=== PATIENT | male | born 1940 | race Caucasian/White ===

== ENCOUNTER → 2016-07-24 | Outpatient (REF) | payer MEDICARE ==
[2016-07-24 12:54] LABS: ALBUMIN 3.9 GM/DL (3.2-5.2); ALBUMIN/GLOBULIN RATIO 1.26 (1.00-1.93); ALKALINE PHOSPHATASE 45 U/L (45-117); ALT/SGPT 43 U/L (12-78); ANION GAP 12 MEQ/L (8-16); AST/SGOT 38 U/L (15-37); BLOOD UREA NITROGEN 17 MG/DL (7-18); CALCIUM LEVEL 8.5 MG/DL (8.8-10.2); CARBON DIOXIDE LEVEL 28 MEQ/L (21-32); CHLORIDE LEVEL 99 MEQ/L (98-107); CHOLESTEROL LEVEL 151 MG/DL (<200); CREATININE FOR GFR 1.12 MG/DL (0.70-1.30); GLOMERULAR FILTRATION RATE > 60.0 (>42); GLUCOSE, FASTING 266 MG/DL (83-110); POTASSIUM SERUM 3.9 MEQ/L (3.5-5.1); SODIUM LEVEL 139 MEQ/L (136-145); TRIGLYCERIDES LEVEL 580 MG/DL (<150)
== END | disposition home or self-care (01) ==
LOC: M SFHCPLAZ 12:11
PROVIDERS: ATTEND Internal Medicine
DX: I10 Essential (primary) hypertension (principal); E11.9 Type 2 diabetes mellitus without complications; E78.00 Pure hypercholesterolemia, unspecified

== ENCOUNTER → 2016-11-21 | Outpatient (REF) | payer MEDICARE ==
[2016-11-21 12:08] LABS: ALBUMIN 3.9 GM/DL (3.2-5.2); ALBUMIN/GLOBULIN RATIO 1.18 (1.00-1.93); ALKALINE PHOSPHATASE 53 U/L (45-117); ALT/SGPT 41 U/L (12-78); ANION GAP 7 MEQ/L (8-16); AST/SGOT 32 U/L (15-37); BILIRUBIN,TOTAL 0.6 MG/DL (0.2-1.0); BLOOD UREA NITROGEN 13 MG/DL (7-18); CARBON DIOXIDE LEVEL 32 MEQ/L (21-32); CHLORIDE LEVEL 96 MEQ/L (98-107); CHOLESTEROL LEVEL 151 MG/DL (<200); GLOMERULAR FILTRATION RATE > 60.0 (>42); GLUCOSE, FASTING 207 MG/DL (83-110); POTASSIUM SERUM 3.9 MEQ/L (3.5-5.1); SODIUM LEVEL 135 MEQ/L (136-145); TOTAL PROTEIN 7.2 GM/DL (6.4-8.2); TRIGLYCERIDES LEVEL 559 MG/DL (<150)
== END ==
LOC: M SFHCPLAZ 10:19
PROVIDERS: ATTEND Internal Medicine
DX: I10 Essential (primary) hypertension (principal); E11.9 Type 2 diabetes mellitus without complications; E78.00 Pure hypercholesterolemia, unspecified

== ENCOUNTER → 2017-01-14 | Outpatient (CLI) | payer MEDICARE ==
[~2017-01-14] MED LIST: ASPI1TAB PO; CHLO125TA PO; FISH100049 PO; GABA600T PO; LATA5OPD OD; LISI40TAB PO; METF750T PO; NABU500T PO; TIMO5OPG OD; TRAM50TA2 PO
--- NOTE | 2017-01-14 11:37 | REP ---
LUMBAR SPINE, FIVE VIEWS: HISTORY: Spinal stenosis. There is no acute fracture or subluxation. The intervertebral discs are decreased in height consistent with disc degeneration. Osteophytes are present throughout the lumbar spine. There is narrowing of the L3-4 through L5-S1 facet joints with associated sclerosis. IMPRESSION: Degenerative change as described above. Signed by Sterling Tyler MD 01/14/2017 11:46 A
== END ==
LOC: M RAD 10:31
PROVIDERS: ATTEND Nurse Practitioner Family
DX: M48.06 Spinal stenosis, lumbar region (principal)

== ENCOUNTER 2017-01-22 08:41 | Outpatient (CLI) | payer MEDICARE ==
[~2017-01-22] VITALS: Ht 188 cm; Wt 131.5 kg
[2017-01-22] MEDS ORDERED: NS 1,000 ML IV ONE (09:00)
[2017-01-22] MEDS ORDERED: PROPOFOL 200 MG/20 ML VIAL As Ordered ONE (10:30)
[2017-01-22] MEDS ORDERED: LIDOCAINE 2% INJ 100 MG/5 ML SDV (FOR ANES.) As Ordered ONE (10:30)
--- NOTE | 2017-01-22 10:34 | ROOR ---
Patient Name: Ej Sandhu Procedure Date: 01/22/2017 10:12 AM Date of : 1940 Age: 76 Room: [facility] Gender: Male Note Status: Finalized Procedure: Colonoscopy Indications: High risk colon cancer surveillance: Personal history of colonic polyps Providers: Armand Brito Jr, MD Referring MD: Xavier Gonzalez MD Requesting Provider: Medicines: Propofol per Anesthesia Complications: No immediate complications. Procedure: Pre-Anesthesia Assessment: - Prior to the procedure, a History and Physical was performed, and patient medications and allergies were reviewed. The patient is competent. The risks and benefits of the procedure and the sedation options and risks were discussed with the patient. All questions were answered and informed consent was obtained. Patient identification and proposed procedure were verified by the physician and the nurse in the pre-procedure area and in the procedure room. Mental Status Examination: alert and oriented. Airway Examination: normal oropharyngeal airway and neck mobility. Respiratory Examination: clear to auscultation. CV Examination: normal. ASA Grade Assessment: II - A patient with mild systemic disease. After reviewing the risks and benefits, the patient was deemed in satisfactory condition to undergo the procedure. The anesthesia plan was to use moderate sedation / analgesia (conscious sedation). Immediately prior to administration of medications, the patient was re-assessed for adequacy to receive sedatives. The heart rate, respiratory rate, oxygen saturations, blood pressure, adequacy of pulmonary ventilation, and response to care were monitored throughout the procedure. The physical status of the patient was re-assessed after the procedure. The Colonoscope was introduced through the anus and advanced to the cecum, identified by appendiceal orifice and ileocecal valve. The colonoscopy was performed without difficulty. The patient tolerated the procedure well. The quality of the bowel preparation was poor. Findings: The perianal and digital rectal examinations were normal. Pertinent negatives include normal sphincter tone, no palpable rectal lesions and no anal lesion or abnormality was detected. A medium polyp was found in the ascending colon. The polyp was removed with a hot snare. Resection was complete, but the polyp tissue was not retrieved. Multiple small and large-mouthed diverticula were found in the sigmoid colon. The rectum, descending colon and transverse colon appeared normal. Impression: - Preparation of the colon was poor. - One medium polyp in the ascending colon, removed with a hot snare. Complete resection. Polyp tissue not retrieved. - Diverticulosis in the sigmoid colon. - The rectum, descending colon and transverse colon are normal. Recommendation: - Discharge patient to home (ambulatory). - Repeat colonoscopy in 5 years for surveillance. Armand Brito MD Armand Brito Jr, MD 01/22/2017 10:34:30 AM This report has been signed electronically. Number of Addenda: 0 Note Initiated On: 01/22/2017 10:12 AM Estimated Blood Loss: Estimated blood loss: none.
[2017-01-22 10:55] VITALS: BP 121/67
== END 2017-01-22 11:16 | disposition home or self-care (01) ==
LOC: M OPP 08:41
PROVIDERS: ATTEND Surgery
DX: Z12.11 Encounter for screening for malignant neoplasm of colon (principal); D12.2 Benign neoplasm of ascending colon; K57.30 Diverticulosis of large intestine without perforation or abscess without bleeding; Z86.010 Personal history of colon polyps; I10 Essential (primary) hypertension; E11.9 Type 2 diabetes mellitus without complications; Z79.4 Long term (current) use of insulin; F41.9 Anxiety disorder, unspecified; F32.9 Major depressive disorder, single episode, unspecified; M19.90 Unspecified osteoarthritis, unspecified site; M54.9 Dorsalgia, unspecified; G47.30 Sleep apnea, unspecified; M48.00 Spinal stenosis, site unspecified; Z85.46 Personal history of malignant neoplasm of prostate; Z79.82 Long term (current) use of aspirin; Z79.84 Long term (current) use of oral hypoglycemic drugs; Z79.891 Long term (current) use of opiate analgesic; Z79.899 Other long term (current) drug therapy; Z87.891 Personal history of nicotine dependence

== ENCOUNTER → 2017-04-01 | Outpatient (REF) | payer MEDICARE ==
[2017-04-01 12:16] LABS: MEAN CORPUSCULAR HEMOGLOBIN 30.6 pg (27.0-33.0); MEAN CORPUSCULAR HGB CONC 33.4 g/dl (32.0-36.5); MEAN CORPUSCULAR VOLUME 91.5 fl (80.0-96.0); PLATELET COUNT, AUTOMATED 130 10^3/uL (150-450); RED CELL DISTRIBUTION WIDTH 14.2 % (11.5-14.5); WHITE BLOOD COUNT 7.1 10^3/uL (4.0-10.0)
[2017-04-01 12:36] LABS: ALBUMIN 4.2 GM/DL (3.2-5.2); ALBUMIN/GLOBULIN RATIO 1.27 (1.00-1.93); ALKALINE PHOSPHATASE 60 U/L (45-117); ALT/SGPT 30 U/L (12-78); ANION GAP 6 MEQ/L (8-16); AST/SGOT 23 U/L (15-37); BILIRUBIN,TOTAL 0.9 MG/DL (0.2-1.0); BLOOD UREA NITROGEN 24 MG/DL (7-18); CALCIUM LEVEL 9.5 MG/DL (8.8-10.2); CARBON DIOXIDE LEVEL 34 MEQ/L (21-32); CHLORIDE LEVEL 96 MEQ/L (98-107); CHOLESTEROL LEVEL 148 MG/DL (<200); CREATININE FOR GFR 1.16 MG/DL (0.70-1.30); GLOMERULAR FILTRATION RATE > 60.0 (>42); GLUCOSE, FASTING 166 MG/DL (83-110); MAGNESIUM LEVEL 1.6 MG/DL (1.8-2.4); POTASSIUM SERUM 3.5 MEQ/L (3.5-5.1); SODIUM LEVEL 136 MEQ/L (136-145); TOTAL PROTEIN 7.5 GM/DL (6.4-8.2); TRIGLYCERIDES LEVEL 458 MG/DL (<150)
== END ==
LOC: M SFHCPLAZ 08:50
PROVIDERS: ATTEND Internal Medicine
DX: Z00.00 Encounter for general adult medical examination without abnormal findings (principal); Z86.010 Personal history of colon polyps; I10 Essential (primary) hypertension; E11.9 Type 2 diabetes mellitus without complications; E78.2 Mixed hyperlipidemia

== ENCOUNTER → 2017-07-15 | Outpatient (REF) | payer MEDICARE ==
[2017-07-15 12:17] LABS: ESTIMATED AVERAGE GLUCOSE 174 MG/DL (60-110); HEMOGLOBIN A1c 7.7 %
[2017-07-15 12:24] LABS: ALBUMIN 3.9 GM/DL (3.2-5.2); ALBUMIN/GLOBULIN RATIO 1.18 (1.00-1.93); ALKALINE PHOSPHATASE 43 U/L (45-117); ALT/SGPT 36 U/L (12-78); ANION GAP 9 MEQ/L (8-16); AST/SGOT 27 U/L (7-37); BILIRUBIN,TOTAL 0.8 MG/DL (0.2-1.0); BLOOD UREA NITROGEN 12 MG/DL (7-18); CALCIUM LEVEL 8.4 MG/DL (8.8-10.2); CARBON DIOXIDE LEVEL 30 MEQ/L (21-32); CHLORIDE LEVEL 99 MEQ/L (98-107); CHOLESTEROL LEVEL 150 MG/DL (<200); CREATININE FOR GFR 0.86 MG/DL (0.70-1.30); GLOMERULAR FILTRATION RATE > 60.0 (>42); GLUCOSE, FASTING 147 MG/DL (70-100); HDL CHOLESTEROL 25 MG/DL (>40); MAGNESIUM LEVEL 1.4 MG/DL (1.8-2.4); NON-HDL-C 125 MG/DL; POTASSIUM SERUM 3.8 MEQ/L (3.5-5.1); SODIUM LEVEL 138 MEQ/L (136-145); TOTAL PROTEIN 7.2 GM/DL (6.4-8.2); TRIGLYCERIDES LEVEL 786 MG/DL (<150)
[2017-07-15 12:35] LABS: MALB URINE SIEMENS 60.9 MG/L; MAU/CREAT RATIO 21.1 MCG/MG (0.0-30.0)
== END ==
LOC: M SFHCPLAZ 09:39
DX: E78.2 Mixed hyperlipidemia (principal); I10 Essential (primary) hypertension; E11.9 Type 2 diabetes mellitus without complications
CPT/HCPCS: 83735

== ENCOUNTER → 2017-08-14 | Outpatient (REF) | payer MEDICARE ==
[2017-08-14 16:28] LABS: BLOOD UREA NITROGEN 15 MG/DL (7-18)
[2017-08-14 16:28] LABS: CREATININE FOR GFR 0.99 MG/DL (0.70-1.30); GLOMERULAR FILTRATION RATE > 60.0 (>42)
== END ==
LOC: M LABDRAW1 14:57
DX: M47.896 Other spondylosis, lumbar region (principal)
CPT/HCPCS: 82565

== ENCOUNTER → 2017-11-11 | Outpatient (REF) | payer MEDICARE ==
[2017-11-11 12:19] LABS: ESTIMATED AVERAGE GLUCOSE 240 MG/DL (60-110)
[2017-11-11 12:40] LABS: ALBUMIN 3.9 GM/DL (3.2-5.2); ALBUMIN/GLOBULIN RATIO 1.15 (1.00-1.93); ALKALINE PHOSPHATASE 56 U/L (45-117); ALT/SGPT 46 U/L (12-78); ANION GAP 14 MEQ/L (8-16); AST/SGOT 42 U/L (7-37); BILIRUBIN,TOTAL 0.9 MG/DL (0.2-1.0); BLOOD UREA NITROGEN 14 MG/DL (7-18); CARBON DIOXIDE LEVEL 26 MEQ/L (21-32); CHLORIDE LEVEL 97 MEQ/L (98-107); CHOLESTEROL LEVEL 110 MG/DL (<200); CREATININE FOR GFR 1.13 MG/DL (0.70-1.30); GLOMERULAR FILTRATION RATE > 60.0 (>42); GLUCOSE, FASTING 340 MG/DL (70-100); HDL CHOLESTEROL 26 MG/DL (>40); MAGNESIUM LEVEL 1.7 MG/DL (1.8-2.4); NON-HDL-C 84 MG/DL; POTASSIUM SERUM 3.9 MEQ/L (3.5-5.1); SODIUM LEVEL 137 MEQ/L (136-145); TOTAL PROTEIN 7.3 GM/DL (6.4-8.2); TRIGLYCERIDES LEVEL 558 MG/DL (<150)
[2017-11-11 12:48] LABS: HEPATITIS B SURFACE ANTIBODY NEGATIVE (POSITIVE)
[2017-11-11 12:59] LABS: HEPATITIS B SURFACE ANTIGEN NEGATIVE (NEGATIVE)
[2017-11-11 13:28] LABS: HEPATITIS C VIRUS ABY INDEX < 0.0 INDEX (<0.8)
== END ==
LOC: M SFHCPLAZ 10:04
DX: I10 Essential (primary) hypertension (principal); R16.0 Hepatomegaly, not elsewhere classified; E11.9 Type 2 diabetes mellitus without complications; E78.2 Mixed hyperlipidemia
CPT/HCPCS: 83735

== ENCOUNTER → 2018-01-25 | Outpatient (REF) | payer MEDICARE ==
[2018-01-25 13:46] LABS: HEMATOCRIT 39.4 % (42.0-52.0); HEMOGLOBIN 13.3 g/dl (13.5-17.5); MEAN CORPUSCULAR HGB CONC 33.8 g/dl (32.0-36.5); MEAN CORPUSCULAR VOLUME 94.7 fl (80.0-96.0); PLATELET COUNT, AUTOMATED 115 10^3/uL (150-450); RED BLOOD COUNT 4.16 10^6/uL (4.30-6.10); RED CELL DISTRIBUTION WIDTH 14.6 % (11.5-14.5); WHITE BLOOD COUNT 5.9 10^3/uL (4.0-10.0)
[2018-01-25 13:52] LABS: ALBUMIN 3.9 GM/DL (3.2-5.2); ALBUMIN/GLOBULIN RATIO 1.18 (1.00-1.93); ALKALINE PHOSPHATASE 43 U/L (45-117); ALT/SGPT 36 U/L (12-78); ANION GAP 10 MEQ/L (8-16); AST/SGOT 32 U/L (7-37); BILIRUBIN,TOTAL 1.2 MG/DL (0.2-1.0); BLOOD UREA NITROGEN 21 MG/DL (7-18); CALCIUM LEVEL 8.9 MG/DL (8.8-10.2); CARBON DIOXIDE LEVEL 28 MEQ/L (21-32); CHLORIDE LEVEL 100 MEQ/L (98-107); CHOLESTEROL LEVEL 96 MG/DL (<200); CHOLESTEROL RISK RATIO 3.096 (<5); CREATININE FOR GFR 1.23 MG/DL (0.70-1.30); GLOMERULAR FILTRATION RATE > 60.0 (>42); GLUCOSE, FASTING 169 MG/DL (70-100); HDL CHOLESTEROL 31 MG/DL (>40); MAGNESIUM LEVEL 1.6 MG/DL (1.8-2.4); NON-HDL-C 65 MG/DL; POTASSIUM SERUM 4.3 MEQ/L (3.5-5.1); SODIUM LEVEL 138 MEQ/L (136-145); TOTAL PROTEIN 7.2 GM/DL (6.4-8.2); TRIGLYCERIDES LEVEL 406 MG/DL (<150)
[2018-01-25 13:54] LABS: FOLATE > 24.0 NG/ML
[2018-01-25 14:31] LABS: VITAMIN B12 LEVEL 289 PG/ML
[2018-01-25 14:41] LABS: ESTIMATED AVERAGE GLUCOSE 209 MG/DL (60-110); HEMOGLOBIN A1c 8.9 %
[2018-01-28 18:14] LABS: MALB URINE SIEMENS 14.6 MG/L; MAU/CREAT RATIO 5.6 MCG/MG (0.0-30.0)
== END ==
LOC: M SFHCPLAZ 11:00
DX: E78.2 Mixed hyperlipidemia (principal); Z85.46 Personal history of malignant neoplasm of prostate; I10 Essential (primary) hypertension; E11.9 Type 2 diabetes mellitus without complications; R26.89 Other abnormalities of gait and mobility
CPT/HCPCS: 82746

== ENCOUNTER → 2018-02-22 | Outpatient (CLI) | payer MEDICARE ==
[~2018-02-22] MED LIST changes: -ASPI1TAB PO; -CHLO125TA PO; -FISH100049 PO; -GABA600T PO; +ISOVUE-370 76% 100ML VIAL (Q9967) As Ordered; -LATA5OPD OD; -LISI40TAB PO; -METF750T PO; -NABU500T PO; -TIMO5OPG OD; -TRAM50TA2 PO
== END ==
LOC: M RAD 16:47
DX: I70.0 Atherosclerosis of aorta (principal); R09.02 Hypoxemia; E11.9 Type 2 diabetes mellitus without complications
CPT/HCPCS: Q9967

== ENCOUNTER → 2018-02-22 | Outpatient (REF) | payer MEDICARE ==
[2018-02-22 17:11] LABS: HEMATOCRIT 39.8 % (42.0-52.0); HEMOGLOBIN 13.5 g/dl (13.5-17.5); MEAN CORPUSCULAR HEMOGLOBIN 32.5 pg (27.0-33.0); MEAN CORPUSCULAR HGB CONC 33.9 g/dl (32.0-36.5); MEAN CORPUSCULAR VOLUME 95.7 fl (80.0-96.0); PLATELET COUNT, AUTOMATED 122 10^3/uL (150-450); RED BLOOD COUNT 4.16 10^6/uL (4.30-6.10); RED CELL DISTRIBUTION WIDTH 15.4 % (11.5-14.5); WHITE BLOOD COUNT 5.9 10^3/uL (4.0-10.0)
[2018-02-22 17:43] LABS: ALBUMIN 3.7 GM/DL (3.2-5.2); ALBUMIN/GLOBULIN RATIO 1.09 (1.00-1.93); ALKALINE PHOSPHATASE 50 U/L (45-117); ALT/SGPT 110 U/L (12-78); ANION GAP 16 MEQ/L (8-16); AST/SGOT 194 U/L (7-37); BILIRUBIN,TOTAL 1.4 MG/DL (0.2-1.0); BLOOD UREA NITROGEN 27 MG/DL (7-18); CALCIUM LEVEL 9.4 MG/DL (8.8-10.2); CARBON DIOXIDE LEVEL 26 MEQ/L (21-32); CHLORIDE LEVEL 98 MEQ/L (98-107); CREATININE FOR GFR 1.76 MG/DL (0.70-1.30); GLOMERULAR FILTRATION RATE 40.2 (>42); GLUCOSE, FASTING 261 MG/DL (70-100); SODIUM LEVEL 140 MEQ/L (136-145); TOTAL PROTEIN 7.1 GM/DL (6.4-8.2)
[2018-02-23 10:13] LABS: CPK CREATINE PHOSPHOKINASE 3457 U/L (39-308); NT-PRO BNP 45 PG/ML (<450)
== END ==
LOC: M SFHCPLAZ 15:36
DX: E11.9 Type 2 diabetes mellitus without complications (principal); R09.02 Hypoxemia
CPT/HCPCS: 80053

== ENCOUNTER → 2018-02-25 | Outpatient (REF) | payer MEDICARE ==
[2018-02-25 14:07] LABS: ALBUMIN 3.9 GM/DL (3.2-5.2); ALBUMIN/GLOBULIN RATIO 1.11 (1.00-1.93); ALKALINE PHOSPHATASE 54 U/L (45-117); ALT/SGPT 79 U/L (12-78); ANION GAP 10 MEQ/L (8-16); AST/SGOT 93 U/L (7-37); BILIRUBIN,TOTAL 1.1 MG/DL (0.2-1.0); BLOOD UREA NITROGEN 38 MG/DL (7-18); CALCIUM LEVEL 9.1 MG/DL (8.8-10.2); CARBON DIOXIDE LEVEL 30 MEQ/L (21-32); CHLORIDE LEVEL 96 MEQ/L (98-107); CPK CREATINE PHOSPHOKINASE 977 U/L (39-308); GLOMERULAR FILTRATION RATE 52.3 (>42); GLUCOSE, FASTING 264 MG/DL (70-100); SODIUM LEVEL 136 MEQ/L (136-145); TOTAL PROTEIN 7.4 GM/DL (6.4-8.2)
== END ==
LOC: M SFHCPLAZ 12:33
DX: T79.6XXD Traumatic ischemia of muscle, subsequent encounter (principal); R74.8 Abnormal levels of other serum enzymes; W18.30XD Fall on same level, unspecified, subsequent encounter; Y92.009 Unspecified place in unspecified non-institutional (private) residence as the place of occurrence of the external cause
CPT/HCPCS: 82550

== ENCOUNTER → 2018-03-02 | Outpatient (REF) | payer MEDICARE ==
[2018-03-02 20:01] LABS: ALBUMIN 4.1 GM/DL (3.2-5.2); ALBUMIN/GLOBULIN RATIO 1.17 (1.00-1.93); ALKALINE PHOSPHATASE 48 U/L (45-117); ALT/SGPT 55 U/L (12-78); ANION GAP 10 MEQ/L (8-16); AST/SGOT 44 U/L (7-37); BILIRUBIN,TOTAL 1.2 MG/DL (0.2-1.0); BLOOD UREA NITROGEN 28 MG/DL (7-18); CALCIUM LEVEL 9.3 MG/DL (8.8-10.2); CARBON DIOXIDE LEVEL 30 MEQ/L (21-32); CHLORIDE LEVEL 96 MEQ/L (98-107); CPK CREATINE PHOSPHOKINASE 441 U/L (39-308); CREATININE FOR GFR 1.44 MG/DL (0.70-1.30); GLOMERULAR FILTRATION RATE 50.6 (>42); GLUCOSE, FASTING 70 MG/DL (70-100); POTASSIUM SERUM 4.5 MEQ/L (3.5-5.1); SODIUM LEVEL 136 MEQ/L (136-145); TOTAL PROTEIN 7.6 GM/DL (6.4-8.2)
== END ==
LOC: M SFHCPLAZ 15:49
DX: R74.8 Abnormal levels of other serum enzymes (principal); T79.6XXD Traumatic ischemia of muscle, subsequent encounter; R09.02 Hypoxemia; E11.9 Type 2 diabetes mellitus without complications; M48.061 Spinal stenosis, lumbar region without neurogenic claudication; W19.XXXD Unspecified fall, subsequent encounter; I10 Essential (primary) hypertension; R16.0 Hepatomegaly, not elsewhere classified
CPT/HCPCS: 82550

== ENCOUNTER → 2018-03-22 | Outpatient (CLI) | payer MEDICARE | LOC: M CARPUL 10:03 | DX: R09.02 Hypoxemia (principal) | CPT/HCPCS: 93306 ==

== ENCOUNTER → 2018-04-10 | Outpatient (CLI) | payer MEDICARE | LOC: M RAD 12:41 | DX: M51.26 Other intervertebral disc displacement, lumbar region (principal); M48.061 Spinal stenosis, lumbar region without neurogenic claudication | CPT/HCPCS: 72148 ==

== ENCOUNTER 2018-05-09 12:18 | Inpatient (IN) | payer MEDICARE ==
[2018-05-09 13:08] LABS: BASO % 0.2 % (0.0-1.0); EOS % 0.1 % (0.0-3.0); HEMATOCRIT 40.1 % (42.0-52.0); HEMOGLOBIN 13.2 g/dl (13.5-17.5); IMMATURE GRANULOCYTE % 0.7 % (0-3.0); LYMPH # 0.6 10^3/uL (1.5-4.5); LYMPH % 4.7 % (24.0-44.0); MEAN CORPUSCULAR HEMOGLOBIN 30.7 pg (27.0-33.0); MEAN CORPUSCULAR HGB CONC 32.9 g/dl (32.0-36.5); MEAN CORPUSCULAR VOLUME 93.3 fl (80.0-96.0); MONO # 1.1 10^3/uL (0.0-0.8); MONO % 8.7 % (0.0-5.0); NEUTROPHILS # 10.6 10^3/uL (1.8-7.7); NEUTROPHILS % 85.6 % (36.0-66.0); PLATELET COUNT, AUTOMATED 143 10^3/uL (150-450); RED CELL DISTRIBUTION WIDTH 14.1 % (11.5-14.5); WHITE BLOOD COUNT 12.3 10^3/uL (4.0-10.0)
[2018-05-09 13:43] LABS: ANION GAP 8 MEQ/L (8-16); BLOOD UREA NITROGEN 25 MG/DL (7-18); CALCIUM LEVEL 8.9 MG/DL (8.8-10.2); CARBON DIOXIDE LEVEL 30 MEQ/L (21-32); CHLORIDE LEVEL 97 MEQ/L (98-107); CPK CREATINE PHOSPHOKINASE 2713 U/L (39-308); CREATININE FOR GFR 1.13 MG/DL (0.70-1.30); GLOMERULAR FILTRATION RATE > 60.0 (>42); GLUCOSE, FASTING 304 MG/DL (70-100); MB/CK RELATIVE INDEX 0.22 (< OR =4); POTASSIUM SERUM 4.1 MEQ/L (3.5-5.1); SODIUM LEVEL 135 MEQ/L (136-145); TROPONIN I < 0.02 NG/ML (< 0.10)
[2018-05-09 14:06] LABS: AMORPHOUS SEDIMENT RFX SMALL (NEGATIVE); KETONE, URINE AUTO RFX TRACE mg/dL (NEGATIVE); NITRITE, URINE AUTO RFX NEGATIVE (NEGATIVE); RBC, URINE AUTO RFX 3 /HPF (0-3); SPECIFIC GRAVITY UR AUTO RFX 1.022 (1.002-1.035); SQUAM EPITHELIAL CELL UR AURFX 1 /HPF (0-6); WBC, URINE AUTO RFX 2 /HPF (0-3)
[2018-05-09 14:08] LABS: LACTIC ACID SEPSIS PROTOCOL 2.8 MMOL/L (0.4-2.0)
[2018-05-09 14:17] LABS: LEUKOCYTE ESTERASE UR AUTO RFX TRACE (NEGATIVE)
[2018-05-09] MEDS: NS 1,000 ML in APPROPRIATE DILUENT 1 EA IV (14:30)
[2018-05-09] MEDS: HumaLOG INSULIN (NovoLOG) PER UNIT SC (14:30)
[2018-05-09] MEDS: PIPERACILLIN/TAZOBACTAM SOD 3.375 GM in D5W MINI-BAG PLUS 50 ML IV ×2 (14:31→20:00)
[2018-05-09] MEDS: NS 1,000 ML IV (18:51)
[2018-05-09] MEDS: ACETAMINOPHEN TAB 650MG DOSE (2X325MG) PO (20:07)
[2018-05-09] MEDS: LISINOPRIL 40 MG TAB PO (21:14)
[2018-05-09] MEDS: GABAPENTIN 400 MG CAP PO (21:14)
[2018-05-09] MEDS: ATORVASTATIN 20 MG TAB PO (21:14)
[2018-05-09] MEDS: CHLORTHALIDONE 25 MG TAB PO (21:15)
[2018-05-09] MEDS: ASPIRIN 81 MG ENTERIC TAB PO (21:15)
[2018-05-09] MEDS: metFORMIN XR 750 MG TAB PO (21:38)
[2018-05-09] MEDS: OMEGA-3 1000MG CAPSULE PO (21:38)
[2018-05-10 01:53] LABS: LACTIC ACID SEPSIS PROTOCOL 1.5 MMOL/L (0.4-2.0)
[2018-05-10] MEDS: PIPERACILLIN/TAZOBACTAM SOD 3.375 GM in D5W MINI-BAG PLUS 50 ML IV ×3 (02:00→17:56)
[2018-05-10] MEDS: NS 1,000 ML IV ×2 (03:57→14:00)
[2018-05-10] MEDS: ACETAMINOPHEN TAB 650MG DOSE (2X325MG) PO ×2 (06:24→20:47)
[2018-05-10 07:06] LABS: BASO % 0.2 % (0.0-1.0); EOS % 0.1 % (0.0-3.0); HEMATOCRIT 37.2 % (42.0-52.0); IMMATURE GRANULOCYTE % 0.5 % (0-3.0); LYMPH # 0.8 10^3/uL (1.5-4.5); LYMPH % 6.2 % (24.0-44.0); MEAN CORPUSCULAR HEMOGLOBIN 30.8 pg (27.0-33.0); MEAN CORPUSCULAR HGB CONC 32.3 g/dl (32.0-36.5); MEAN CORPUSCULAR VOLUME 95.6 fl (80.0-96.0); MONO # 1.2 10^3/uL (0.0-0.8); NEUTROPHILS # 10.8 10^3/uL (1.8-7.7); PLATELET COUNT, AUTOMATED 136 10^3/uL (150-450); RED BLOOD COUNT 3.89 10^6/uL (4.30-6.10); RED CELL DISTRIBUTION WIDTH 14.3 % (11.5-14.5); WHITE BLOOD COUNT 12.8 10^3/uL (4.0-10.0)
[2018-05-10 07:44] LABS: ANION GAP 9 MEQ/L (8-16); BLOOD UREA NITROGEN 19 MG/DL (7-18); CALCIUM LEVEL 8.5 MG/DL (8.8-10.2); CARBON DIOXIDE LEVEL 28 MEQ/L (21-32); CHLORIDE LEVEL 99 MEQ/L (98-107); CPK CREATINE PHOSPHOKINASE 1320 U/L (39-308); CREATININE FOR GFR 0.98 MG/DL (0.70-1.30); GLOMERULAR FILTRATION RATE > 60.0 (>42); GLUCOSE, FASTING 245 MG/DL (70-100); POTASSIUM SERUM 4.2 MEQ/L (3.5-5.1); SODIUM LEVEL 136 MEQ/L (136-145)
[2018-05-10] MEDS ORDERED: GLUCOSE 4 GM CHEW TABLET PO (08:00)
[2018-05-10] MEDS ORDERED: DEXTROSE 50% 50 ML SYRINGE IV (08:00)
[2018-05-10] MEDS ORDERED: GLUCAGON FOR INJ 1 MG VIAL (J1610) SC (08:00)
[2018-05-10 08:10] LABS: HEMATOCRIT 36.4 % (42.0-52.0); HEMOGLOBIN 11.8 g/dl (13.5-17.5); MEAN CORPUSCULAR HGB CONC 32.4 g/dl (32.0-36.5); MEAN CORPUSCULAR VOLUME 95.5 fl (80.0-96.0); PLATELET COUNT, AUTOMATED 129 10^3/uL (150-450); RED BLOOD COUNT 3.81 10^6/uL (4.30-6.10); RED CELL DISTRIBUTION WIDTH 14.3 % (11.5-14.5); WHITE BLOOD COUNT 13.2 10^3/uL (4.0-10.0)
[2018-05-10 08:39] LABS: ANION GAP 9 MEQ/L (8-16); BLOOD UREA NITROGEN 22 MG/DL (7-18); CALCIUM LEVEL 8.2 MG/DL (8.8-10.2); CARBON DIOXIDE LEVEL 28 MEQ/L (21-32); CHLORIDE LEVEL 100 MEQ/L (98-107); CREATININE FOR GFR 0.86 MG/DL (0.70-1.30); GLOMERULAR FILTRATION RATE > 60.0 (>42); GLUCOSE, FASTING 264 MG/DL (70-100); POTASSIUM SERUM 3.9 MEQ/L (3.5-5.1); SODIUM LEVEL 137 MEQ/L (136-145); TROPONIN I < 0.02 NG/ML (< 0.10)
[2018-05-10] MEDS: HumaLOG INSULIN (NovoLOG) PER UNIT SC ×4 (08:46→20:47)
[2018-05-10] MEDS: GABAPENTIN 400 MG CAP PO ×3 (08:46→20:46)
[2018-05-10] MEDS: VANCOMYCIN HCL 1,000 MG, VIAL MATE ADAPTER 1 EACH in D5W 250 ML IV ×3 (08:47→22:48)
[2018-05-10 12:05] LABS: BEDSIDE GLUCOSE 269 MG/DL (83-110)
[2018-05-10] MEDS ORDERED: PROHANCE 279.3MG/ML 5ML VIAL (A9576) As Ordered (13:44)
[2018-05-10] MEDS ORDERED: PROHANCE 279.3MG/ML 15ML VIAL (A9576) As Ordered (13:45)
[2018-05-10 16:46] LABS: BEDSIDE GLUCOSE 221 MG/DL (83-110)
[2018-05-10] MEDS ORDERED: LIDOCAINE 1% MDV 20ML VIAL As Ordered (17:16)
[2018-05-10] MEDS: LIDOCAINE 1% MDV 20ML VIAL SC (17:54)
[2018-05-10] MEDS: ENOXAPARIN 40 MG/0.4 ML SYRINGE (J1650) SC (17:55)
[2018-05-10 18:13] LABS: CPK CREATINE PHOSPHOKINASE 990 U/L (39-308)
[2018-05-10 18:17] LABS: MUCIN CLOT TEST 4+ (4+)
[2018-05-10 18:24] LABS: APPEARANCE, BODY FLUID CLOTTED (CLEAR); CRYSTALS, BODY FLUID NONE SEEN (NONE SEEN); SOURCE, BODY FLUID RT ANKLE; SOURCE, BODY FLUID CRYSTALS RT ANKLE; SYNOVIAL FLUID COLOR AMBER (YELLOW)
[2018-05-10 18:26] LABS: SOURCE, BODY FLUID GLUCOSE RT ANKLE; SOURCE, BODY FLUID URIC ACID RT ANKLE; URIC ACID, BODY FLUID 2.8 MG/DL (NOT ESTABLISHED)
[2018-05-10] MEDS: LISINOPRIL 40 MG TAB PO (20:46)
[2018-05-10] MEDS: ASPIRIN 81 MG ENTERIC TAB PO (20:46)
[2018-05-10] MEDS: OMEGA-3 1000MG CAPSULE PO (20:46)
[2018-05-10] MEDS: CHLORTHALIDONE 25 MG TAB PO (20:46)
[2018-05-10] MEDS: ATORVASTATIN 20 MG TAB PO (20:46)
[2018-05-10 20:56] LABS: BEDSIDE GLUCOSE 160 MG/DL (83-110)
[2018-05-11] MEDS: PIPERACILLIN/TAZOBACTAM SOD 3.375 GM in D5W MINI-BAG PLUS 50 ML IV ×3 (00:35→12:07)
[2018-05-11 06:52] LABS: BASO % 0.2 % (0.0-1.0); EOS # 0.1 10^3/uL (0.0-0.50); EOS % 0.9 % (0.0-3.0); HEMATOCRIT 37.4 % (42.0-52.0); IMMATURE GRANULOCYTE % 0.7 % (0-3.0); LYMPH % 8.3 % (24.0-44.0); MEAN CORPUSCULAR HEMOGLOBIN 30.8 pg (27.0-33.0); MEAN CORPUSCULAR HGB CONC 32.1 g/dl (32.0-36.5); MEAN CORPUSCULAR VOLUME 95.9 fl (80.0-96.0); MONO # 1.1 10^3/uL (0.0-0.8); MONO % 9.3 % (0.0-5.0); NEUTROPHILS # 9.9 10^3/uL (1.8-7.7); NEUTROPHILS % 80.6 % (36.0-66.0); PLATELET COUNT, AUTOMATED 138 10^3/uL (150-450); RED CELL DISTRIBUTION WIDTH 14.3 % (11.5-14.5); WHITE BLOOD COUNT 12.2 10^3/uL (4.0-10.0)
[2018-05-11 07:27] LABS: ANION GAP 8 MEQ/L (8-16); BLOOD UREA NITROGEN 19 MG/DL (7-18); CALCIUM LEVEL 8.6 MG/DL (8.8-10.2); CARBON DIOXIDE LEVEL 30 MEQ/L (21-32); CHLORIDE LEVEL 98 MEQ/L (98-107); CPK CREATINE PHOSPHOKINASE 542 U/L (39-308); CREATININE FOR GFR 0.88 MG/DL (0.70-1.30); GLOMERULAR FILTRATION RATE > 60.0 (>42); GLUCOSE, FASTING 198 MG/DL (70-100); POTASSIUM SERUM 3.7 MEQ/L (3.5-5.1); SODIUM LEVEL 136 MEQ/L (136-145)
[2018-05-11] MEDS: HumaLOG INSULIN (NovoLOG) PER UNIT SC ×4 (07:30→21:00)
[2018-05-11] MEDS: ENOXAPARIN 40 MG/0.4 ML SYRINGE (J1650) SC (09:00)
[2018-05-11] MEDS: GABAPENTIN 400 MG CAP PO ×3 (09:05→23:23)
[2018-05-11] MEDS: VITAMIN D 1,000 INTERNATIONAL UNITS TABLET PO (09:05)
[2018-05-11] MEDS: VANCOMYCIN HCL 1,000 MG, VIAL MATE ADAPTER 1 EACH in D5W 250 ML IV ×2 (09:05→22:01)
[2018-05-11] MEDS: NS 1,000 ML IV ×3 (09:06→22:00)
[2018-05-11 11:41] LABS: BEDSIDE GLUCOSE 237 MG/DL (83-110)
[2018-05-11] MEDS ORDERED: MIDAZOLAM INJ 2 MG/2 ML VIAL (J2250) As Ordered (13:41)
[2018-05-11] MEDS ORDERED: PROPOFOL 200 MG/20 ML VIAL As Ordered (13:41)
[2018-05-11] MEDS ORDERED: fentaNYL 100 MCG/2 ML INJECTION (J3010) As Ordered (13:41)
[2018-05-11] MEDS ORDERED: LIDOCAINE 2% INJ 100 MG/5 ML SDV (FOR ANES.) As Ordered (13:41)
[2018-05-11 13:42] LABS: BODY FLUID RHEUMATOID SCREEN POSITIVE (NEGATIVE)
[2018-05-11] MEDS: cefTRIAXone SOD 2 GM in D5W MINI-BAG PLUS 50 ML IV (15:50)
[2018-05-11] MEDS ORDERED: ROCURONIUM BROMIDE 50 MG/5 ML VIAL As Ordered (16:49)
[2018-05-11] MEDS ORDERED: ONDANSETRON 4MG/2ML VIAL (J2405) As Ordered (16:50)
[2018-05-11] MEDS ORDERED: dexameTHASONE 4 MG/ML 1ML VIAL (J1100) As Ordered (16:50)
[2018-05-11] MEDS: diphenhydrAMINE 50 MG CAP PO ×2 (17:14→22:01)
[2018-05-11] MEDS: ZOSYN 3.375 GM VIAL (J2543) As Ordered (18:37)
[2018-05-11] MEDS ORDERED: GLYCOPYRROLATE INJ 0.2 MG/ML 2 ML VIAL As Ordered (18:59)
[2018-05-11] MEDS ORDERED: NEOSTIGMINE 10 MG/10 ML VIAL (J2710) As Ordered (18:59)
[2018-05-11] MEDS ORDERED: KETOROLAC 60 MG/2 ML VIAL (J1885) As Ordered (19:02)
[2018-05-11] MEDS ORDERED: PHENYLephrine HCL 500 MCG/5 ML (100MCG/ML) SYRINGE (J2370) As Ordered (19:09)
[2018-05-11] MEDS ORDERED: PROPOFOL 1,000 MG/100 ML VIAL As Ordered (20:05)
[2018-05-11] MEDS: PROPOFOL 1,000 MG in APPROPRIATE DILUENT 1 EA IV ×2 (20:15→22:01)
[2018-05-11 20:19] LABS: ABG BASE EXCESS -6.3 (-2.0-2.0); ABG HCO3 22.1 MEQ/L (22.0-26.0); ABG O2 SATURATION 95.3 % (95.0-99.0); ABG PARTIAL PRESSURE CO2 56.5 mmHg (35.0-45.0); ABG PARTIAL PRESSURE O2 94.7 mmHg (75.0-100.0); ABG STANDARD HCO3 19.3 MEQ/L (22.0-26.0); ABG TOTAL CO2 23.8 MEQ/L (23.0-31.0)
[2018-05-11] MEDS ORDERED: FUROSEMIDE 20 MG/2 ML VIAL (J1940) As Ordered (20:39)
[2018-05-11] MEDS: LISINOPRIL 40 MG TAB PO (21:00)
[2018-05-11] MEDS: OMEGA-3 1000MG CAPSULE PO (21:00)
[2018-05-11] MEDS: CHLORTHALIDONE 25 MG TAB PO (21:00)
[2018-05-11] MEDS: FUROSEMIDE 20 MG/2 ML VIAL (J1940) IV (21:30)
[2018-05-11 21:38] LABS: HEMATOCRIT 38.1 % (42.0-52.0); MEAN CORPUSCULAR HEMOGLOBIN 30.6 pg (27.0-33.0); MEAN CORPUSCULAR HGB CONC 31.5 g/dl (32.0-36.5); MEAN CORPUSCULAR VOLUME 97.2 fl (80.0-96.0); PLATELET COUNT, AUTOMATED 152 10^3/uL (150-450); RED BLOOD COUNT 3.92 10^6/uL (4.30-6.10); RED CELL DISTRIBUTION WIDTH 14.2 % (11.5-14.5); WHITE BLOOD COUNT 12.3 10^3/uL (4.0-10.0)
[2018-05-11 21:42] LABS: ABG BASE EXCESS -0.4 (-2.0-2.0); ABG HCO3 27.5 MEQ/L (22.0-26.0); ABG O2 SATURATION 97.4 % (95.0-99.0); ABG PARTIAL PRESSURE CO2 59.8 mmHg (35.0-45.0); ABG PARTIAL PRESSURE O2 105.2 mmHg (75.0-100.0); ABG STANDARD HCO3 24.2 MEQ/L (22.0-26.0); ABG TOTAL CO2 29.3 MEQ/L (23.0-31.0)
[2018-05-11 21:55] LABS: LACTIC ACID SEPSIS PROTOCOL 1.1 MMOL/L (0.4-2.0)
[2018-05-11] MEDS: ATORVASTATIN 20 MG TAB PO (22:01)
[2018-05-11] MEDS: ASPIRIN 81 MG ENTERIC TAB PO (22:01)
[2018-05-11 22:04] LABS: ALBUMIN 2.3 GM/DL (3.2-5.2); ALBUMIN/GLOBULIN RATIO 0.59 (1.00-1.93); ALKALINE PHOSPHATASE 99 U/L (45-117); ALT/SGPT 87 U/L (12-78); ANION GAP 7 MEQ/L (8-16); AST/SGOT 118 U/L (7-37); BILIRUBIN,TOTAL 1.4 MG/DL (0.2-1.0); BLOOD UREA NITROGEN 21 MG/DL (7-18); CALCIUM LEVEL 8.1 MG/DL (8.8-10.2); CARBON DIOXIDE LEVEL 29 MEQ/L (21-32); CHLORIDE LEVEL 98 MEQ/L (98-107); CPK CREATINE PHOSPHOKINASE 331 U/L (39-308); CREATININE FOR GFR 0.89 MG/DL (0.70-1.30); GLOMERULAR FILTRATION RATE > 60.0 (>42); GLUCOSE, FASTING 214 MG/DL (70-100); MB/CK RELATIVE INDEX 0.91 (< OR =4); POTASSIUM SERUM 4.7 MEQ/L (3.5-5.1); SODIUM LEVEL 134 MEQ/L (136-145); TOTAL PROTEIN 6.2 GM/DL (6.4-8.2); TROPONIN I < 0.02 NG/ML (< 0.10)
[2018-05-11] MEDS ORDERED: ACETAMINOPHEN TAB 650MG DOSE (2X325MG) PO (22:45)
[2018-05-12] MEDS: diphenhydrAMINE 50 MG CAP PO ×2 (00:24→04:11)
[2018-05-12] MEDS: PROPOFOL 1,000 MG in APPROPRIATE DILUENT 1 EA IV ×5 (04:11→23:29)
[2018-05-12 05:06] LABS: BASO % 0.1 % (0.0-1.0); HEMATOCRIT 35.6 % (42.0-52.0); HEMOGLOBIN 11.3 g/dl (13.5-17.5); LYMPH # 0.7 10^3/uL (1.5-4.5); LYMPH % 7.1 % (24.0-44.0); MEAN CORPUSCULAR HEMOGLOBIN 30.7 pg (27.0-33.0); MEAN CORPUSCULAR HGB CONC 31.7 g/dl (32.0-36.5); MEAN CORPUSCULAR VOLUME 96.7 fl (80.0-96.0); MONO # 0.5 10^3/uL (0.0-0.8); MONO % 5.5 % (0.0-5.0); NEUTROPHILS # 8.4 10^3/uL (1.8-7.7); NEUTROPHILS % 85.3 % (36.0-66.0); PLATELET COUNT, AUTOMATED 151 10^3/uL (150-450); RED BLOOD COUNT 3.68 10^6/uL (4.30-6.10); RED CELL DISTRIBUTION WIDTH 14.3 % (11.5-14.5); WHITE BLOOD COUNT 9.9 10^3/uL (4.0-10.0)
[2018-05-12 05:40] LABS: ANION GAP 9 MEQ/L (8-16); BLOOD UREA NITROGEN 26 MG/DL (7-18); CALCIUM LEVEL 8.5 MG/DL (8.8-10.2); CARBON DIOXIDE LEVEL 28 MEQ/L (21-32); CHLORIDE LEVEL 98 MEQ/L (98-107); CPK CREATINE PHOSPHOKINASE 178 U/L (39-308); CREATININE FOR GFR 1.11 MG/DL (0.70-1.30); GLOMERULAR FILTRATION RATE > 60.0 (>42); GLUCOSE, FASTING 257 MG/DL (70-100); MB/CK RELATIVE INDEX 1.18 (< OR =4); POTASSIUM SERUM 4.2 MEQ/L (3.5-5.1); SODIUM LEVEL 135 MEQ/L (136-145); TROPONIN I < 0.02 NG/ML (< 0.10)
[2018-05-12 06:10] LABS: ABG BASE EXCESS -1.3 (-2.0-2.0); ABG HCO3 24.2 MEQ/L (22.0-26.0); ABG O2 SATURATION 99.2 % (95.0-99.0); ABG PARTIAL PRESSURE CO2 43.8 mmHg (35.0-45.0); ABG PARTIAL PRESSURE O2 147.3 mmHg (75.0-100.0); ABG STANDARD HCO3 23.4 MEQ/L (22.0-26.0); ABG TOTAL CO2 25.6 MEQ/L (23.0-31.0); ABG pH (ARTERIAL) 7.361 UNITS (7.350-7.450)
[2018-05-12] MEDS: NS 1,000 ML IV (07:50)
[2018-05-12] MEDS: HumaLOG INSULIN (NovoLOG) PER UNIT SC ×6 (08:28→23:29)
[2018-05-12] MEDS: VANCOMYCIN HCL 1,000 MG, VIAL MATE ADAPTER 1 EACH in D5W 250 ML IV ×2 (08:45→20:07)
[2018-05-12] MEDS: GABAPENTIN 400 MG CAP PO ×3 (08:45→20:08)
[2018-05-12] MEDS: VITAMIN D 1,000 INTERNATIONAL UNITS TABLET PO (08:45)
[2018-05-12] MEDS: ENOXAPARIN 40 MG/0.4 ML SYRINGE (J1650) SC (08:46)
[2018-05-12 09:26] LABS: INR 1.31; PROTHROMBIN TIME 16.5 SECONDS (12.1-14.4)
[2018-05-12 09:27] LABS: PARTIAL THROMBOPLASTIN TIME 30.3 SECONDS (25.4-37.6)
[2018-05-12 12:22] LABS: BEDSIDE GLUCOSE 235 MG/DL (83-110)
[2018-05-12] MEDS: PANTOPRAZOLE 40MG INJ (PROTONIX) (C9113) IV (13:01)
[2018-05-12] MEDS: MORPHINE 4 MG/ML 1ML VIAL/SYRINGE (J2270) IV (13:02)
[2018-05-12 13:51] LABS: CPK CREATINE PHOSPHOKINASE 119 U/L (39-308); MB/CK RELATIVE INDEX 1.43 (< OR =4); TROPONIN I < 0.02 NG/ML (< 0.10)
[2018-05-12] MEDS ORDERED: LIDOCAINE 1% MDV 20ML VIAL As Ordered (14:22)
[2018-05-12 17:09] LABS: BEDSIDE GLUCOSE 195 MG/DL (83-110)
[2018-05-12] MEDS: LISINOPRIL 40 MG TAB PO (20:07)
[2018-05-12] MEDS: OMEGA-3 1000MG CAPSULE PO (20:08)
[2018-05-12] MEDS: ATORVASTATIN 20 MG TAB PO (20:08)
[2018-05-12] MEDS: CHLORTHALIDONE 25 MG TAB PO (20:08)
[2018-05-12] MEDS: ASPIRIN 81 MG ENTERIC TAB PO (20:08)
[2018-05-12 23:26] LABS: BEDSIDE GLUCOSE 204 MG/DL (83-110)
[2018-05-13 04:36] LABS: BASO % 0.3 % (0.0-1.0); EOS # 0.1 10^3/uL (0.0-0.50); EOS % 1.2 % (0.0-3.0); HEMOGLOBIN 10.9 g/dl (13.5-17.5); IMMATURE GRANULOCYTE % 1.9 % (0-3.0); LYMPH # 1.3 10^3/uL (1.5-4.5); LYMPH % 17.1 % (24.0-44.0); MEAN CORPUSCULAR HEMOGLOBIN 30.2 pg (27.0-33.0); MEAN CORPUSCULAR HGB CONC 31.1 g/dl (32.0-36.5); MONO # 0.8 10^3/uL (0.0-0.8); MONO % 10.4 % (0.0-5.0); NEUTROPHILS # 5.2 10^3/uL (1.8-7.7); NEUTROPHILS % 69.1 % (36.0-66.0); PLATELET COUNT, AUTOMATED 161 10^3/uL (150-450); RED BLOOD COUNT 3.61 10^6/uL (4.30-6.10); WHITE BLOOD COUNT 7.5 10^3/uL (4.0-10.0)
[2018-05-13 05:00] LABS: ALBUMIN 2.2 GM/DL (3.2-5.2); ALBUMIN/GLOBULIN RATIO 0.49 (1.00-1.93); ALKALINE PHOSPHATASE 96 U/L (45-117); ALT/SGPT 80 U/L (12-78); ANION GAP 7 MEQ/L (8-16); AST/SGOT 68 U/L (7-37); BILIRUBIN,TOTAL 0.8 MG/DL (0.2-1.0); BLOOD UREA NITROGEN 32 MG/DL (7-18); CALCIUM LEVEL 8.8 MG/DL (8.8-10.2); CARBON DIOXIDE LEVEL 31 MEQ/L (21-32); CHLORIDE LEVEL 100 MEQ/L (98-107); GLOMERULAR FILTRATION RATE > 60.0 (>42); GLUCOSE, FASTING 200 MG/DL (70-100); POTASSIUM SERUM 3.8 MEQ/L (3.5-5.1); SODIUM LEVEL 138 MEQ/L (136-145); TOTAL PROTEIN 6.7 GM/DL (6.4-8.2)
[2018-05-13] MEDS: HumaLOG INSULIN (NovoLOG) PER UNIT SC ×3 (05:30→17:46)
[2018-05-13] MEDS: SODIUM CHLORIDE 0.9% INJ 10 ML SYR IV ×2 (05:31→17:46)
[2018-05-13 06:07] LABS: ABG BASE EXCESS 6.5 (-2.0-2.0); ABG HCO3 31.6 MEQ/L (22.0-26.0); ABG O2 SATURATION 96.7 % (95.0-99.0); ABG PARTIAL PRESSURE CO2 47.8 mmHg (35.0-45.0); ABG PARTIAL PRESSURE O2 86.6 mmHg (75.0-100.0); ABG STANDARD HCO3 30.3 MEQ/L (22.0-26.0); ABG TOTAL CO2 33.1 MEQ/L (23.0-31.0); ABG pH (ARTERIAL) 7.438 UNITS (7.350-7.450)
[2018-05-13] MEDS: PANTOPRAZOLE 40MG INJ (PROTONIX) (C9113) IV (09:02)
[2018-05-13] MEDS: VITAMIN D 1,000 INTERNATIONAL UNITS TABLET PO (09:03)
[2018-05-13] MEDS: ENOXAPARIN 40 MG/0.4 ML SYRINGE (J1650) SC (09:03)
[2018-05-13] MEDS: GABAPENTIN 400 MG CAP PO ×3 (09:03→20:06)
[2018-05-13 09:29] LABS: VANCOMYCIN LEVEL TROUGH 9.3 UG/ML (10.0-20.0)
[2018-05-13] MEDS: VANCOMYCIN HCL 1,000 MG, VIAL MATE ADAPTER 1 EACH in D5W 250 ML IV ×2 (09:57→20:06)
[2018-05-13 10:14] LABS: ABG BASE EXCESS 3.7 (-2.0-2.0); ABG HCO3 28.5 MEQ/L (22.0-26.0); ABG O2 SATURATION 92.2 % (95.0-99.0); ABG PARTIAL PRESSURE CO2 44.3 mmHg (35.0-45.0); ABG PARTIAL PRESSURE O2 63.8 mmHg (75.0-100.0); ABG STANDARD HCO3 27.6 MEQ/L (22.0-26.0); ABG TOTAL CO2 29.9 MEQ/L (23.0-31.0); ABG pH (ARTERIAL) 7.427 UNITS (7.350-7.450)
[2018-05-13] MEDS: VANCOMYCIN HCL 500 MG in D5W MINI-BAG PLUS 100 ML IV ×2 (11:11→22:30)
[2018-05-13] MEDS: PROPOFOL 1,000 MG in APPROPRIATE DILUENT 1 EA IV ×2 (11:11→16:07)
[2018-05-13 12:15] LABS: BEDSIDE GLUCOSE 231 MG/DL (83-110)
[2018-05-13 17:21] LABS: BEDSIDE GLUCOSE 196 MG/DL (83-110)
[2018-05-13] MEDS: LISINOPRIL 40 MG TAB PO (20:06)
[2018-05-13] MEDS: ATORVASTATIN 20 MG TAB PO (20:06)
[2018-05-13] MEDS: CHLORTHALIDONE 25 MG TAB PO (20:06)
[2018-05-13] MEDS: OMEGA-3 1000MG CAPSULE PO (20:23)
[2018-05-13] MEDS: ASPIRIN 81 MG ENTERIC TAB PO (20:23)
[2018-05-14 00:19] LABS: BEDSIDE GLUCOSE 223 MG/DL (83-110)
[2018-05-14] MEDS: HumaLOG INSULIN (NovoLOG) PER UNIT SC ×5 (00:20→21:00)
[2018-05-14] MEDS: PROPOFOL 1,000 MG in APPROPRIATE DILUENT 1 EA IV ×2 (00:21→08:03)
[2018-05-14 05:11] LABS: BEDSIDE GLUCOSE 219 MG/DL (83-110)
[2018-05-14] MEDS: SODIUM CHLORIDE 0.9% INJ 10 ML SYR IV ×2 (05:11→17:18)
[2018-05-14 05:23] LABS: BASO % 0.5 % (0.0-1.0); EOS # 0.1 10^3/uL (0.0-0.50); EOS % 1.2 % (0.0-3.0); HEMATOCRIT 35.4 % (42.0-52.0); HEMOGLOBIN 11.3 g/dl (13.5-17.5); IMMATURE GRANULOCYTE % 3.9 % (0-3.0); LYMPH # 1.3 10^3/uL (1.5-4.5); LYMPH % 15.3 % (24.0-44.0); MEAN CORPUSCULAR HEMOGLOBIN 30.5 pg (27.0-33.0); MEAN CORPUSCULAR HGB CONC 31.9 g/dl (32.0-36.5); MEAN CORPUSCULAR VOLUME 95.7 fl (80.0-96.0); MONO # 0.8 10^3/uL (0.0-0.8); MONO % 9.2 % (0.0-5.0); NEUTROPHILS # 5.8 10^3/uL (1.8-7.7); NEUTROPHILS % 69.9 % (36.0-66.0); PLATELET COUNT, AUTOMATED 167 10^3/uL (150-450); RED CELL DISTRIBUTION WIDTH 13.9 % (11.5-14.5); WHITE BLOOD COUNT 8.2 10^3/uL (4.0-10.0)
[2018-05-14 05:48] LABS: ALBUMIN 2.2 GM/DL (3.2-5.2); ALBUMIN/GLOBULIN RATIO 0.59 (1.00-1.93); ALKALINE PHOSPHATASE 105 U/L (45-117); ALT/SGPT 86 U/L (12-78); ANION GAP 8 MEQ/L (8-16); AST/SGOT 70 U/L (7-37); BILIRUBIN,TOTAL 0.8 MG/DL (0.2-1.0); BLOOD UREA NITROGEN 23 MG/DL (7-18); C REACTIVE PROTEIN QUANTITATIV 7.23 MG/DL (0.00-0.30); CALCIUM LEVEL 8.3 MG/DL (8.8-10.2); CARBON DIOXIDE LEVEL 32 MEQ/L (21-32); CHLORIDE LEVEL 99 MEQ/L (98-107); GLOMERULAR FILTRATION RATE > 60.0 (>42); GLUCOSE, FASTING 210 MG/DL (70-100); POTASSIUM SERUM 3.9 MEQ/L (3.5-5.1); SODIUM LEVEL 139 MEQ/L (136-145); TOTAL PROTEIN 5.9 GM/DL (6.4-8.2)
[2018-05-14 06:05] LABS: ABG BASE EXCESS 7.4 (-2.0-2.0); ABG HCO3 31.9 MEQ/L (22.0-26.0); ABG O2 SATURATION 94.2 % (95.0-99.0); ABG PARTIAL PRESSURE CO2 44.4 mmHg (35.0-45.0); ABG PARTIAL PRESSURE O2 68.7 mmHg (75.0-100.0); ABG STANDARD HCO3 31.2 MEQ/L (22.0-26.0); ABG TOTAL CO2 33.2 MEQ/L (23.0-31.0); ABG pH (ARTERIAL) 7.474 UNITS (7.350-7.450)
[2018-05-14 08:37] LABS: VANCOMYCIN LEVEL TROUGH 11.2 UG/ML (10.0-20.0)
[2018-05-14] MEDS: ENOXAPARIN 40 MG/0.4 ML SYRINGE (J1650) SC (09:15)
[2018-05-14] MEDS: GABAPENTIN 400 MG CAP PO ×3 (09:16→20:21)
[2018-05-14] MEDS: VITAMIN D 1,000 INTERNATIONAL UNITS TABLET PO (09:16)
[2018-05-14] MEDS: PANTOPRAZOLE 40MG INJ (PROTONIX) (C9113) IV (09:16)
[2018-05-14] MEDS: VANCOMYCIN HCL 1,000 MG, VIAL MATE ADAPTER 1 EACH in D5W 250 ML IV ×2 (09:17→16:29)
[2018-05-14 11:49] LABS: BEDSIDE GLUCOSE 218 MG/DL (83-110)
[2018-05-14 17:18] LABS: BEDSIDE GLUCOSE 182 MG/DL (83-110)
[2018-05-14 19:53] LABS: BEDSIDE GLUCOSE 206 MG/DL (83-110)
[2018-05-14] MEDS: LISINOPRIL 40 MG TAB PO (20:20)
[2018-05-14] MEDS: CHLORTHALIDONE 25 MG TAB PO (20:20)
[2018-05-14] MEDS: OMEGA-3 1000MG CAPSULE PO (20:20)
[2018-05-14] MEDS: ASPIRIN 81 MG ENTERIC TAB PO (20:20)
[2018-05-15] MEDS: VANCOMYCIN HCL 1,000 MG, VIAL MATE ADAPTER 1 EACH in D5W 250 ML IV ×4 (01:39→22:15)
[2018-05-15 05:12] LABS: BASO % 0.4 % (0.0-1.0); EOS # 0.1 10^3/uL (0.0-0.50); EOS % 1.1 % (0.0-3.0); HEMATOCRIT 37.1 % (42.0-52.0); HEMOGLOBIN 12.1 g/dl (13.5-17.5); IMMATURE GRANULOCYTE % 3.8 % (0-3.0); LYMPH # 1.1 10^3/uL (1.5-4.5); LYMPH % 10.5 % (24.0-44.0); MEAN CORPUSCULAR HEMOGLOBIN 30.5 pg (27.0-33.0); MEAN CORPUSCULAR HGB CONC 32.6 g/dl (32.0-36.5); MEAN CORPUSCULAR VOLUME 93.5 fl (80.0-96.0); MONO # 0.9 10^3/uL (0.0-0.8); NEUTROPHILS # 8.2 10^3/uL (1.8-7.7); NEUTROPHILS % 76.2 % (36.0-66.0); PLATELET COUNT, AUTOMATED 186 10^3/uL (150-450); RED BLOOD COUNT 3.97 10^6/uL (4.30-6.10); RED CELL DISTRIBUTION WIDTH 13.6 % (11.5-14.5); WHITE BLOOD COUNT 10.8 10^3/uL (4.0-10.0)
[2018-05-15 05:42] LABS: ALBUMIN 2.3 GM/DL (3.2-5.2); ALBUMIN/GLOBULIN RATIO 0.58 (1.00-1.93); ALKALINE PHOSPHATASE 106 U/L (45-117); ALT/SGPT 71 U/L (12-78); ANION GAP 9 MEQ/L (8-16); AST/SGOT 49 U/L (7-37); BILIRUBIN,TOTAL 1.2 MG/DL (0.2-1.0); BLOOD UREA NITROGEN 19 MG/DL (7-18); C REACTIVE PROTEIN QUANTITATIV 6.79 MG/DL (0.00-0.30); CALCIUM LEVEL 8.3 MG/DL (8.8-10.2); CARBON DIOXIDE LEVEL 33 MEQ/L (21-32); CHLORIDE LEVEL 94 MEQ/L (98-107); FERRITIN 195 NG/ML (26-388); GLOMERULAR FILTRATION RATE > 60.0 (>42); GLUCOSE, FASTING 220 MG/DL (70-100); IRON (FE) 53 UG/DL (65-175); PERCENT SATURATION 21.8 % (19.7-50.0); POTASSIUM SERUM 3.9 MEQ/L (3.5-5.1); SODIUM LEVEL 136 MEQ/L (136-145); TOTAL IRON BINDING CAPACITY 243 UG/DL (250-450); TOTAL PROTEIN 6.3 GM/DL (6.4-8.2)
[2018-05-15 05:52] LABS: VITAMIN B12 LEVEL 554 PG/ML (247-911)
[2018-05-15] MEDS: SODIUM CHLORIDE 0.9% INJ 10 ML SYR IV ×2 (06:00→17:10)
[2018-05-15] MEDS: HumaLOG INSULIN (NovoLOG) PER UNIT SC ×4 (08:00→21:00)
[2018-05-15 08:41] LABS: VANCOMYCIN LEVEL TROUGH 11.8 UG/ML (10.0-20.0)
[2018-05-15] MEDS: VITAMIN D 1,000 INTERNATIONAL UNITS TABLET PO (09:04)
[2018-05-15] MEDS: PANTOPRAZOLE 40MG INJ (PROTONIX) (C9113) IV (09:06)
[2018-05-15] MEDS: ENOXAPARIN 40 MG/0.4 ML SYRINGE (J1650) SC (09:06)
[2018-05-15] MEDS: GABAPENTIN 400 MG CAP PO ×3 (09:06→20:55)
[2018-05-15 11:55] LABS: BEDSIDE GLUCOSE 246 MG/DL (83-110)
[2018-05-15 16:47] LABS: BEDSIDE GLUCOSE 239 MG/DL (83-110)
[2018-05-15 20:06] LABS: BEDSIDE GLUCOSE 221 MG/DL (83-110)
[2018-05-15] MEDS: LISINOPRIL 40 MG TAB PO (20:55)
[2018-05-15] MEDS: OMEGA-3 1000MG CAPSULE PO (20:55)
[2018-05-15] MEDS: CHLORTHALIDONE 25 MG TAB PO (20:55)
[2018-05-15] MEDS: ASPIRIN 81 MG ENTERIC TAB PO (20:55)
[2018-05-16] MEDS: VANCOMYCIN HCL 1,000 MG, VIAL MATE ADAPTER 1 EACH in D5W 250 ML IV ×3 (05:13→22:13)
[2018-05-16] MEDS: SODIUM CHLORIDE 0.9% INJ 10 ML SYR IV ×2 (05:13→17:00)
[2018-05-16 05:37] LABS: BASO # 0.1 10^3/uL (0.0-0.2); BASO % 0.4 % (0.0-1.0); EOS # 0.2 10^3/uL (0.0-0.50); EOS % 1.3 % (0.0-3.0); HEMATOCRIT 36.8 % (42.0-52.0); HEMOGLOBIN 12.1 g/dl (13.5-17.5); IMMATURE GRANULOCYTE % 3.6 % (0-3.0); LYMPH # 1.6 10^3/uL (1.5-4.5); LYMPH % 11.9 % (24.0-44.0); MEAN CORPUSCULAR HEMOGLOBIN 30.1 pg (27.0-33.0); MEAN CORPUSCULAR HGB CONC 32.9 g/dl (32.0-36.5); MEAN CORPUSCULAR VOLUME 91.5 fl (80.0-96.0); MONO % 7.7 % (0.0-5.0); NEUTROPHILS % 75.1 % (36.0-66.0); PLATELET COUNT, AUTOMATED 207 10^3/uL (150-450); RED BLOOD COUNT 4.02 10^6/uL (4.30-6.10); RED CELL DISTRIBUTION WIDTH 13.7 % (11.5-14.5); WHITE BLOOD COUNT 13.3 10^3/uL (4.0-10.0)
[2018-05-16 05:54] LABS: ALBUMIN 2.6 GM/DL (3.2-5.2); ALBUMIN/GLOBULIN RATIO 0.67 (1.00-1.93); ALKALINE PHOSPHATASE 106 U/L (45-117); ALT/SGPT 70 U/L (12-78); ANION GAP 7 MEQ/L (8-16); AST/SGOT 52 U/L (7-37); BILIRUBIN,TOTAL 1.4 MG/DL (0.2-1.0); BLOOD UREA NITROGEN 25 MG/DL (7-18); C REACTIVE PROTEIN QUANTITATIV 5.47 MG/DL (0.00-0.30); CALCIUM LEVEL 8.8 MG/DL (8.8-10.2); CARBON DIOXIDE LEVEL 33 MEQ/L (21-32); CHLORIDE LEVEL 92 MEQ/L (98-107); CREATININE FOR GFR 1.09 MG/DL (0.70-1.30); GLOMERULAR FILTRATION RATE > 60.0 (>42); GLUCOSE, FASTING 219 MG/DL (70-100); SODIUM LEVEL 132 MEQ/L (136-145); TOTAL PROTEIN 6.5 GM/DL (6.4-8.2)
[2018-05-16] MEDS: HumaLOG INSULIN (NovoLOG) PER UNIT SC ×4 (08:36→20:26)
[2018-05-16] MEDS: VITAMIN D 1,000 INTERNATIONAL UNITS TABLET PO (08:37)
[2018-05-16] MEDS: PANTOPRAZOLE 40MG TAB (PROTONIX) PO (08:37)
[2018-05-16] MEDS: GABAPENTIN 400 MG CAP PO ×3 (08:37→20:26)
[2018-05-16] MEDS: ENOXAPARIN 40 MG/0.4 ML SYRINGE (J1650) SC (08:37)
[2018-05-16 12:03] LABS: BEDSIDE GLUCOSE 293 MG/DL (83-110)
[2018-05-16 16:52] LABS: BEDSIDE GLUCOSE 218 MG/DL (83-110)
[2018-05-16 20:25] LABS: BEDSIDE GLUCOSE 229 MG/DL (83-110)
[2018-05-16] MEDS: CHLORTHALIDONE 25 MG TAB PO (20:25)
[2018-05-16] MEDS: ASPIRIN 81 MG ENTERIC TAB PO (20:25)
[2018-05-16] MEDS: OMEGA-3 1000MG CAPSULE PO (20:26)
[2018-05-16] MEDS: LISINOPRIL 40 MG TAB PO (20:26)
[2018-05-17 05:08] LABS: BASO % 0.3 % (0.0-1.0); EOS # 0.2 10^3/uL (0.0-0.50); EOS % 1.7 % (0.0-3.0); IMMATURE GRANULOCYTE % 2.3 % (0-3.0); LYMPH # 1.4 10^3/uL (1.5-4.5); LYMPH % 13.1 % (24.0-44.0); MEAN CORPUSCULAR HEMOGLOBIN 30.2 pg (27.0-33.0); MEAN CORPUSCULAR HGB CONC 33.3 g/dl (32.0-36.5); MEAN CORPUSCULAR VOLUME 90.5 fl (80.0-96.0); MONO # 0.9 10^3/uL (0.0-0.8); MONO % 8.3 % (0.0-5.0); NEUTROPHILS # 7.7 10^3/uL (1.8-7.7); NEUTROPHILS % 74.3 % (36.0-66.0); PLATELET COUNT, AUTOMATED 187 10^3/uL (150-450); RED BLOOD COUNT 3.98 10^6/uL (4.30-6.10); RED CELL DISTRIBUTION WIDTH 13.9 % (11.5-14.5); WHITE BLOOD COUNT 10.4 10^3/uL (4.0-10.0)
[2018-05-17 05:40] LABS: ALBUMIN 2.6 GM/DL (3.2-5.2); ALBUMIN/GLOBULIN RATIO 0.63 (1.00-1.93); ALKALINE PHOSPHATASE 98 U/L (45-117); ALT/SGPT 70 U/L (12-78); ANION GAP 6 MEQ/L (8-16); AST/SGOT 45 U/L (7-37); BILIRUBIN,TOTAL 1.2 MG/DL (0.2-1.0); BLOOD UREA NITROGEN 34 MG/DL (7-18); C REACTIVE PROTEIN QUANTITATIV 3.78 MG/DL (0.00-0.30); CALCIUM LEVEL 8.9 MG/DL (8.8-10.2); CARBON DIOXIDE LEVEL 34 MEQ/L (21-32); CHLORIDE LEVEL 92 MEQ/L (98-107); CREATININE FOR GFR 1.12 MG/DL (0.70-1.30); GLOMERULAR FILTRATION RATE > 60.0 (>42); GLUCOSE, FASTING 253 MG/DL (70-100); POTASSIUM SERUM 4.1 MEQ/L (3.5-5.1); SODIUM LEVEL 132 MEQ/L (136-145); TOTAL PROTEIN 6.7 GM/DL (6.4-8.2); VANCOMYCIN LEVEL TROUGH 18.9 UG/ML (10.0-20.0)
[2018-05-17] MEDS: SODIUM CHLORIDE 0.9% INJ 10 ML SYR IV ×4 (06:00→22:53)
[2018-05-17] MEDS: VANCOMYCIN HCL 1,000 MG, VIAL MATE ADAPTER 1 EACH in D5W 250 ML IV ×3 (06:09→21:34)
[2018-05-17] MEDS: GABAPENTIN 400 MG CAP PO ×3 (08:14→20:34)
[2018-05-17] MEDS: HumaLOG INSULIN (NovoLOG) PER UNIT SC ×4 (08:14→20:34)
[2018-05-17] MEDS: VITAMIN D 1,000 INTERNATIONAL UNITS TABLET PO (08:14)
[2018-05-17] MEDS: PANTOPRAZOLE 40MG TAB (PROTONIX) PO (08:14)
[2018-05-17] MEDS: ENOXAPARIN 40 MG/0.4 ML SYRINGE (J1650) SC (08:15)
[2018-05-17 10:46] LABS: FOLATE 22.5 NG/ML (>5.4)
[2018-05-17 11:52] LABS: BEDSIDE GLUCOSE 245 MG/DL (83-110)
[2018-05-17 16:58] LABS: BEDSIDE GLUCOSE 215 MG/DL (83-110)
[2018-05-17] MEDS: ASPIRIN 81 MG ENTERIC TAB PO (20:33)
[2018-05-17 20:34] LABS: BEDSIDE GLUCOSE 196 MG/DL (83-110)
[2018-05-17] MEDS: OMEGA-3 1000MG CAPSULE PO (20:34)
[2018-05-17] MEDS: CHLORTHALIDONE 25 MG TAB PO (20:36)
[2018-05-17] MEDS: LISINOPRIL 40 MG TAB PO (20:36)
[2018-05-18] MEDS: SODIUM CHLORIDE 0.9% INJ 10 ML SYR IV ×4 (05:44→22:38)
[2018-05-18 06:23] LABS: ALBUMIN 2.3 GM/DL (3.2-5.2); ALKALINE PHOSPHATASE 88 U/L (45-117); ALT/SGPT 64 U/L (12-78); ANION GAP 8 MEQ/L (8-16); AST/SGOT 40 U/L (7-37); BLOOD UREA NITROGEN 35 MG/DL (7-18); CALCIUM LEVEL 8.6 MG/DL (8.8-10.2); CARBON DIOXIDE LEVEL 31 MEQ/L (21-32); CHLORIDE LEVEL 93 MEQ/L (98-107); CREATININE FOR GFR 1.15 MG/DL (0.70-1.30); GLOMERULAR FILTRATION RATE > 60.0 (>42); GLUCOSE, FASTING 213 MG/DL (70-100); POTASSIUM SERUM 3.8 MEQ/L (3.5-5.1); SODIUM LEVEL 132 MEQ/L (136-145); TOTAL PROTEIN 6.9 GM/DL (6.4-8.2)
[2018-05-18 07:43] LABS: HEMATOCRIT 36.4 % (42.0-52.0); HEMOGLOBIN 12.1 g/dl (13.5-17.5); MEAN CORPUSCULAR HEMOGLOBIN 30.7 pg (27.0-33.0); MEAN CORPUSCULAR HGB CONC 33.2 g/dl (32.0-36.5); MEAN CORPUSCULAR VOLUME 92.4 fl (80.0-96.0); PLATELET COUNT, AUTOMATED 219 10^3/uL (150-450); RED BLOOD COUNT 3.94 10^6/uL (4.30-6.10); RED CELL DISTRIBUTION WIDTH 13.9 % (11.5-14.5); WHITE BLOOD COUNT 11.7 10^3/uL (4.0-10.0)
[2018-05-18] MEDS: HumaLOG INSULIN (NovoLOG) PER UNIT SC ×4 (07:53→20:06)
[2018-05-18] MEDS: ENOXAPARIN 40 MG/0.4 ML SYRINGE (J1650) SC (09:28)
[2018-05-18] MEDS: VITAMIN D 1,000 INTERNATIONAL UNITS TABLET PO (10:28)
[2018-05-18] MEDS: GABAPENTIN 400 MG CAP PO ×3 (10:28→20:18)
[2018-05-18] MEDS: PANTOPRAZOLE 40MG TAB (PROTONIX) PO (10:28)
[2018-05-18] MEDS: VANCOMYCIN HCL 1,000 MG, VIAL MATE ADAPTER 1 EACH in D5W 250 ML IV ×2 (11:09→21:21)
[2018-05-18 11:43] LABS: BEDSIDE GLUCOSE 252 MG/DL (83-110)
[2018-05-18] MEDS: ACETAMINOPHEN TAB 650MG DOSE (2X325MG) PO (15:04)
[2018-05-18 16:33] LABS: BEDSIDE GLUCOSE 211 MG/DL (83-110)
[2018-05-18] MEDS: METAMUCIL (PSYLLIUM) PACKET PO (17:04)
[2018-05-18 20:09] LABS: BEDSIDE GLUCOSE 246 MG/DL (83-110)
[2018-05-18] MEDS: CHLORTHALIDONE 25 MG TAB PO (20:18)
[2018-05-18] MEDS: ASPIRIN 81 MG ENTERIC TAB PO (20:18)
[2018-05-18] MEDS: OMEGA-3 1000MG CAPSULE PO (20:18)
[2018-05-18] MEDS: LISINOPRIL 40 MG TAB PO (20:22)
[2018-05-19] MEDS: SODIUM CHLORIDE 0.9% INJ 10 ML SYR IV ×2 (05:37→12:04)
[2018-05-19 06:00] LABS: HEMATOCRIT 35.1 % (42.0-52.0); HEMOGLOBIN 11.6 g/dl (13.5-17.5); MEAN CORPUSCULAR HEMOGLOBIN 30.4 pg (27.0-33.0); MEAN CORPUSCULAR VOLUME 91.9 fl (80.0-96.0); PLATELET COUNT, AUTOMATED 215 10^3/uL (150-450); RED BLOOD COUNT 3.82 10^6/uL (4.30-6.10); RED CELL DISTRIBUTION WIDTH 13.8 % (11.5-14.5); WHITE BLOOD COUNT 10.6 10^3/uL (4.0-10.0)
[2018-05-19 06:23] LABS: ANION GAP 5 MEQ/L (8-16); BLOOD UREA NITROGEN 34 MG/DL (7-18); CALCIUM LEVEL 9.1 MG/DL (8.8-10.2); CARBON DIOXIDE LEVEL 33 MEQ/L (21-32); CHLORIDE LEVEL 94 MEQ/L (98-107); CREATININE FOR GFR 1.14 MG/DL (0.70-1.30); GLOMERULAR FILTRATION RATE > 60.0 (>42); GLUCOSE, FASTING 225 MG/DL (70-100); POTASSIUM SERUM 3.9 MEQ/L (3.5-5.1); SODIUM LEVEL 132 MEQ/L (136-145)
[2018-05-19] MEDS: ENOXAPARIN 40 MG/0.4 ML SYRINGE (J1650) SC (07:51)
[2018-05-19] MEDS: HumaLOG INSULIN (NovoLOG) PER UNIT SC ×4 (07:51→21:30)
[2018-05-19] MEDS: GABAPENTIN 400 MG CAP PO ×3 (09:53→21:30)
[2018-05-19] MEDS: METAMUCIL (PSYLLIUM) PACKET PO (09:54)
[2018-05-19] MEDS: VITAMIN D 1,000 INTERNATIONAL UNITS TABLET PO (09:54)
[2018-05-19] MEDS: PANTOPRAZOLE 40MG TAB (PROTONIX) PO (09:54)
[2018-05-19] MEDS: SENOKOT S TAB PO ×2 (09:54→21:30)
[2018-05-19] MEDS: VANCOMYCIN HCL 1,000 MG, VIAL MATE ADAPTER 1 EACH in D5W 250 ML IV ×2 (10:27→21:30)
[2018-05-19 11:27] LABS: BEDSIDE GLUCOSE 342 MG/DL (83-110)
[2018-05-19] MEDS ORDERED: SENOKOT S TAB PO (12:30)
[2018-05-19 14:21] LABS: ANTI-SMOOTH MUSCLE ANTIBODY 16 Units (0-19)
[2018-05-19 14:21] LABS: ALPHA 1 ANTITRYPSIN 231 mg/dL (90-200); ANTI-MITOCHONDRIAL ANTIBODY 5.5 Units (0.0-20.0); ANTINUCLEAR ANTIBODIES DIRECT Negative (Negative); CERULOPLASMIN 38.6 mg/dL (16.0-31.0); ENDOMYSIAL ABY IgA Negative (Negative); HEPATITIS A IgG TOTAL Negative (Negative); TISSUE TRANSGLUTAMINASE IgA <2 U/mL (0-3)
[2018-05-19] MEDS: FUROSEMIDE 40 MG/4 ML VIAL (J1940) IV (15:26)
[2018-05-19 16:47] LABS: BEDSIDE GLUCOSE 212 MG/DL (83-110)
[2018-05-19] MEDS ORDERED: WARFARIN SOD 3 MG TAB PO (17:00)
[2018-05-19] MEDS ORDERED: PILL CRUSHER/CUTTER 1 EACH XX (19:15)
[2018-05-19 20:45] LABS: BEDSIDE GLUCOSE 240 MG/DL (83-110)
[2018-05-19] MEDS: CHLORTHALIDONE 25 MG TAB PO (21:30)
[2018-05-19] MEDS: ASPIRIN 81 MG ENTERIC TAB PO (21:30)
[2018-05-19] MEDS: OMEGA-3 1000MG CAPSULE PO (21:30)
[2018-05-19] MEDS: LISINOPRIL 40 MG TAB PO (21:30)
[2018-05-20] MEDS: SODIUM CHLORIDE 0.9% INJ 10 ML SYR IV ×2 (05:20→16:55)
[2018-05-20 05:38] LABS: HEMATOCRIT 33.8 % (42.0-52.0); HEMOGLOBIN 11.2 g/dl (13.5-17.5); MEAN CORPUSCULAR HEMOGLOBIN 30.7 pg (27.0-33.0); MEAN CORPUSCULAR HGB CONC 33.1 g/dl (32.0-36.5); MEAN CORPUSCULAR VOLUME 92.6 fl (80.0-96.0); PLATELET COUNT, AUTOMATED 219 10^3/uL (150-450); RED BLOOD COUNT 3.65 10^6/uL (4.30-6.10); WHITE BLOOD COUNT 9.3 10^3/uL (4.0-10.0)
[2018-05-20 06:04] LABS: ANION GAP 7 MEQ/L (8-16); BLOOD UREA NITROGEN 31 MG/DL (7-18); CALCIUM LEVEL 8.8 MG/DL (8.8-10.2); CARBON DIOXIDE LEVEL 33 MEQ/L (21-32); CHLORIDE LEVEL 93 MEQ/L (98-107); CREATININE FOR GFR 1.13 MG/DL (0.70-1.30); GLOMERULAR FILTRATION RATE > 60.0 (>42); GLUCOSE, FASTING 221 MG/DL (70-100); SODIUM LEVEL 133 MEQ/L (136-145)
[2018-05-20] MEDS: HumaLOG INSULIN (NovoLOG) PER UNIT SC ×4 (07:30→21:00)
[2018-05-20] MEDS: PANTOPRAZOLE 40MG TAB (PROTONIX) PO (09:04)
[2018-05-20] MEDS: VITAMIN D 1,000 INTERNATIONAL UNITS TABLET PO (09:04)
[2018-05-20] MEDS: SENOKOT S TAB PO ×2 (09:05→22:12)
[2018-05-20] MEDS: GABAPENTIN 400 MG CAP PO ×3 (09:05→22:12)
[2018-05-20] MEDS: VANCOMYCIN HCL 1,000 MG, VIAL MATE ADAPTER 1 EACH in D5W 250 ML IV ×2 (09:45→22:30)
[2018-05-20] MEDS: FUROSEMIDE 40 MG/4 ML VIAL (J1940) IV (09:46)
[2018-05-20] MEDS: ENOXAPARIN 40 MG/0.4 ML SYRINGE (J1650) SC (09:46)
[2018-05-20] MEDS: ACETAMINOPHEN TAB 650MG DOSE (2X325MG) PO ×2 (10:25)
[2018-05-20 11:41] LABS: BEDSIDE GLUCOSE 289 MG/DL (83-110)
[2018-05-20 12:36] LABS: ALBUMIN 2.6 GM/DL (3.2-5.2); ALBUMIN/GLOBULIN RATIO 0.65 (1.00-1.93); ALKALINE PHOSPHATASE 84 U/L (45-117); ALT/SGPT 55 U/L (12-78); AST/SGOT 33 U/L (7-37); BILIRUBIN,DIRECT 0.2 MG/DL (0.0-0.2); BILIRUBIN,TOTAL 0.9 MG/DL (0.2-1.0); TOTAL PROTEIN 6.6 GM/DL (6.4-8.2)
[2018-05-20] MEDS ORDERED: WARFARIN SOD 3 MG TAB PO (17:00)
[2018-05-20] MEDS: CHLORTHALIDONE 25 MG TAB PO (21:00)
[2018-05-20] MEDS: LISINOPRIL 40 MG TAB PO (21:00)
[2018-05-20 21:40] LABS: BEDSIDE GLUCOSE 212 MG/DL (83-110)
[2018-05-20] MEDS: NS 1,000 ML IV (21:58)
[2018-05-20] MEDS: OMEGA-3 1000MG CAPSULE PO (22:12)
[2018-05-20] MEDS: ASPIRIN 81 MG ENTERIC TAB PO (22:13)
[2018-05-21] MEDS: NS 1,000 ML IV (03:11)
[2018-05-21] MEDS: SODIUM CHLORIDE 0.9% INJ 10 ML SYR IV ×3 (05:19→16:46)
[2018-05-21 05:45] LABS: HEMATOCRIT 31.9 % (42.0-52.0); HEMOGLOBIN 10.4 g/dl (13.5-17.5); MEAN CORPUSCULAR HEMOGLOBIN 29.9 pg (27.0-33.0); MEAN CORPUSCULAR HGB CONC 32.6 g/dl (32.0-36.5); MEAN CORPUSCULAR VOLUME 91.7 fl (80.0-96.0); PLATELET COUNT, AUTOMATED 218 10^3/uL (150-450); RED BLOOD COUNT 3.48 10^6/uL (4.30-6.10); WHITE BLOOD COUNT 8.6 10^3/uL (4.0-10.0)
[2018-05-21 06:07] LABS: ERYTHROCYTE SEDIMENTATION RATE 87 mm/hr (0-20)
[2018-05-21 06:08] LABS: ANION GAP 7 MEQ/L (8-16); BLOOD UREA NITROGEN 33 MG/DL (7-18); C REACTIVE PROTEIN QUANTITATIV 1.95 MG/DL (0.00-0.30); CALCIUM LEVEL 8.9 MG/DL (8.8-10.2); CARBON DIOXIDE LEVEL 32 MEQ/L (21-32); CHLORIDE LEVEL 95 MEQ/L (98-107); CREATININE FOR GFR 1.23 MG/DL (0.70-1.30); GLOMERULAR FILTRATION RATE > 60.0 (>42); GLUCOSE, FASTING 197 MG/DL (70-100); SODIUM LEVEL 134 MEQ/L (136-145)
[2018-05-21] MEDS: VANCOMYCIN HCL 1,000 MG, VIAL MATE ADAPTER 1 EACH in D5W 250 ML IV ×2 (09:13→22:44)
[2018-05-21] MEDS: HumaLOG INSULIN (NovoLOG) PER UNIT SC ×4 (09:14→21:32)
[2018-05-21] MEDS: SENOKOT S TAB PO ×2 (09:14→20:36)
[2018-05-21] MEDS: ACETAMINOPHEN TAB 650MG DOSE (2X325MG) PO (09:14)
[2018-05-21] MEDS: GABAPENTIN 400 MG CAP PO ×3 (09:14→20:36)
[2018-05-21] MEDS: VITAMIN D 1,000 INTERNATIONAL UNITS TABLET PO (09:14)
[2018-05-21] MEDS: ENOXAPARIN 40 MG/0.4 ML SYRINGE (J1650) SC (09:15)
[2018-05-21] MEDS: PANTOPRAZOLE 40MG TAB (PROTONIX) PO (09:15)
[2018-05-21 09:26] LABS: LACTIC ACID SEPSIS PROTOCOL 1.9 MMOL/L (0.4-2.0)
[2018-05-21] MEDS: LISINOPRIL 40 MG TAB PO (20:36)
[2018-05-21] MEDS: ASPIRIN 81 MG ENTERIC TAB PO (20:36)
[2018-05-21] MEDS: OMEGA-3 1000MG CAPSULE PO (20:36)
[2018-05-21] MEDS: CHLORTHALIDONE 25 MG TAB PO (20:36)
[2018-05-22] MEDS: SODIUM CHLORIDE 0.9% INJ 10 ML SYR IV ×2 (05:30→16:45)
[2018-05-22 06:48] LABS: HEMATOCRIT 33.7 % (42.0-52.0); HEMOGLOBIN 11.4 g/dl (13.5-17.5); MEAN CORPUSCULAR HEMOGLOBIN 30.6 pg (27.0-33.0); MEAN CORPUSCULAR HGB CONC 33.8 g/dl (32.0-36.5); MEAN CORPUSCULAR VOLUME 90.3 fl (80.0-96.0); PLATELET COUNT, AUTOMATED 230 10^3/uL (150-450); RED BLOOD COUNT 3.73 10^6/uL (4.30-6.10); RED CELL DISTRIBUTION WIDTH 13.8 % (11.5-14.5)
[2018-05-22 07:09] LABS: ANION GAP 7 MEQ/L (8-16); BLOOD UREA NITROGEN 20 MG/DL (7-18); CALCIUM LEVEL 9.4 MG/DL (8.8-10.2); CARBON DIOXIDE LEVEL 32 MEQ/L (21-32); CHLORIDE LEVEL 97 MEQ/L (98-107); CREATININE FOR GFR 0.98 MG/DL (0.70-1.30); GLOMERULAR FILTRATION RATE > 60.0 (>42); GLUCOSE, FASTING 190 MG/DL (70-100); SODIUM LEVEL 136 MEQ/L (136-145)
[2018-05-22] MEDS: ENOXAPARIN 40 MG/0.4 ML SYRINGE (J1650) SC (08:16)
[2018-05-22] MEDS: SENOKOT S TAB PO ×2 (08:16→21:11)
[2018-05-22] MEDS: PANTOPRAZOLE 40MG TAB (PROTONIX) PO (08:17)
[2018-05-22] MEDS: GABAPENTIN 400 MG CAP PO ×3 (08:17→21:11)
[2018-05-22] MEDS: VITAMIN D 1,000 INTERNATIONAL UNITS TABLET PO (08:17)
[2018-05-22] MEDS: HumaLOG INSULIN (NovoLOG) PER UNIT SC ×4 (08:17→21:12)
[2018-05-22] MEDS: VANCOMYCIN HCL 1,000 MG, VIAL MATE ADAPTER 1 EACH in D5W 250 ML IV ×2 (10:54→21:12)
[2018-05-22 11:32] LABS: BEDSIDE GLUCOSE 190 MG/DL (83-110)
[2018-05-22 16:39] LABS: BEDSIDE GLUCOSE 173 MG/DL (83-110)
[2018-05-22] MEDS: CHLORTHALIDONE 25 MG TAB PO (21:11)
[2018-05-22] MEDS: ASPIRIN 81 MG ENTERIC TAB PO (21:11)
[2018-05-22] MEDS: OMEGA-3 1000MG CAPSULE PO (21:11)
[2018-05-22] MEDS: LISINOPRIL 40 MG TAB PO (21:11)
[2018-05-23] MEDS: MIRALAX *UNIT DOSE* 17GM PACKET PO (05:28)
[2018-05-23] MEDS: SODIUM CHLORIDE 0.9% INJ 10 ML SYR IV (05:28)
[2018-05-23 07:17] LABS: HEMATOCRIT 36.4 % (42.0-52.0); HEMOGLOBIN 12.3 g/dl (13.5-17.5); MEAN CORPUSCULAR HEMOGLOBIN 30.7 pg (27.0-33.0); MEAN CORPUSCULAR HGB CONC 33.8 g/dl (32.0-36.5); MEAN CORPUSCULAR VOLUME 90.8 fl (80.0-96.0); PLATELET COUNT, AUTOMATED 251 10^3/uL (150-450); RED BLOOD COUNT 4.01 10^6/uL (4.30-6.10); WHITE BLOOD COUNT 8.1 10^3/uL (4.0-10.0)
[2018-05-23 07:34] LABS: ANION GAP 9 MEQ/L (8-16); BLOOD UREA NITROGEN 19 MG/DL (7-18); CALCIUM LEVEL 9.6 MG/DL (8.8-10.2); CARBON DIOXIDE LEVEL 30 MEQ/L (21-32); CHLORIDE LEVEL 94 MEQ/L (98-107); CREATININE FOR GFR 1.04 MG/DL (0.70-1.30); GLOMERULAR FILTRATION RATE > 60.0 (>42); GLUCOSE, FASTING 197 MG/DL (70-100); POTASSIUM SERUM 3.9 MEQ/L (3.5-5.1); SODIUM LEVEL 133 MEQ/L (136-145)
[2018-05-23] MEDS: HumaLOG INSULIN (NovoLOG) PER UNIT SC ×4 (10:18→21:42)
[2018-05-23] MEDS: GABAPENTIN 400 MG CAP PO ×3 (10:18→20:18)
[2018-05-23] MEDS: VITAMIN D 1,000 INTERNATIONAL UNITS TABLET PO (10:19)
[2018-05-23] MEDS: SENOKOT S TAB PO ×2 (10:19→20:18)
[2018-05-23] MEDS: PANTOPRAZOLE 40MG TAB (PROTONIX) PO (10:19)
[2018-05-23] MEDS: VANCOMYCIN HCL 1,000 MG, VIAL MATE ADAPTER 1 EACH in D5W 250 ML IV (10:20)
[2018-05-23] MEDS: ENOXAPARIN 40 MG/0.4 ML SYRINGE (J1650) SC (10:20)
[2018-05-23 11:38] LABS: BEDSIDE GLUCOSE 241 MG/DL (83-110)
[2018-05-23 20:02] LABS: BEDSIDE GLUCOSE 173 MG/DL (83-110)
[2018-05-23] MEDS: MOM 30ML SUSPENSION UDC PO (20:18)
[2018-05-23] MEDS: OMEGA-3 1000MG CAPSULE PO (20:18)
[2018-05-23] MEDS: AMOXICILLIN 875 MG TAB PO (20:18)
[2018-05-23] MEDS: ASPIRIN 81 MG ENTERIC TAB PO (20:18)
[2018-05-23] MEDS: diphenhydrAMINE 50 MG CAP PO (20:18)
[2018-05-23] MEDS: TAMSULOSIN 0.4 MG CAP PO (20:18)
[2018-05-23] MEDS: LISINOPRIL 40 MG TAB PO (20:19)
[2018-05-23] MEDS: CHLORTHALIDONE 25 MG TAB PO (20:19)
[2018-05-24 05:45] LABS: HEMATOCRIT 35.4 % (42.0-52.0); HEMOGLOBIN 11.6 g/dl (13.5-17.5); MEAN CORPUSCULAR HEMOGLOBIN 30.1 pg (27.0-33.0); MEAN CORPUSCULAR HGB CONC 32.8 g/dl (32.0-36.5); MEAN CORPUSCULAR VOLUME 91.7 fl (80.0-96.0); PLATELET COUNT, AUTOMATED 242 10^3/uL (150-450); RED BLOOD COUNT 3.86 10^6/uL (4.30-6.10); RED CELL DISTRIBUTION WIDTH 14.3 % (11.5-14.5); WHITE BLOOD COUNT 7.1 10^3/uL (4.0-10.0)
[2018-05-24 06:12] LABS: ANION GAP 7 MEQ/L (8-16); BLOOD UREA NITROGEN 29 MG/DL (7-18); CALCIUM LEVEL 9.3 MG/DL (8.8-10.2); CARBON DIOXIDE LEVEL 31 MEQ/L (21-32); CHLORIDE LEVEL 94 MEQ/L (98-107); CREATININE FOR GFR 1.63 MG/DL (0.70-1.30); GLOMERULAR FILTRATION RATE 43.9 (>42); GLUCOSE, FASTING 201 MG/DL (70-100); POTASSIUM SERUM 4.2 MEQ/L (3.5-5.1); SODIUM LEVEL 132 MEQ/L (136-145)
[2018-05-24] MEDS: HumaLOG INSULIN (NovoLOG) PER UNIT SC ×4 (07:30→20:07)
[2018-05-24] MEDS: NS 1,000 ML IV ×2 (08:00→21:06)
[2018-05-24] MEDS: PANTOPRAZOLE 40MG TAB (PROTONIX) PO (08:12)
[2018-05-24] MEDS: GABAPENTIN 400 MG CAP PO ×3 (08:12→20:06)
[2018-05-24] MEDS: SENOKOT S TAB PO ×2 (08:12→20:06)
[2018-05-24] MEDS: VITAMIN D 1,000 INTERNATIONAL UNITS TABLET PO (08:13)
[2018-05-24] MEDS: MOM 30ML SUSPENSION UDC PO (08:13)
[2018-05-24 08:54] LABS: VANCOMYCIN RANDOM 13.1 UG/ML
[2018-05-24] MEDS: VANCOMYCIN HCL 1,000 MG, VIAL MATE ADAPTER 1 EACH in D5W 250 ML IV ×2 (10:32→21:33)
[2018-05-24 14:44] LABS: ANION GAP 9 MEQ/L (8-16); BLOOD UREA NITROGEN 31 MG/DL (7-18); CALCIUM LEVEL 8.7 MG/DL (8.8-10.2); CARBON DIOXIDE LEVEL 30 MEQ/L (21-32); CHLORIDE LEVEL 95 MEQ/L (98-107); CREATININE FOR GFR 1.55 MG/DL (0.70-1.30); GLOMERULAR FILTRATION RATE 46.5 (>42); GLUCOSE, FASTING 235 MG/DL (70-100); POTASSIUM SERUM 4.6 MEQ/L (3.5-5.1); SODIUM LEVEL 134 MEQ/L (136-145)
[2018-05-24 14:48] LABS: KETONE, URINE AUTO RFX NEGATIVE (NEGATIVE); LEUKOCYTE ESTERASE UR AUTO RFX NEGATIVE (NEGATIVE); MUCUS, URINE RFX SMALL (NEGATIVE); NITRITE, URINE AUTO RFX NEGATIVE (NEGATIVE); RBC, URINE AUTO RFX 23 /HPF (0-3); SPECIFIC GRAVITY UR AUTO RFX 1.018 (1.002-1.035); SQUAM EPITHELIAL CELL UR AURFX 0 /HPF (0-6); WBC, URINE AUTO RFX 0 /HPF (0-3)
[2018-05-24 15:00] LABS: SODIUM,RANDOM URINE 21 MEQ/L
[2018-05-24] MEDS: ASPIRIN 81 MG ENTERIC TAB PO (20:06)
[2018-05-24] MEDS: OMEGA-3 1000MG CAPSULE PO (20:06)
[2018-05-24] MEDS ORDERED: HumaLOG INSULIN (NovoLOG) PER UNIT SC (21:00)
[2018-05-24 21:43] LABS: BEDSIDE GLUCOSE 199 MG/DL (83-110)
[2018-05-24 21:43] LABS: BEDSIDE GLUCOSE 153 MG/DL (83-110)
[2018-05-24 21:43] LABS: BEDSIDE GLUCOSE 168 MG/DL (83-110)
[2018-05-24 21:43] LABS: BEDSIDE GLUCOSE 270 MG/DL (83-110)
[2018-05-24 21:44] LABS: BEDSIDE GLUCOSE 216 MG/DL (83-110)
[2018-05-24 21:44] LABS: BEDSIDE GLUCOSE 162 MG/DL (83-110)
[2018-05-24 21:44] LABS: BEDSIDE GLUCOSE 190 MG/DL (83-110)
[2018-05-24 21:44] LABS: BEDSIDE GLUCOSE 186 MG/DL (83-110)
[2018-05-24 21:45] LABS: BEDSIDE GLUCOSE 255 MG/DL (83-110)
[2018-05-24] MEDS ORDERED: DEXTROSE 50% 50 ML SYRINGE IV (22:45)
[2018-05-24] MEDS ORDERED: GLUCAGON FOR INJ 1 MG VIAL (J1610) SC (22:45)
[2018-05-24] MEDS ORDERED: GLUCOSE 4 GM CHEW TABLET PO (22:45)
[2018-05-25 05:56] LABS: HEMATOCRIT 36.5 % (42.0-52.0); HEMOGLOBIN 11.9 g/dl (13.5-17.5); MEAN CORPUSCULAR HEMOGLOBIN 30.3 pg (27.0-33.0); MEAN CORPUSCULAR HGB CONC 32.6 g/dl (32.0-36.5); MEAN CORPUSCULAR VOLUME 92.9 fl (80.0-96.0); PLATELET COUNT, AUTOMATED 219 10^3/uL (150-450); RED BLOOD COUNT 3.93 10^6/uL (4.30-6.10); RED CELL DISTRIBUTION WIDTH 14.4 % (11.5-14.5)
[2018-05-25 06:21] LABS: ERYTHROCYTE SEDIMENTATION RATE 82 mm/hr (0-20)
[2018-05-25 06:22] LABS: ANION GAP 6 MEQ/L (8-16); BLOOD UREA NITROGEN 26 MG/DL (7-18); C REACTIVE PROTEIN QUANTITATIV 2.23 MG/DL (0.00-0.30); CALCIUM LEVEL 8.9 MG/DL (8.8-10.2); CARBON DIOXIDE LEVEL 32 MEQ/L (21-32); CHLORIDE LEVEL 94 MEQ/L (98-107); CREATININE FOR GFR 1.22 MG/DL (0.70-1.30); GLOMERULAR FILTRATION RATE > 60.0 (>42); GLUCOSE, FASTING 185 MG/DL (70-100); POTASSIUM SERUM 4.2 MEQ/L (3.5-5.1); SODIUM LEVEL 132 MEQ/L (136-145)
[2018-05-25] MEDS: MOM 30ML SUSPENSION UDC PO ×2 (06:37→08:53)
[2018-05-25] MEDS ORDERED: HumaLOG INSULIN (NovoLOG) PER UNIT SC (07:30)
[2018-05-25] MEDS: HumaLOG INSULIN (NovoLOG) PER UNIT SC ×4 (08:05→20:49)
[2018-05-25] MEDS: PANTOPRAZOLE 40MG TAB (PROTONIX) PO (08:06)
[2018-05-25] MEDS: GABAPENTIN 400 MG CAP PO ×3 (08:06→20:48)
[2018-05-25] MEDS: SENOKOT S TAB PO ×2 (08:06→20:48)
[2018-05-25] MEDS: VITAMIN D 1,000 INTERNATIONAL UNITS TABLET PO (08:06)
[2018-05-25] MEDS: MOXIFLOXACIN 400 MG TAB PO (08:54)
[2018-05-25] MEDS: ACETAMINOPHEN TAB 650MG DOSE (2X325MG) PO ×2 (08:54→17:54)
[2018-05-25 11:57] LABS: BEDSIDE GLUCOSE 206 MG/DL (83-110)
[2018-05-25 17:00] LABS: BEDSIDE GLUCOSE 167 MG/DL (83-110)
[2018-05-25 20:29] LABS: BEDSIDE GLUCOSE 215 MG/DL (83-110)
[2018-05-25] MEDS: ASPIRIN 81 MG ENTERIC TAB PO (20:48)
[2018-05-25] MEDS: OMEGA-3 1000MG CAPSULE PO (20:49)
[2018-05-26] MEDS: MOXIFLOXACIN 400 MG TAB PO (06:13)
[2018-05-26 06:24] LABS: HEMATOCRIT 35.8 % (42.0-52.0); HEMOGLOBIN 11.6 g/dl (13.5-17.5); MEAN CORPUSCULAR HEMOGLOBIN 29.6 pg (27.0-33.0); MEAN CORPUSCULAR HGB CONC 32.4 g/dl (32.0-36.5); MEAN CORPUSCULAR VOLUME 91.3 fl (80.0-96.0); PLATELET COUNT, AUTOMATED 233 10^3/uL (150-450); RED BLOOD COUNT 3.92 10^6/uL (4.30-6.10); RED CELL DISTRIBUTION WIDTH 14.6 % (11.5-14.5); WHITE BLOOD COUNT 5.9 10^3/uL (4.0-10.0)
[2018-05-26 06:58] LABS: ALBUMIN 2.6 GM/DL (3.2-5.2); ALBUMIN/GLOBULIN RATIO 0.53 (1.00-1.93); ALKALINE PHOSPHATASE 81 U/L (45-117); ALT/SGPT 40 U/L (12-78); ANION GAP 8 MEQ/L (8-16); AST/SGOT 26 U/L (7-37); BILIRUBIN,DIRECT 0.2 MG/DL (0.0-0.2); BILIRUBIN,TOTAL 0.8 MG/DL (0.2-1.0); BLOOD UREA NITROGEN 19 MG/DL (7-18); CALCIUM LEVEL 9.1 MG/DL (8.8-10.2); CARBON DIOXIDE LEVEL 31 MEQ/L (21-32); CHLORIDE LEVEL 95 MEQ/L (98-107); CREATININE FOR GFR 1.13 MG/DL (0.70-1.30); GLOMERULAR FILTRATION RATE > 60.0 (>42); GLUCOSE, FASTING 193 MG/DL (70-100); SODIUM LEVEL 134 MEQ/L (136-145); TOTAL PROTEIN 7.5 GM/DL (6.4-8.2)
[2018-05-26] MEDS: PANTOPRAZOLE 40MG TAB (PROTONIX) PO (07:50)
[2018-05-26] MEDS: HumaLOG INSULIN (NovoLOG) PER UNIT SC ×4 (07:50→22:12)
[2018-05-26] MEDS: VITAMIN D 1,000 INTERNATIONAL UNITS TABLET PO (07:51)
[2018-05-26] MEDS: GABAPENTIN 400 MG CAP PO ×3 (07:51→22:12)
[2018-05-26] MEDS: SENOKOT S TAB PO ×2 (07:51→22:13)
[2018-05-26 12:20] LABS: BEDSIDE GLUCOSE 161 MG/DL (83-110)
[2018-05-26 16:32] LABS: BEDSIDE GLUCOSE 202 MG/DL (83-110)
[2018-05-26] MEDS: OMEGA-3 1000MG CAPSULE PO (22:12)
[2018-05-26] MEDS: ASPIRIN 81 MG ENTERIC TAB PO (22:13)
[2018-05-27 04:31] LABS: BEDSIDE GLUCOSE 263 MG/DL (83-110)
[2018-05-27 06:16] LABS: HEMATOCRIT 36.6 % (42.0-52.0); MEAN CORPUSCULAR HEMOGLOBIN 29.9 pg (27.0-33.0); MEAN CORPUSCULAR HGB CONC 32.8 g/dl (32.0-36.5); MEAN CORPUSCULAR VOLUME 91.3 fl (80.0-96.0); PLATELET COUNT, AUTOMATED 204 10^3/uL (150-450); RED BLOOD COUNT 4.01 10^6/uL (4.30-6.10); RED CELL DISTRIBUTION WIDTH 14.3 % (11.5-14.5); WHITE BLOOD COUNT 6.1 10^3/uL (4.0-10.0)
[2018-05-27] MEDS: MOXIFLOXACIN 400 MG TAB PO (06:24)
[2018-05-27 06:35] LABS: ANION GAP 6 MEQ/L (8-16); BLOOD UREA NITROGEN 16 MG/DL (7-18); CALCIUM LEVEL 8.9 MG/DL (8.8-10.2); CARBON DIOXIDE LEVEL 31 MEQ/L (21-32); CHLORIDE LEVEL 96 MEQ/L (98-107); CREATININE FOR GFR 1.03 MG/DL (0.70-1.30); GLOMERULAR FILTRATION RATE > 60.0 (>42); GLUCOSE, FASTING 187 MG/DL (70-100); SODIUM LEVEL 133 MEQ/L (136-145)
[2018-05-27 07:00] LABS: BEDSIDE GLUCOSE 187 MG/DL (83-110)
[2018-05-27] MEDS: HumaLOG INSULIN (NovoLOG) PER UNIT SC ×4 (08:54→21:00)
[2018-05-27] MEDS: SENOKOT S TAB PO ×2 (08:55→20:42)
[2018-05-27] MEDS: VITAMIN D 1,000 INTERNATIONAL UNITS TABLET PO (08:55)
[2018-05-27] MEDS: GABAPENTIN 400 MG CAP PO ×3 (08:55→20:42)
[2018-05-27] MEDS: PANTOPRAZOLE 40MG TAB (PROTONIX) PO (08:55)
[2018-05-27 11:48] LABS: BEDSIDE GLUCOSE 232 MG/DL (83-110)
[2018-05-27 15:41] LABS: C REACTIVE PROTEIN QUANTITATIV 1.63 MG/DL (0.00-0.30)
[2018-05-27 15:43] LABS: AMMONIA 26 uMOL/L (<32)
[2018-05-27 16:42] LABS: BEDSIDE GLUCOSE 211 MG/DL (83-110)
[2018-05-27] MEDS: ENOXAPARIN 40 MG/0.4 ML SYRINGE (J1650) SC (16:43)
[2018-05-27 17:03] LABS: ABG BASE EXCESS 3.4 (-2.0-2.0); ABG HCO3 27.6 MEQ/L (22.0-26.0); ABG PARTIAL PRESSURE CO2 40.2 mmHg (35.0-45.0); ABG PARTIAL PRESSURE O2 52.2 mmHg (75.0-100.0); ABG STANDARD HCO3 27.3 MEQ/L (22.0-26.0); ABG TOTAL CO2 28.8 MEQ/L (23.0-31.0); ABG pH (ARTERIAL) 7.454 UNITS (7.350-7.450)
[2018-05-27] MEDS: PERCOCET 5MG/325MG TAB PO ×2 (17:58→20:41)
[2018-05-27] MEDS ORDERED: ISOVUE-370 76% 100ML VIAL (Q9967) As Ordered (18:16)
[2018-05-27 20:20] LABS: BEDSIDE GLUCOSE 229 MG/DL (83-110)
[2018-05-27] MEDS ORDERED: PERCOCET 5MG/325MG TAB PO (20:30)
[2018-05-27] MEDS: OMEGA-3 1000MG CAPSULE PO (20:41)
[2018-05-27] MEDS: CHLORTHALIDONE 25 MG TAB PO (20:41)
[2018-05-27] MEDS: ASPIRIN 81 MG ENTERIC TAB PO (20:42)
[2018-05-27 21:05] LABS: KETONE, URINE AUTO RFX NEGATIVE (NEGATIVE); LEUKOCYTE ESTERASE UR AUTO RFX NEGATIVE (NEGATIVE); NITRITE, URINE AUTO RFX NEGATIVE (NEGATIVE); RBC, URINE AUTO RFX 103 /HPF (0-3); SQUAM EPITHELIAL CELL UR AURFX 0 /HPF (0-6); WBC, URINE AUTO RFX 0 /HPF (0-3)
[2018-05-28] MEDS: MOXIFLOXACIN 400 MG TAB PO (05:36)
[2018-05-28 07:58] LABS: BEDSIDE GLUCOSE 193 MG/DL (83-110)
[2018-05-28 07:58] LABS: BASO % 0.5 % (0.0-1.0); EOS # 0.3 10^3/uL (0.0-0.50); EOS % 4.9 % (0.0-3.0); HEMATOCRIT 36.1 % (42.0-52.0); HEMOGLOBIN 12.1 g/dl (13.5-17.5); IMMATURE GRANULOCYTE % 0.5 % (0-3.0); LYMPH # 1.4 10^3/uL (1.5-4.5); LYMPH % 22.1 % (24.0-44.0); MEAN CORPUSCULAR HEMOGLOBIN 30.5 pg (27.0-33.0); MEAN CORPUSCULAR HGB CONC 33.5 g/dl (32.0-36.5); MEAN CORPUSCULAR VOLUME 90.9 fl (80.0-96.0); MONO # 0.6 10^3/uL (0.0-0.8); MONO % 9.4 % (0.0-5.0); NEUTROPHILS % 62.6 % (36.0-66.0); PLATELET COUNT, AUTOMATED 193 10^3/uL (150-450); RED BLOOD COUNT 3.97 10^6/uL (4.30-6.10); RED CELL DISTRIBUTION WIDTH 14.5 % (11.5-14.5); WHITE BLOOD COUNT 6.4 10^3/uL (4.0-10.0)
[2018-05-28] MEDS: HumaLOG INSULIN (NovoLOG) PER UNIT SC (08:13)
[2018-05-28] MEDS: VITAMIN D 1,000 INTERNATIONAL UNITS TABLET PO (08:14)
[2018-05-28] MEDS: SENOKOT S TAB PO (08:14)
[2018-05-28] MEDS: GABAPENTIN 400 MG CAP PO (08:14)
[2018-05-28] MEDS: PANTOPRAZOLE 40MG TAB (PROTONIX) PO (08:14)
[2018-05-28] MEDS: ENOXAPARIN 40 MG/0.4 ML SYRINGE (J1650) SC (08:14)
[2018-05-28 08:28] LABS: ANION GAP 9 MEQ/L (8-16); BLOOD UREA NITROGEN 18 MG/DL (7-18); CALCIUM LEVEL 9.2 MG/DL (8.8-10.2); CARBON DIOXIDE LEVEL 31 MEQ/L (21-32); CHLORIDE LEVEL 94 MEQ/L (98-107); CREATININE FOR GFR 1.12 MG/DL (0.70-1.30); GLOMERULAR FILTRATION RATE > 60.0 (>42); GLUCOSE, FASTING 199 MG/DL (70-100); MAGNESIUM LEVEL 1.7 MG/DL (1.8-2.4); POTASSIUM SERUM 3.9 MEQ/L (3.5-5.1); SODIUM LEVEL 134 MEQ/L (136-145)
== END 2018-05-28 11:38 | DRG 853 ==
LOC: M MS5PR 05-11 09:38 → M MSPAV 05-17 10:41 → M ICU 05-11 21:41 → M ED 12:18 → M ED INP 17:25
PROVIDERS: Internal Medicine
PROC: 0SBF4ZZ Excision of Right Ankle Joint, Percutaneous Endoscopic Approach (ICD-10-PCS; principal; 2018-05-11 16:00)
PROC: 02HV33Z Insertion of Infusion Device into Superior Vena Cava, Percutaneous Approach (ICD-10-PCS; 2018-05-11 18:13)
DX: A41.9 Sepsis, unspecified organism (principal); J96.01 Acute respiratory failure with hypoxia; J96.02 Acute respiratory failure with hypercapnia; L03.115 Cellulitis of right lower limb; M62.82 Rhabdomyolysis; E87.2 Acidosis; J90 Pleural effusion, not elsewhere classified; N17.9 Acute kidney failure, unspecified; M00.871 Arthritis due to other bacteria, right ankle and foot; M86.161 Other acute osteomyelitis, right tibia and fibula; N39.0 Urinary tract infection, site not specified; E11.40 Type 2 diabetes mellitus with diabetic neuropathy, unspecified; E78.5 Hyperlipidemia, unspecified; R33.9 Retention of urine, unspecified; I27.20 Pulmonary hypertension, unspecified; G47.33 Obstructive sleep apnea (adult) (pediatric); I10 Essential (primary) hypertension; B95.5 Unspecified streptococcus as the cause of diseases classified elsewhere; Z91.19 Patient's noncompliance with other medical treatment and regimen; Z79.82 Long term (current) use of aspirin; Z79.899 Other long term (current) drug therapy; R29.6 Repeated falls; Z87.891 Personal history of nicotine dependence; M50.90 Cervical disc disorder, unspecified, unspecified cervical region; K59.00 Constipation, unspecified

== ENCOUNTER 2018-05-29 17:13 | Emergency (ER) | payer MEDICARE ==
[~2018-05-29] VITALS: Ht 182.9 cm; Wt 130.4 kg
[~2018-05-29 17:13] MED LIST changes: +ASPI1TAB PO; +ATOR1TAB21 PO; +AVEL1TAB3 PO; +CHLO125TA PO; +CHLO25TA PO; +DICL75TA PO; +FISH100049 PO; +GABA600T PO; +GABA800T PO; -ISOVUE-370 76% 100ML VIAL (Q9967) As Ordered; +LATA5OPD OD; +LISI40TAB PO; +METF750T PO; +NABU500T PO; +PANT40TA3 PO; +TIMO5OPG OD; +TRAM50TA2 PO
[2018-05-29] MEDS ORDERED: CHLO25TA GT (18:09)
[2018-05-29] MEDS ORDERED: METF750T PO (18:09)
[2018-05-29] MEDS ORDERED: MILK12002 PO (18:09)
[2018-05-29] MEDS ORDERED: DICL75TA PO (18:09)
[2018-05-29] MEDS ORDERED: AVEL1TAB3 PO (18:09)
[2018-05-29] MEDS ORDERED: LISI10TA4 PO (18:09)
[2018-05-29] MEDS ORDERED: APAP325T4 PO (18:09)
[2018-05-29] MEDS ORDERED: NEUR800T PO (18:09)
[2018-05-29] MEDS ORDERED: BISA10SU4 PR (18:09)
[2018-05-29] MEDS ORDERED: PANT40TA3 PO (18:09)
[2018-05-29] MEDS ORDERED: FISH1000 PO (18:09)
[2018-05-29] MEDS ORDERED: ATOR1TAB21 PO (18:09)
[2018-05-29] MEDS ORDERED: ACET650S3 PR (18:09)
[2018-05-29] MEDS ORDERED: ENEM1ENE4 PR (18:09)
[2018-05-29] MEDS ORDERED: ASPI81TA85 PO (18:09)
[2018-05-29 18:50] LABS: BASO % 0.7 % (0.0-1.0); EOS # 0.4 10^3/uL (0.0-0.50); EOS % 6.4 % (0.0-3.0); HEMATOCRIT 32.5 % (42.0-52.0); HEMOGLOBIN 10.7 g/dl (13.5-17.5); LYMPH # 1.3 10^3/uL (1.5-4.5); MEAN CORPUSCULAR HEMOGLOBIN 30.6 pg (27.0-33.0); MEAN CORPUSCULAR HGB CONC 32.9 g/dl (32.0-36.5); MEAN CORPUSCULAR VOLUME 92.9 fl (80.0-96.0); MONO # 0.5 10^3/uL (0.0-0.8); MONO % 8.9 % (0.0-5.0); NEUTROPHILS # 3.8 10^3/uL (1.8-7.7); NEUTROPHILS % 62.5 % (36.0-66.0); PLATELET COUNT, AUTOMATED 160 10^3/uL (150-450); WHITE BLOOD COUNT 6.1 10^3/uL (4.0-10.0)
--- NOTE | 2018-05-29 18:52 | REP ---
Clinical: Acute chest pain. Technique: Two semiupright portable AP views of the chest. Comparison: 05/19/2018. Findings: Mediastinum and cardiac silhouette are stable. Chronic mild mild cardiomegaly again appreciated. Lung thibodeaux demonstrate diffuse chronic interstitial changes. Left lower lobe opacity suggests element of atelectasis and possible small pleural reaction. Left upper lobe spiculated mass identified on recent chest CT is not visualized by x-ray. Impression: Diffuse chronic interstitial changes. Mild left basilar atelectasis. Cannot exclude small left pleural reaction. Electronically Signed by Tucker Granado MD 05/29/2018 06:43 P
[2018-05-29 18:58] LABS: INR 1.01; PROTHROMBIN TIME 13.4 SECONDS (12.1-14.4)
[2018-05-29] MEDS ORDERED: NS 1,000 ML IV SCH (18:59)
[2018-05-29 19:27] LABS: ALBUMIN 2.6 GM/DL (3.2-5.2); ALT/SGPT 35 U/L (12-78); BILIRUBIN,TOTAL 0.7 MG/DL (0.2-1.0); BLOOD UREA NITROGEN 31 MG/DL (7-18); CARBON DIOXIDE LEVEL 29 MEQ/L (21-32); CHLORIDE LEVEL 96 MEQ/L (98-107); CPK CREATINE PHOSPHOKINASE 66 U/L (39-308); CREATININE FOR GFR 1.66 MG/DL (0.70-1.30); GLUCOSE, FASTING 144 MG/DL (70-100); LIPASE 265 U/L (73-393); MB/CK RELATIVE INDEX 3.79 (< OR =4); POTASSIUM SERUM 3.8 MEQ/L (3.5-5.1); SODIUM LEVEL 135 MEQ/L (136-145); TOTAL PROTEIN 6.2 GM/DL (6.4-8.2); TROPONIN I < 0.02 NG/ML (< 0.10)
[2018-05-29 20:13] VITALS: BP 98/54
--- NOTE | 2018-05-29 20:23 | ECGEPIP ---
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
== END 2018-05-29 21:01 | disposition home or self-care (01) ==
LOC: M ED 17:13
DX: I95.9 Hypotension, unspecified (principal); I45.10 Unspecified right bundle-branch block; E11.9 Type 2 diabetes mellitus without complications; I10 Essential (primary) hypertension; M48.00 Spinal stenosis, site unspecified; Z87.891 Personal history of nicotine dependence; Z79.82 Long term (current) use of aspirin; Z79.84 Long term (current) use of oral hypoglycemic drugs; Z79.899 Other long term (current) drug therapy; Z88.1 Allergy status to other antibiotic agents

== ENCOUNTER → 2018-05-29 | Outpatient (REF) | payer MEDICARE ==
[2018-05-29 14:08] LABS: BASO % 0.6 % (0.0-1.0); EOS # 0.3 10^3/uL (0.0-0.50); EOS % 4.9 % (0.0-3.0); HEMATOCRIT 33.9 % (42.0-52.0); IMMATURE GRANULOCYTE % 0.7 % (0-3.0); LYMPH # 1.4 10^3/uL (1.5-4.5); LYMPH % 21.6 % (24.0-44.0); MEAN CORPUSCULAR HEMOGLOBIN 30.2 pg (27.0-33.0); MEAN CORPUSCULAR HGB CONC 32.4 g/dl (32.0-36.5); MEAN CORPUSCULAR VOLUME 93.1 fl (80.0-96.0); MONO # 0.6 10^3/uL (0.0-0.8); MONO % 9.1 % (0.0-5.0); NEUTROPHILS # 4.2 10^3/uL (1.8-7.7); NEUTROPHILS % 63.1 % (36.0-66.0); PLATELET COUNT, AUTOMATED 186 10^3/uL (150-450); RED BLOOD COUNT 3.64 10^6/uL (4.30-6.10); RED CELL DISTRIBUTION WIDTH 14.8 % (11.5-14.5); WHITE BLOOD COUNT 6.7 10^3/uL (4.0-10.0)
[2018-05-29 14:25] LABS: ALBUMIN 2.7 GM/DL (3.2-5.2); ALBUMIN/GLOBULIN RATIO 0.69 (1.00-1.93); ALKALINE PHOSPHATASE 86 U/L (45-117); ALT/SGPT 38 U/L (12-78); ANION GAP 10 MEQ/L (8-16); AST/SGOT 23 U/L (7-37); BILIRUBIN,TOTAL 0.7 MG/DL (0.2-1.0); BLOOD UREA NITROGEN 29 MG/DL (7-18); CALCIUM LEVEL 8.4 MG/DL (8.8-10.2); CARBON DIOXIDE LEVEL 31 MEQ/L (21-32); CHLORIDE LEVEL 93 MEQ/L (98-107); CREATININE FOR GFR 1.78 MG/DL (0.70-1.30); GLOMERULAR FILTRATION RATE 39.7 (>42); GLUCOSE, FASTING 214 MG/DL (70-100); POTASSIUM SERUM 3.6 MEQ/L (3.5-5.1); SODIUM LEVEL 134 MEQ/L (136-145); TOTAL PROTEIN 6.6 GM/DL (6.4-8.2)
== END ==
LOC: SKLAB2 13:02
DX: I95.9 Hypotension, unspecified (principal)

== ENCOUNTER → 2018-05-30 | Outpatient (REF) | payer MEDICARE ==
[~2018-05-30] MED LIST changes: +ACET650S3 PR; +APAP325T4 PO; +ASPI81TA85 PO; +BISA10SU4 PR; +CHLO25TA GT; +ENEM1ENE4 PR; +FISH1000 PO; +LISI10TA4 PO; +MILK12002 PO; +NEUR800T PO
[2018-05-30 11:58] LABS: BLOOD UREA NITROGEN 23 MG/DL (7-18); CALCIUM LEVEL 8.2 MG/DL (8.8-10.2); CARBON DIOXIDE LEVEL 31 MEQ/L (21-32); CHLORIDE LEVEL 97 MEQ/L (98-107); CREATININE FOR GFR 1.19 MG/DL (0.70-1.30); GLOMERULAR FILTRATION RATE > 60.0 (>42); GLUCOSE, FASTING 241 MG/DL (70-100); SODIUM LEVEL 136 MEQ/L (136-145)
== END ==
LOC: SKLAB2 10:23
PROVIDERS: ATTEND Family Medicine
DX: R03.1 Nonspecific low blood-pressure reading (principal)

== ENCOUNTER → 2018-06-02 | Outpatient (REF) ==
[2018-06-02 14:59] LABS: BASO # 0.1 10^3/uL (0.0-0.2); BASO % 0.6 % (0.0-1.0); BLOOD UREA NITROGEN 20 MG/DL (7-18); CALCIUM LEVEL 8.6 MG/DL (8.8-10.2); CARBON DIOXIDE LEVEL 28 MEQ/L (21-32); CHLORIDE LEVEL 96 MEQ/L (98-107); CREATININE FOR GFR 1.22 MG/DL (0.70-1.30); EOS # 0.4 10^3/uL (0.0-0.50); EOS % 4.9 % (0.0-3.0); GLOMERULAR FILTRATION RATE > 60.0 (>42); GLUCOSE, FASTING 204 MG/DL (70-100); HEMATOCRIT 35.6 % (42.0-52.0); HEMOGLOBIN 11.9 g/dl (13.5-17.5); LYMPH # 1.4 10^3/uL (1.5-4.5); LYMPH % 17.7 % (24.0-44.0); MEAN CORPUSCULAR HEMOGLOBIN 30.8 pg (27.0-33.0); MEAN CORPUSCULAR HGB CONC 33.4 g/dl (32.0-36.5); MEAN CORPUSCULAR VOLUME 92.2 fl (80.0-96.0); MONO # 0.8 10^3/uL (0.0-0.8); MONO % 9.3 % (0.0-5.0); NEUTROPHILS # 5.4 10^3/uL (1.8-7.7); NEUTROPHILS % 66.8 % (36.0-66.0); PLATELET COUNT, AUTOMATED 175 10^3/uL (150-450); POTASSIUM SERUM 4.4 MEQ/L (3.5-5.1); RED BLOOD COUNT 3.86 10^6/uL (4.30-6.10); SODIUM LEVEL 135 MEQ/L (136-145); WHITE BLOOD COUNT 8.1 10^3/uL (4.0-10.0)
[2018-06-02 15:03] LABS: CHOLESTEROL LEVEL 130 MG/DL (<200); CHOLESTEROL RISK RATIO 5.416 (<5); HDL CHOLESTEROL 24 MG/DL (>40); NON-HDL-C 106 MG/DL; TRIGLYCERIDES LEVEL 505 MG/DL (<150)
[2018-06-02 15:31] LABS: HEMOGLOBIN A1c 8.2 %
== END ==
LOC: SKLAB2 13:00
PROVIDERS: ATTEND Family Medicine
DX: E11.9 Type 2 diabetes mellitus without complications (principal); I10 Essential (primary) hypertension; E78.5 Hyperlipidemia, unspecified

== ENCOUNTER → 2018-06-10 | Outpatient (REF) ==
[2018-06-10 08:33] LABS: HEMATOCRIT 38.6 % (42.0-52.0); HEMOGLOBIN 12.1 g/dl (13.5-17.5); MEAN CORPUSCULAR HEMOGLOBIN 29.4 pg (27.0-33.0); MEAN CORPUSCULAR HGB CONC 31.3 g/dl (32.0-36.5); MEAN CORPUSCULAR VOLUME 93.9 fl (80.0-96.0); PLATELET COUNT, AUTOMATED 148 10^3/uL (150-450); RED BLOOD COUNT 4.11 10^6/uL (4.30-6.10); WHITE BLOOD COUNT 7.6 10^3/uL (4.0-10.0)
[2018-06-10 08:59] LABS: ERYTHROCYTE SEDIMENTATION RATE 71 mm/hr (0-20)
[2018-06-10 09:04] LABS: BLOOD UREA NITROGEN 12 MG/DL (7-18); CALCIUM LEVEL 8.9 MG/DL (8.8-10.2); CARBON DIOXIDE LEVEL 29 MEQ/L (21-32); CHLORIDE LEVEL 98 MEQ/L (98-107); CREATININE FOR GFR 0.88 MG/DL (0.70-1.30); GLOMERULAR FILTRATION RATE > 60.0 (>42); GLUCOSE, FASTING 143 MG/DL (70-100); POTASSIUM SERUM 4.3 MEQ/L (3.5-5.1); SODIUM LEVEL 138 MEQ/L (136-145)
== END ==
LOC: SKLAB2 07:00
PROVIDERS: ATTEND Family Medicine
DX: I10 Essential (primary) hypertension (principal)

== ENCOUNTER → 2018-06-22 | Outpatient (CLI) | payer OTHER ==
[~2018-06-22] MED LIST changes: -GABA600T PO; +GABA600T4 PO; -GABA800T PO; +GABA800T4 PO; +LISI40TA PO; -LISI40TAB PO; +MILK120011 PO; -MILK12002 PO
--- NOTE | 2018-06-22 14:42 | PFTRPT ---
Height: 73.00 Inches Weight: 281.00 Lbs BSA: 2.49 Diagnosis: R91.1 DATE OF PROCEDURE: 06/22/2018 ORDERED BY: Dr. Kang Spirometry: Pre and post bronchodilator study of excellent technical quality. Forced vital capacity reduced. FEV1 is in proportion. Obstructive index is, therefore, normal. Flow Volume Loop: Expiratory limb of the flow volume loop does suggest some nonspecific flow rate limitation. No significant bronchodilator response is identified. Lung Volumes: Total lung capacity normal. Residual volume does suggest a degree of air trapping. Diffusing Capacity: Diffusing capacity is reduced but is appropriate for alveolar volume. Hemoglobin: Hemoglobin reduced at 11.2. Airway Mechanics: Airway resistance and conductance are normal. IMPRESSION: Underlying air trapping with diffusing capacity impairment likely complicated by underlying anemia. Please correlate clinically. MTDD
== END ==
LOC: M CARPUL 10:54
PROVIDERS: ATTEND Internal Medicine Pulmonary Disease
DX: R91.1 Solitary pulmonary nodule (principal)

== ENCOUNTER → 2018-06-24 | Outpatient (REF) ==
[2018-06-24 08:48] LABS: HEMATOCRIT 35.9 % (42.0-52.0); HEMOGLOBIN 11.2 g/dl (13.5-17.5); MEAN CORPUSCULAR HEMOGLOBIN 29.4 pg (27.0-33.0); MEAN CORPUSCULAR HGB CONC 31.2 g/dl (32.0-36.5); MEAN CORPUSCULAR VOLUME 94.2 fl (80.0-96.0); PLATELET COUNT, AUTOMATED 133 10^3/uL (150-450); RED BLOOD COUNT 3.81 10^6/uL (4.30-6.10); WHITE BLOOD COUNT 5.5 10^3/uL (4.0-10.0)
[2018-06-24 08:57] LABS: BLOOD UREA NITROGEN 13 MG/DL (7-18); C REACTIVE PROTEIN QUANTITATIV 0.34 MG/DL (0.00-0.30); CALCIUM LEVEL 8.7 MG/DL (8.8-10.2); CARBON DIOXIDE LEVEL 29 MEQ/L (21-32); CHLORIDE LEVEL 99 MEQ/L (98-107); CREATININE FOR GFR 0.82 MG/DL (0.70-1.30); GLOMERULAR FILTRATION RATE > 60.0 (>42); GLUCOSE, FASTING 144 MG/DL (70-100); POTASSIUM SERUM 4.1 MEQ/L (3.5-5.1); SODIUM LEVEL 137 MEQ/L (136-145)
[2018-06-24 09:14] LABS: ERYTHROCYTE SEDIMENTATION RATE 37 mm/hr (0-20)
== END ==
LOC: SKLAB2 07:00
PROVIDERS: ATTEND Family Medicine
DX: I10 Essential (primary) hypertension (principal)

== ENCOUNTER → 2018-07-01 | Outpatient (REF) ==
[2018-07-01 08:27] LABS: HEMATOCRIT 36.5 % (42.0-52.0); HEMOGLOBIN 11.5 g/dl (13.5-17.5); MEAN CORPUSCULAR HEMOGLOBIN 29.3 pg (27.0-33.0); MEAN CORPUSCULAR HGB CONC 31.5 g/dl (32.0-36.5); MEAN CORPUSCULAR VOLUME 92.9 fl (80.0-96.0); PLATELET COUNT, AUTOMATED 135 10^3/uL (150-450); RED BLOOD COUNT 3.93 10^6/uL (4.30-6.10); WHITE BLOOD COUNT 6.2 10^3/uL (4.0-10.0)
[2018-07-01 08:41] LABS: BLOOD UREA NITROGEN 11 MG/DL (7-18); C REACTIVE PROTEIN QUANTITATIV 0.34 MG/DL (0.00-0.30); CALCIUM LEVEL 8.8 MG/DL (8.8-10.2); CARBON DIOXIDE LEVEL 31 MEQ/L (21-32); CHLORIDE LEVEL 98 MEQ/L (98-107); GLOMERULAR FILTRATION RATE > 60.0 (>42); GLUCOSE, FASTING 154 MG/DL (70-100); POTASSIUM SERUM 4.2 MEQ/L (3.5-5.1); SODIUM LEVEL 137 MEQ/L (136-145)
[2018-07-01 08:46] LABS: ERYTHROCYTE SEDIMENTATION RATE 29 mm/hr (0-20)
== END ==
LOC: SKLAB2 08:28
PROVIDERS: ATTEND Family Medicine
DX: I10 Essential (primary) hypertension (principal)

== ENCOUNTER → 2018-07-27 | Outpatient (CLI) | payer OTHER ==
--- NOTE | 2018-07-27 21:03 | REP ---
Whole body PET CT scan for evaluation of a left upper lobe spiculated lung nodule: Whole-body scanning is performed from skull base to the upper thighs. Neck and supraclavicular areas: There are no hypermetabolic foci. Chest: The known left upper lobe lung nodule is hypermetabolic with a maximal standard uptake value of 7.4, compatible with neoplasm. There are no other hypermetabolic foci in the chest. Abdomen, pelvis and upper thighs: There are no hypermetabolic foci. Specifically there are no adrenal or hepatic foci. Impression: The known left upper lobe lung nodule demonstrates hypermetabolic uptake. There are no other hypermetabolic foci. The study is performed with 7.58 mCi of F 18 FDG. Electronically Signed by Harsh Johnson MD 07/27/2018 08:54 P
== END ==
LOC: M PLARAD 10:51
PROVIDERS: ATTEND Internal Medicine Pulmonary Disease
DX: R91.1 Solitary pulmonary nodule (principal)
CPT/HCPCS: 78815; A9552

== ENCOUNTER → 2018-08-09 | Outpatient (REF) | payer OTHER ==
[2018-08-09 12:46] LABS: INR 1.03; PROTHROMBIN TIME 13.6 SECONDS (12.1-14.4)
[2018-08-09 12:47] LABS: PARTIAL THROMBOPLASTIN TIME 30.6 SECONDS (25.4-37.6)
== END ==
LOC: M LAB REF 12:03
PROVIDERS: ATTEND Internal Medicine Pulmonary Disease
DX: R91.1 Solitary pulmonary nodule (principal)

== ENCOUNTER 2018-08-25 08:08 | Inpatient (IN) | payer OTHER ==
[~2018-08-25 08:08] MED LIST changes: +MIDAZOLAM INJ 2 MG/2 ML VIAL (J2250) As Ordered ONE; +fentaNYL 100 MCG/2 ML INJECTION (J3010) As Ordered ONE
[2018-08-25] MEDS ORDERED: LIDOCAINE 2% MDV 20 ML VIAL As Ordered ONE (08:09)
[2018-08-25] MEDS ORDERED: FLUMAZENIL 0.5 MG/5 ML VIAL As Ordered ONE (08:09)
[2018-08-25] MEDS ORDERED: LIDOCAINE 1% MDV 20ML VIAL As Ordered ONE ×2 (08:09→12:46)
[2018-08-25] MEDS ORDERED: GABA800T4 PO (09:12)
[2018-08-25] MEDS ORDERED: MAGN250T11 PO (09:12)
[2018-08-25] MEDS ORDERED: LISI10TA4 PO (09:12)
[2018-08-25] MEDS ORDERED: ATOR1TAB21 PO (09:12)
[2018-08-25] MEDS ORDERED: XALA0.007 OU (09:12)
[2018-08-25] MEDS ORDERED: DICL75TA PO (09:12)
[2018-08-25] MEDS ORDERED: CHLO25TA PO (09:12)
[2018-08-25] MEDS ORDERED: ASPI1TAB PO (09:12)
[2018-08-25] MEDS ORDERED: METF750T PO (09:12)
[2018-08-25] MEDS ORDERED: TIMO0.5S42 OU (09:12)
--- NOTE | 2018-08-25 10:37 | REP ---
CHEST X-RAY: PA view. HISTORY: Post biopsy chest x-ray. The patient is status post CT guided needle biopsy of a pulmonary nodule in the left upper lobe. Comparison study May 29, 2018. FINDINGS: There is a small left apical pneumothorax. There is hazy opacity in the area of biopsy target in the left upper lobe region. The right lung is clear. Oxygen delivery tubing is seen. IMPRESSION: Small left apical post biopsy pneumothorax. Follow-up film is suggested. Electronically Signed by Chilo Potter MD 08/25/2018 01:13 P
[2018-08-25] MEDS ORDERED: KCL 20MEQ IN D5/NS 1000ML 1,000 ML IV SCH (13:24)
[2018-08-25] MEDS ORDERED: ONDANSETRON 4MG/2ML VIAL (J2405) IV PRN (13:30)
[2018-08-25] MEDS ORDERED: LEVALBUTEROL 1.25 MG/0.5 ML CONCENTRATE NEB NEB PRN (13:30)
[2018-08-25] MEDS ORDERED: zolPIDEM TARTRATE 5 MG TAB PO PRN (13:30)
[2018-08-25] MEDS ORDERED: BISACODYL 10 MG SUPP PR PRN (13:30)
[2018-08-25] MEDS ORDERED: ACETAMINOPHEN TAB 650MG DOSE (2X325MG) PO PRN (13:30)
[2018-08-25 13:46] VITALS: BP 148/80
[2018-08-25] MEDS: LEVALBUTEROL 1.25 MG/0.5 ML CONCENTRATE NEB NEB SCH ×2 (14:00→20:00)
--- NOTE | 2018-08-25 14:44 | REP ---
PA CHEST X-RAY, 12:08 P.M. FILM: Followup study comparison exam done at 10:00 a.m. on this date. HISTORY: Status post left lung biopsy. FINDINGS: The current chest x-ray shows an interval increase in the small left-sided pneumothorax, approximate 10-15%. There is no evidence of mediastinal shift. Left hemidiaphragm is somewhat elevated as before. Right lung remains clear. IMPRESSION: Interval increase in still small left-sided pneumothorax, 10 - 15%. Electronically Signed by Chilo Potter MD 08/25/2018 05:14 P
[2018-08-25 14:51] LABS: BASO # 0.1 10^3/uL (0.0-0.2); BASO % 0.7 % (0.0-1.0); EOS # 0.3 10^3/uL (0.0-0.50); EOS % 3.7 % (0.0-3.0); HEMATOCRIT 43.2 % (42.0-52.0); HEMOGLOBIN 14.3 g/dl (13.5-17.5); LYMPH # 1.8 10^3/uL (1.5-4.5); LYMPH % 24.4 % (24.0-44.0); MEAN CORPUSCULAR HEMOGLOBIN 30.1 pg (27.0-33.0); MEAN CORPUSCULAR HGB CONC 33.1 g/dl (32.0-36.5); MEAN CORPUSCULAR VOLUME 90.9 fl (80.0-96.0); MONO # 0.6 10^3/uL (0.0-0.8); MONO % 8.2 % (0.0-5.0); NEUTROPHILS # 4.6 10^3/uL (1.8-7.7); NEUTROPHILS % 62.7 % (36.0-66.0); PLATELET COUNT, AUTOMATED 133 10^3/uL (150-450); RED BLOOD COUNT 4.75 10^6/uL (4.30-6.10); WHITE BLOOD COUNT 7.3 10^3/uL (4.0-10.0)
[2018-08-25] MEDS: NORCO, ANEXSIA 5/325MG TABLET (HYDROcodone/ACETAMINOPHEN) PO PRN ×2 (15:04→20:36)
[2018-08-25 15:14] LABS: CALCIUM LEVEL 9.1 MG/DL (8.8-10.2); CREATININE FOR GFR 1.5 MG/DL (0.70-1.30); GLOMERULAR FILTRATION RATE 48.3 (>42); POTASSIUM SERUM 4.2 MEQ/L (3.5-5.1)
--- NOTE | 2018-08-25 15:47 | REP ---
Portable chest x-ray: Single view. History: Chest tube placement. Post biopsy left-sided pneumothorax. Comparison study is from earlier this date. Findings: A left apical chest tube is seen in place. There is no discernible pneumothorax at the left base. There may be a small amount of residual pleural air at the apex. There is discoid atelectasis in the left base. The lungs are exposed at a somewhat lesser level of inspiration. Electronically Signed by Chilo Potter MD 08/25/2018 05:27 P
[2018-08-25] MEDS: GABAPENTIN 400 MG CAP PO SCH ×2 (15:52→20:35)
[2018-08-25] MEDS: PERCOCET 5MG/325MG TAB PO PRN (15:52)
[2018-08-25] MEDS: KETOROLAC 30 MG/ML VIAL (J1885) IV SCH ×2 (15:53→22:05)
[2018-08-25 16:00] VITALS: BP_SYST 158; BP_SYST 188; BP_DIAS 83
--- NOTE | 2018-08-25 16:35 | HPE ---
DATE OF ADMISSION: 08/25/2018 Patient seen at the request of Dr. Potter of the radiology department for a pneumothorax, status post lung biopsy of a left upper lobe lesion. HISTORY OF PRESENT ILLNESS: Patient is a 77-year-old white male who was noted to have a hypermetabolic left upper lobe lesion, probably in the lingular segment. He has a significant smoking history although he quit 10 years ago. After his procedure, a small pneumothorax was noted and 2 hours later a larger pneumothorax was noted with increasing symptomatology of air hunger satiation. He complains of some pain in the left chest. He has a chronic cough which is nonproductive. He wears oxygen at home. His pulmonary function tests (PFTs) done in the late fall showed him to have an FEV1 of 7.47 which is 73% predicted with an FEV1/FVC ratio of 97% and a diffusion capacity of 40% with a RADHA of 10.5. PAST MEDICAL HISTORY: Obstructive sleep apnea, evidently noncompliant with CPAP. Hypertension. Non-insulin dependent diabetes. Hypercholesterolemia. Status post right leg infection which required a number of weeks in the hospital with respiratory failure and sepsis. ALLERGIES: None. PAST SURGICAL HISTORY: Right ankle arthroscopic synovectomy for infected ankle 05/11/2018. Colonoscopy. Transurethral resection of prostate (TURP). Biopsy of the prostate 2007. Polypectomy endoscopically in 2007. Open reduction internal fixation of right ankle fracture in 2006. HABITS: Smoked 2-1/2 packs per day for numerous years, quit 10 years ago. Denies alcohol or illicit drugs. HOME MEDICATIONS: - aspirin 81 mg every day - atorvastatin 20 mg every day - chlorthalidone 2.5 mg every day - diclofenac 75 mg twice a day - gabapentin 800 mg three times a day - Xalatan one drop OU at bedtime - lisinopril 10 mg at bedtime - magnesium oxide 250 mg every day - metformin 1500 mg at bedtime - Timoptic one drop OU twice a day FAMILY HISTORY: Negative for cardiac disease. REVIEW OF SYSTEMS: Constitutional: Without fever, chills, or sweats. Without weight loss. Eyes: Without diplopia, without amaurosis fugax, without prior jaundice. Nose: Without epistaxis. Mouth: Has false teeth. Respiratory: See HPI. Cardiac: See HPI. Without anginal pain or pressure or intermittent claudication. Has noted edema in his right leg since his infectious problem in May. Genitourinary (): Without dysuria, hematuria or prior history of renal stones. Neurologic: Without paresthesias, paralysis or prior seizures. Gastrointestinal (GI): Without nausea, vomiting, diarrhea, constipation, melena or hematochezia or abdominal pain. Psychiatric: Without pathologic anxiety, psychoses or depression. Endocrine: Without thyroid disease. With diabetes. PHYSICAL EXAMINATION: General: Well-developed, well-nourished obese white male. In moderate distress with pain and shortness of breath. Vital signs: Temperature 97.5, blood pressure 170/91, heart rate 83 in a sinus rhythm. Respiratory rate of 20 without the use of accessory muscles. Eyes: Pupils equal, round and reactive to light. Extraocular muscles intact. Sclera anicteric. Nose: Without deformity. Mouth: Shows upper and lower dentures. Mucous membranes are pink and moist. Lips and commissures are without lesions. There is no thrush. Neck is supple. There is no jugular venous distention, no subcutaneous emphysema. Trachea is midline. There is no lymphadenopathy or thyromegaly. Lungs: Show markedly decreased breath sounds on the left side. Percussion note is full to the diaphragm. I hear no wheezes, rhonchi or rales. Abdomen: Soft and nontender. Bowel sounds are positive. There is no hepatomegaly. There is no costovertebral angle (CVA) tenderness. Extremities: Show 1+ pretibial edema on the right, trace on the left. There is no calf tenderness. No differential swelling of the upper extremities. Skin is warm, dry and perfused without cyanosis or mottling including that of the nail beds and the knees. Neuro: Shows II through XII intact. Gross motor and gross sensation intact. Gait is not tested. Psychiatric: Shows him to be awake, alert and oriented times three, with appropriate mood, affect, and conversational. His white count on 07/01/2018 was 6.2 with hemoglobin and hematocrit 11.5 and 36.5 with a platelet count of 135. His chemistries also on 07/01/2018 showed normal electrolytes with BUN and creatinine of 11 and 0.8. Glucose is 154 with a calcium of 8.8. His PT/INR on 08/09/2018 was 13.6 and 1.03 respectively with a PTT of 30.6 seconds. His chest x-ray shows now a 10 to 20% pneumothorax which has gotten worse. There is compression of the left lower lobe with crowding of vessels. There is no subcutaneous emphysema. IMPRESSION: 1. Acute pneumothorax after a lung biopsy. 2. Obstructive sleep apnea. 3. Hypertension. 4. Impaired diffusion capacity. 5. Left upper lobe mass. 6. Non-insulin dependent diabetes. 7. Hypercholesterolemia. 8. Chronic pain syndrome. PLAN AND DISCUSSION: I will immediately place a chest tube. Will admit him and watch for an air leak. If all goes well, he should be discharged within 48 hours. It all depends upon the air leak. It should be noted that his chest CT shows the left upper lobe spiculated mass. He has numerous emphysematous changes throughout both lungs particularly in the upper lobes. His PET scan done on 07/27/2018 shows a left upper lesion to have an SUV of 7.4.
[2018-08-25 17:18] VITALS: BP 180/72
--- NOTE | 2018-08-25 17:20 | REP ---
CT-GUIDED LEFT UPPER LOBE LUNG BIOPSY The procedure was performed under the direct supervision of Dr. Potter. The patient has a history of a 2.2 cm spiculated lesion in the left upper lobe seen on a previous CT scan dated 05/30/2018. This was shown as hypermetabolic on a PET scan performed on 07/27/2018. The risks and benefits of the procedure were explained to the patient and informed consent was obtained. The left upper lobe lung nodule was localized using CT guidance. The skin was prepped and draped in a sterile fashion. 1% lidocaine was used as a local anesthetic. Using CT guidance a 19/20 gauge coaxial needle biopsy system was inserted and advanced into the nodule. Five core biopsy samples were obtained and sent to lab. Chest x-ray performed immediately after the procedure shows a small left apical pneumothorax. Chest x-ray performed 2 hours later shows the pneumothorax had gotten larger. The patient complained of no pain. His vital signs were stable. Dr. Gonzalez was consulted and came to the department to see the patient. Dr. Gonzalez inserted a chest tube in to the patient. The patient was admitted under Dr. Gonzalez's care. Reviewed by LASHAE Lala 08/25/2018 02:12 P Electronically Signed by Chilo Potter MD 08/25/2018 05:11 P
[2018-08-25 20:00] VITALS: BP 156/72
[2018-08-25] MEDS: DOCUSATE SODIUM 100 MG CAP PO SCH ×2 (20:35→20:42)
[2018-08-25] MEDS: LISINOPRIL 10 MG TAB PO SCH (20:35)
[2018-08-25] MEDS: metFORMIN XR 750 MG TAB PO SCH (20:35)
[2018-08-25] MEDS: ASPIRIN 81 MG ENTERIC TAB PO SCH (20:36)
[2018-08-25] MEDS: HEPARIN SOD (PORCINE) 5000 UNITS/ML VIAL SC SCH (20:36)
[2018-08-25] MEDS: TIMOLOL MALEATE 0.5% OPHTH SOLN 5 ML OU SCH (20:37)
[2018-08-25] MEDS: LATANOPROST 0.005% OPHTH SOLN 2.5 ML OU SCH (20:37)
[2018-08-25 23:59] VITALS: BP 116/57
[2018-08-26] VITALS (7 sets, daily range): BP systolic 102–146; BP diastolic 51–71
[2018-08-26] MEDS: LEVALBUTEROL 1.25 MG/0.5 ML CONCENTRATE NEB NEB SCH ×4 (01:46→20:22)
[2018-08-26] MEDS: KETOROLAC 30 MG/ML VIAL (J1885) IV SCH ×4 (05:02→22:05)
[2018-08-26 05:53] LABS: BASO % 0.7 % (0.0-1.0); EOS # 0.3 10^3/uL (0.0-0.50); EOS % 4.7 % (0.0-3.0); HEMATOCRIT 39.8 % (42.0-52.0); HEMOGLOBIN 12.9 g/dl (13.5-17.5); LYMPH # 1.8 10^3/uL (1.5-4.5); LYMPH % 28.8 % (24.0-44.0); MEAN CORPUSCULAR HEMOGLOBIN 29.7 pg (27.0-33.0); MEAN CORPUSCULAR HGB CONC 32.4 g/dl (32.0-36.5); MEAN CORPUSCULAR VOLUME 91.7 fl (80.0-96.0); MONO # 0.6 10^3/uL (0.0-0.8); NEUTROPHILS # 3.5 10^3/uL (1.8-7.7); NEUTROPHILS % 56.5 % (36.0-66.0); PLATELET COUNT, AUTOMATED 114 10^3/uL (150-450); RED BLOOD COUNT 4.34 10^6/uL (4.30-6.10); WHITE BLOOD COUNT 6.1 10^3/uL (4.0-10.0)
[2018-08-26 06:00] LABS: ABG BASE EXCESS 0.6 (-2.0-2.0); ABG HCO3 27.3 MEQ/L (22.0-26.0); ABG O2 SATURATION 95.7 % (95.0-99.0); ABG PARTIAL PRESSURE CO2 52.2 mmHg (35.0-45.0); ABG PARTIAL PRESSURE O2 81.7 mmHg (75.0-100.0); ABG TOTAL CO2 28.9 MEQ/L (23.0-31.0); ABG pH (ARTERIAL) 7.336 UNITS (7.350-7.450)
[2018-08-26 06:17] LABS: BLOOD UREA NITROGEN 21 MG/DL (7-18); CALCIUM LEVEL 8.3 MG/DL (8.8-10.2); CARBON DIOXIDE LEVEL 31 MEQ/L (21-32); CHLORIDE LEVEL 98 MEQ/L (98-107); CREATININE FOR GFR 1.11 MG/DL (0.70-1.30); GLOMERULAR FILTRATION RATE > 60.0 (>42); GLUCOSE, FASTING 137 MG/DL (70-100); POTASSIUM SERUM 4.4 MEQ/L (3.5-5.1); SODIUM LEVEL 136 MEQ/L (136-145)
--- NOTE | 2018-08-26 08:09 | RO ---
DATE OF PROCEDURE: 08/25/2018 PREPROCEDURE DIAGNOSIS: Left pneumothorax. POSTPROCEDURE DIAGNOSIS: Left pneumothorax. PROCEDURE: Insertion of left anterior superior chest tube with moderate sedation. SURGEON: Dr. Judah Gonzalez INDEPENDENT BEAUTY CONSULTANT: ANESTHESIA: DESCRIPTION OF PROCEDURE: Under satisfactory moderate sedation achieved with 4 mg of Versed, the patient was prepped and draped in the usual sterile fashion. Incision was made over the second rib and a tunnel was created into the first intercostal space. A #20 chest tube was then placed without difficulty and secured to the chest wall with a #2 Tevdek suture. It was connected to the pleur-evac. The patient tolerated the procedure well. Chest x-ray is pending.
[2018-08-26] MEDS: CHLORTHALIDONE 12.5MG PER 1/2 TABLET PO SCH (08:31)
[2018-08-26] MEDS: PANTOPRAZOLE 40MG TAB (PROTONIX) PO SCH (08:31)
[2018-08-26] MEDS: ATORVASTATIN 20 MG TAB PO SCH (08:31)
[2018-08-26] MEDS: GABAPENTIN 400 MG CAP PO SCH ×3 (08:31→20:33)
[2018-08-26] MEDS: DOCUSATE SODIUM 100 MG CAP PO SCH ×2 (08:31→20:32)
[2018-08-26] MEDS: MOM 30ML SUSPENSION UDC PO SCH (08:32)
[2018-08-26] MEDS: NORCO, ANEXSIA 5/325MG TABLET (HYDROcodone/ACETAMINOPHEN) PO PRN (08:32)
[2018-08-26] MEDS: HEPARIN SOD (PORCINE) 5000 UNITS/ML VIAL SC SCH ×2 (08:32→20:34)
[2018-08-26] MEDS: TIMOLOL MALEATE 0.5% OPHTH SOLN 5 ML OU SCH ×2 (08:32→20:33)
--- NOTE | 2018-08-26 10:58 | REP ---
CHEST X-RAY: Two views. HISTORY: Pneumothorax. Comparison chest x-ray is from 1:05 p.m. on the previous day. FINDINGS: Left apical chest tube remains in place. There is no discernible pneumothorax. There is hazy opacity at the left base indicating some left pleural effusion. No new infiltrate. Electronically Signed by Chilo Potter MD 08/26/2018 12:52 P
[2018-08-26] MEDS: PERCOCET 5MG/325MG TAB PO PRN (13:51)
--- NOTE | 2018-08-26 14:28 | IPN ---
DATE: 08/26/2018 This is now the first hospital day for Mr. Sandhu status post pneumothorax after a lung biopsy yesterday. He is doing quite well, though he is complaining of pain at the chest tube insertion site. It does come and go. His vital signs show a Maximum temperature (T-max) of 98.3 with a heart rate that ranges between 77 and 85 and in sinus rhythm. Respiratory rate that is constant at 18 without the use of accessory muscles, who is 95-96% saturated on 2 liters nasal cannula and his blood pressures range between 132/68 to 102/51. His intake and output over the past 24 hours is recorded as 1170 in and 7 out. He has put 7 mL out the chest tube and there is no air leak. He has taken in today 600 mL and his has put 356 mL out. On physical examination his lungs show normal vesicular sounds without wheezes, rhonchi or rales. Percussion note is full to the diaphragm. Cardiac exam is without murmurs, clicks, gallops or rubs. I cannot feel his point of maximum impulse (PMI). S1 and S2 are normal. Abdomen is soft and nontender. Bowel sounds are positive. There is no hepatomegaly. No costovertebral angle (CVA) tenderness. Extremities show no pretibial edema with no calf tenderness. No differential swelling of the upper extremities. Skin is warm, dry and perfused without cyanosis or mottling including that of the nail beds and knees. Neck is supple. There is no jugular venous distention. No subcutaneous emphysema. Trachea is midline. Mouth shows his mucous membranes to be pink and moist. Lips and commissures are without lesions. There is no thrush. Eyes show his pupils to be equal and reactive. Extraocular movements intact. Sclerae nonicteric. Neurologic shows II-XII intact along with gross motor and gross sensation intact. Gait is not tested. Psychiatric showed him to be awake, alert and oriented times three with appropriate and affect and conversational. White count today is 6.1 with a hemoglobin and hematocrit of 12.9 and 39.8 and a platelet count 114 and stable. Differential shows 56% neutrophils, 28% lymphocytes, 9% monocytes. There are no immature forms or toxic granulations. His electrolytes are normal with a BUN and creatinine of 21 and 1.11, improved from yesterday afternoon of 22 and 1.50. He is now on Toradol. His chest x-ray shows his lung fully expanded to the chest wall. Costophrenic angles are sharp. IMPRESSION: 1. Pneumothorax status post lung biopsy, left side. 2. Obstructive sleep apnea. 3. Hypertension. 4. Impaired diffusion capacity. 5. Left upper lobe mass, pathology pending. 6. Non-insulin dependent diabetes. 7. Hypercholesteremia. 8. Chronic pain syndrome. PLAN AND DISCUSSION: I will take his chest tube off suction today. We will take a chest x-ray tomorrow morning. If that shows the lungs fully expanded to the chest wall and there is no air leak, I will remove his chest tube and discharge him tomorrow.
[2018-08-26] MEDS ORDERED: LIDOCAINE 1% MDV 20ML VIAL As Ordered ONE (14:45)
[2018-08-26] MEDS: ASPIRIN 81 MG ENTERIC TAB PO SCH (20:33)
[2018-08-26] MEDS: LATANOPROST 0.005% OPHTH SOLN 2.5 ML OU SCH (20:33)
[2018-08-26] MEDS: LISINOPRIL 10 MG TAB PO SCH (20:33)
[2018-08-26] MEDS: metFORMIN XR 750 MG TAB PO SCH (20:33)
[2018-08-27] MEDS: LEVALBUTEROL 1.25 MG/0.5 ML CONCENTRATE NEB NEB SCH ×4 (01:58→20:09)
[2018-08-27 04:00] VITALS: BP 133/63
[2018-08-27] MEDS: KETOROLAC 30 MG/ML VIAL (J1885) IV SCH ×4 (04:47→21:32)
[2018-08-27 05:08] LABS: BASO % 0.4 % (0.0-1.0); EOS # 0.4 10^3/uL (0.0-0.50); EOS % 4.9 % (0.0-3.0); HEMATOCRIT 39.7 % (42.0-52.0); HEMOGLOBIN 12.9 g/dl (13.5-17.5); LYMPH # 1.4 10^3/uL (1.5-4.5); LYMPH % 17.9 % (24.0-44.0); MEAN CORPUSCULAR HEMOGLOBIN 29.5 pg (27.0-33.0); MEAN CORPUSCULAR HGB CONC 32.5 g/dl (32.0-36.5); MEAN CORPUSCULAR VOLUME 90.6 fl (80.0-96.0); MONO # 0.6 10^3/uL (0.0-0.8); NEUTROPHILS # 5.5 10^3/uL (1.8-7.7); NEUTROPHILS % 69.4 % (36.0-66.0); PLATELET COUNT, AUTOMATED 119 10^3/uL (150-450); RED BLOOD COUNT 4.38 10^6/uL (4.30-6.10)
[2018-08-27 05:32] LABS: BLOOD UREA NITROGEN 20 MG/DL (7-18); CALCIUM LEVEL 8.1 MG/DL (8.8-10.2); CARBON DIOXIDE LEVEL 30 MEQ/L (21-32); CHLORIDE LEVEL 98 MEQ/L (98-107); CREATININE FOR GFR 1.03 MG/DL (0.70-1.30); GLOMERULAR FILTRATION RATE > 60.0 (>42); GLUCOSE, FASTING 190 MG/DL (70-100); POTASSIUM SERUM 4.3 MEQ/L (3.5-5.1); SODIUM LEVEL 136 MEQ/L (136-145)
[2018-08-27 07:48] VITALS: BP 162/74
[2018-08-27] MEDS ORDERED: FUROSEMIDE 20 MG/2 ML VIAL (J1940) IV ONE (08:45)
[2018-08-27] MEDS: GABAPENTIN 400 MG CAP PO SCH ×3 (08:46→21:29)
[2018-08-27] MEDS: PANTOPRAZOLE 40MG TAB (PROTONIX) PO SCH (08:46)
[2018-08-27] MEDS: CHLORTHALIDONE 12.5MG PER 1/2 TABLET PO SCH (08:46)
[2018-08-27] MEDS: PERCOCET 5MG/325MG TAB PO PRN ×2 (08:47→13:38)
[2018-08-27] MEDS: ATORVASTATIN 20 MG TAB PO SCH (08:47)
[2018-08-27] MEDS: TIMOLOL MALEATE 0.5% OPHTH SOLN 5 ML OU SCH ×2 (08:47→21:32)
[2018-08-27] MEDS: HEPARIN SOD (PORCINE) 5000 UNITS/ML VIAL SC SCH ×2 (08:47→21:32)
[2018-08-27] MEDS: DOCUSATE SODIUM 100 MG CAP PO SCH ×2 (08:47→21:00)
[2018-08-27] MEDS: MOM 30ML SUSPENSION UDC PO SCH (08:47)
--- NOTE | 2018-08-27 09:02 | REP ---
Chest x-ray: Three views. History: Pneumothorax. Comparison study: August 26, 2018. Findings: A left apical chest tube remains in place. There is no evidence of significant pneumothorax. There is increased density blunting the lateral pleural angle and elevating the apparent hemidiaphragm consistent with left effusion. This is unchanged from yesterday's radiograph. Right lung remains clear. Electronically Signed by Chilo Potter MD 08/27/2018 01:55 P
--- NOTE | 2018-08-27 09:16 | IPN ---
DATE: 08/27/2018 Mr. Sandhu was taken back to x-ray for another attempt at needle biopsy as the first needle biopsy did not show any pathology, but rather lung parenchyma with some scarring. Today, he is doing fairly well, although he is complaining of pain at the chest tube insertion site which is being controlled with both Toradol and narcotic analgesia. He now has an air leak and will keep him on suction. His vital signs show a maximum temperature (T-max) of 98.2 with a heart rate that ranges between 88 and 77 and in a sinus rhythm, a respiratory rate of 18 to 20 without the use of accessory muscles, who is 94% saturated on 2 liters nasal cannula and whose blood pressure is ranging between 144/71 to 121/58. His intake and output over the past 24 hours has been recorded as 2640 in and 1814 out for a positivity of 826 mL. He has put 14 mL out the chest tube and there is an air leak. His weight today is 121.4 kg compared to 122.2 kg yesterday. On physical examination, he has some coarse rhonchi on the left side. Percussion note is full to the diaphragm. Cardiac exam is without murmurs, clicks, gallops or rubs. I cannot feel his point of maximum impulse (PMI). S1 and S2 are normal. Abdomen is soft and nontender. Bowel sounds are positive. There is no hepatomegaly. No costovertebral angle (CVA) tenderness. Extremities show no pretibial edema on the left side, however he has 1+ on the right side where he had his septic joint in late 2018. No calf tenderness. Skin is warm, dry and perfused, without cyanosis or mottling including that of the nail beds and knees. Neck is supple. There is no jugular venous distention. No subcutaneous emphysema. Trachea is midline. Mouth shows his mucous membranes to be pink and moist. Lips and commissures are without lesions. There is no thrush. Eyes show his pupils to be equal and reactive. Extraocular movements intact. Sclerae nonicteric. Neurologic shows II-XII intact along with gross motor and gross sensation intact. Gait is not tested. Psychiatric showed him to be awake, alert and oriented times three with appropriate and affect and conversational. White count today is 8.0 with hemoglobin and hematocrit of 12.9 and 39.7 respectively with a platelet count of 119 and stable. Differential shows 69% neutrophils, 17% lymphocytes, 7% monocytes. There are no immature forms or toxic granulations. His electrolytes are normal with a BUN and creatinine of 20 and 1.03, glucose of 190, and a calcium of 8.1. His chest x-ray today shows the lung fully expanded to the chest wall. The chest tube is in good place. He has a small left sided blunting of the costophrenic angle which is probably more related to intraparenchymal hemorrhage rather than a fluid collection. IMPRESSION: 1. Pneumothorax status post lung biopsy, left side. 2. Obstructive sleep apnea. 3. Hypertension. 4. Impaired diffusion capacity. 5. Left upper lobe mass, pathology pending. 6. Non-insulin dependent diabetes. 7. Hypercholesteremia. 8. Chronic pain syndrome. PLAN AND DISCUSSION: As he now has an air leak, I will continue him on suction. I am treating his pain with both Toradol and narcotic analgesia. He is certainly anxious to go home, but understands that he is stuck until his air leak stops. The overriding consideration is making a diagnosis. Will await pathology later today or by Thursday.
[2018-08-27 11:37] VITALS: BP 128/75
--- NOTE | 2018-08-27 13:50 | REP ---
CT-guided left upper lobe lung biopsy The procedure was performed under the direct supervision of Dr. Potter. The patient has a history of a 2.2 cm spiculated lesion in the left upper lobe seen on a previous CT scan dated 05/30/2018. This was shown as hypermetabolic on a PET scan performed on 07/27/2018. This was biopsied yesterday, however the results were inconclusive and a rebiopsy of the lesion is requested. The risks and benefits of the procedure were explained to the patient and informed consent was obtained. The left upper lobe lung nodule was localized using CT guidance. The skin was prepped and draped in a sterile fashion. 1% lidocaine was used as a local anesthetic. Using CT guidance a 19/20 gauge coaxial needle biopsy system was inserted and advanced into the nodule. Six core biopsy samples were obtained and sent to lab. The patient tolerated the procedure well and there were no immediate complications. After the appropriate amount of monitored convalescence the patient was discharged from the department. Reviewed by LASHAE Lala 08/26/2018 05:05 P Electronically Signed by Chilo Potter MD 08/27/2018 01:41 P
[2018-08-27 16:00] VITALS: BP 142/69
[2018-08-27 20:00] VITALS: BP 155/75
[2018-08-27] MEDS: ASPIRIN 81 MG ENTERIC TAB PO SCH (21:00)
[2018-08-27] MEDS: LISINOPRIL 10 MG TAB PO SCH (21:31)
[2018-08-27] MEDS: metFORMIN XR 750 MG TAB PO SCH (21:32)
[2018-08-27] MEDS: LATANOPROST 0.005% OPHTH SOLN 2.5 ML OU SCH (21:32)
[2018-08-27 23:59] VITALS: BP 116/65
[2018-08-28] MEDS: LEVALBUTEROL 1.25 MG/0.5 ML CONCENTRATE NEB NEB SCH ×4 (00:18→20:25)
[2018-08-28 04:00] VITALS: BP 156/73
[2018-08-28] MEDS: KETOROLAC 30 MG/ML VIAL (J1885) IV SCH ×4 (04:07→21:39)
[2018-08-28 05:46] LABS: BASO % 0.5 % (0.0-1.0); EOS # 0.4 10^3/uL (0.0-0.50); EOS % 6.3 % (0.0-3.0); HEMATOCRIT 37.1 % (42.0-52.0); HEMOGLOBIN 12.3 g/dl (13.5-17.5); LYMPH # 1.2 10^3/uL (1.5-4.5); LYMPH % 18.9 % (24.0-44.0); MEAN CORPUSCULAR HEMOGLOBIN 29.9 pg (27.0-33.0); MEAN CORPUSCULAR HGB CONC 33.2 g/dl (32.0-36.5); MEAN CORPUSCULAR VOLUME 90.3 fl (80.0-96.0); MONO # 0.6 10^3/uL (0.0-0.8); MONO % 8.9 % (0.0-5.0); NEUTROPHILS # 4.2 10^3/uL (1.8-7.7); NEUTROPHILS % 65.1 % (36.0-66.0); PLATELET COUNT, AUTOMATED 103 10^3/uL (150-450); RED BLOOD COUNT 4.11 10^6/uL (4.30-6.10); WHITE BLOOD COUNT 6.5 10^3/uL (4.0-10.0)
[2018-08-28 05:56] LABS: BLOOD UREA NITROGEN 13 MG/DL (7-18); CALCIUM LEVEL 8.6 MG/DL (8.8-10.2); CARBON DIOXIDE LEVEL 29 MEQ/L (21-32); CHLORIDE LEVEL 97 MEQ/L (98-107); CREATININE FOR GFR 0.89 MG/DL (0.70-1.30); GLOMERULAR FILTRATION RATE > 60.0 (>42); GLUCOSE, FASTING 192 MG/DL (70-100); POTASSIUM SERUM 4.2 MEQ/L (3.5-5.1); SODIUM LEVEL 135 MEQ/L (136-145)
[2018-08-28 08:00] VITALS: BP 132/69
[2018-08-28] MEDS: MOM 30ML SUSPENSION UDC PO SCH (09:00)
[2018-08-28] MEDS: CHLORTHALIDONE 12.5MG PER 1/2 TABLET PO SCH (09:03)
[2018-08-28] MEDS: PANTOPRAZOLE 40MG TAB (PROTONIX) PO SCH (09:04)
[2018-08-28] MEDS: PERCOCET 5MG/325MG TAB PO PRN ×2 (09:05→16:22)
[2018-08-28] MEDS: DOCUSATE SODIUM 100 MG CAP PO SCH ×2 (09:06→21:40)
[2018-08-28] MEDS: ATORVASTATIN 20 MG TAB PO SCH (09:06)
[2018-08-28] MEDS: GABAPENTIN 400 MG CAP PO SCH ×3 (09:06→21:41)
[2018-08-28] MEDS: HEPARIN SOD (PORCINE) 5000 UNITS/ML VIAL SC SCH ×2 (09:08→21:40)
[2018-08-28] MEDS: TIMOLOL MALEATE 0.5% OPHTH SOLN 5 ML OU SCH ×2 (09:10→21:41)
--- NOTE | 2018-08-28 10:37 | REP ---
CHEST, TWO VIEWS: Two views of the chest are performed and compared to prior study of 08/27/2018. Left chest tube remains in place. I do not see a pneumothorax. Pleural and parenchymal opacity in the left base is stable. Right lung is clear and unchanged. Cardiomediastinal silhouette is unchanged. IMPRESSION: Stable exam. Electronically Signed by Harsh Gomez MD 08/28/2018 06:52 P
[2018-08-28 12:00] VITALS: BP 145/68
[2018-08-28 20:00] VITALS: BP 154/72
[2018-08-28] MEDS: LATANOPROST 0.005% OPHTH SOLN 2.5 ML OU SCH (21:39)
[2018-08-28 21:40] VITALS: BP 154/72
[2018-08-28] MEDS: metFORMIN XR 750 MG TAB PO SCH (21:40)
[2018-08-28] MEDS: ASPIRIN 81 MG ENTERIC TAB PO SCH (21:40)
[2018-08-28] MEDS: LISINOPRIL 10 MG TAB PO SCH (21:40)
[2018-08-29] VITALS: BP 126/59
[2018-08-29] MEDS: LEVALBUTEROL 1.25 MG/0.5 ML CONCENTRATE NEB NEB SCH ×3 (00:08→13:35)
[2018-08-29 04:00] VITALS: BP 162/75
[2018-08-29] MEDS: KETOROLAC 30 MG/ML VIAL (J1885) IV SCH ×3 (05:27→16:04)
[2018-08-29 05:52] LABS: BASO % 0.6 % (0.0-1.0); EOS # 0.7 10^3/uL (0.0-0.50); EOS % 10.5 % (0.0-3.0); HEMATOCRIT 41.1 % (42.0-52.0); HEMOGLOBIN 13.7 g/dl (13.5-17.5); LYMPH # 1.2 10^3/uL (1.5-4.5); LYMPH % 17.4 % (24.0-44.0); MEAN CORPUSCULAR HEMOGLOBIN 29.6 pg (27.0-33.0); MEAN CORPUSCULAR HGB CONC 33.3 g/dl (32.0-36.5); MEAN CORPUSCULAR VOLUME 88.8 fl (80.0-96.0); MONO # 0.6 10^3/uL (0.0-0.8); MONO % 8.1 % (0.0-5.0); NEUTROPHILS # 4.5 10^3/uL (1.8-7.7); NEUTROPHILS % 63.1 % (36.0-66.0); PLATELET COUNT, AUTOMATED 110 10^3/uL (150-450); RED BLOOD COUNT 4.63 10^6/uL (4.30-6.10); WHITE BLOOD COUNT 7.1 10^3/uL (4.0-10.0)
[2018-08-29 06:18] LABS: BLOOD UREA NITROGEN 15 MG/DL (7-18); CALCIUM LEVEL 9.1 MG/DL (8.8-10.2); CARBON DIOXIDE LEVEL 32 MEQ/L (21-32); CHLORIDE LEVEL 96 MEQ/L (98-107); CREATININE FOR GFR 0.94 MG/DL (0.70-1.30); GLOMERULAR FILTRATION RATE > 60.0 (>42); GLUCOSE, FASTING 214 MG/DL (70-100); POTASSIUM SERUM 4.6 MEQ/L (3.5-5.1); SODIUM LEVEL 134 MEQ/L (136-145)
[2018-08-29 08:00] VITALS: BP 136/67
[2018-08-29] MEDS: MOM 30ML SUSPENSION UDC PO SCH (09:00)
[2018-08-29] MEDS: HEPARIN SOD (PORCINE) 5000 UNITS/ML VIAL SC SCH (09:38)
[2018-08-29] MEDS: CHLORTHALIDONE 12.5MG PER 1/2 TABLET PO SCH (09:39)
[2018-08-29] MEDS: PANTOPRAZOLE 40MG TAB (PROTONIX) PO SCH (09:39)
[2018-08-29] MEDS: GABAPENTIN 400 MG CAP PO SCH ×2 (09:39→16:04)
[2018-08-29] MEDS: DOCUSATE SODIUM 100 MG CAP PO SCH (09:39)
[2018-08-29] MEDS: ATORVASTATIN 20 MG TAB PO SCH (09:39)
[2018-08-29] MEDS: TIMOLOL MALEATE 0.5% OPHTH SOLN 5 ML OU SCH (09:40)
--- NOTE | 2018-08-29 11:15 | REP ---
CHEST, TWO VIEWS: Two views of the chest are performed and compared to a prior study of 08/28/2018. Left chest tube remains in place. I do not see a significant pneumothorax. Left basilar pleural and parenchymal opacities are stable. Right lung appears stable. Cardiomediastinal silhouette is unchanged. IMPRESSION: Stable exam. Electronically Signed by Harsh Gomez MD 08/29/2018 05:44 P
[2018-08-29 12:00] VITALS: BP 113/68
--- NOTE | 2018-08-29 14:06 | IPN ---
DATE OF SERVICE: 08/28/2018 Mr. Sandhu is doing fairly well with his pain being much better controlled. I do not see an air leak today. However, the nursing staff thought they saw an intermittent air leak earlier this morning. I have, therefore, taken him off suction. His vital signs show a maximum temperature (Tmax) of 98.3 with a heart rate that ranges between 84 and 87 in a sinus rhythm, respiratory rate of 18-17 without the use of accessory muscles, who is 93% to 95% saturated on 2 liters nasal cannula. He wears nasal cannula at home. His blood pressure is ranging between 156/73 to 116/65. His intake and output over the past 24 hours has been recorded as 780 in and 2379 out for a negativity of 1600 mL. He was given a dose of Lasix yesterday. The chest tube has put out 4 mL, and there is no air leak. His weight today is 123.1 kg compared to 121.4 kg yesterday. On physical examination, he has equal breath sounds on either side. There is some coarse rhonchi. Percussion note is full to the diaphragm. Cardiac examination is without murmurs, clicks, gallops, or rubs. I cannot feel his point of maximum impulse (PMI). S1 and S2 are normal. Abdomen is soft and nontender. Bowel sounds are positive. There is no hepatomegaly. No costovertebral angle (CVA) tenderness. Extremities show no pretibial edema on the left with 1+ on the right which is chronic. There is no calf tenderness. No differential swelling of the upper extremities. Skin is warm, dry, and perfused, without cyanosis or mottling, including that of the nail beds and the knees. Neck is supple. There is no jugular venous distention. No subcutaneous emphysema. Trachea is midline. Mouth shows his mucous membranes to be pink and moist. Lips and commissures without lesions. There is no thrush. Eyes show his pupils to be equal and reactive. Extraocular motor intact. Sclerae anicteric. Neurologic shows II-XII intact, along with gross motor and gross sensation intact. Gait is not tested. Psychiatric showed him to be awake, alert, and oriented times three with appropriate and affect and conversational. White count today is 6.5 with a hemoglobin and hematocrit of 12.3 and 37.1 unchanged from yesterday with a platelet count of 103. Differential shows 65% neutrophils, 18% lymphocytes, 8% monocytes. There are no immature forms, no toxic granulations. His electrolytes are essentially normal today with a BUN and creatinine of 13 and 0.89 and a glucose of 192 and a calcium of 8.6. His chest x-ray today shows his lung fully expanded to the chest wall. The chest tube is in good place. There is no subcutaneous emphysema. There is some blunting of the left costophrenic angle. IMPRESSION: 1. Pneumothorax, status post lung biopsy, left side. Pathology pending. 2. Obstructive sleep apnea. 3. Hypertension. 4. Impaired diffusion capacity. 5. Left upper lobe mass. Pathology pending. 6. Noninsulin-dependent diabetes. 7. Hypercholesteremia. 8. Chronic pain syndrome. PLAN AND DISCUSSION: I will remove his chest tube from suction today. If his chest x-ray shows his lung fully expanded to the chest wall tomorrow, I will remove his chest tube and take a chest x-ray 6 hours later and plan for discharge later in the afternoon. If that occurs, we will not have the pathology back until Thursday; and, therefore, he will be followed up with Dr. Kang to discuss pathology findings and next steps.
[2018-08-29 16:00] VITALS: BP 172/83
[2018-08-29] MEDS: PERCOCET 5MG/325MG TAB PO PRN (16:04)
[2018-08-29 18:00] VITALS: BP 174/82
--- NOTE | 2018-08-30 07:11 | REP ---
CHEST, TWO VIEWS: Two views of the chest are performed and compared to prior exam earlier today. There has been removal of the left chest tube. Small left basilar pneumothorax is present. There is a small left effusion. There is mild adjacent parenchymal opacity in the left lung base. The remainder of the study is unchanged. Electronically Signed by Harsh Gomez MD 08/30/2018 09:21 A
--- NOTE | 2018-08-30 10:08 | DSES ---
DATE OF ADMISSION: 08/25/2018 DATE OF DISCHARGE: 08/29/2018 DISCHARGE DIAGNOSES: 1. Left upper lobe mass, pathology pending. 2. Pneumothorax status post lung biopsy. 3. Obstructive sleep apnea (BILL). 4. Hypertension. 5. Spinal stenosis with chronic pain syndrome. 6. Cis-gletzwq-iosojrhsk diabetes. 7. Hypercholesterolemia. 8. Impaired diffusing capacity. 9. Chronic obstructive pulmonary disease (COPD). HOSPITAL COURSE: The patient is a 77-year-old white male who is noted to have a metabolic left upper lobe lesion. He has a significant smoking history, but quit 10 years ago. After the lung biopsy, he had a small pneumothorax which was noted 2 hours later to become larger with increasing symptomatology. A chest tube was therefore placed. His PFTs done in late fall showed an FEV1 of 1.47 which was 73% of predicted with a diffusing capacity of 40% with a DLCO of 10.5. His hospitalization course was notable for the lack of pathological findings on the biopsy, and therefore with the chest tube in place he was sent back down for another attempt at biopsying. At the time of discharge, his pathology is not back. It was felt that the needle entered the mass definitively and hopefully we will get definitive results. After the second biopsy, he had an air leak for 24 hours, which then stopped. Chest tube was placed on suction and the lung stayed expanded to the chest wall. He did have some atelectasis in the left lower lobe on chest x-ray. His chest tube was removed and a chest x-ray taken 6 hours later showed the lung to be expanded to the chest wall. The patient is being discharged today on his home medications of: - aspirin 81 mg daily - atorvastatin 20 mg at bedtime - chlorthalidone 12.5 mg daily - diclofenac 75 mg twice a day - gabapentin 800 mg three times a day - Xalatan 0.005% one drop both eyes (OU) at bedtime - lisinopril 10 mg at bedtime - magnesium oxide 250 mg daily - metformin 1500 mg at bedtime - timolol one drop both eyes (OU) twice a day His discharge white count is 7.1 with a hemoglobin and hematocrit of 13.7 and 41.1, respectively. Chemistries show marginally low sodium of 134 with a BUN and creatinine of 15 and 0.94. His chest x-ray shows the lung fully expanded to the chest wall with some atelectasis and blunting of the left costophrenic angle. He will return to see Dr. Kang to discuss his pathology next week. As Dr. Kang is following him, he will not need to come back to see me.
== END 2018-08-29 19:50 | disposition home or self-care (01) | DRG 200 ==
LOC: M RADPRO 08:08 → M PCU 13:46
PROVIDERS: ADMIT Thoracic Surgery (Cardiothoracic Vascular Surgery); ATTEND Thoracic Surgery (Cardiothoracic Vascular Surgery)
PROC: 0W9B00Z Drainage of Left Pleural Cavity with Drainage Device, Open Approach (ICD-10-PCS; principal; 2018-08-25)
PROC: 0B9G3ZX Drainage of Left Upper Lung Lobe, Percutaneous Approach, Diagnostic (ICD-10-PCS; 2018-08-25)
PROC: 0B9G3ZX Drainage of Left Upper Lung Lobe, Percutaneous Approach, Diagnostic (ICD-10-PCS; 2018-08-26)
DX: J95.811 Postprocedural pneumothorax (principal); C34.12 Malignant neoplasm of upper lobe, left bronchus or lung; G47.33 Obstructive sleep apnea (adult) (pediatric); I10 Essential (primary) hypertension; E11.9 Type 2 diabetes mellitus without complications; J95.812 Postprocedural air leak; E78.00 Pure hypercholesterolemia, unspecified; G89.4 Chronic pain syndrome; J43.9 Emphysema, unspecified; Z87.891 Personal history of nicotine dependence; Z79.82 Long term (current) use of aspirin; Z79.84 Long term (current) use of oral hypoglycemic drugs; Z79.899 Other long term (current) drug therapy

== ENCOUNTER 2018-09-14 04:03 | Inpatient (IN) | payer OTHER ==
[~2018-09-14] VITALS: Ht 188 cm; Wt 119.5 kg
[~2018-09-14 04:03] MED LIST changes: -ASPI1TAB PO; +ASPI81TA26 PO; +LATA0.0013 OD; -LATA5OPD OD; +MAGN250T11 PO; -MIDAZOLAM INJ 2 MG/2 ML VIAL (J2250) As Ordered ONE; +TIMO0.5S42 OU; +TIMO0.5S7 OD; -TIMO5OPG OD; +XALA0.007 OU; -fentaNYL 100 MCG/2 ML INJECTION (J3010) As Ordered ONE
[2018-09-14] MEDS ORDERED: NITROGLYCERIN 0.4 MG SUBL TABLET SL PRN (04:15)
[2018-09-14] MEDS ORDERED: ASPIRIN 81 MG CHEW TABLET PO ONE (04:15)
[2018-09-14] MEDS ORDERED: ONDANSETRON 4MG/2ML VIAL (J2405) IV ONE (04:45)
[2018-09-14 04:51] LABS: BASO % 0.3 % (0.0-1.0); EOS # 0.3 10^3/uL (0.0-0.50); EOS % 2.3 % (0.0-3.0); HEMATOCRIT 48.5 % (42.0-52.0); HEMOGLOBIN 16.3 g/dl (13.5-17.5); LYMPH # 1.4 10^3/uL (1.5-4.5); LYMPH % 9.3 % (24.0-44.0); MEAN CORPUSCULAR HEMOGLOBIN 29.9 pg (27.0-33.0); MEAN CORPUSCULAR HGB CONC 33.6 g/dl (32.0-36.5); MONO # 1.1 10^3/uL (0.0-0.8); MONO % 7.7 % (0.0-5.0); NEUTROPHILS # 11.8 10^3/uL (1.8-7.7); NEUTROPHILS % 79.9 % (36.0-66.0); PLATELET COUNT, AUTOMATED 217 10^3/uL (150-450); RED BLOOD COUNT 5.45 10^6/uL (4.30-6.10); WHITE BLOOD COUNT 14.8 10^3/uL (4.0-10.0)
[2018-09-14 05:00] LABS: INR 1.08; PROTHROMBIN TIME 14.1 SECONDS (12.1-14.4)
[2018-09-14 05:01] LABS: PARTIAL THROMBOPLASTIN TIME 28.4 SECONDS (25.4-37.6)
[2018-09-14 05:28] LABS: ALBUMIN 3.7 GM/DL (3.2-5.2); ALT/SGPT 26 U/L (12-78); BILIRUBIN,DIRECT 0.3 MG/DL (0.0-0.2); BILIRUBIN,TOTAL 1.4 MG/DL (0.2-1.0); BLOOD UREA NITROGEN 15 MG/DL (7-18); CARBON DIOXIDE LEVEL 26 MEQ/L (21-32); CHLORIDE LEVEL 96 MEQ/L (98-107); CPK CREATINE PHOSPHOKINASE 146 U/L (39-308); CREATININE FOR GFR 1.08 MG/DL (0.70-1.30); FREE T4 1.03 NG/DL (0.76-1.46); GLOMERULAR FILTRATION RATE > 60.0 (>42); GLUCOSE, FASTING 367 MG/DL (70-100); LIPASE 139 U/L (73-393); MB/CK RELATIVE INDEX 4.79 (< OR =4); SODIUM LEVEL 133 MEQ/L (136-145); TOTAL PROTEIN 7.4 GM/DL (6.4-8.2); TROPONIN I < 0.02 NG/ML (< 0.10)
--- NOTE | 2018-09-14 05:50 | ECGEPIP ---
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
[2018-09-14] MEDS ORDERED: ISOVUE-370 76% 100ML VIAL (Q9967) As Ordered ONE ×2 (07:41→16:13)
[2018-09-14] MEDS ORDERED: NS 500 ML IV ONE (08:15)
--- NOTE | 2018-09-14 08:19 | REP ---
CT of the chest with IV contrast, pulmonary artery CT angiography protocol: Comparison is 05/27/2018. There are no emboli in the pulmonary trunk or central pulmonary arteries. There are no emboli in the pulmonary lobe or segment branches. There are no infiltrates. There are no pleural effusions. There is a spiculated left upper lobe mass today measures 2.2 by 0.0 cm. Previously this mass measured 2.2 x 1.5 cm. There is no mediastinal or hilar lymph node enlargement. There is no axillary lymph node enlargement. There are numerous bulla throughout the lung thibodeaux bilaterally, predominately in the upper lobes. This is unchanged. The visualized upper abdominal contents are unremarkable. There is no adrenal mass. Impression: No pulmonary emboli. No acute infiltrates or pleural effusions. Bullous emphysema as described. Spiculated left upper lobe nodule, slightly increased in size. Electronically Signed by Harsh Johnson MD 09/14/2018 08:10 A
[2018-09-14] MEDS ORDERED: CHLORTHALIDONE 12.5MG PER 1/2 TABLET PO SCH (09:00)
--- NOTE | 2018-09-14 10:53 | REP ---
Clinical: Chest pain. Technique: PA and lateral. Comparison: 08/29/2018. Findings: Mediastinum and cardiac silhouette are within normal limits and stable. Previously identified left-sided pneumothorax has resolved. There is a subtle area of opacity in the left mid/upper lung zone along midclavicular line. No further consolidation, obvious effusion, or pneumothorax. Skeletal structures stable. Impression: Subtle area of opacity in the left upper lung zone corresponding to the known left upper lobe mass. Electronically Signed by Tucker Granado MD 09/14/2018 10:44 A
[2018-09-14 10:56] LABS: CPK CREATINE PHOSPHOKINASE 108 U/L (39-308); TROPONIN I < 0.02 NG/ML (< 0.10)
[2018-09-14] MEDS ORDERED: LOPERAMIDE 2 MG CAP PO ONE (11:00)
[2018-09-14] MEDS ORDERED: NS 1,000 ML IV ONE (11:45)
[2018-09-14] MEDS ORDERED: LOPERAMIDE 2 MG CAP PO PRN (15:30)
[2018-09-14] MEDS ORDERED: GLUCAGON FOR INJ 1 MG VIAL (J1610) SC PRN (16:00)
[2018-09-14] MEDS ORDERED: GLUCOSE 4 GM CHEW TABLET PO PRN (16:00)
[2018-09-14] MEDS ORDERED: DEXTROSE 50% 50 ML SYRINGE IV PRN (16:00)
[2018-09-14 16:17] LABS: MAGNESIUM LEVEL 1.2 MG/DL (1.8-2.4)
--- NOTE | 2018-09-14 17:18 | HPEPDOC ---
General Date of Admission Sep 14, 2018 at 15:25 Chief Complaint The patient is a 77-year-old male admitted with a reason for visit of Dehydratio n,Diarrhea. History of Present Illness Mr. Sandhu is a 77 yo male with a pertinent PMH of HTN, DM, and newly diagnosed adenocarcinoma of the lung who presents with chest pain and ~2 week of diarrhea. He currently has no chest pain, but overnight he had an uncomfortable feeling in his left lower chest that prompted him to present to the ER. The chest discomfort was not painful, non pleuritic, and symptoms resolved without intervention. He also reports that he has had 5-7 bowel movements a day for approximately the last 2 weeks and often soils clothing because he does not have enough time to make it to a bathroom. He describes his bowel movements as watery with no blood, color change, or foul smell. He reports no recent antibiotics or changes in medications and no recent changes in his diet although it is poor. He does report some nausea and 1 episode of vomiting in the same time frame. He denies fevers, chills, weakness, SOB, and light headedness. He has had a 10-lb weight loss in the past 3-4 months, but reports no weight loss since onset of diarrhea. Home Medications Scheduled Aspirin (Aspirin EC) 81 Mg Tab, 81 MG PO QHS, (Reported) Atorvastatin Calcium (Atorvastatin Calcium) 20 Mg Tab, 20 MG PO DAILY, (Reported) Chlorthalidone (Chlorthalidone) 25 Mg Tab, 12.5 MG PO DAILY, (Reported) Diclofenac Sodium (Diclofenac Sodium) 75 Mg Tab, 75 MG PO BID, (Reported) Gabapentin (Gabapentin) 800 Mg Tab, 800 MG PO TID, (Reported) Latanoprost (Xalatan) 0.005 % Natalia, 1 DROP OU QHS, (Reported) Lisinopril (Lisinopril) 10 Mg Tab, 10 MG PO QHS, (Reported) Magnesium Oxide (Magnesium Oxide) 250 Mg Tab, 250 MG PO DAILY, (Reported) Metformin HCl (Metformin HCl ER) 750 Mg Tab, 1,500 MG PO QHS, (Reported) Timolol Maleate (Timoptic) 0.5 % Natalia, 1 DROP OU BID, (Reported) Allergies Coded Allergies: ceftriaxone (Verified Allergy, Unknown, 09/14/18) Past Medical History Medical History 1. Adenocarcinoma of Lung Cancer 2. Depression 3. Hypertriglyceridemia 4. Obstructive sleep apnea noncompliant with CPAP 5. 2 L nasal cannula oxygen at baseline 6. Type 2 diabetes mellitus without complications 7. Glaucoma 8. Personal history of malignant adenocarcinoma of the prostate 9. Sensory peripheral neuropathy 10. Hypertension 11. Chronic pain syndrome + lumbar stenosis follows Dr. Rocha 12. Vascular dementia Surgical History 1. cataract removal-OS 08/15/2001 2. ankle surgery-right ankle fracture 08/15/2006 3. Prostatectomy-robotic 05/10/2008 4. Colonoscopy. Had an adenomatous polyp 01/19/2008 5. cataract removal-OD 02/20/2010 6. Colonoscopy with polypectomy--polyp not retrieved January 2017 7. Left lung biopsy 08/25/2018 Family History Significant Family History: Heart disease Social History * Smoker: former Smoker (quit 10 years ago had smoked for 40 years) Alcohol: Denies Drugs: denies Recent Travel/Sick Contacts: Denies: Recent travel Pets in the home: Cat(s) (2 . A full) Psychosocial History: Depression Review of Systems Constitutional: Reports: Weight Loss (10 lbs in last 3-4 months, no changes in past weeks); Denies: Chills, Fever, Night Sweats, Weakness Skin: Denies: Rash Pulmonary: Denies: Dyspnea (at baseline since his lung biopsy. Uses 2 L at home), Pleuritic Chest Pain Cardiovascular: Reports: Chest Pain (left-sided uncomfortable resolved with no medical interventions. One-time episode); Denies: Lt Headedness Gastrointestinal: Reports: Nausea, Vomiting, Diarrhea; Denies: Abdominal Pain, Constipation, Melena, Hematochezia Musculoskeletal: Reports: Back Pain (chronic back pain secondary to lumbar stenosis), Joint Pain Neurological: Denies: Weakness Psych: Reports: Mood Normal Physical Examination General Exam: Positive: Alert, Mild Distress (actively having watery bowel movements sitting on the commode Doring exam) Eye Exam: Positive: PERRLA, Conjunctiva & lids normal, EOMI; Negative: Sclera icteric ENT Exam: Positive: Atraumatic, Pharynx Normal; Negative: Mucous membr. moist/pink (slightly dry mucous membranes poor dentition) Neck Exam: Positive: Supple; Negative: JVD, thyromegaly Chest Exam: Positive: Clear to auscultation (but lungs sound can be appreciated in the left upper lung field posteriorly), Normal air movement; Negative: Rales, Rhonchi, Wheezing Heart Exam: Positive: Tachycardic, Regular Rhythm, Normal S1, Normal S2, Murmurs (2/6 systolic murmur on the right second intercostal space nonradiating); Negative: Rubs Telemetry: Positive: Tachycardia Abdomen Exam: Positive: Normal bowel sounds, Soft, Other (morbidly obese abdomen, negative her rectal exam normal rectal tone, negative stool occult.); Negative: Tenderness, Hepatospenomegaly Extremity Exam: Positive: Normal pulses, Swelling (1+ pitting edema bilaterally lower extremities up to mid calves); Negative: Clubbing, Cyanosis, Edema Skin Exam: Positive: Nl turgor and temperature, Breakdown (pilonidal sinus tract: erythematous no discharge slightly irritated, sharp tenderness on palpation, suppurative hidradenitis lesion surrounding it. ); Negative: Lesion Neuro Exam: Positive: Normal Speech Psych Exam: Positive: Oriented x 3 Vital Signs Vital Signs Date Time Temp Pulse Resp B/P (MAP) Pulse Ox O2 Delivery O2 Flow Rate FiO2 09/14/18 13:35 93 18 128/72 (90) 93 Nasal Cannula 4.0 09/14/18 06:39 98.9 Laboratory Data Labs 24H Laboratory Tests 2 09/14/18 04:38: Immature Granulocyte % (Auto) 0.5, White Blood Count 14.8H, Red Blood Count 5.45, Hemoglobin 16.3, Hematocrit 48.5, Mean Corpuscular Volume 89.0, Mean Corpuscular Hemoglobin 29.9, Mean Corpuscular Hemoglobin Concent 33.6, Red Cell Distribution Width 15.0H, Platelet Count 217, Neutrophils (%) (Auto) 79.9H, Lymphocytes (%) (Auto) 9.3L, Monocytes (%) (Auto) 7.7H, Eosinophils (%) (Auto) 2.3, Basophils (%) (Auto) 0.3, Neutrophils # (Auto) 11.8H, Lymphocytes # (Auto) 1.4L, Monocytes # (Auto) 1.1H, Eosinophils # (Auto) 0.3, Basophils # (Auto) 0.0, Nucleated Red Blood Cells % (auto) 0.0, Prothrombin Time 14.1, Prothromb Time International Ratio 1.08, Activated Partial Thromboplast Time 28.4, Anion Gap 11, Glomerular Filtration Rate > 60.0, Calcium Level 9.0, Aspartate Amino Transf (AST/SGOT) 24, Alanine Aminotransferase (ALT/SGPT) 26, Alkaline Phosphatase 62, Total Bilirubin 1.4H, Direct Bilirubin 0.3H, Total Creatine Kinase 146, Creatine Kinase MB 7.0H, Creatine Kinase MB Relative Index 4.79H, Troponin I < 0.02, Total Protein 7.4, Albumin 3.7, Albumin/Globulin Ratio 1.00, Lipase 139, Thyroid Stimulating Hormone (TSH) 3.050, Free Thyroxine 1.03 09/14/18 09:52: Total Creatine Kinase 108, Creatine Kinase MB 7.0H, Creatine Kinase MB Relative Index 6.30H, Troponin I < 0.02 CBC/BMP Laboratory Tests 09/14/18 04:38 Red Blood Count 5.45, Mean Corpuscular Volume 89.0, Mean Corpuscular Hemoglobin 29.9, Mean Corpuscular Hemoglobin Concent 33.6, Red Cell Distribution Width 15.0 H, Neutrophils (%) (Auto) 79.9 H, Lymphocytes (%) (Auto) 9.3 L, Monocytes (%) (Auto) 7.7 H, Eosinophils (%) (Auto) 2.3, Basophils (%) (Auto) 0.3, Neutrophils # (Auto) 11.8 H, Lymphocytes # (Auto) 1.4 L, Monocytes # (Auto) 1.1 H, Eosinophils # (Auto) 0.3, Basophils # (Auto) 0.0 Microbiology Microbiology 09/14/18 Gastrointestinal Tract Panel (PCR) - Final, Complete Assessment/Plan 77-year-old male with a pertinent past medical history of recent diagnosis of adenocarcinoma in the last week, diabetes and hypertension who presented to the ED for chest discomfort started the night prior and acute watery diarrhea for the last few weeks. Will be managed with the following problem: Chest discomfort - likely 2/2 GI etiology, less likely 2/2 cardiac etiology -Troponin negative 2, EKG: Negative for acute VA similar to his EKG in May 2018 -CTA negative for PE -s/p Nitro and ASA 325mg in ER -Last echocardiogram May 2018 -Symptoms resolved. -We will monitor with telemetry for 48 hours Acute watery diarrhea - etiology unclear -Still acutely having watery diarrhea last 14 days -Unknown cause: -No recent antibiotics, or new medication -GI panel in ER negative for infectious causes -Start loperamide 2 mg PRN after each loose stool for max daily dose of 16mg -NPO diet continue IV hydration of 75 mL per hour for 24 hours and reevaluate -check mag We'll continue with supportive care Possible Pilonidal sinus Tract -Has a significant amount of diarrhea possibly have poor hygiene -Sharp Tenderness on palpation with increased erythema with no discharge -CT abdomen with contrast pending Leukocytosis and tachycardia -Unlikely that this is sepsis -Blood culture x1 currently pending procalcitonin pending -Leukocytosis is possibly reactive tachycardia possibly secondary to dehydration due to watery diarrhea -Will monitor for clinical improvement -monitor his tachycardia with telemetry -No antibiotics indicated at this time Hyponatremia hypochloremia -Likely secondary to her diarrhea We'll continue with IV fluids normal saline Recent diagnosis of adenocarcinoma of the lungs -Currently not on chemotherapy -Will need to follow up outpatient for further management -Oxygen therapy orders are placed uses 2 L of oxygen at home -Maintains I2ulgsv that 80-92% Chronic back pain - 2/2 lumbar stenosis and left hip pain -Continue home gabapentin 800 mg 3 times a day -Follows Dr. Rocha outpatient for left hip injections will need upon discharge Hypertension -Will continue with his lisinopril and chlorthalidone -Will start them the next day for his acutely having watery diarrhea and we replenishing him with IV fluids Lipidemia -Continue with home atorvastatin 20 mg by mouth daily Yni-hlqjvtb-dgdrvenxt diabetes Diet:NPO -Held home metformin -Start ISS History of glaucoma -Continue with home eyedrops Morbidly obese -Complicates care PT /OT -consult DVT prophylaxis -Lovenox 40 mg subcutaneous Plan / VTE VTE Prophylaxis Ordered?: Yes (Lovenox) GME ATTESTATION GME ATTESTATION My faculty preceptor for this patient encounter was physically present during the encounter and was fully available. All aspects of the patient interview, examination, medical decision making process, and medical care plan development were reviewed and approved by the faculty preceptor. The faculty preceptor is aware and concurs with the plan as stated in the body of this note and will attest to such by his/her cosignature. ATTENDING NOTE I, Suzan Cronin, have both independently examined this patient as well as reviewed the documentation. I have discussed in detail with the resident the findings and plan of treatment as documented in the residents documentation. I will continue to follow the patient and offer further guidance to the patients care as necessary during this hospital stay. MEGAN KING DO Sep 14, 2018 16:23 SUZAN CRONIN MD Sep 14, 2018 18:44
[2018-09-14 17:25] VITALS: BP 145/76
[2018-09-14] MEDS: ATORVASTATIN 20 MG TAB PO SCH (17:55)
[2018-09-14] MEDS: ENOXAPARIN 40 MG/0.4 ML SYRINGE (J1650) SC SCH (17:55)
[2018-09-14] MEDS: GABAPENTIN 400 MG CAP PO SCH ×2 (17:55→21:16)
--- NOTE | 2018-09-14 17:55 | REP ---
CT ABDOMEN AND PELVIS WITH IV CONTRAST: TECHNIQUE: Axial contrast enhanced images from the lung bases to the pubic symphysis using 100 mL Isovue 370 intravenous contrast material with multiplanar reformations. Visualized lung bases demonstrate mild fibrotic change. Liver, gallbladder, spleen, adrenals, and pancreas are unremarkable in appearance. There is mild cortical atrophy of the kidneys. There are probably a few tiny cysts in the left kidney. There is no hydronephrosis bilaterally. There is mild atherosclerotic calcification of the abdominal aorta without aneurysm. There is no adenopathy. There is no free air or free fluid. No bowel wall thickening is seen. There are a few scattered mildly dilated small bowel loops. This may represent a mild ileus. There is no pelvic mass. The urinary bladder is not well distended and not optimally evaluated. No abscess is seen particularly in the region of the sacrum and coccyx. There are degenerative changes of the spine. IMPRESSION: No acute abnormalities. No free air or free fluid. No abscess is seen. A few mildly dilated small bowel loops may represent a mild ileus. Electronically Signed by Harsh Gomez MD 09/15/2018 03:19 P
[2018-09-14] MEDS: MAG SULF 1GM/100ML (MAG RUN) 1 GM in APPROPRIATE DILUENT 1 EA IV SCH ×2 (17:56→19:24)
[2018-09-14] MEDS: NS 1,000 ML IV SCH (17:56)
[2018-09-14] MEDS: HumaLOG INSULIN (NovoLOG) PER UNIT SC SCH (18:33)
[2018-09-14] MEDS: LATANOPROST 0.005% OPHTH SOLN 2.5 ML OU SCH (21:16)
[2018-09-14] MEDS: TIMOLOL MALEATE 0.5% OPHTH SOLN 5 ML OU SCH (21:16)
[2018-09-14] MEDS: ASPIRIN 81 MG ENTERIC TAB PO SCH (21:16)
[2018-09-14] MEDS: NYSTATIN 100,000 UNITS/GM TOPICAL PWD 15 GM TOP SCH (21:16)
[2018-09-14 22:00] VITALS: BP 133/60
[2018-09-15] MEDS: HumaLOG INSULIN (NovoLOG) PER UNIT SC SCH ×4 (00:20→17:33)
[2018-09-15 06:00] VITALS: BP 140/62
[2018-09-15 06:25] LABS: HEMATOCRIT 44.3 % (42.0-52.0); HEMOGLOBIN 14.6 g/dl (13.5-17.5); MEAN CORPUSCULAR VOLUME 91.2 fl (80.0-96.0); PLATELET COUNT, AUTOMATED 192 10^3/uL (150-450); RED BLOOD COUNT 4.86 10^6/uL (4.30-6.10); WHITE BLOOD COUNT 10.9 10^3/uL (4.0-10.0)
[2018-09-15 06:37] LABS: BLOOD UREA NITROGEN 19 MG/DL (7-18); CARBON DIOXIDE LEVEL 27 MEQ/L (21-32); CHLORIDE LEVEL 99 MEQ/L (98-107); CREATININE FOR GFR 1.09 MG/DL (0.70-1.30); GLOMERULAR FILTRATION RATE > 60.0 (>42); GLUCOSE, FASTING 262 MG/DL (70-100); POTASSIUM SERUM 3.7 MEQ/L (3.5-5.1); SODIUM LEVEL 134 MEQ/L (136-145)
--- NOTE | 2018-09-15 08:14 | ECGEPIP ---
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
[2018-09-15] MEDS: ENOXAPARIN 40 MG/0.4 ML SYRINGE (J1650) SC SCH (10:02)
[2018-09-15] MEDS: ATORVASTATIN 20 MG TAB PO SCH (10:02)
[2018-09-15] MEDS: GABAPENTIN 400 MG CAP PO SCH ×3 (10:02→21:23)
[2018-09-15] MEDS: NYSTATIN 100,000 UNITS/GM TOPICAL PWD 15 GM TOP SCH ×2 (10:02→21:25)
[2018-09-15] MEDS: TIMOLOL MALEATE 0.5% OPHTH SOLN 5 ML OU SCH ×2 (10:03→21:25)
[2018-09-15] MEDS: NS 1,000 ML IV SCH (10:03)
[2018-09-15 12:50] LABS: MAGNESIUM LEVEL 1.5 MG/DL (1.8-2.4)
[2018-09-15 14:00] VITALS: BP 134/64
[2018-09-15] MEDS: CHLORTHALIDONE 12.5MG PER 1/2 TABLET PO SCH (14:10)
--- NOTE | 2018-09-15 17:23 | IPNPDOC ---
Date Seen The patient was seen on 09/15/18. Progress Note SUBJECTIVE: Mr. Sandhu is a 77 yo male with a pertinent PMH of HTN, DM, and newly diagnosed adenocarcinoma of the lung who presents with chest pain and ~2 week of diarrhea. He was seen this morning sitting up on the side of his bed. He is pleasant and conversational with no complaints. He reports that he has not had any episodes of diarrhea since he was in the ER. Nursing reported no new overnight concerns. OBJECTIVE PHYSICAL EXAMINATION: VITAL SIGNS: Please see below. GENERAL: alert, cooperative, A&OX3 HEENT: PERRLA, EOMI, moist mucous membranes CARDIOVASCULAR: regular rate, normal S1 and S2. 2/6 systolic murmurs best heard in right 2nd intercostal space, nonradiating. No rubs or gallops. RESPIRATORY: Decreased breath sounds in the L upper lung field. Good air movement. No wheezes, rhonchi, or rhales ABDOMINAL: obese, non tender to palpation, + breath sounds LABORATORY DATA, IMAGING STUDIES, MICROBIOLOGY: Please see below. DVT prophylaxis ordered?: Lovenox ASSESSMENT: 77-year-old male with a pertinent past medical history of recent diagnosis of adenocarcinoma in the last week, diabetes and hypertension who presented to the ED for chest discomfort started the night prior and acute watery diarrhea for the last few weeks. Will be managed with the following problem: Acute watery diarrhea - etiology unclear -No episodes of diarrhea since admission to floor. -Unknown cause: No recent antibiotics, or new medication. negative GI panel -c/w loperamide 2 mg PRN after each loose stool for max daily dose of 16mg -Progress to Brat diet and monitor for response -Will check mag and supplement as needed d/c fluids s/p Chest discomfort: likely 2/2 GI etiology, less likely 2/2 cardiac etiology -Symptoms resolved. -Troponin negative 2, EKG: Negative for acute NV similar to his EKG in May 2018, CTA negative for PE -s/p Nitro and ASA 325mg in ER -Continue to monitor with telemetry for 48 hours Skin finding - Less likely 2/2 Pilonidal sinus Tract -Has a significant amount of diarrhea possibly have poor hygiene. Hygiene counseling. -Sharp Tenderness on palpation with increased erythema with no discharge Leukocytosis and tachycardia (resolving) -Unlikely that this is sepsis. Blood culture x1 currently pending, procalcitonin pending -White count is down trending. Leukocytosis is possibly reactive tachycardia possibly secondary to dehydration due to watery diarrhea -Tachycardia has resolved. Will monitor with telemetry Hyponatremia hypochloremia (resolving) -Likely secondary to diarrhea Recent diagnosis of adenocarcinoma of the lungs -Currently not on chemotherapy -Will need to follow up outpatient for further management -Oxygen therapy orders are placed uses 2 L of oxygen at home -Maintains O2 sats 80-92% Chronic back pain - 2/2 lumbar stenosis and left hip pain -C/w home gabapentin 800 mg 3 times a day -Follows Dr. Rocha outpatient for left hip injections will need upon discharge Hypertension -c/w home lisinopril 10 mg and chlorthalidone 12.5 Lipidemia -Continue with home atorvastatin 20 mg by mouth daily [id number] diabetes -Held home metformin -c/w ISS History of glaucoma -Continue with home eyedrops Morbidly obese -Complicates care PT /OT -consult DVT prophylaxis -Lovenox 40 mg subcutaneous DISPOSITION: - Pending response to diet progression. VS, I&O, 24H, Fishbone Vital Signs/I&O Vital Signs Date Time Temp Pulse Resp B/P (MAP) Pulse Ox O2 Delivery O2 Flow Rate FiO2 09/15/18 06:00 98.0 94 20 140/62 (88) 96 09/14/18 22:00 2.0 09/14/18 13:35 Nasal Cannula I&O- Last 24 Hours up to 6 AM 09/15/18 06:00 Intake Total 87464 ml Output Total 750 ml Balance 97050 ml Laboratory Data 24H LABS Laboratory Tests 2 09/14/18 17:25: Bedside Glucose (Misc Panel) 318H 09/15/18 00:15: Bedside Glucose (Misc Panel) 253H 09/15/18 05:15: Bedside Glucose (Misc Panel) 268H 09/15/18 05:28: Nucleated Red Blood Cells % (auto) 0.0, Anion Gap 8, Glomerular Filtration Rate > 60.0, Blood Urea Nitrogen 19H, Creatinine 1.09, Sodium Level 134L, Potassium Level 3.7, Chloride Level 99, Carbon Dioxide Level 27, Calcium Level 8.0L CBC/BMP Laboratory Tests 09/15/18 05:28 Red Blood Count 4.86, Mean Corpuscular Volume 91.2, Mean Corpuscular Hemoglobin 30.0, Mean Corpuscular Hemoglobin Concent 33.0, Red Cell Distribution Width 15.7 H, Calcium Level 8.0 L Microbiology Microbiology 09/14/18 Blood Culture, Received Pending 09/14/18 Gastrointestinal Tract Panel (PCR) - Final, Complete GME ATTESTATION GME ATTESTATION My faculty preceptor for this patient encounter was physically present during the encounter and was fully available. All aspects of the patient interview, examination, medical decision making process, and medical care plan development were reviewed and approved by the faculty preceptor. The faculty preceptor is aware and concurs with the plan as stated in the body of this note and will attest to such by his/her cosignature. ATTENDING NOTE I, Suzan Cronin, have both independently examined this patient as well as reviewed the documentation. I have discussed in detail with the resident the findings and plan of treatment as documented in the residents documentation. I will continue to follow the patient and offer further guidance to the patients care as necessary during this hospital stay. MARLYN MANNING S-III Sep 15, 2018 12:28 SUZAN CRONIN MD Sep 15, 2018 17:23
[2018-09-15] MEDS ORDERED: LISINOPRIL 10 MG TAB PO SCH (21:00)
[2018-09-15] MEDS ORDERED: HumaLOG INSULIN (NovoLOG) PER UNIT SC SCH (21:00)
[2018-09-15 21:24] VITALS: BP 108/59
[2018-09-15] MEDS: ASPIRIN 81 MG ENTERIC TAB PO SCH (21:25)
[2018-09-15] MEDS: LATANOPROST 0.005% OPHTH SOLN 2.5 ML OU SCH (21:25)
[2018-09-15 22:00] VITALS: BP 108/59
[2018-09-15] MEDS ORDERED: CALCIUM CARBONATE 500 MG CHEW U/D PO PRN (22:00)
[2018-09-16 06:00] VITALS: BP 90/53
[2018-09-16 06:12] LABS: HEMATOCRIT 38.3 % (42.0-52.0); MEAN CORPUSCULAR HEMOGLOBIN 29.7 pg (27.0-33.0); MEAN CORPUSCULAR HGB CONC 32.4 g/dl (32.0-36.5); MEAN CORPUSCULAR VOLUME 91.6 fl (80.0-96.0); PLATELET COUNT, AUTOMATED 140 10^3/uL (150-450); RED BLOOD COUNT 4.18 10^6/uL (4.30-6.10); WHITE BLOOD COUNT 7.6 10^3/uL (4.0-10.0)
[2018-09-16 06:28] LABS: HEMOGLOBIN 12.4 g/dl (13.5-17.5)
[2018-09-16 06:35] LABS: BLOOD UREA NITROGEN 9 MG/DL (7-18); CARBON DIOXIDE LEVEL 32 MEQ/L (21-32); CHLORIDE LEVEL 99 MEQ/L (98-107); CREATININE FOR GFR 0.85 MG/DL (0.70-1.30); GLOMERULAR FILTRATION RATE > 60.0 (>42); GLUCOSE, FASTING 204 MG/DL (70-100); MAGNESIUM LEVEL 1.5 MG/DL (1.8-2.4); POTASSIUM SERUM 3.5 MEQ/L (3.5-5.1); SODIUM LEVEL 136 MEQ/L (136-145)
[2018-09-16 07:04] VITALS: BP 102/58
[2018-09-16] MEDS: CHLORTHALIDONE 12.5MG PER 1/2 TABLET PO SCH (08:15)
[2018-09-16] MEDS: ATORVASTATIN 20 MG TAB PO SCH (08:15)
[2018-09-16] MEDS: ENOXAPARIN 40 MG/0.4 ML SYRINGE (J1650) SC SCH (08:16)
[2018-09-16] MEDS: NYSTATIN 100,000 UNITS/GM TOPICAL PWD 15 GM TOP SCH (08:16)
[2018-09-16] MEDS: GABAPENTIN 400 MG CAP PO SCH (08:16)
[2018-09-16] MEDS: MAG SULF 1GM/100ML (MAG RUN) 1 GM in APPROPRIATE DILUENT 1 EA IV SCH ×2 (08:17→09:29)
[2018-09-16] MEDS: HumaLOG INSULIN (NovoLOG) PER UNIT SC SCH ×2 (08:18→12:13)
[2018-09-16] MEDS: TIMOLOL MALEATE 0.5% OPHTH SOLN 5 ML OU SCH (09:29)
--- NOTE | 2018-09-16 11:50 | DS.PDOC ---
Discharge Summary General Date of Admission Sep 14, 2018 at 15:25 Date of Discharge 09/16/18 Primary Care Physician: Xavier Gonzalez Discharge Summary PROCEDURES PERFORMED DURING STAY: None ADMITTING DIAGNOSES: 1. Chest discomfort 2. acute diarrhea 3. possible pilonidal sinus tract 4. leukocytosis 5. tachycardia 6. hyponatremia hypochloremia 7. recent diagnosis of adenocarcinoma of the lung 8. chronic back pain 9. hypertension 10. hyperlipidemia 11. non insulin dependent diabetes 12. history of glaucoma 13. morbidly obese DISCHARGE DIAGNOSES: 1. chest discomfort 2. acute diarrhea 3. leukocytosis 4. tachycardia 5. hyponatremia hypochloremia 6. recent diagnosis of adenocarcinoma of the lung 7. chronic back pain 8. hypertension 9. hyperlipidemia 10. non insulin dependent diabetes 11. history of glaucoma 12. morbidly obese 13. electrolyte abnormalities secondary to diarrhea COMPLICATIONS/CHIEF COMPLAINT: Dehydration,Diarrhea. HISTORY OF PRESENT ILLNESS: Mr. Sandhu is a 77 yo male with a pertinent PMH of HTN, DM, and newly diagnosed adenocarcinoma of the lung who presents with chest pain and ~2 week of diarrhea. He currently has no chest pain, but overnight he had an uncomfortable feeling in his left lower chest that prompted him to present to the ER. The chest discomf ort was not painful, non pleuritic, and symptoms resolved without intervention. He also reports that he has had 5-7 bowel movements a day for approximately the last 2 weeks and often soils clothing because he does not have enough time to make it to a bathroom. He describes his bowel movements as watery with no blood, color change, or foul smell. He reports no recent antibiotics or changes in medications and no recent changes in his diet although it is poor. He does report some nausea and 1 episode of vomiting in the same time frame. He denies fevers, chills, weakness, SOB, and light headedness. He has had a 10-lb weight loss in the past 3-4 months, but reports no weight loss since onset of diarrhea. HOSPITAL COURSE: Mr. Sandhu was admitted to the hospital for management of diarrhea and dehydration. During admission his dehydration was corrected with IV fluids and any electrolyte abnormalities secondary to diarrhea were replaced. He was started on loperamide 2 mg PRN and after each loose stool for a max daily dose of 16 mg. He was placed on a BRAT soft diet that was progressed. During admission he did not have any diet. DISCHARGE MEDICATIONS: Please see below. ALLERGIES: Please see below. PHYSICAL EXAMINATION ON DISCHARGE: VITAL SIGNS: Please see below. GENERAL: Alert, A&OX3 HEENT: EOMI, PERRLA, moist mucous membranes NECK: supple, atraumatic CARDIOVASCULAR EXAMINATION: Regular rate, normal S1 and S2. 2/6 systolic murmurs on the right second intercostal space nonradiating. No rubs or gallops. RESPIRATORY EXAMINATION: Decreased breath sounds in the L upper lung field. Good air movement. No wheezes, rhonchi, or rhales ABDOMINAL EXAMINATION: obese, non tender to palpation, + bowel sounds SKIN: Normal turgor and temperature. Pilonidal sinus tract: erythematous no d ischarge slightly irritated, sharp tenderness on palpation LABORATORY DATA: Please see below. LABORATORY DATA: Please see below. IMAGING: CXR 09/14/18: -subtle area of opacity in the left upper lung zone corresponding to the known upper left lobe mass CT Angiography Chest 09/14/18: -no pulmonary emboli -No acute infiltrates or pleural effusions -Bullous emphysema throughout the ling thibodeaux bilaterally, predominately in the upper lobes -spiculated left upper lobe nodules, slightly increased in size CT Abdomen/Pelvis 09/14/18: -no acute abnormalities. No free air or free fluids. No abscess is seen. A few mildly dilated small bowel loops may represent a mild ileus PROGNOSIS: Fair ACTIVITY: As tolerated DIET: High fiber DISPOSITION: Home DISCHARGE INSTRUCTIONS: 1. Follow up with PCP within 7 days 2. If symptoms return please call PCP or return to ED 3. Continue Imodium as prescribed. Rx sent to pharmacy DISCHARGE CONDITION: Stable TIME SPENT ON DISCHARGE: Greater than 35 minutes. Vital Signs/I&Os Vital Signs Date Time Temp Pulse Resp B/P (MAP) Pulse Ox O2 Delivery O2 Flow Rate FiO2 09/16/18 10:50 2.0 09/16/18 07:04 76 102/58 (73) 09/16/18 06:00 97.1 18 96 09/14/18 13:35 Nasal Cannula I&O- Last 24 Hours up to 6 AM 09/16/18 06:00 Intake Total 1588 ml Output Total 200 ml Balance 1388 ml Laboratory Data Labs 24H Laboratory Tests 2 09/15/18 11:53: Bedside Glucose (Misc Panel) 308H 09/15/18 16:28: Bedside Glucose (Misc Panel) 260H 09/15/18 20:06: Bedside Glucose (Misc Panel) 279H 09/16/18 05:45: Nucleated Red Blood Cells % (auto) 0.0, Anion Gap 5L, Glomerular Filtration Rate > 60.0, Blood Urea Nitrogen 9#, Creatinine 0.85, Sodium Level 136, Potassium Level 3.5, Chloride Level 99, Carbon Dioxide Level 32, Calcium Level 8.0L, Magnesium Level 1.5L 09/16/18 11:40: Bedside Glucose (Misc Panel) 249H CBC/BMP Laboratory Tests 09/16/18 05:45 Red Blood Count 4.18 L, Mean Corpuscular Volume 91.6, Mean Corpuscular Hemoglobin 29.7, Mean Corpuscular Hemoglobin Concent 32.4, Red Cell Distribution Width 15.2 H, Calcium Level 8.0 L FSBS Laboratory Tests Test 09/15/18 11:53 09/15/18 16:28 09/15/18 20:06 09/16/18 11:40 Range/Units Bedside Glucose (Misc Panel) 308 260 279 249 83-110 MG/DL Microbiology Microbiology 09/14/18 Blood Culture - Preliminary, Resulted No growth after 24 hours . All specim... 09/15/18 Stool Occult Blood (RAAD) - Final, Complete 09/14/18 Gastrointestinal Tract Panel (PCR) - Final, Complete Discharge Medications Scheduled Aspirin (Aspirin EC) 81 Mg Tab, 81 MG PO QHS, (Reported) Atorvastatin Calcium (Atorvastatin Calcium) 20 Mg Tab, 20 MG PO DAILY, (Reported) Diclofenac Sodium (Diclofenac Sodium) 75 Mg Tab, 75 MG PO BID, (Reported) Gabapentin (Gabapentin) 800 Mg Tab, 800 MG PO TID, (Reported) Latanoprost (Xalatan) 0.005 % Natalia, 1 DROP OU QHS, (Reported) Lisinopril (Lisinopril) 10 Mg Tab, 10 MG PO QHS, (Reported) Magnesium Oxide (Magnesium Oxide) 250 Mg Tab, 250 MG PO DAILY, (Reported) Metformin HCl (Metformin HCl ER) 750 Mg Tab, 1,500 MG PO QHS, (Reported) Timolol Maleate (Timoptic) 0.5 % Natalia, 1 DROP OU BID, (Reported) Allergies Coded Allergies: ceftriaxone (Verified Allergy, Unknown, 09/14/18) GME ATTESTATION GME ATTESTATION My faculty preceptor for this patient encounter was physically present during the encounter and was fully available. All aspects of the patient interview, examination, medical decision making process, and medical care plan development were reviewed and approved by the faculty preceptor. The faculty preceptor is aware and concurs with the plan as stated in the body of this note and will attest to such by his/her cosignature. ATTENDING NOTE I, Suzan Cronin, have both independently examined this patient as well as reviewed the documentation. I have discussed in detail with the resident the findings and plan of treatment as documented in the residents documentation. I will continue to follow the patient and offer further guidance to the patients care as necessary during this hospital stay. MEGAN KING DO Sep 16, 2018 11:50 SUZAN CRONIN MD Sep 16, 2018 18:25
== END 2018-09-16 13:57 | disposition home or self-care (01) | DRG 392 ==
LOC: M ED 04:03 → M ED INP 15:25 → M MSPAV 17:09
PROVIDERS: ADMIT Internal Medicine; ATTEND Internal Medicine
DX: R19.7 Diarrhea, unspecified (principal); E87.1 Hypo-osmolality and hyponatremia; C34.12 Malignant neoplasm of upper lobe, left bronchus or lung; I10 Essential (primary) hypertension; E11.42 Type 2 diabetes mellitus with diabetic polyneuropathy; F32.9 Major depressive disorder, single episode, unspecified; G47.33 Obstructive sleep apnea (adult) (pediatric); H40.9 Unspecified glaucoma; M48.061 Spinal stenosis, lumbar region without neurogenic claudication; R07.89 Other chest pain; G89.29 Other chronic pain; D72.829 Elevated white blood cell count, unspecified; R00.0 Tachycardia, unspecified; E66.01 Morbid (severe) obesity due to excess calories; Z87.891 Personal history of nicotine dependence; Z85.46 Personal history of malignant neoplasm of prostate; Z98.41 Cataract extraction status, right eye; Z98.42 Cataract extraction status, left eye; Z87.81 Personal history of (healed) traumatic fracture; Z79.82 Long term (current) use of aspirin; Z79.84 Long term (current) use of oral hypoglycemic drugs; Z79.899 Other long term (current) drug therapy; Z68.33 Body mass index [BMI] 33.0-33.9, adult

== ENCOUNTER → 2018-09-27 | Outpatient (REF) | payer OTHER ==
[2018-09-27 16:22] LABS: ALBUMIN 3.5 GM/DL (3.2-5.2); ALT/SGPT 33 U/L (12-78); BILIRUBIN,TOTAL 0.8 MG/DL (0.2-1.0); BLOOD UREA NITROGEN 17 MG/DL (7-18); CALCIUM LEVEL 8.6 MG/DL (8.8-10.2); CARBON DIOXIDE LEVEL 32 MEQ/L (21-32); CHLORIDE LEVEL 98 MEQ/L (98-107); CHOLESTEROL LEVEL 135 MG/DL (<200); CREATININE FOR GFR 1.29 MG/DL (0.70-1.30); GLOMERULAR FILTRATION RATE 57.5 (>42); GLUCOSE, FASTING 324 MG/DL (70-100); HDL CHOLESTEROL 27 MG/DL (>40); MAGNESIUM LEVEL 1.7 MG/DL (1.8-2.4); NON-HDL-C 108 MG/DL; SODIUM LEVEL 137 MEQ/L (136-145); TOTAL PROTEIN 6.5 GM/DL (6.4-8.2); TRIGLYCERIDES LEVEL 656 MG/DL (<150)
[2018-09-27 16:44] LABS: HEMOGLOBIN A1c 8.7 %
[2018-09-27 16:49] LABS: MALB URINE SIEMENS 24.2 MG/L; MAU/CREAT RATIO 8.8 MCG/MG (0.0-30.0)
== END ==
LOC: M SFHCPLAZ 13:49
PROVIDERS: ATTEND Internal Medicine
DX: I10 Essential (primary) hypertension (principal); E11.9 Type 2 diabetes mellitus without complications; E78.2 Mixed hyperlipidemia
CPT/HCPCS: 36415; 80053; 80061; 82043; 83036; 83735; G0463

== ENCOUNTER → 2018-09-30 | Outpatient (CLI) | payer OTHER ==
--- NOTE | 2018-10-05 13:38 | RADONC ---
RADIATION ONCOLOGY CONSULTATION NOTE DATE: 09/30/2018 CHART NUMBER: [id number] DIAGNOSIS: Right upper lobe lung cancer. STAGE: IA3, [id number]. ECOG PERFORMANCE STATUS: 0 CONSULTATION NOTE: Mr. Avalos is a very pleasant 77-year-old white male with the diagnosis of what appears to be a stage IA3, [id number] solitary right upper lobe well-differentiated adenocarcinoma, who is presenting to us today for discussion of possible SBRT radiation therapy and referral to [facility] for their expert opinion. HISTORY OF PRESENT ILLNESS: The patient was in his usual state of health until he apparently underwent a fall and cellulitis in May of last year. On 05/27/[address] was undertaken of the chest which revealed a 2.2 cm spiculated lesion in the left upper lobe suspicious for a primary lung malignancy. The patient was seen by Dr. Edinson Kang and a PET CT was ordered on 07/27/2018 which showed hypermetabolic uptake in his known left upper lobe lesion with an SUV value was 7.4. There was no other evidence of hypermetabolic uptake. On 08/26/2018, the patient underwent a biopsy of his left lung lesion and pathology confirmed a well-differentiated adenocarcinoma. A subsequent angio CT done on 09/14/2018 confirmed the malignancy and no other evidence of disease. He has been referred to me in order to evaluate him for appropriateness of SBRT and then forward him on to [facility] in [place] where they do this procedure. We are not yet set up to undertake that therapy here in the center. PAST MEDICAL HISTORY: The patient's past medical history is positive for arthritis, emphysema, cataracts, hypertension, diabetes and asthma. ALLERGIES: The patient has no known drug allergies. SOCIAL HISTORY: The patient has smoked two packs of cigarettes per day for many years. He drinks alcohol socially. FAMILY HISTORY: The patient's family history is negative for lung cancer or other malignancies. REVIEW OF SYSTEMS: The patient's review of systems and is positive for some shortness of breath and for chronic low back pain, but is otherwise noncontributory. He denies nausea, vomiting, fevers, chills, night sweats, diplopia, headaches, anxiety or depression, anorexia, weight loss, visual disturbances, chest pain, urinary or bowel difficulties, bone pain or neurological problems. PHYSICAL EXAMINATION: The patient is a well-developed, well-nourished male in no acute distress. HEENT exam is normocephalic, atraumatic. Extraocular movements are intact. There is no palpable cervical, supraclavicular, infraclavicular, axillary, or inguinal lymphadenopathy present. Lungs are clear to auscultation and percussion. Heart has a regular rate and rhythm. Abdomen is benign with no hepatosplenomegaly, masses, or tenderness. Skeletal examination reveals no tenderness to pressure or percussion of the bony skeleton. Extremities reveal no clubbing, cyanosis, or edema. Neurologic exam is grossly intact as is the remainder of the physical examination. ASSESSMENT: I believe this patient would be a candidate for SBRT and I have so informed him. I have discussed with the patient in detail the potential benefits as well as possible acute and chronic sequelae of external beam radiation therapy. We have discussed the logistics of treatment planning, simulation and subsequent fractionated daily radiation treatments. I did ask whether or not he discussed this surgery with his thoracic surgeon and they have both decided that he would not be a good candidate for surgical excision, therefore sending him to me to forward him to [facility]. In summary, I am referring him into the radiation oncology department at [facility]. I look forward to their expert opinion and I have great confidence in them. I have also set him up with our nurse navigator to arrange for transportation. cc: MD Judah Hu MD Lawrence Kramer, MD Frank Rhode, MD
== END ==
LOC: M ONCR 08:33
PROVIDERS: ATTEND Radiology Radiation Oncology
DX: C34.11 Malignant neoplasm of upper lobe, right bronchus or lung (principal); I10 Essential (primary) hypertension; E11.9 Type 2 diabetes mellitus without complications; J45.909 Unspecified asthma, uncomplicated; M19.90 Unspecified osteoarthritis, unspecified site; F17.210 Nicotine dependence, cigarettes, uncomplicated

== ENCOUNTER → 2018-12-27 | Outpatient (REF) | payer OTHER ==
[2018-12-27 17:14] LABS: BASO # 0.1 10^3/uL (0.0-0.2); BASO % 0.8 % (0.0-1.0); EOS # 0.3 10^3/uL (0.0-0.50); EOS % 4.1 % (0.0-3.0); HEMATOCRIT 45.8 % (42.0-52.0); HEMOGLOBIN 15.6 g/dl (13.5-17.5); LYMPH # 1.7 10^3/uL (1.5-4.5); LYMPH % 21.6 % (24.0-44.0); MEAN CORPUSCULAR HEMOGLOBIN 32.4 pg (27.0-33.0); MEAN CORPUSCULAR HGB CONC 34.1 g/dl (32.0-36.5); MONO # 0.6 10^3/uL (0.0-0.8); MONO % 7.6 % (0.0-5.0); PLATELET COUNT, AUTOMATED 143 10^3/uL (150-450); RED BLOOD COUNT 4.82 10^6/uL (4.30-6.10); WHITE BLOOD COUNT 7.7 10^3/uL (4.0-10.0)
[2018-12-27 17:27] LABS: HEMOGLOBIN A1c 8.8 %
[2018-12-27 17:38] LABS: ALT/SGPT 34 U/L (12-78); BLOOD UREA NITROGEN 12 MG/DL (7-18); CALCIUM LEVEL 9.5 MG/DL (8.8-10.2); CARBON DIOXIDE LEVEL 29 MEQ/L (21-32); CHLORIDE LEVEL 97 MEQ/L (98-107); CHOLESTEROL LEVEL 140 MG/DL (<200); CHOLESTEROL RISK RATIO 4.242 (<5); CREATININE FOR GFR 1.12 MG/DL (0.70-1.30); GLOMERULAR FILTRATION RATE > 60.0 (>42); GLUCOSE, FASTING 173 MG/DL (70-100); HDL CHOLESTEROL 33 MG/DL (>40); NON-HDL-C 107 MG/DL; POTASSIUM SERUM 3.8 MEQ/L (3.5-5.1); SODIUM LEVEL 136 MEQ/L (136-145); TOTAL PROTEIN 7.7 GM/DL (6.4-8.2); TRIGLYCERIDES LEVEL 430 MG/DL (<150)
== END ==
LOC: M SFHCPLAZ 16:03
PROVIDERS: ATTEND Internal Medicine
DX: C34.12 Malignant neoplasm of upper lobe, left bronchus or lung (principal); R74.8 Abnormal levels of other serum enzymes; E11.9 Type 2 diabetes mellitus without complications; E78.2 Mixed hyperlipidemia; I10 Essential (primary) hypertension
CPT/HCPCS: 36415; 80053; 80061; 83036; 83735; 85025; G0463

== ENCOUNTER → 2019-03-11 | Outpatient (CLI) | payer OTHER ==
[~2019-03-11] MED LIST changes: +ISOVUE-370 76% 100ML VIAL (Q9967) As Ordered ONE; -METF750T PO; +METF750T36 PO
--- NOTE | 2019-03-11 16:20 | REP ---
CT of the chest with IV contrast: Comparison is 09/14/2018 in this patient with known non-small cell carcinoma of the lung. Comparisons are the chest CT dated 09/14/2018 and the PET scan dated 07/27/2018. There is now a large ground-glass density posterolaterally in the left upper lobe in the approximate location of the previous left lung mass. This ground-glass density today measures 7.7 cm AP by 2.9 cm transversely by 2.9 cm craniocaudad. There is linear stranding extending from this ground-glass density toward the left hilus. This ground-glass density is nonspecific and could represent tumor enlargement, interstitial tumor spread, hematoma, infiltrate, atelectasis, or combination . There is a new nodule in the superior segment of the left lower lobe just opposite the major fissure from the ground-glass density measuring 8 mm. There are numerous bulla replacing the lung parenchyma, predominately in the upper lobes. There are no infiltrates or pleural effusions. There is no mediastinal, hilar or axillary lymphadenopathy. The thoracic aorta is unremarkable. Cardiac size is normal. There is calcified atheroma in the coronary arteries. There is no pericardial effusion. The visualized upper abdominal contents are unremarkable. There is no adrenal mass. Impression: There is now a large ground-glass density in the left upper lobe in the approximate location of the known left upper lobe neoplasm as discussed in detail above. There is a new 8 mm nodule in the superior segment of the left lower lobe on the opposite side of the major fissure from the upper lobe ground-glass density. There is no adenopathy, infiltrate or pleural effusion. There is bullous emphysema, predominately in the upper lobes. Electronically Signed by Harsh Johnson MD 03/11/2019 04:11 P
== END ==
LOC: M RAD 13:32
PROVIDERS: ATTEND Internal Medicine Medical Oncology
DX: C34.90 Malignant neoplasm of unspecified part of unspecified bronchus or lung (principal)
CPT/HCPCS: 71260; Q9967

== ENCOUNTER → 2019-03-30 | Outpatient (REF) | payer OTHER ==
[~2019-03-30] MED LIST changes: +ATOR40TA75 PO; +FARX1TAB3 PO; +FISH10002 PO; +GLIM4TAB3 PO; -ISOVUE-370 76% 100ML VIAL (Q9967) As Ordered ONE; +TAMS1CAP17 PO; +VASC1CAP2 PO
[2019-03-30 17:42] LABS: ALBUMIN 3.4 GM/DL (3.2-5.2); ALT/SGPT 22 U/L (12-78); BILIRUBIN,TOTAL 1.1 MG/DL (0.2-1.0); BLOOD UREA NITROGEN 20 MG/DL (7-18); CALCIUM LEVEL 8.6 MG/DL (8.8-10.2); CARBON DIOXIDE LEVEL 27 MEQ/L (21-32); CHLORIDE LEVEL 105 MEQ/L (98-107); CHOLESTEROL LEVEL 87 MG/DL (<200); CREATININE FOR GFR 0.84 MG/DL (0.70-1.30); GLOMERULAR FILTRATION RATE > 60.0 (>42); GLUCOSE, FASTING 179 MG/DL (70-100); HDL CHOLESTEROL 25 MG/DL (>40); LDL CHOLESTEROL 24 MG/DL (<100); NON-HDL-C 62 MG/DL; POTASSIUM SERUM 3.7 MEQ/L (3.5-5.1); SODIUM LEVEL 140 MEQ/L (136-145); TOTAL PROTEIN 6.7 GM/DL (6.4-8.2); TRIGLYCERIDES LEVEL 192 MG/DL (<150)
[2019-03-30 17:54] LABS: HEMOGLOBIN A1c 6.8 %
== END ==
LOC: M SFHCPLAZ 14:49
PROVIDERS: ATTEND Internal Medicine
DX: E11.9 Type 2 diabetes mellitus without complications (principal); E78.2 Mixed hyperlipidemia; I10 Essential (primary) hypertension; Z23 Encounter for immunization
CPT/HCPCS: 36415; 80053; 80061; 83036; 90682; G0008

== ENCOUNTER → 2019-06-27 | Outpatient (CLI) | payer OTHER ==
[~2019-06-27] MED LIST changes: -GLIM4TAB3 PO; +GLIM4TAB5 PO
--- NOTE | 2019-06-28 03:25 | REP ---
Clinical: History of lung cancer. Technique: Axial noncontrast images from the thoracic inlet to the upper abdomen with coronal and sagittal re-formations. Comparison: 03/11/2019. Findings: Area of consolidation/mass involving the left upper lobe approaching the apex appears moderately more dense and mildly increased in size when compared to prior examination small left hilar and mediastinal lymph nodes measuring up to 11 mm are again noted. Remainder of lung thibodeaux demonstrate chronic emphysematous changes and minimal scattered scarring. Atherosclerotic changes to the thoracic aorta and coronary arteries noted without aortic aneurysm or cardiomegaly. No pericardial effusion. Musculoskeletal structures are intact and without focal abnormality. Bilateral adrenal glands are normal. Impression: Area of consolidation/mass involving the left upper lobe appears moderately more dense and mildly increased in size. Electronically Signed by Tucker Granado MD 06/28/2019 03:17 A
== END ==
LOC: M RAD 17:51
PROVIDERS: ATTEND Internal Medicine Medical Oncology
DX: C34.90 Malignant neoplasm of unspecified part of unspecified bronchus or lung (principal)

== ENCOUNTER → 2019-07-12 | Outpatient (CLI) | payer OTHER ==
--- NOTE | 2019-07-13 11:04 | REP ---
PET/CT: History: Restaging lung cancer. Adenocarcinoma left upper lobe. Status post SBRT November 19, 2018. Remote prior history of prostate carcinoma. Comparisons: Comparison PET/CT July 27, 2018. Comparison CT study of the chest June 27, 2019. TECHNIQUE: 54 minutes following the intravenous injection of a 7.34 mCi dose of F-18 FDG, three-dimensional PET scintigraphy is acquired from the skull base to the proximal thighs. Triplanar noncontrast CT scanning is acquired through the same anatomic range for attenuation correction, and image registration with scan parameters optimized to minimize radiation exposure to the patient. PET scintigraphy and CT datasets were fused and displayed on a workstation with multiplanar and projection display capability. PET/CT Findings: Head and neck soft tissues are unremarkable. There is a peripheral wedge-shaped infiltrate in the left upper lobe at the site of the previously treated malignancy. This shows hypermetabolic uptake. Maximum standard uptake value is 5.17. However, its infiltrate like morphology suggests postradiation change. There is a hypermetabolic focus in the left hilus which is a new finding. No definite adenopathy is seen on the accompanying noncontrast CT study. The area in question is small however it is quite hypermetabolic. Maximum standard uptake value is 13.25. This suggests a dev metastasis. No other abnormal hypermetabolic uptake is seen in the chest. No abnormal adrenal uptake is observed. Distribution of radiotracer in the abdomen and pelvis is normal. The urinary bladder is dilated. No abnormal abdominal or pelvic hypermetabolic uptake is seen. Impression: There is mildly hypermetabolic uptake in the infiltrate like opacity in the left upper lobe at the site of previous radiation treatment. 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 However, there is a new focus of left hilar uptake suggesting a dev recurrence. This is quite hypermetabolic, 13.25. Electronically Signed by Chilo Potter MD 07/13/2019 02:36 P
== END ==
LOC: M PLARAD 15:15
PROVIDERS: ATTEND Internal Medicine Medical Oncology
DX: C34.12 Malignant neoplasm of upper lobe, left bronchus or lung (principal); Z85.46 Personal history of malignant neoplasm of prostate
CPT/HCPCS: 78815; A9552

== ENCOUNTER → 2019-08-02 | Outpatient (REF) | payer OTHER ==
[~2019-08-02] MED LIST changes: +LEVA750T7 PO; +NICO14PA TD; +SENN1TAB96 PO; +VENL75CA47 PO
[2019-08-02 13:56] LABS: HEMOGLOBIN A1c 6.9 %
== END ==
LOC: M SFHCPLAZ 11:23
PROVIDERS: ATTEND Internal Medicine
DX: E11.9 Type 2 diabetes mellitus without complications (principal)
CPT/HCPCS: 36415; 83036; G0463

== ENCOUNTER 2019-08-08 15:39 | Inpatient (IN) | payer OTHER ==
[~2019-08-08] VITALS: Ht 188 cm; Wt 115.5 kg
[~2019-08-08 15:39] MED LIST changes: -LEVA750T7 PO; -NICO14PA TD; -SENN1TAB96 PO; -VENL75CA47 PO
[2019-08-08 16:24] LABS: BASO % 0.3 % (0.0-1.0); EOS # 0.2 10^3/uL (0.0-0.5); EOS % 1.6 % (0.0-3.0); HEMATOCRIT 47.6 % (42.0-52.0); HEMOGLOBIN 15.8 g/dl (13.5-17.5); LYMPH # 1.3 10^3/uL (1.5-5.0); LYMPH % 12.4 % (24.0-44.0); MEAN CORPUSCULAR HEMOGLOBIN 31.1 pg (27.0-33.0); MEAN CORPUSCULAR HGB CONC 33.2 g/dl (32.0-36.5); MEAN CORPUSCULAR VOLUME 93.7 fl (80.0-96.0); MONO % 10.1 % (0.0-5.0); NEUTROPHILS # 7.8 10^3/uL (1.5-8.5); NEUTROPHILS % 75.2 % (36.0-66.0); PLATELET COUNT, AUTOMATED 141 10^3/uL (150-450); RED BLOOD COUNT 5.08 10^6/uL (4.30-6.10); WHITE BLOOD COUNT 10.3 10^3/uL (4.0-10.0)
[2019-08-08 16:29] LABS: ABG BASE EXCESS -3.6 (-2.0-2.0); ABG O2 SATURATION 93.2 % (95.0-99.0); ABG STANDARD HCO3 21.4 MEQ/L (22.0-26.0); ABG TOTAL CO2 23.3 MEQ/L (23.0-31.0); ABG pH (ARTERIAL) 7.338 UNITS (7.350-7.450)
--- NOTE | 2019-08-08 16:53 | REP ---
Portable chest x-ray: Single view. History: Chest pain. Comparison chest x-ray: September 14, 2018. Comparison PET-CT study July 12, 2019. Findings: Monitoring electrodes are seen. There is a parenchymal opacity in the left upper lung zone unchanged from comparison PET-CT study. No other definite infiltrate. Pleural angles are sharp. Heart size is normal. Impression: Infiltrate versus nodular opacity left apex unchanged. No other new infiltrate. Electronically Signed by Chilo Potter MD 08/08/2019 04:45 P
[2019-08-08 16:56] LABS: INR 1.1; PROTHROMBIN TIME 13.9 SECONDS (11.8-14.0)
[2019-08-08 16:57] LABS: PARTIAL THROMBOPLASTIN TIME 28.1 SECONDS (25.0-38.4)
[2019-08-08 17:01] LABS: ALBUMIN 3.9 GM/DL (3.2-5.2); ALT/SGPT 26 U/L (12-78); BILIRUBIN,DIRECT 0.4 MG/DL (0.0-0.2); BILIRUBIN,TOTAL 1.6 MG/DL (0.2-1.0); BLOOD UREA NITROGEN 32 MG/DL (7-18); CARBON DIOXIDE LEVEL 26 MEQ/L (21-32); CHLORIDE LEVEL 101 MEQ/L (98-107); CK-MB VALUE MASS 17.2 NG/ML (<3.6); CPK CREATINE PHOSPHOKINASE 747 U/L (39-308); CREATININE FOR GFR 2.71 MG/DL (0.70-1.30); FREE T4 1.17 NG/DL (0.76-1.46); GLOMERULAR FILTRATION RATE 24.3 (>42); GLUCOSE, FASTING 74 MG/DL (70-100); LIPASE 105 U/L (73-393); POTASSIUM SERUM 3.7 MEQ/L (3.5-5.1); SODIUM LEVEL 137 MEQ/L (136-145); TOTAL PROTEIN 7.2 GM/DL (6.4-8.2); TROPONIN I < 0.02 NG/ML (< 0.10)
[2019-08-08] MEDS ORDERED: NS 1,000 ML IV ONE (17:30)
[2019-08-08 18:05] LABS: ETHYL ALCOHOL (ETHANOL) < 0.003 % (0.000-0.010)
[2019-08-08] MEDS ORDERED: VENL75CA47 PO (18:10)
[2019-08-08] MEDS ORDERED: SENN1TAB96 PO (18:10)
[2019-08-08] MEDS ORDERED: TRAM50TA2 PO (18:10)
--- NOTE | 2019-08-08 18:10 | REPVR ---
PROCEDURE INFORMATION: Exam: CT Head Without Contrast Exam date and time: 08/08/2019 5:30 PM Age: 78 years old Clinical indication: Injury or trauma; Fall; Initial encounter; Blunt trauma (contusions or hematomas) TECHNIQUE: Imaging protocol: Computed tomography of the head without contrast. Radiation optimization: All CT scans at this facility use at least one of these dose optimization techniques: automated exposure control; mA and/or kV adjustment per patient size (includes targeted exams where dose is matched to clinical indication); or iterative reconstruction. COMPARISON: CT Head without contrast 05/09/2018 12:54 PM FINDINGS: Brain: No intracranial mass, focal mass effect or midline shift. No acute intracranial hemorrhage. Moderate decreased attenuation in periventricular/centrum semiovale white matter. No focal effacement of cortical sulci to indicate acute cortical infarct. Ventricles: Prominent ventricles and CSF spaces suggest parenchymal volume loss. Bones/joints: No calvarial fracture or destructive process. Sinuses: Visualized paranasal sinuses are unremarkable. Mastoid air cells: Mastoid air cells are normally aerated. Orbits: Visualized globes and orbits are unremarkable. Soft tissues: No focal extracranial soft tissue swelling. IMPRESSION: 1. No acute intracranial abnormality. 2. Atrophy and chronic microangiopathic change in supratentorial white matter. Electronically signed by: Graeme Oro On 08/08/2019 18:10:41 PM
--- NOTE | 2019-08-08 18:13 | REPVR ---
PROCEDURE INFORMATION: Exam: CT Cervical Spine Without Contrast Exam date and time: 08/08/2019 5:30 PM Age: 78 years old Clinical indication: Injury or trauma; Fall; Initial encounter; Blunt trauma TECHNIQUE: Imaging protocol: Computed tomography images of the cervical spine without contrast. Radiation optimization: All CT scans at this facility use at least one of these dose optimization techniques: automated exposure control; mA and/or kV adjustment per patient size (includes targeted exams where dose is matched to clinical indication); or iterative reconstruction. COMPARISON: CT Spine,cervical w/o contrast 05/09/2018 12:54 PM FINDINGS: Vertebrae: No traumatic segmental malalignment of cervical spine or craniocervical junction. Vertebral body height is maintained at all levels. No acute fracture. No destructive or blastic cervical spine osseous lesion. Discs/Spinal canal/Neural foramina: Intervertebral disc height is decreased at multiple levels, with typical degenerative pattern and associated endplate, articular pillar and uncovertebral spurs. Prevertebral Space: Prevertebral soft tissues demonstrate no asymmetry. Lungs: No concerning abnormality of the imaged lung apices. IMPRESSION: 1. No acute fracture or traumatic subluxation of the cervical spine. 2. Multilevel degenerative disc and articular pillar arthropathy. Electronically signed by: Graeme Oro On 08/08/2019 18:12:59 PM
[2019-08-08] MEDS ORDERED: ERTAPENEM SODIUM 1 GM in NS MINI-BAG PLUS 50 ML IV ONE (18:45)
[2019-08-08] MEDS ORDERED: NS IV ONE (18:45)
--- NOTE | 2019-08-08 19:25 | HPEPDOC ---
[facility] Medical History & Physical Date of Admission Aug 08, 2019 Date of Service: Aug 08, 2019 Primary Care Physician: Xavier Gonzalez Attending Physician: SCHUYLER WEINSTEIN MD History and Physical TIME OF SERVICE: 8:15 PM CHIEF COMPLAINT: Fall HISTORY OF PRESENT ILLNESS: This is a 78-year-old male who presents to the hospital for evaluation after having a fall while moving furniture. Per EMS his life alert bracelet went on, they found him lying on the floor confused. Per Dr. Obregon the patient was alert and oriented 3 when he arrived in the ER, but his systolic blood pressure was in the 90s. Currently the patient is able to recall the events that occurred prior to the arrival in the ER. He admits to not eating all day and feeling dizzy and having problems with his balance. He denies having shortness of breath or chest pain. At his baseline he has unsteady gait, uses a walker and has had several falls in the past. His last fall was about 1 week ago; he didn't come to the hospital for evaluation. He has participated in physical therapy in the past to improve his lower extremity strength, but reports that after 6 weeks he didn't improve very much, therefore, the sessions were discontinued REVIEW OF SYSTEMS: 12 point review of systems negative except as listed in HPI PAST MEDICAL/ SURGICAL HISTORY: Chronic Hypertension NIDDM A1c 6.9 in July 2019 Prostate cancer, status post resection Lung cancer is currently receiving treatment ( he can't recall if it chemoth erapy or radiation) in [place]. Unsteady gait, uses a wheelchair and/or walker. Status post ankle surgery. History of iron deficiency anemia. Hx of basal ganglia and lacunar infarcts Severe Dyslipidemia ? SOCIAL HISTORY: He lives alone with 2 cats. 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 HOME MEDICATIONS: Please see below. PHYSICAL EXAMINATION: Vital Signs Date Time Temp Pulse Resp B/P (MAP) Pulse Ox O2 Delivery O2 Flow Rate FiO2 08/08/19 15:56 18 95/50 88 Nasal Cannula 2.0 08/08/19 16:09 89 08/08/19 16:17 98.1 GEN: well-nourished / well developed/ NAD INTEGUMENT: not flushed/ not jaundice / no rashes / spider angiomata on the nares HEENT: NCAT / lips acyanotic /mucus membranes dry CVS: RRR/NMRG/ / radial pulses intact /+1 lower extremity edema LUNGS: able to speak full sentences without stopping to take a breath/ lungs are clear to auscultation bilaterally on room air ABDOMEN: Contour (obese) / abdomen is tympanic on percussion, soft & not tender with palpation MSK/EXTREMITIES: range of motion intact in all 4 extremities NEURO: CN 2-12 are grossly intact / speech is not dysarthric PSYCH: alert and oriented to person place and time/ able to understand and follow all commands LABORATORY DATA: IMAGING: Chest x-ray " Impression: Infiltrate versus nodular opacity left apex unchanged. No other new infiltrate." Head CT " IMPRESSION: 1. No acute intracranial abnormality. 2. Atrophy and chronic microangiopathic change in supratentorial white matter. " CT cervical spine " IMPRESSION: 1. No acute fracture or traumatic subluxation of the cervical spine. 2. Multilevel degenerative disc and articular pillar arthropathy. " MRI brain " IMPRESSION: No acute intracranial abnormality. Atrophy, punctate rem ote basal ganglia lacunar infarcts, and moderate symmetric chronic microangiopathic supratentorial white matter changes" MRA brain " IMPRESSION: Unremarkable MR angiogram of the [place] and intracranial vertebrobasilar system. " Carotid ultrasound " IMPRESSION: Moderate bilateral common and proximal ICA mixed plaque maintenance of normal waveforms and diastolic flow. The measured velocities suggest mild flow limitation relative to the visible appearance of the plaque. Measurements are given above" Renal ultrasound " IMPRESSION: No evidence of obstructive uropathy or medical renal disease. 15 mm right renal midpole corticomedullary cystic lesion, likely a parapelvic cyst. This does contain internal echoes. consider cross-sectional imaging to exclude a solid component" MICROBIOLOGY: Please see below. ASSESSMENT: Mr. Sandhu is a 78-year-old with a history of chronic hypertension, NIDDM, prostate cancer, lung cancer, unsteady gait, and basal ganglia infarcts who is was admitted for evaluation of falls and management of PAULIE. PLAN: 1. Fall Likely due to combination of lower extremity weakness and dehydration as the patient admits to not eating much during the day, has dry mucous membranes and had low blood pressure. The CT, MRI, MRA, and carotid ultrasound reports have been reviewed and are unremarkable except for old basal ganglion lacunar infarcts. His UA is dirty but he did not endorse abdominal pain. Plan: Admit to PCU/ frequent neuro checks/fall precautions/orthostats/IV fluids physical therapy consult to determine if he needs inpatient rehabilitation wendi louis placement in an assisted living facility 2. Elevated lactic acid, likely due to dehydration. He doesn't meet SIRS criteria Plan: IV fluids trend lactic acid 3. PAULIE Likely due to dehydration because denies 0.4% and possibly rhabdomyolysis because his CPK is elevated. Report from the renal ultrasound was reviewed. There is no evidence of medical renal disease Plan: Is/Os / IVF / trend CPK / hold metformin, lisinopril, and diclofenac 4. Rhabdomyolysis Likely due to fall. Plan: IV fluids trend CPK 5. Asymptomatic UTI. He received ertapenem in the ER Plan: Will not continue antibiotics 6. Renal Cystic Lesion - Plan: the day time team may consider additional imaging in the morning 7. Thrombocytopenia - Plan: f/u CBC and monitor for bleeding 8. NIDDM (A1C 6.9%) - Plan: diabetic diet / f/u accuchecks / hypoglycemia protocol / sliding scale insulin / hold oral anti-glycemics / gabapentin 9. Chronic Hypertension - Plan: Hold lisinopril because of PAULIE 10. Hx of CVAs/ Dyslipidemia - Plan: Aspirin, atorvastatin and icosapent ethyl 11. Lung cancer - Plan: obtain records from [place]. 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 DVT PROPHYLAXIS: heparin DISPOSITION: home vs placement after more than 2 midnight's stay PFS consult has been placed Home Medications Scheduled Aspirin (Aspirin EC) 81 Mg Tab, 81 MG PO DAILY Atorvastatin Calcium (Atorvastatin Calcium) 40 Mg Tablet, 40 MG PO DAILY Dapagliflozin Propanediol (Farxiga) 10 Mg Tablet, 10 MG PO DAILY Diclofenac Sodium (Diclofenac Sodium) 75 Mg Tab, 75 MG PO BID Gabapentin (Gabapentin) 800 Mg Tab, 800 MG PO TID Glimepiride (Glimepiride) 4 Mg Tablet, 4 MG PO BID 0900 & 1800 Icosapent Ethyl (Vascepa) 1 Gm Capsule, 2 GM PO BID 0900 & 1800 Latanoprost (Xalatan) 0.005 % Natalia, 1 DROP OU QHS Lisinopril (Lisinopril) 10 Mg Tab, 10 MG PO DAILY Metformin HCl (Metformin HCl ER) 750 Mg Tab, 750 MG PO DAILY 1300 [place]-3/Dha/Epa/Fish Oil (Fish Oil 1,000 mg Softgel) 1 Each Capsule, 1,000 MG PO BID Sennosides/Docusate Sodium (Senexon-S 50-8.6 mg Tablet) 1 Each Tablet, 1 TAB PO BID Tamsulosin Hcl (Tamsulosin HCl) 0.4 Mg Capsule, 0.4 MG PO DAILY 1300 Timolol Maleate (Timoptic) 0.5 % Natalia, 1 DROP OU BID Venlafaxine HCl (Venlafaxine HCl ER) 75 Mg Cap.er.24h, 75 MG PO DAILY Scheduled PRN Tramadol HCl (Tramadol HCl) 50 Mg Tablet, 50 MG PO QID PRN for PAIN Allergies Coded Allergies: ceftriaxone (Verified Allergy, Unknown, 09/14/18) A-FIB/CHADSVASC A-FIB History Current/History of A-Fib/PAF?: No Current PO Anticoag Therapy: No SCHUYLER WEINSTEIN MD Aug 08, 2019 19:25
[2019-08-08] MEDS ORDERED: MAALOX 30 ML SUSP *UDC PO PRN (19:30)
--- NOTE | 2019-08-08 20:04 | REPVR ---
PROCEDURE INFORMATION: Exam: MR Head Without Contrast Exam date and time: 08/08/2019 7:56 PM Age: 78 years old Clinical indication: Altered mental status/memory loss and walking, difficulty; Additional info: CVA TECHNIQUE: Imaging protocol: MR of the head without contrast. COMPARISON: CT Head without contrast 08/08/2019 5:41 PM FINDINGS: No abnormal restriction of diffusion to indicate acute CVA. Remote punctate lacunar infarcts in the basal ganglia Midline structures and cerebellar tonsillar position appear normal. Ventricles, cisterns and sulci are symmetrically prominent. No intracranial mass, midline shift or abnormal extra-axial fluid. No acute intracranial hemorrhage. Moderate pattern of increased T2 and flair signal in supratentorial white matter. Optic chiasm and pituitary infundibulum appear normal. Normal vascular flow voids in major intracranial arteries and dural venous sinuses. Paranasal sinuses are clear. Mastoid air cells are normally aerated. Optic globes and orbits are unremarkable. IMPRESSION: No acute intracranial abnormality. Atrophy, punctate remote basal ganglia lacunar infarcts, and moderate symmetric chronic microangiopathic supratentorial white matter changes Electronically signed by: Graeme Oro On 08/08/2019 20:04:11 PM
--- NOTE | 2019-08-08 20:06 | REPVR ---
PROCEDURE INFORMATION: Exam: MR Angiogram Head Without Contrast, Arteries Exam date and time: 08/08/2019 7:56 PM Age: 78 years old Clinical indication: Memory loss and weakness; Type not specified; Additional info: CVA TECHNIQUE: Imaging protocol: MR angiogram head without contrast. Exam focused on the arteries. COMPARISON: CT Head without contrast 08/08/2019 5:41 PM FINDINGS: Anterior circulation: Normal flow signal and luminal caliber in the petrous, cavernous and supraclinoid internal carotid arteries. Normal appearance of the anterior cerebral artery branches and middle cerebral artery branches through the MCA trifurcations. No occlusion, high-grade focal stenosis or dissection. No aneurysm. Posterior circulation: Dominant right vertebral artery. Diminutive left vertebral artery. Normal caliber basilar artery, and normal superior cerebellar and posterior cerebral arteries. No occlusion, high-grade stenosis or aneurysm. IMPRESSION: Unremarkable MR angiogram of the [place] and intracranial vertebrobasilar system. Electronically signed by: Graeme Oro On 08/08/2019 20:06:14 PM
[2019-08-08] MEDS ORDERED: DEXTROSE 50% 50 ML SYRINGE IV PRN (20:45)
[2019-08-08] MEDS ORDERED: GLUCOSE 4 GM CHEW TABLET PO PRN (20:45)
[2019-08-08] MEDS ORDERED: GLUCAGON FOR INJ 1 MG VIAL (J1610) SC PRN (20:45)
[2019-08-08] MEDS: HumaLOG INSULIN (NovoLOG) PER UNIT SC SCH (21:00)
--- NOTE | 2019-08-08 21:11 | ECGEPIP ---
[facility] - ED Test Date: 2019-08-08 Pat Name: MELODIE CHAVEZ Department: Room: - Gender: Male Brass Buffer: : 1940 Requested By: TINO Blas Order Number: [id number] Reading MD: Tino Lizarraga Measurements Intervals [place] Rate: 87 P: 68 WY: 191 QRS: 90 QRSD: 148 T: -8 QT: 406 QTc: 490 Interpretive Statements SINUS RHYTHM Prolonged QTc interval RIGHT BUNDLE BRANCH BLOCK Rate decreased from tracing done 09-14-18 Electronically Signed on 08-08-2019 21:10:59 EST by Tino Lizarraga
--- NOTE | 2019-08-08 21:25 | REPVR ---
PROCEDURE INFORMATION: Exam: US Retroperitoneal Limited, Kidneys Exam date and time: 08/08/2019 9:02 PM Age: 78 years old Clinical indication: Abnormal findings; Abnormal lab test; Abnormal kidney function lab tests; Additional info: Alexis TECHNIQUE: Imaging protocol: Real-time ultrasound of the retroperitoneum with image documentation. Examination was focused on the kidneys. COMPARISON: LIVER US 04/13/2017 9:11 AM FINDINGS: Right kidney measures 13.6 cm in length. Left kidney measures 14.1 cm in length. Renal parenchymal echotexture and cortical thickness are normal. Right renal midpole cystic corticomedullary lesion measuring 13 x 15 x 10 mm No hydronephrosis. No shadowing, echogenic foci suggestive of stones. Bladder is decompressed and not well evaluated. IMPRESSION: No evidence of obstructive uropathy or medical renal disease 15 mm right renal midpole corticomedullary cystic lesion, likely a parapelvic cyst. This does contain internal echoes. Consider cross-sectional imaging to exclude a solid component Electronically signed by: Graeme Oro On 08/08/2019 21:24:45 PM
[2019-08-08 21:31] VITALS: BP 162/64
--- NOTE | 2019-08-08 21:36 | REPVR ---
PROCEDURE INFORMATION: Exam: US Duplex Bilateral Extracranial Arteries Exam date and time: 08/08/2019 9:02 PM Age: 78 years old Clinical indication: Syncope and collapse; Additional info: Fall R/O CVA TECHNIQUE: Imaging protocol: Real-time Duplex ultrasound scan of the bilateral carotid and vertebral arteries combining su scale, color Doppler and spectral waveform analysis. Bilateral exam. COMPARISON: CT Head without contrast 08/08/2019 5:41 PM FINDINGS: Visualized portions of the bilateral common carotid, internal carotid, and external carotid arteries reveals no occlusion or dissection flap. Bilateral moderately severe mixed distal common carotid, carotid bulb and proximal ICA plaque. Doppler evaluation shows normal flow directionality. Peak systolic velocities (in cm/sec) are as follows: Right CCA: 99 Right ICA: 163 Right ECA: 172 Right I/C ratio: 1.64 Right Vertebral: 50 Left CCA: 134 Left ICA: 179 Left ECA: 144 Left I/C ratio: 1.33 Left Vertebral: Not well visualized IMPRESSION: Moderate bilateral common and proximal ICA mixed plaque maintenance of normal waveforms and diastolic flow. The measured velocities suggest mild flow limitation relative to the visible appearance of the plaque. Measurements are given above Electronically signed by: Graeme Oro On 08/08/2019 21:36:31 PM
[2019-08-08] MEDS: LevoFLOXacin 750 MG TABLET PO SCH (22:13)
[2019-08-08] MEDS: NS 1,000 ML IV SCH (22:13)
[2019-08-09] VITALS: BP 120/60
[2019-08-09] MEDS: TIMOLOL MALEATE 0.5% OPHTH SOLN 5 ML OU SCH ×3 (00:14→20:52)
[2019-08-09] MEDS: GABAPENTIN 400 MG CAP PO SCH ×4 (00:14→20:52)
[2019-08-09] MEDS: LATANOPROST 0.005% OPHTH SOLN 2.5 ML OU SCH ×2 (00:14→20:52)
[2019-08-09 04:00] VITALS: BP 123/58
[2019-08-09] MEDS: HEPARIN SOD (PORCINE) 5000 UNITS/ML VIAL (J1644 PER 1000UNITS) SC SCH ×3 (05:44→20:53)
[2019-08-09 06:01] LABS: HEMATOCRIT 45.4 % (42.0-52.0); MEAN CORPUSCULAR HEMOGLOBIN 31.4 pg (27.0-33.0); PLATELET COUNT, AUTOMATED 126 10^3/uL (150-450); RED BLOOD COUNT 4.78 10^6/uL (4.30-6.10); WHITE BLOOD COUNT 7.4 10^3/uL (4.0-10.0)
[2019-08-09 06:29] LABS: ALBUMIN 3.1 GM/DL (3.2-5.2); BILIRUBIN,TOTAL 1.3 MG/DL (0.2-1.0); CALCIUM LEVEL 8.2 MG/DL (8.8-10.2); CREATININE FOR GFR 1.66 MG/DL (0.70-1.30); GLOMERULAR FILTRATION RATE 42.9 (>42); MAGNESIUM LEVEL 2.1 MG/DL (1.8-2.4); POTASSIUM SERUM 4.1 MEQ/L (3.5-5.1); TOTAL PROTEIN 6.2 GM/DL (6.4-8.2)
[2019-08-09] MEDS: HumaLOG INSULIN (NovoLOG) PER UNIT SC SCH ×3 (07:47→20:53)
[2019-08-09 08:00] VITALS: BP 120/58
[2019-08-09] MEDS ORDERED: FLUBLOK(EGG FREE)(QUAD)INFLUENZA VACC 0.5ML SYRINGE (90682)18YRS&OLDER IM ONE (09:00)
[2019-08-09] MEDS: NICOTINE 14 MG/24 HR TRANSDERMAL TD SCH (09:00)
[2019-08-09] MEDS ORDERED: ENTER DRUG NAME HERE (PATIENT'S OWN MED) PO SCH (09:00)
[2019-08-09] MEDS: SENOKOT S TAB PO SCH ×2 (09:03→20:53)
[2019-08-09] MEDS: ATORVASTATIN 20 MG TAB PO SCH (09:03)
[2019-08-09] MEDS: VENLAFAXINE **XR** 75MG CAPSULE PO SCH (09:03)
[2019-08-09] MEDS: ASPIRIN 81 MG ENTERIC TAB PO SCH (09:03)
[2019-08-09 12:00] VITALS: BP 110/58
[2019-08-09 16:00] VITALS: BP 138/76
[2019-08-09] MEDS: NS 1,000 ML IV SCH (16:39)
[2019-08-09] MEDS: TAMSULOSIN 0.4 MG CAP PO SCH (16:40)
[2019-08-09 20:10] VITALS: BP 120/57
--- NOTE | 2019-08-09 22:01 | IPN ---
DATE: 08/09/2019 Patient denies any shortness of breath, chest pain, pressure, or tightness, palpitations, lightheadedness, or dizziness. Creatinine is improved on intravenous (IV) fluids. Lost IV access this morning. Not sure if he wants to have a peripherally inserted central catheter (PICC) line placed for IV fluid hydration. No hematuria, dysuria, urgency, fever, chills, or flank pain. OBJECTIVE: PHYSICAL EXAMINATION: VITAL SIGNS: Temperature 97.3, pulse 81, respiratory rate 14, blood pressure 120/58, 96% on 2 liters of oxygen, 96% on room air. GENERAL: Awake, alert, oriented to person, place, and time, answering questions appropriately. Face is symmetric. Tongue is midline. Mucous membranes. LUNGS: Diminished but clear to auscultation. No wheezes, rales, or rhonchi. HEART: S1, S2, sinus rhythm. ABDOMEN: Obese, soft, nontender, nondistended. EXTREMITIES: No cyanosis or clubbing. Positive 1+ pitting edema, bilateral lower extremities. Chronic venous stasis changes. LABORATORY DATA: White count 7.4, hemoglobin 15, hematocrit 45, platelet count 126. Admission platelet count of 141. Sodium 140, potassium 4, chloride 104, bicarbonate 31, BUN 29, creatinine 1.66, admission creatinine 2.71, glucose 159, lactic acid 1.6, calcium 8.2. Total bilirubin of 1.3. Total CK 511. TSH 3.010. Respiratory panel negative. Urine culture and blood culture, two sets, pending. Urinalysis: Cloudy urine, 2+ protein, 3+ glucose. Negative ketones, blood, nitrite bilirubin, 3+ leukocyte esterase, 85 WBC, 3+ bacteria. IMAGING STUDY: Renal ultrasound 08/08/2019: No evidence of obstructive uropathy or medical renal disease. One 5 mm right renal mid pole cortical medullary cystic lesion, likely a peripelvic cyst. This does contain internal echoes. Cross-sectional Imaging to exclude a solid component. Vascular ultrasound of the carotid duplex. Moderate bilateral common and proximal mixed of normal waveforms. MRA of the brain unremarkable. MRA angiogram of the [place]. MRI of the brain: No acute intracranial pathology, atrophy. Punctate remote basal ganglia lacunar infarcts and moderate symmetric chronic microangiopathic supratentorial white matter changes. ASSESSMENT AND PLAN: This is a 78-year-old male who lives alone with a Life Alert bracelet. Son lives out of the state. Found lying on the floor confused. Brought into the emergency room and was found to have acute rhabdomyolysis with acute kidney injury. Has prior history of prostate cancer, status post resection, lung cancer, receiving treatment in [place]. Chronic unsteady gait. Uses a wheelchair and a walker. History of basal ganglia lacunar infarcts in the past, dyslipidemia, hypertension. A1c of 6.9 with [id number] diabetes. ACTIVE ISSUES: 1. Recurrent falls. MRI/MRA have been reviewed. Patient has chronic plaques in the carotid. Will need outpatient followup and referral to vascular surgery. 2. Acute rhabdomyolysis secondary to fall. Inability to get up. Patient is requesting to go home with services. He is worried about his two kitten at home and would prefer to go home; however, he recognizes that he is becoming more debilitated and is open to assisted living. The son would like him to be placed in a residential. Patient and family services (PFS) has been consulted. Acute rehabilitation unit (ARU), physical therapy (PT)/occupational therapy (OT) have also been consulted. Currently on IV fluids but lost IV access. Patient has been encouraged to increase oral intake. Will check serial metabolic panel to check for resolution of the kidney injury. PICC line has been ordered. Blood cultures are still pending. 3. Lactis acidosis, resolved. 4. Thrombocytopenia. No acute indication for platelet transfusion. No signs of any acute bleeding. 5. Lung cancer, underling treatment. Outpatient followup with his medical oncologist. 6. History of prostate cancer, status post resection. Outpatient followup with his urologist. 7. Type 2 diabetes, on consistent-carbohydrate diet, insulin sliding scale. 8. Abnormal urinalysis with recurrent falls. Probably urinary tract infection (UTI), currently on renally dosed Levaquin. 9. Chronic neuropathy, on Neurontin. 10. Deep vein thrombosis (DVT) prophylaxis with compression stockings.
[2019-08-10] MEDS: HEPARIN SOD (PORCINE) 5000 UNITS/ML VIAL (J1644 PER 1000UNITS) SC SCH ×3 (05:30→20:48)
[2019-08-10 06:00] VITALS: BP 125/58
[2019-08-10 06:12] LABS: CPK CREATINE PHOSPHOKINASE 292 U/L (39-308)
[2019-08-10] MEDS ORDERED: LEVA750T7 PO (07:40)
[2019-08-10] MEDS ORDERED: NICO14PA TD (07:40)
[2019-08-10] MEDS: VENLAFAXINE **XR** 75MG CAPSULE PO SCH (08:10)
[2019-08-10] MEDS: GABAPENTIN 400 MG CAP PO SCH ×3 (08:10→20:46)
[2019-08-10] MEDS: ATORVASTATIN 20 MG TAB PO SCH (08:10)
[2019-08-10] MEDS: ASPIRIN 81 MG ENTERIC TAB PO SCH (08:10)
[2019-08-10] MEDS: HumaLOG INSULIN (NovoLOG) PER UNIT SC SCH ×4 (08:11→20:48)
[2019-08-10] MEDS: SENOKOT S TAB PO SCH ×2 (08:11→20:45)
[2019-08-10] MEDS: traMADol 50 MG TAB PO PRN ×2 (08:12→20:47)
[2019-08-10] MEDS: NICOTINE 14 MG/24 HR TRANSDERMAL TD SCH (08:13)
[2019-08-10] MEDS: TIMOLOL MALEATE 0.5% OPHTH SOLN 5 ML OU SCH ×2 (08:13→20:48)
[2019-08-10 08:53] LABS: HEMATOCRIT 46.5 % (42.0-52.0); HEMOGLOBIN 15.1 g/dl (13.5-17.5); MEAN CORPUSCULAR HEMOGLOBIN 30.6 pg (27.0-33.0); MEAN CORPUSCULAR HGB CONC 32.5 g/dl (32.0-36.5); MEAN CORPUSCULAR VOLUME 94.3 fl (80.0-96.0); PLATELET COUNT, AUTOMATED 122 10^3/uL (150-450); RED BLOOD COUNT 4.93 10^6/uL (4.30-6.10); WHITE BLOOD COUNT 6.7 10^3/uL (4.0-10.0)
[2019-08-10 08:54] LABS: BLOOD UREA NITROGEN 16 MG/DL (7-18); CALCIUM LEVEL 8.8 MG/DL (8.8-10.2); CARBON DIOXIDE LEVEL 30 MEQ/L (21-32); CHLORIDE LEVEL 102 MEQ/L (98-107); CREATININE FOR GFR 0.94 MG/DL (0.70-1.30); GLOMERULAR FILTRATION RATE > 60.0 (>42); GLUCOSE, FASTING 150 MG/DL (70-100); POTASSIUM SERUM 3.6 MEQ/L (3.5-5.1); SODIUM LEVEL 138 MEQ/L (136-145)
[2019-08-10] MEDS ORDERED: OMEGA-3 1000MG CAPSULE PO SCH (09:00)
--- NOTE | 2019-08-10 12:42 | IPNPDOC ---
Date Seen The patient was seen on 08/10/19. Progress Note Multi-infarct Dementia with abnormal MRI Brain: -requires placement -lives alone and unable to care for self due to decreased ADLs and recurrent falls. VS, I&O, 24H, Fishbone Vital Signs/I&O Vital Signs Date Time Temp Pulse Resp B/P (MAP) Pulse Ox O2 Delivery O2 Flow Rate FiO2 08/10/19 10:44 2.0 08/10/19 08:50 18 08/10/19 06:00 98.1 70 125/58 (80) 96 08/09/19 16:00 Room Air I&O- Last 24 Hours up to 6 AM 08/10/19 06:00 Intake Total 4075 ml Output Total 675 ml Balance 3400 ml Laboratory Data 24H LABS Laboratory Tests 2 08/09/19 16:45: Bedside Glucose (Misc Panel) 97 08/09/19 20:33: Bedside Glucose (Misc Panel) 142H 08/10/19 05:32: Nucleated Red Blood Cells % (auto) 0.0, Anion Gap 6L, Glomerular Filtration Rate > 60.0, Calcium Level 8.8, Total Creatine Kinase 292 08/10/19 07:42: Bedside Glucose (Misc Panel) 147H 08/10/19 11:32: Bedside Glucose (Misc Panel) 116H CBC/BMP Laboratory Tests 08/10/19 05:32 Microbiology Microbiology 08/08/19 Respiratory Virus Panel (PCR) (RAAD) - Final, Complete 08/08/19 Urine Culture - Final, Complete 08/08/19 Blood Culture - Preliminary, Resulted No growth after 24 hours . All specim... 08/08/19 Blood Culture - Preliminary, Resulted No growth after 24 hours . All specim... KRISTEL ANDERSON MD Aug 10, 2019 12:42
[2019-08-10] MEDS: TAMSULOSIN 0.4 MG CAP PO SCH (13:06)
[2019-08-10 14:00] VITALS: BP 150/68
--- NOTE | 2019-08-10 19:39 | IPN ---
DATE: 08/10/2019 The patient lost IV access yesterday but replaced in mid afternoon. Intravenous fluids were given. Creatinine today is normal. He complains of persistent debility and has not passed a home safety evaluation and is open to placement. The patient denies any chest pain, pressure, tightness, shortness of breath. No other issues per nursing overnight. PHYSICAL EXAMINATION: VITAL SIGNS: Temperature 98.1, pulse 70, respiratory rate 18, blood pressure 125/58, 96% on 2 liters nasal cannula. GENERAL: Awake, alert, oriented to person, place and time. No conversational dyspnea. No jugular venous distention (JVD) or thyromegaly. LUNGS: Diminished but clear to auscultation. No wheezing or rales. HEART: S1, S2. Sinus rhythm. ABDOMEN: Obese, soft, nontender, nondistended. EXTREMITIES: No cyanosis or clubbing. LABORATORY DATA: White count 6.7, hemoglobin 15, hematocrit 46, platelet count 122. Sodium 138, potassium 3.6, chloride 102, bicarbonate 30, BUN 16, creatinine 0.94, glucose 150. ASSESSMENT AND PLAN: This is a 78-year-old male who lives alone with Stephenie gamboa, son lives out of state. He was found confused on the floor in acute rhabdomyolysis, admitted for acute kidney injury. ACTIVE ISSUES: 1. Acute rhabdomyolysis secondary to fall. The patient lives alone and will need placement. Creatinine is back to baseline. He is status post IV fluids and increase oral fluid intake. 2. Recurrent falls with chronic carotid plaques with outpatient referral to vascular surgery. 3. Chronic thrombocytopenia. Monitoring with daily complete blood count (CBC). No indication for platelet transfusion. 4. Lactic acidosis, resolved. 5. Lung cancer. Outpatient followup with his medical oncologist. 6. Prostate cancer, status post resection. 7. Abnormal urinalysis with negative urine culture. Levaquin has been discontinued. 8. Chronic neuropathy. On Neurontin. 9. Obesity. Body Mass Index (BMI) of 33.7, complicating his care. 10. Type 2 diabetes. A1/c is 6.9. On consistent carbohydrate diet. 11. History of basal ganglia lacunar infarcts with no acute abnormalities on MRI of the brain. No acute CVA. DISPOSITION: Awaiting placement. Patient and family services (PFS) consulted.
[2019-08-10] MEDS: LevoFLOXacin 750 MG TABLET PO SCH (20:46)
[2019-08-10] MEDS: LATANOPROST 0.005% OPHTH SOLN 2.5 ML OU SCH (20:48)
[2019-08-10] MEDS ORDERED: ENTER DRUG NAME HERE (PATIENT'S OWN MED) PO SCH (21:00)
[2019-08-10 22:00] VITALS: BP 136/70
[2019-08-11] MEDS: HEPARIN SOD (PORCINE) 5000 UNITS/ML VIAL (J1644 PER 1000UNITS) SC SCH ×3 (05:59→21:47)
[2019-08-11 06:00] VITALS: BP 137/63
[2019-08-11] MEDS: SENOKOT S TAB PO SCH ×2 (07:59→21:47)
[2019-08-11] MEDS: VENLAFAXINE **XR** 75MG CAPSULE PO SCH (07:59)
[2019-08-11] MEDS: ATORVASTATIN 20 MG TAB PO SCH (07:59)
[2019-08-11] MEDS: HumaLOG INSULIN (NovoLOG) PER UNIT SC SCH ×4 (08:00→21:00)
[2019-08-11] MEDS: GABAPENTIN 400 MG CAP PO SCH ×3 (08:00→21:47)
[2019-08-11] MEDS: ASPIRIN 81 MG ENTERIC TAB PO SCH (08:00)
[2019-08-11] MEDS: TIMOLOL MALEATE 0.5% OPHTH SOLN 5 ML OU SCH ×3 (08:02→21:47)
[2019-08-11] MEDS: NICOTINE 14 MG/24 HR TRANSDERMAL TD SCH (08:02)
[2019-08-11] MEDS ORDERED: ENTER DRUG NAME HERE (PATIENT'S OWN MED) PO SCH (09:00)
[2019-08-11] MEDS: TAMSULOSIN 0.4 MG CAP PO SCH (12:10)
[2019-08-11 14:00] VITALS: BP 130/68
[2019-08-11] MEDS: LATANOPROST 0.005% OPHTH SOLN 2.5 ML OU SCH (21:47)
[2019-08-11 22:00] VITALS: BP 136/65
[2019-08-12] MEDS: HEPARIN SOD (PORCINE) 5000 UNITS/ML VIAL (J1644 PER 1000UNITS) SC SCH ×3 (05:54→21:50)
[2019-08-12 06:00] VITALS: BP 138/67
[2019-08-12] MEDS: ATORVASTATIN 20 MG TAB PO SCH (08:25)
[2019-08-12] MEDS: HumaLOG INSULIN (NovoLOG) PER UNIT SC SCH ×4 (08:25→21:00)
[2019-08-12] MEDS: ASPIRIN 81 MG ENTERIC TAB PO SCH (08:25)
[2019-08-12] MEDS: GABAPENTIN 400 MG CAP PO SCH ×3 (08:25→21:50)
[2019-08-12] MEDS: SENOKOT S TAB PO SCH ×2 (08:26→21:50)
[2019-08-12] MEDS: NICOTINE 14 MG/24 HR TRANSDERMAL TD SCH (08:27)
[2019-08-12] MEDS: TIMOLOL MALEATE 0.5% OPHTH SOLN 5 ML OU SCH ×2 (08:27→21:51)
[2019-08-12] MEDS: VENLAFAXINE **XR** 75MG CAPSULE PO SCH (08:33)
[2019-08-12] MEDS: ACETAMINOPHEN TAB 650MG DOSE (2X325MG) PO PRN ×2 (08:38→23:34)
--- NOTE | 2019-08-12 10:37 | IPN ---
DATE: 08/11/2019 The patient wants to be released from the hospital, awaiting physical therapy (PT), cognitive evaluation. The patient lives alone and son had wanted placement. 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 Patient and family services (PFS) has been consulted to help in discharge planning. He otherwise denies any chest pain, pressure or tightness, shortness of breath despite IV fluids given for acute kidney injury from rhabdomyolysis. He has chronic oxygen at home and says that he has a concentrator and portability. He feels confident that he will manage well despite recent history of recurrent falls at home. He is still not safe for hospital discharge at this time due to debility, unable to perform activities of daily living (ADLs) adequately. VITAL SIGNS: Temperature 98.6, pulse 70, respiratory rate 17, blood pressure 137/63, 95% on two liters nasal cannula. GENERAL: The patient is awake, alert, and oriented to himself only. He is disoriented to time and place, unable to state the date, name of the hospital, city and state. The patient currently has no respiratory distress. No use of respiratory accessory muscles. No jugular venous distention (JVD) or thyromegaly. LUNGS: Clear to auscultation. No wheezing or rales. HEART: S1, S2, sinus rhythm. ABDOMEN: Obese, soft, nontender, nondistended. EXTREMITIES: Chronic edema. LABORATORY DATA: White count 6.7, hemoglobin 15, hematocrit 46, platelet count 122, previous platelet count is 126, on admission platelet count of 141. Sodium 138, potassium 3.6, chloride 102, bicarbonate 30, BUN 16, creatinine 0.94, glucose of 150. ASSESSMENT AND PLAN: This is a 78-year-old male who lives alone, has had recurrent falls with history of basal ganglia lacunar infarcts without acute cerebrovascular accident (CVA), brought in due to rhabdomyolysis and acute renal failure secondary to rhabdomyolysis. ACTIVE ISSUES: 1. Acute rhabdomyolysis secondary to fall at home, resolved. The patient's creatinine is back to normal status post IV fluid hydration and oral intake. 2. Recurrent falls with multi-infarct dementia and abnormal MRI. The patient requires placement as he lives alone. He is adamant, however, of returning back home and promises that he will hire people to help him as well as allow home care to come and help him at home. The patient's son is advocating placement at this time. He will be kept in the hospital until physical therapy has done a full cognitive evaluation. Not safe currently and his issues with his activities of daily living (ADLs). The patient will be changed to alternative level of care (ALC) status in the morning if he continues to fail home safety evaluation and placement for the future. 3. Thrombocytopenia, currently with no acute bleeding, currently on subcutaneous heparin. We will discontinue and check heparin-induced thrombocytopenia panel if decreases to less than 50% of initial platelet value, for now compression stockings. 4. Obesity, body mass index (BMI) of 33, complicating his care. 5. Active smoking, on nicotine patch. DISPOSITION: The patient is medically stable for hospital discharge. However, he has cognitive impairment, unable to care for himself at home, and at risk of recurrent falls and rhabdomyolysis with renal failure. Change to alternative level of care (ALC) status in the morning if he continues to be debilitated and not safe for hospital discharge.
[2019-08-12] MEDS: TAMSULOSIN 0.4 MG CAP PO SCH (12:29)
[2019-08-12] MEDS: OMEGA-3 1000MG CAPSULE PO SCH (17:34)
[2019-08-12] MEDS: LevoFLOXacin 750 MG TABLET PO SCH (21:50)
[2019-08-12] MEDS: LATANOPROST 0.005% OPHTH SOLN 2.5 ML OU SCH (21:51)
[2019-08-13] MEDS: HEPARIN SOD (PORCINE) 5000 UNITS/ML VIAL (J1644 PER 1000UNITS) SC SCH ×3 (05:18→21:55)
[2019-08-13 06:00] VITALS: BP 158/77
--- NOTE | 2019-08-13 07:34 | IPN ---
DATE: 08/12/2019 The patient has been changed for alternate level of care (ALC) status due to very poor condition, unable to care for himself at home, awaiting placement, changed to ALC status.
[2019-08-13] MEDS: NICOTINE 14 MG/24 HR TRANSDERMAL TD SCH (09:00)
[2019-08-13] MEDS: ASPIRIN 81 MG ENTERIC TAB PO SCH (09:52)
[2019-08-13] MEDS: VENLAFAXINE **XR** 75MG CAPSULE PO SCH (09:52)
[2019-08-13] MEDS: GABAPENTIN 400 MG CAP PO SCH ×3 (09:52→21:56)
[2019-08-13] MEDS: ATORVASTATIN 20 MG TAB PO SCH (09:52)
[2019-08-13] MEDS: SENOKOT S TAB PO SCH ×2 (09:53→21:56)
[2019-08-13] MEDS: TIMOLOL MALEATE 0.5% OPHTH SOLN 5 ML OU SCH ×2 (09:53→21:55)
[2019-08-13] MEDS: OMEGA-3 1000MG CAPSULE PO SCH ×2 (09:53→16:59)
[2019-08-13] MEDS: HumaLOG INSULIN (NovoLOG) PER UNIT SC SCH ×4 (09:54→21:00)
[2019-08-13] MEDS: TAMSULOSIN 0.4 MG CAP PO SCH (12:26)
[2019-08-13] MEDS: LATANOPROST 0.005% OPHTH SOLN 2.5 ML OU SCH (21:55)
[2019-08-14] MEDS: HEPARIN SOD (PORCINE) 5000 UNITS/ML VIAL (J1644 PER 1000UNITS) SC SCH ×3 (05:28→21:14)
[2019-08-14 06:00] VITALS: BP 155/79
[2019-08-14] MEDS: ASPIRIN 81 MG ENTERIC TAB PO SCH (07:58)
[2019-08-14] MEDS: VENLAFAXINE **XR** 75MG CAPSULE PO SCH (07:58)
[2019-08-14] MEDS: ATORVASTATIN 20 MG TAB PO SCH (07:58)
[2019-08-14] MEDS: OMEGA-3 1000MG CAPSULE PO SCH ×2 (07:58→16:57)
[2019-08-14] MEDS: SENOKOT S TAB PO SCH ×2 (07:58→21:15)
[2019-08-14] MEDS: GABAPENTIN 400 MG CAP PO SCH ×3 (07:58→21:15)
[2019-08-14] MEDS: HumaLOG INSULIN (NovoLOG) PER UNIT SC SCH ×4 (07:59→21:00)
[2019-08-14] MEDS: NICOTINE 14 MG/24 HR TRANSDERMAL TD SCH (07:59)
[2019-08-14] MEDS: TIMOLOL MALEATE 0.5% OPHTH SOLN 5 ML OU SCH ×2 (07:59→21:16)
[2019-08-14] MEDS: TAMSULOSIN 0.4 MG CAP PO SCH (12:10)
[2019-08-14] MEDS: LevoFLOXacin 750 MG TABLET PO SCH (21:15)
[2019-08-14] MEDS: LATANOPROST 0.005% OPHTH SOLN 2.5 ML OU SCH (21:16)
[2019-08-14 22:00] VITALS: BP 151/79
[2019-08-15] MEDS: traMADol 50 MG TAB PO PRN (04:05)
[2019-08-15 06:00] VITALS: BP 131/77
[2019-08-15] MEDS: HEPARIN SOD (PORCINE) 5000 UNITS/ML VIAL (J1644 PER 1000UNITS) SC SCH ×3 (06:38→21:11)
[2019-08-15] MEDS: OMEGA-3 1000MG CAPSULE PO SCH ×2 (08:01→17:45)
[2019-08-15] MEDS: SENOKOT S TAB PO SCH ×2 (08:01→21:11)
[2019-08-15] MEDS: ACETAMINOPHEN TAB 650MG DOSE (2X325MG) PO PRN (08:01)
[2019-08-15] MEDS: ATORVASTATIN 20 MG TAB PO SCH (08:01)
[2019-08-15] MEDS: ASPIRIN 81 MG ENTERIC TAB PO SCH (08:01)
[2019-08-15] MEDS: VENLAFAXINE **XR** 75MG CAPSULE PO SCH (08:01)
[2019-08-15] MEDS: GABAPENTIN 400 MG CAP PO SCH ×3 (08:01→21:11)
[2019-08-15] MEDS: NICOTINE 14 MG/24 HR TRANSDERMAL TD SCH (08:02)
[2019-08-15] MEDS: TIMOLOL MALEATE 0.5% OPHTH SOLN 5 ML OU SCH ×2 (08:02→21:04)
[2019-08-15] MEDS: HumaLOG INSULIN (NovoLOG) PER UNIT SC SCH ×4 (08:03→21:00)
[2019-08-15] MEDS: TAMSULOSIN 0.4 MG CAP PO SCH (12:48)
[2019-08-15] MEDS: LATANOPROST 0.005% OPHTH SOLN 2.5 ML OU SCH (21:04)
[2019-08-15 22:00] VITALS: BP 138/67
[2019-08-16] MEDS: traMADol 50 MG TAB PO PRN ×2 (05:50→20:52)
[2019-08-16] MEDS: HEPARIN SOD (PORCINE) 5000 UNITS/ML VIAL (J1644 PER 1000UNITS) SC SCH ×3 (05:50→20:51)
[2019-08-16 06:00] VITALS: BP 130/71
[2019-08-16] MEDS: SENOKOT S TAB PO SCH ×2 (08:25→20:51)
[2019-08-16] MEDS: ASPIRIN 81 MG ENTERIC TAB PO SCH (08:25)
[2019-08-16] MEDS: OMEGA-3 1000MG CAPSULE PO SCH ×2 (08:25→17:13)
[2019-08-16] MEDS: ATORVASTATIN 20 MG TAB PO SCH (08:25)
[2019-08-16] MEDS: VENLAFAXINE **XR** 75MG CAPSULE PO SCH (08:25)
[2019-08-16] MEDS: GABAPENTIN 400 MG CAP PO SCH ×3 (08:25→20:51)
[2019-08-16] MEDS: TIMOLOL MALEATE 0.5% OPHTH SOLN 5 ML OU SCH ×2 (08:26→20:41)
[2019-08-16] MEDS: HumaLOG INSULIN (NovoLOG) PER UNIT SC SCH ×4 (08:26→20:40)
[2019-08-16] MEDS: NICOTINE 14 MG/24 HR TRANSDERMAL TD SCH (08:26)
[2019-08-16] MEDS: TAMSULOSIN 0.4 MG CAP PO SCH (12:36)
[2019-08-16] MEDS: LATANOPROST 0.005% OPHTH SOLN 2.5 ML OU SCH (20:41)
[2019-08-17 06:00] VITALS: BP 124/51
[2019-08-17] MEDS: traMADol 50 MG TAB PO PRN (06:59)
[2019-08-17] MEDS: HEPARIN SOD (PORCINE) 5000 UNITS/ML VIAL (J1644 PER 1000UNITS) SC SCH (07:00)
[2019-08-17] MEDS: ASPIRIN 81 MG ENTERIC TAB PO SCH (08:10)
[2019-08-17] MEDS: HumaLOG INSULIN (NovoLOG) PER UNIT SC SCH ×2 (08:10→11:49)
[2019-08-17] MEDS: SENOKOT S TAB PO SCH (08:10)
[2019-08-17] MEDS: GABAPENTIN 400 MG CAP PO SCH (08:10)
[2019-08-17] MEDS: ATORVASTATIN 20 MG TAB PO SCH (08:10)
[2019-08-17] MEDS: VENLAFAXINE **XR** 75MG CAPSULE PO SCH (08:10)
[2019-08-17] MEDS: OMEGA-3 1000MG CAPSULE PO SCH (08:10)
[2019-08-17] MEDS: TIMOLOL MALEATE 0.5% OPHTH SOLN 5 ML OU SCH (08:11)
[2019-08-17] MEDS: NICOTINE 14 MG/24 HR TRANSDERMAL TD SCH (08:11)
--- NOTE | 2019-08-17 11:06 | IPNPDOC ---
Subjective Date Seen The patient was seen on 08/17/19. Subjective Chief Complaint/HPI Sitting in chair, wearing nc oxygen. No respiratory distress, advocating to go home. Objective Physical Examination General Exam: Positive: Alert, Cooperative Eye Exam: Negative: Sclera icteric ENT Exam: Positive: Atraumatic Neck Exam: Positive: Supple Chest Exam: Positive: Clear to auscultation Abdomen Exam: Positive: Normal bowel sounds Extremity Exam: Negative: Clubbing, Cyanosis, Edema Neuro Exam: Positive: Normal Speech Psych Exam: Positive: Mood NL Assessment /Plan Assessment # Acute rhabdomyolysis secondary to ground-level fall - resolved # Recurrent falls with multi-infarct dementia and abnormal MRI # Thrombocytopenia - stable, did not receive heparin/lovenox this admission # Tobacco use disorder Plan: - stable for transfer to SNF for subacute rehab - discharge today Plan/VTE VTE Prophylaxis Ordered?: Yes VTE Exclusion Mechanical Proph: N/A:VTE Prophy Ordered VTE Exclusion Pharmacological: Thrombocytopenia VS, I&O, 24H, Fishbone Vital Signs/I&O Vital Signs Date Time Temp Pulse Resp B/P (MAP) Pulse Ox O2 Delivery O2 Flow Rate FiO2 08/17/19 08:00 2.0 08/17/19 07:29 18 Nasal Cannula 08/17/19 06:00 97.0 71 124/51 (75) 93 I&O- Last 24 Hours up to 6 AM 08/17/19 05:59 Intake Total 2690 ml Output Total 0 ml Balance 2690 ml Laboratory Data 24H LABS Laboratory Tests 2 08/16/19 11:15: Bedside Glucose (Misc Panel) 184H 08/16/19 16:13: Bedside Glucose (Misc Panel) 168H 08/16/19 20:31: Bedside Glucose (Misc Panel) 180H 08/17/19 05:58: Bedside Glucose (Misc Panel) 202H Microbiology Microbiology 08/08/19 Respiratory Virus Panel (PCR) (RAAD) - Final, Complete 08/08/19 Urine Culture - Final, Complete 08/08/19 Blood Culture - Final, Complete NO GROWTH AFTER 5 DAYS 08/08/19 Blood Culture - Final, Complete NO GROWTH AFTER 5 DAYS RACHELLE NOBLE MD Aug 17, 2019 11:06
[2019-08-17] MEDS: TAMSULOSIN 0.4 MG CAP PO SCH (11:48)
--- NOTE | 2019-08-20 20:26 | DSES ---
DATE OF ADMISSION: 08/08/2019 DATE OF DISCHARGE: 08/17/2019 DISCHARGE DIAGNOSES: 1. Acute rhabdomyolysis secondary to ground level fall which has resolved. 2. Recurrent falls of multi-infarct dementia. 3. Thrombocytopenia, unspecified. 4. Tobacco abuse disorder. PROCEDURES PERFORMED DURING THIS HOSPITALIZATION: None. CONSULTATIONS ON THE CASE: None. DISPOSITION: The patient is discharged to [facility]. LABORATORY DATA: Pending at the time of discharge are none. DISCHARGE RECOMMENDATION: Followup with penitentiary physician or his primary care physician (PCP) within one week. CONDITION ON DISCHARGE: Stable. RELEVANT LABS OBTAINED DURING THIS PATIENT'S HOSPITAL STAY ARE THE FOLLOWING: Blood cultures times two grew no organisms. Urine cultures grew no organism. Respiratory viral panel negative. White blood cell count 6.7, hemoglobin 15, hematocrit 46, platelet counts 122,000. PT 13.9, INR 1.1. Sodium 138, potassium 3.6, chloride 102, bicarbonate 30, BUN 16, creatinine 0.94, glucose 150, calcium 8.8, CPK 292. Ethyl alcohol less than 0.03, urinalysis grossly abnormal however the urine cultures did not grow any organisms. IMAGING STUDIES: Chest x-ray showed an infiltrate versus nodular opacity in the left apex which is unchanged when comparison x-ray from September 14, 2018. No other new infiltrates. CT of the head without contrast showed no acute intracranial abnormality. CT of the cervical spine showed no acute cervical fracture. The patient was found to have multilevel degenerative disk and articular pillar arthropathy. MRI of the brain showed no acute abnormality. MRA of the brain showed no significant cerebrovascular disease. Carotid Dopplers showed no occlusion or dissection flaps. Renal ultrasound showed no evidence of obstructive uropathy or medical renal disease. DISCHARGE MEDICATIONS: - Nicotine patch 14 mg daily - baby aspirin daily - atorvastatin 40 mg daily - Farxiga 10 mg daily - gabapentin 800 mg three times a day - glimepiride 4 mg twice a day - Vascepa 2 grams by mouth twice a day - Xalatan 0.005% one drop in both eyes at bedtime - Fish Oil 1000 mg twice a day - Colace - Senna S one tablet twice a day - Flomax 0.4 mg daily - Timolol one drop both eyes twice a day - venlafaxine 75 mg by mouth daily HOSPITAL COURSE: Mr. Sandhu is a 78-year-old gentleman who has a history of vascular dementia. He lives alone but he has caretakers that come in through the day; however the majority of the time he is by himself. The patient had suffered a fall which had triggered his home call system. He was found on the floor confused and was brought to the emergency room (ER) department where he was noted to he hypotensive and also to have mild rhabdomyolysis with acute kidney injury. He was admitted to the hospitalist service and given IV fluids. A full workup was performed to indicate if he had any fractures or any stroke; none was found. Renal ultrasound showed normal appearing kidneys. His kidney function improved with IV hydration. His rhabdomyolysis resolved. He was seen by physical therapy and occupational therapy (PT/OT) and after discussion with his son who is his power of trademark attorney it was decided that the patient would be transitioned to a penitentiary at discharge. On the day of discharge the patient is afebrile, his vital signs are appropriate. He has been seen by me this morning and is adequate for discharge to subacute rehab today. A total of 30 minutes was spent to complete all discharge paper work.
== END 2019-08-17 12:58 | DRG 57 ==
LOC: M ED 15:39 → EDBD 15:39 → M ED INP 19:17 → ENRESERV 20:35 → M PCU 21:34 → M MSPAV 08-09 20:10
PROVIDERS: ADMIT Internal Medicine; ATTEND Internal Medicine
DX: I69.398 Other sequelae of cerebral infarction (principal); E87.2 Acidosis; C34.90 Malignant neoplasm of unspecified part of unspecified bronchus or lung; N17.9 Acute kidney failure, unspecified; M62.82 Rhabdomyolysis; I10 Essential (primary) hypertension; R26.81 Unsteadiness on feet; R29.6 Repeated falls; D50.9 Iron deficiency anemia, unspecified; N28.89 Other specified disorders of kidney and ureter; E11.40 Type 2 diabetes mellitus with diabetic neuropathy, unspecified; F01.50 Vascular dementia, unspecified severity, without behavioral disturbance, psychotic disturbance, mood disturbance, and anxiety; F17.200 Nicotine dependence, unspecified, uncomplicated; D69.6 Thrombocytopenia, unspecified; E78.5 Hyperlipidemia, unspecified; E86.0 Dehydration; E66.9 Obesity, unspecified; Z68.34 Body mass index [BMI] 34.0-34.9, adult; Z79.82 Long term (current) use of aspirin; Z85.46 Personal history of malignant neoplasm of prostate; Z79.84 Long term (current) use of oral hypoglycemic drugs; Z79.899 Other long term (current) drug therapy; Z88.1 Allergy status to other antibiotic agents; Z99.81 Dependence on supplemental oxygen

== ENCOUNTER → 2019-11-17 | Outpatient (REF) | payer OTHER, MEDICAID, MEDICARE ==
[~2019-11-17] MED LIST changes: +LEVA750T7 PO; +NICO14PA TD; +SENN1TAB96 PO; +VENL75CA47 PO
[2019-11-17 08:07] LABS: BASO % 0.3 % (0.0-1.0); EOS # 0.3 10^3/uL (0.0-0.5); EOS % 3.7 % (0.0-3.0); HEMATOCRIT 47.9 % (42.0-52.0); HEMOGLOBIN 15.7 g/dl (13.5-17.5); LYMPH # 1.2 10^3/uL (1.5-5.0); LYMPH % 13.5 % (24.0-44.0); MEAN CORPUSCULAR HEMOGLOBIN 30.2 pg (27.0-33.0); MEAN CORPUSCULAR HGB CONC 32.8 g/dl (32.0-36.5); MEAN CORPUSCULAR VOLUME 92.1 fl (80.0-96.0); MONO # 0.7 10^3/uL (0.0-0.8); MONO % 7.8 % (0.0-5.0); NEUTROPHILS # 6.8 10^3/uL (1.5-8.5); NEUTROPHILS % 74.3 % (36.0-66.0); PLATELET COUNT, AUTOMATED 128 10^3/uL (150-450); WHITE BLOOD COUNT 9.1 10^3/uL (4.0-10.0)
[2019-11-17 08:25] LABS: BLOOD UREA NITROGEN 11 MG/DL (7-18); CALCIUM LEVEL 8.7 MG/DL (8.8-10.2); CARBON DIOXIDE LEVEL 32 MEQ/L (21-32); CHLORIDE LEVEL 99 MEQ/L (98-107); CREATININE FOR GFR 0.77 MG/DL (0.70-1.30); GLOMERULAR FILTRATION RATE > 60.0 (>42); GLUCOSE, FASTING 169 MG/DL (70-100); POTASSIUM SERUM 3.8 MEQ/L (3.5-5.1); SODIUM LEVEL 137 MEQ/L (136-145)
== END ==
LOC: SKLAB5 07:46
PROVIDERS: ATTEND Family Medicine
DX: D64.9 Anemia, unspecified (principal)

== ENCOUNTER → 2019-11-24 | Outpatient (REF) | payer OTHER, MEDICAID, MEDICARE ==
[2019-11-24 09:45] LABS: BASO % 0.4 % (0.0-1.0); EOS # 0.3 10^3/uL (0.0-0.5); EOS % 3.9 % (0.0-3.0); HEMATOCRIT 48.1 % (42.0-52.0); HEMOGLOBIN 15.7 g/dl (13.5-17.5); LYMPH # 1.5 10^3/uL (1.5-5.0); LYMPH % 20.4 % (24.0-44.0); MEAN CORPUSCULAR HEMOGLOBIN 30.8 pg (27.0-33.0); MEAN CORPUSCULAR HGB CONC 32.6 g/dl (32.0-36.5); MEAN CORPUSCULAR VOLUME 94.3 fl (80.0-96.0); MONO # 0.5 10^3/uL (0.0-0.8); MONO % 7.3 % (0.0-5.0); NEUTROPHILS # 4.9 10^3/uL (1.5-8.5); NEUTROPHILS % 67.6 % (36.0-66.0); PLATELET COUNT, AUTOMATED 128 10^3/uL (150-450); WHITE BLOOD COUNT 7.3 10^3/uL (4.0-10.0)
[2019-11-24 10:24] LABS: BLOOD UREA NITROGEN 16 MG/DL (7-18); CALCIUM LEVEL 8.9 MG/DL (8.8-10.2); CARBON DIOXIDE LEVEL 32 MEQ/L (21-32); CHLORIDE LEVEL 99 MEQ/L (98-107); CREATININE FOR GFR 0.88 MG/DL (0.70-1.30); GLOMERULAR FILTRATION RATE > 60.0 (>42); GLUCOSE, FASTING 198 MG/DL (70-100); POTASSIUM SERUM 3.3 MEQ/L (3.5-5.1); SODIUM LEVEL 138 MEQ/L (136-145)
== END ==
LOC: SKLAB6 07:50
PROVIDERS: ATTEND Family Medicine
DX: D64.9 Anemia, unspecified (principal)

== ENCOUNTER → 2019-12-01 | Outpatient (REF) | payer OTHER, MEDICAID, MEDICARE ==
[2019-12-01 09:13] LABS: BASO % 0.4 % (0.0-1.0); EOS # 0.3 10^3/uL (0.0-0.5); EOS % 3.8 % (0.0-3.0); HEMATOCRIT 47.7 % (42.0-52.0); HEMOGLOBIN 15.4 g/dl (13.5-17.5); LYMPH # 1.3 10^3/uL (1.5-5.0); LYMPH % 18.6 % (24.0-44.0); MEAN CORPUSCULAR HEMOGLOBIN 30.1 pg (27.0-33.0); MEAN CORPUSCULAR HGB CONC 32.3 g/dl (32.0-36.5); MEAN CORPUSCULAR VOLUME 93.2 fl (80.0-96.0); MONO # 0.5 10^3/uL (0.0-0.8); NEUTROPHILS % 69.8 % (36.0-66.0); PLATELET COUNT, AUTOMATED 129 10^3/uL (150-450); RED BLOOD COUNT 5.12 10^6/uL (4.30-6.10); WHITE BLOOD COUNT 7.1 10^3/uL (4.0-10.0)
[2019-12-01 09:33] LABS: BLOOD UREA NITROGEN 15 MG/DL (7-18); CALCIUM LEVEL 9.2 MG/DL (8.8-10.2); CARBON DIOXIDE LEVEL 32 MEQ/L (21-32); CHLORIDE LEVEL 98 MEQ/L (98-107); CREATININE FOR GFR 0.84 MG/DL (0.70-1.30); GLOMERULAR FILTRATION RATE > 60.0 (>42); GLUCOSE, FASTING 170 MG/DL (70-100); POTASSIUM SERUM 3.4 MEQ/L (3.5-5.1); SODIUM LEVEL 137 MEQ/L (136-145)
== END ==
LOC: SKLAB6 07:00
PROVIDERS: ATTEND Family Medicine
DX: I10 Essential (primary) hypertension (principal); E11.9 Type 2 diabetes mellitus without complications; E78.5 Hyperlipidemia, unspecified

== ENCOUNTER → 2019-12-08 | Outpatient (REF) | payer OTHER, MEDICAID, MEDICARE ==
[2019-12-08 08:52] LABS: BLOOD UREA NITROGEN 12 MG/DL (7-18); CALCIUM LEVEL 9.4 MG/DL (8.8-10.2); CARBON DIOXIDE LEVEL 32 MEQ/L (21-32); CHLORIDE LEVEL 99 MEQ/L (98-107); CREATININE FOR GFR 0.81 MG/DL (0.70-1.30); GLOMERULAR FILTRATION RATE > 60.0 (>42); GLUCOSE, FASTING 165 MG/DL (70-100); SODIUM LEVEL 138 MEQ/L (136-145)
[2019-12-08 09:20] LABS: BASO % 0.4 % (0.0-1.0); EOS % 2.7 % (0.0-3.0); HEMATOCRIT 51.1 % (42.0-52.0); HEMOGLOBIN 16.3 g/dl (13.5-17.5); LYMPH # 1.5 10^3/uL (1.5-5.0); LYMPH % 19.6 % (24.0-44.0); MEAN CORPUSCULAR HEMOGLOBIN 29.6 pg (27.0-33.0); MEAN CORPUSCULAR HGB CONC 31.9 g/dl (32.0-36.5); MEAN CORPUSCULAR VOLUME 92.7 fl (80.0-96.0); MONO % 7.8 % (0.0-5.0); NEUTROPHILS # 5.3 10^3/uL (1.5-8.5); NEUTROPHILS % 69.1 % (36.0-66.0); PLATELET COUNT, AUTOMATED 122 10^3/uL (150-450); RED BLOOD COUNT 5.51 10^6/uL (4.30-6.10); WHITE BLOOD COUNT 7.7 10^3/uL (4.0-10.0)
[2019-12-08 09:21] LABS: EOS # 0.2 10^3/uL (0.0-0.5); MONO # 0.6 10^3/uL (0.0-0.8)
== END ==
LOC: SKLAB6 07:00
PROVIDERS: ATTEND Family Medicine
DX: D50.9 Iron deficiency anemia, unspecified (principal); N17.9 Acute kidney failure, unspecified

== ENCOUNTER → 2019-12-28 | Outpatient (CLI) | payer MEDICARE, MEDICAID ==
[~2019-12-28] MED LIST changes: -ASPI81TA85 PO; +ASPI81TA86 PO; +PANT40TA29 PO; -PANT40TA3 PO
--- NOTE | 2019-12-28 16:52 | REP ---
Examination Requested: Cookie Swallow Reason For Exam: Feeling of food getting stuck The procedure was performed by LASHAE Muller, under the direct supervision of Dr. Potter. The procedure was performed with Concepcion Banerjee from speech pathology present. 5 ml aliquots of thin, pudding, mixed fruit, soft food, hard food and pill consistency barium was administered. No aspiration or penetration was visualized during the exam. The detailed report of this examination will be provided by speech pathology. 1.6 minutes of fluoroscopy time was utilized for this procedure. Reviewed by LASHAE Spears 12/28/2019 03:57 P Electronically Signed by Chilo Potter MD 12/28/2019 04:42 P
== END ==
LOC: M ST 13:55
PROVIDERS: ATTEND Nurse Practitioner Family
DX: R13.10 Dysphagia, unspecified (principal)

== ENCOUNTER → 2020-01-19 | Outpatient (REF) | payer MEDICARE, MEDICAID ==
[2020-03-31 12:07] LABS: BASO % 0.3 % (0.0-1.0); EOS # 0.3 10^3/uL (0.0-0.5); EOS % 3.3 % (0.0-3.0); HEMOGLOBIN 14.7 g/dl (13.5-17.5); LYMPH # 1.2 10^3/uL (1.5-5.0); LYMPH % 16.3 % (24.0-44.0); MEAN CORPUSCULAR HEMOGLOBIN 29.8 pg (27.0-33.0); MEAN CORPUSCULAR HGB CONC 32.7 g/dl (32.0-36.5); MEAN CORPUSCULAR VOLUME 91.1 fl (80.0-96.0); MONO # 0.6 10^3/uL (0.0-0.8); MONO % 8.5 % (0.0-5.0); NEUTROPHILS # 5.3 10^3/uL (1.5-8.5); NEUTROPHILS % 71.1 % (36.0-66.0); PLATELET COUNT, AUTOMATED 117 10^3/uL (150-450); RED BLOOD COUNT 4.94 10^6/uL (4.30-6.10); WHITE BLOOD COUNT 7.5 10^3/uL (4.0-10.0)
[2020-04-14 12:09] LABS: BLOOD UREA NITROGEN 18 MG/DL (7-18); CALCIUM LEVEL 8.8 MG/DL (8.8-10.2); CARBON DIOXIDE LEVEL 32 MEQ/L (21-32); CHLORIDE LEVEL 102 MEQ/L (98-107); CREATININE FOR GFR 0.82 MG/DL (0.70-1.30); GLOMERULAR FILTRATION RATE > 60.0 (>42); GLUCOSE, FASTING 169 MG/DL (70-100); POTASSIUM SERUM 3.5 MEQ/L (3.5-5.1); SODIUM LEVEL 140 MEQ/L (136-145)
== END ==
LOC: SKLAB6 09:05
DX: Z79.899 Other long term (current) drug therapy (principal)

== ENCOUNTER → 2020-01-19 | Outpatient (REF) | payer MEDICARE, MEDICAID | LOC: CANPREREF → SKLAB6 08:55 | DX: R91.8 Other nonspecific abnormal finding of lung field (principal); Z79.899 Other long term (current) drug therapy ==

== ENCOUNTER → 2020-02-14 | Outpatient (CLI) | payer MEDICARE, MEDICAID ==
--- NOTE | 2020-03-06 12:49 | REP ---
NONCONTRAST CHEST CT: CLINICAL: Follow up abnormal lung findings. TECHNIQUE: Axial noncontrast images from the thoracic inlet to the upper abdomen with coronal and sagittal reformations. COMPARISON: 06/27/19 FINDINGS: Area of consolidation with air bronchograms along the subpleural lateral left upper lobe is unchanged compared to prior examination and likely represents post radiation type changes. The lung thibodeaux demonstrate moderate emphysematous disease. No acute consolidation, new nodule or mass lesion is appreciated. No effusion. No pneumothorax. The tracheobronchial tree is patent. Mediastinum demonstrates stable nonspecific lymph nodes measuring up to approximately 10 mm short axis diameter in the precarinal space. Atherosclerotic changes to the thoracic aorta and coronary arteries is again noted without aortic aneurysm or cardiomegaly. No pericardial effusion. Surrounding musculoskeletal structures demonstrate age related changes without acute osseous abnormality. IMPRESSION: 1. Subpleural consolidation with air bronchograms, unchanged compared to prior examination and likely representing post radiation type changes. 2. No new acute consolidation, nodule or mass lesion. No evidence for adenopathy. MTDD
== END ==
LOC: M RAD 10:21
PROVIDERS: ATTEND Internal Medicine Pulmonary Disease
DX: R91.8 Other nonspecific abnormal finding of lung field (principal)

== ENCOUNTER → 2020-02-27 | Outpatient (REF) | payer MEDICARE, MEDICAID ==
--- NOTE | 2020-03-07 13:35 | SLEEPHOME ---
DATE: 02/27/2020 ORDERED BY: Dr. Delong Diagnostic home sleep testing was performed due to concern for the obstructive sleep apnea syndrome. For testing, a nocturnal T3 respiratory monitoring device was used. Continuous record was made of pulse, oxygen saturation, air flow, chest and abdominal pain strain, and body position. There was 9 hours and 59 minutes of data reviewed. There was 6 hours and 52 minutes marked as time in bed. During the interval marked time in bed, there were 247 respiratory events identified of 10 seconds in duration or greater for a respiratory event index of 36. The events were primarily obstructive; however, 160 of the 247 events were mixed or central in character. The patient's baseline pulse rate was 78 beats per minute. Pulse rate ranged 39-110. Baseline saturation 94%. Saturations fell to 79%. Testing was performed in both the supine and nonsupine positions. IMPRESSION: Abnormal home sleep testing with repetitive respiratory events and oxygen desaturations to 79% with a respiratory event index of 36 is consistent with the obstructive sleep apnea syndrome (G47.33). RECOMMENDATION: Given the frequency of central events, referral for formal sleep evaluation and consideration of in-laboratory pressure titration should be considered. MTDD
== END ==
LOC: M SLEEP HO 10:00
DX: G47.33 Obstructive sleep apnea (adult) (pediatric) (principal)

== ENCOUNTER → 2020-03-08 | Outpatient (REF) | payer MEDICARE, MEDICAID ==
[2020-03-08 08:27] LABS: HEMATOCRIT 49.8 % (42.0-52.0); HEMOGLOBIN 16.1 g/dl (13.5-17.5); MEAN CORPUSCULAR HEMOGLOBIN 28.4 pg (27.0-33.0); MEAN CORPUSCULAR HGB CONC 32.3 g/dl (32.0-36.5); MEAN CORPUSCULAR VOLUME 87.8 fl (80.0-96.0); PLATELET COUNT, AUTOMATED 117 10^3/uL (150-450); RED BLOOD COUNT 5.67 10^6/uL (4.30-6.10); WHITE BLOOD COUNT 6.8 10^3/uL (4.0-10.0)
== END ==
LOC: SKLAB6 11:14
DX: E11.9 Type 2 diabetes mellitus without complications (principal)

== ENCOUNTER → 2020-03-22 | Outpatient (REF) | payer MEDICARE, MEDICAID ==
[2020-03-22 10:33] LABS: HEMATOCRIT 48.2 % (42.0-52.0); HEMOGLOBIN 15.5 g/dl (13.5-17.5); MEAN CORPUSCULAR HEMOGLOBIN 29.1 pg (27.0-33.0); MEAN CORPUSCULAR HGB CONC 32.2 g/dl (32.0-36.5); MEAN CORPUSCULAR VOLUME 90.4 fl (80.0-96.0); PLATELET COUNT, AUTOMATED 113 10^3/uL (150-450); RED BLOOD COUNT 5.33 10^6/uL (4.30-6.10); WHITE BLOOD COUNT 7.3 10^3/uL (4.0-10.0)
[2020-03-22 11:17] LABS: HEMOGLOBIN A1c 8.1 %
[2020-03-22 13:59] LABS: CREATININE, URINE 49.4 MG/DL; MALB URINE SIEMENS < 5.0 MG/L; MAU/CREAT RATIO 10.1 MCG/MG (0.0-30.0)
== END ==
LOC: SKLAB4 10:59
DX: E11.9 Type 2 diabetes mellitus without complications (principal)

== ENCOUNTER → 2020-04-19 | Outpatient (REF) | payer MEDICAID, MEDICARE | LOC: SKLAB4 12:13 | DX: Z20.828 Contact with and (suspected) exposure to other viral communicable diseases (principal) ==

== ENCOUNTER → 2020-04-25 | Outpatient (REF) | payer MEDICARE, MEDICAID ==
[~2020-04-25] MED LIST changes: +CIME800T4 PO; +FLUO20CA22 PO; +JUVEPOW4 PO; +LISI10TA22 PO; -LISI10TA4 PO; -LISI40TA PO; +LISI40TA4 PO; +SERO1TAB3 PO; +VITMTA PO
== END ==
LOC: SKLAB4 04-24 11:37 → EDSTATUS 05-21 13:42
PROVIDERS: ATTEND Internal Medicine
DX: Z20.828 Contact with and (suspected) exposure to other viral communicable diseases (principal)

== ENCOUNTER → 2020-05-02 | Outpatient (REF) | payer MEDICARE, MEDICAID | LOC: SKLAB4 08:00 | PROVIDERS: ATTEND Internal Medicine | DX: Z20.828 Contact with and (suspected) exposure to other viral communicable diseases (principal) ==

== ENCOUNTER → 2020-05-09 | Outpatient (REF) | payer MEDICARE, MEDICAID ==
[~2020-05-09] MED LIST changes: -LISI10TA22 PO; +LISI10TA4 PO; +LISI40TA PO; -LISI40TA4 PO
== END ==
LOC: SKLAB4 10:25
DX: Z53.9 Procedure and treatment not carried out, unspecified reason (principal)

== ENCOUNTER → 2020-05-09 | Outpatient (REF) | payer MEDICARE, MEDICAID ==
[~2020-05-09] MED LIST changes: +LISI10TA22 PO; -LISI10TA4 PO; -LISI40TA PO; +LISI40TA4 PO
[2020-05-09 18:46] LABS: INFLUENZA A AMPLIFICATION NEGATIVE (NEGATIVE); INFLUENZA B AMPLIFICATION NEGATIVE (NEGATIVE)
== END ==
LOC: SKLAB4 08:00
PROVIDERS: ATTEND Internal Medicine
DX: Z20.828 Contact with and (suspected) exposure to other viral communicable diseases (principal)
CPT/HCPCS: 87502; U0003

== ENCOUNTER → 2020-05-12 | Outpatient (REF) | payer MEDICARE, OTHER ==
[~2020-05-12] MED LIST changes: -LISI10TA22 PO; +LISI10TA4 PO; +LISI40TA PO; -LISI40TA4 PO
[2020-05-12 15:57] LABS: HEMATOCRIT 46.9 % (42.0-52.0); HEMOGLOBIN 15.1 g/dl (13.5-17.5); MEAN CORPUSCULAR HEMOGLOBIN 30.3 pg (27.0-33.0); MEAN CORPUSCULAR HGB CONC 32.2 g/dl (32.0-36.5); PLATELET COUNT, AUTOMATED 109 10^3/uL (150-450); RED BLOOD COUNT 4.99 10^6/uL (4.30-6.10); WHITE BLOOD COUNT 6.4 10^3/uL (4.0-10.0)
[2020-05-12 16:21] LABS: BLOOD UREA NITROGEN 12 MG/DL (7-18); CALCIUM LEVEL 8.5 MG/DL (8.8-10.2); CARBON DIOXIDE LEVEL 28 MEQ/L (21-32); CHLORIDE LEVEL 103 MEQ/L (98-107); GLOMERULAR FILTRATION RATE > 60.0 (>42); GLUCOSE, FASTING 238 MG/DL (70-100); POTASSIUM SERUM 3.6 MEQ/L (3.5-5.1); SODIUM LEVEL 139 MEQ/L (136-145)
== END ==
LOC: SKLAB4 11:36
PROVIDERS: ATTEND Physician Assistant
DX: R91.8 Other nonspecific abnormal finding of lung field (principal); R05 Cough

== ENCOUNTER → 2020-05-12 | Outpatient (REF) | payer OTHER ==
--- NOTE | 2020-05-12 14:27 | REP ---
INDICATION: INCREASED COUGHING/RESP PANEL. COMPARISON: Comparison chest x-ray August 08, 2019.. TECHNIQUE: Sitting AP portable radiograph. FINDINGS: There is mild elevation of the left hemidiaphragm unchanged. Heart size is unchanged, borderline. The thoracic aorta is calcific. There is a nodular density in the left lung apex unchanged from the comparison study of August 08, 2019. No new infiltrate is seen. IMPRESSION: There is a soft tissue nodular density in the left lung apex with some spiculation. This is unchanged from August 08, 2019. Somewhat elevated left hemidiaphragm also unchanged. No acute changes seen radiographically. <Electronically signed by Rubio Potter > 05/12/20 [id number]
== END ==
LOC: SKLAB4 02:45
DX: R91.8 Other nonspecific abnormal finding of lung field (principal); R05 Cough

== ENCOUNTER → 2020-05-16 | Outpatient (REF) | payer MEDICARE | LOC: SKLAB4 07:31 | DX: Z20.828 Contact with and (suspected) exposure to other viral communicable diseases (principal) ==

== ENCOUNTER → 2020-05-23 | Outpatient (REF) | payer MEDICARE, MEDICAID | LOC: SKLAB4 08:42 | DX: Z20.828 Contact with and (suspected) exposure to other viral communicable diseases (principal) ==

== ENCOUNTER → 2020-05-30 | Outpatient (REF) | payer MEDICARE, MEDICAID | LOC: SKLAB4 06:36 | DX: Z20.828 Contact with and (suspected) exposure to other viral communicable diseases (principal) ==

== ENCOUNTER → 2020-06-06 | Outpatient (REF) | payer MEDICARE, MEDICAID | LOC: SKLAB4 06:17 | DX: Z20.828 Contact with and (suspected) exposure to other viral communicable diseases (principal) ==

== ENCOUNTER → 2020-06-13 | Outpatient (REF) | payer MEDICARE, MEDICAID | LOC: SKLAB4 06:28 | DX: Z11.52 Encounter for screening for COVID-19 (principal) ==

== ENCOUNTER → 2020-06-20 | Outpatient (REF) | payer MEDICARE, MEDICAID | LOC: SKLAB4 06:26 | PROVIDERS: ATTEND Internal Medicine | DX: Z20.822 Contact with and (suspected) exposure to COVID-19 (principal) ==

== ENCOUNTER → 2020-06-27 | Outpatient (REF) | payer MEDICARE, MEDICAID ==
[~2020-06-27] MED LIST changes: +LISI10TA22 PO; -LISI10TA4 PO; -LISI40TA PO; +LISI40TA4 PO
== END ==
LOC: SKLAB4 07:00
PROVIDERS: ATTEND Internal Medicine
DX: Z20.822 Contact with and (suspected) exposure to COVID-19 (principal)

== ENCOUNTER → 2020-07-04 | Outpatient (REF) | payer MEDICARE, MEDICAID | LOC: SKLAB4 06:31 | PROVIDERS: ATTEND Internal Medicine | DX: Z20.822 Contact with and (suspected) exposure to COVID-19 (principal) ==

== ENCOUNTER → 2020-07-11 | Outpatient (REF) | payer MEDICARE, MEDICAID ==
[~2020-07-11] MED LIST changes: -LISI10TA22 PO; +LISI10TA4 PO; +LISI40TA PO; -LISI40TA4 PO
== END ==
LOC: SKLAB4 07:06
PROVIDERS: ATTEND Internal Medicine
DX: Z20.822 Contact with and (suspected) exposure to COVID-19 (principal)

== ENCOUNTER → 2020-07-18 | Outpatient (REF) | payer MEDICARE, MEDICAID ==
[~2020-07-18] MED LIST changes: +LISI10TA22 PO; -LISI10TA4 PO; -LISI40TA PO; +LISI40TA4 PO
== END ==
LOC: SKLAB4 06:52
PROVIDERS: ATTEND Internal Medicine
DX: Z20.822 Contact with and (suspected) exposure to COVID-19 (principal)

== ENCOUNTER → 2020-07-19 | Outpatient (REF) | payer MEDICARE, MEDICAID ==
[2020-07-19 10:06] LABS: HEMOGLOBIN A1c 7.3 %
== END ==
LOC: SKLAB4 11:59
DX: E11.9 Type 2 diabetes mellitus without complications (principal)

== ENCOUNTER → 2020-07-25 | Outpatient (REF) | payer MEDICARE, MEDICAID | LOC: SKLAB4 06:19 | PROVIDERS: ATTEND Internal Medicine | DX: Z11.52 Encounter for screening for COVID-19 (principal) ==

== ENCOUNTER → 2020-07-30 | Outpatient (REF) | payer MEDICARE, MEDICAID | LOC: SKLAB4 07:57 | DX: Z53.9 Procedure and treatment not carried out, unspecified reason (principal) ==

== ENCOUNTER → 2020-08-01 | Outpatient (REF) | payer MEDICARE, MEDICAID | LOC: SKLAB4 07:02 | PROVIDERS: ATTEND Internal Medicine | DX: Z20.822 Contact with and (suspected) exposure to COVID-19 (principal) ==

== ENCOUNTER → 2020-08-02 | Outpatient (REF) | payer MEDICARE, MEDICAID ==
[2020-08-02 08:20] LABS: BASO % 0.6 % (0.0-1.0); EOS # 0.5 10^3/uL (0.0-0.5); EOS % 7.7 % (0.0-3.0); HEMOGLOBIN 17.4 g/dl (13.5-17.5); LYMPH # 1.6 10^3/uL (1.5-5.0); LYMPH % 22.4 % (24.0-44.0); MEAN CORPUSCULAR HEMOGLOBIN 29.1 pg (27.0-33.0); MEAN CORPUSCULAR HGB CONC 31.6 g/dl (32.0-36.5); MEAN CORPUSCULAR VOLUME 92.1 fl (80.0-96.0); MONO # 0.5 10^3/uL (0.0-0.8); MONO % 7.7 % (2.0-8.0); NEUTROPHILS # 4.3 10^3/uL (1.5-8.5); NEUTROPHILS % 61.3 % (36.0-66.0); PLATELET COUNT, AUTOMATED 113 10^3/uL (150-450); RED BLOOD COUNT 5.97 10^6/uL (4.30-6.10)
[2020-08-02 08:52] LABS: INR 1.08; PARTIAL THROMBOPLASTIN TIME 30.9 SECONDS (24.2-38.5); PROTHROMBIN TIME 14.2 SECONDS (12.5-14.3)
[2020-08-02 08:58] LABS: ALBUMIN 3.9 GM/DL (3.2-5.2); ALT/SGPT 29 U/L (12-78); BILIRUBIN,TOTAL 1.3 MG/DL (0.2-1.0); BLOOD UREA NITROGEN 12 MG/DL (7-18); CALCIUM LEVEL 8.7 MG/DL (8.8-10.2); CARBON DIOXIDE LEVEL 31 MEQ/L (21-32); CHLORIDE LEVEL 100 MEQ/L (98-107); CREATININE FOR GFR 0.93 MG/DL (0.70-1.30); FERRITIN 54 NG/ML (26-388); GLOMERULAR FILTRATION RATE > 60.0 (>42); GLUCOSE, FASTING 162 MG/DL (70-100); IRON (FE) 69 UG/DL (65-175); POTASSIUM SERUM 3.6 MEQ/L (3.5-5.1); SODIUM LEVEL 138 MEQ/L (136-145); TOTAL IRON BINDING CAPACITY 329 UG/DL (250-450); TOTAL PROTEIN 7.1 GM/DL (6.4-8.2)
== END ==
LOC: SKLAB4 11:33
DX: C34.90 Malignant neoplasm of unspecified part of unspecified bronchus or lung (principal); Z79.899 Other long term (current) drug therapy

== ENCOUNTER → 2020-08-15 | Outpatient (REF) | payer MEDICARE, MEDICAID | LOC: SKLAB4 07:02 | PROVIDERS: ATTEND Internal Medicine | DX: Z20.822 Contact with and (suspected) exposure to COVID-19 (principal) ==

== ENCOUNTER → 2020-08-21 | Outpatient (REF) | payer MEDICARE, MEDICAID | LOC: SKLAB4 10:11 | DX: D64.9 Anemia, unspecified (principal) ==

== ENCOUNTER → 2020-08-22 | Outpatient (REF) | payer MEDICARE, MEDICAID | LOC: SKLAB4 07:02 | PROVIDERS: ATTEND Internal Medicine | DX: Z20.822 Contact with and (suspected) exposure to COVID-19 (principal) ==

== ENCOUNTER → 2020-09-07 | Outpatient (REF) | payer MEDICARE, MEDICAID | LOC: SKLAB4 06:20 | PROVIDERS: ATTEND Internal Medicine | DX: Z20.822 Contact with and (suspected) exposure to COVID-19 (principal) ==

== ENCOUNTER → 2020-09-25 | Outpatient (REF) | payer MEDICARE, MEDICAID, OTHER ==
[2020-09-25 09:36] LABS: HEMATOCRIT 54.2 % (42.0-52.0); HEMOGLOBIN 17.2 g/dl (13.5-17.5); MEAN CORPUSCULAR HEMOGLOBIN 29.3 pg (27.0-33.0); MEAN CORPUSCULAR HGB CONC 31.7 g/dl (32.0-36.5); MEAN CORPUSCULAR VOLUME 92.2 fl (80.0-96.0); PLATELET COUNT, AUTOMATED 120 10^3/uL (150-450); RED BLOOD COUNT 5.88 10^6/uL (4.30-6.10); WHITE BLOOD COUNT 6.4 10^3/uL (4.0-10.0)
== END ==
LOC: SKLAB4 12:45
DX: D64.9 Anemia, unspecified (principal)

== ENCOUNTER → 2020-11-01 | Outpatient (REF) | payer MEDICARE, MEDICAID, OTHER ==
[2020-11-01 12:14] LABS: HEMATOCRIT 53.4 % (42.0-52.0); HEMOGLOBIN 17.4 g/dl (13.5-17.5); MEAN CORPUSCULAR HEMOGLOBIN 30.2 pg (27.0-33.0); MEAN CORPUSCULAR HGB CONC 32.6 g/dl (32.0-36.5); MEAN CORPUSCULAR VOLUME 92.5 fl (80.0-96.0); PLATELET COUNT, AUTOMATED 129 10^3/uL (150-450); RED BLOOD COUNT 5.77 10^6/uL (4.30-6.10); WHITE BLOOD COUNT 9.9 10^3/uL (4.0-10.0)
[2020-11-01 12:34] LABS: BLOOD UREA NITROGEN 12 MG/DL (7-18); CALCIUM LEVEL 9.5 MG/DL (8.8-10.2); CARBON DIOXIDE LEVEL 28 MEQ/L (21-32); CHLORIDE LEVEL 104 MEQ/L (98-107); CREATININE FOR GFR 0.97 MG/DL (0.70-1.30); GLOMERULAR FILTRATION RATE > 60.0 (>35); GLUCOSE, FASTING 181 MG/DL (70-100); SODIUM LEVEL 138 MEQ/L (136-145)
== END ==
LOC: SKLAB4 11:15
DX: R05 Cough (principal); R09.81 Nasal congestion

== ENCOUNTER → 2020-11-27 | Outpatient (REF) | payer MEDICARE, MEDICAID, OTHER ==
[2020-11-27 11:44] LABS: CHOLESTEROL RISK RATIO 3.096 (<5); THYROID STIMULATING HORMONE 1.99 uIU/ML (0.358-3.740)
== END ==
LOC: SKLAB2 13:50
DX: E03.9 Hypothyroidism, unspecified (principal); D64.9 Anemia, unspecified; E78.5 Hyperlipidemia, unspecified

== ENCOUNTER → 2021-01-01 | Outpatient (REF) | payer MEDICARE, MEDICAID, OTHER ==
--- NOTE | 2021-01-01 12:39 | REP ---
INDICATION: PAIN/FALL. COMPARISON: 01/14/2017 TECHNIQUE: Five views FINDINGS: Once again, there is heavy marginal osteophyte formation seen bilaterally at multiple levels with complete osteophytic formation seen bilaterally involving all imaged lower thoracic levels and T12-L1. This is all stable. There is no evidence of an acute fracture or subluxation. Once again, there is disc degeneration seen at all levels status quo. L3-4 through L5-S1 bilateral hypertrophic degenerative facet joint changes again seen bilaterally. This is stable. Since the last examination a grade 1 L3 upon L4 spondylolisthesis has developed. There is anterior lipping at every level. IMPRESSION: 1. Advanced chronic changes as described above. 2. Grade 1 L3 upon L4 spondylolisthesis secondary to hypertrophic degenerative facet joint changes. 3. Other findings as described above. If a fracture is of clinical concern since the patient has been involved in trauma then a CT examination is recommended. <Electronically signed by Austin Singh > 01/01/21 [id number]
== END ==
LOC: SKLAB2 09:15
DX: M25.78 Osteophyte, vertebrae (principal); M43.16 Spondylolisthesis, lumbar region; Z91.81 History of falling

== ENCOUNTER → 2021-03-08 | Outpatient (REF) | payer MEDICARE, MEDICAID ==
[~2021-03-08] MED LIST changes: +ACET325T43 PO; +GLIM2TAB4 PO; +PROZ20CA11 PO; +QUET1TAB17 PO; +SORB70SO36 PO; +TRUL0.5I SC
--- NOTE | 2021-03-08 13:29 | REP ---
INDICATION: FALL. COMPARISON: None. TECHNIQUE: AP and frog-lateral views excluding the hip and the knee FINDINGS: Limited exam shows no acute fracture or destructive osseous lesion IMPRESSION: Negative limited exam <Electronically signed by Austin Singh > 03/08/21 [id number]
--- NOTE | 2021-03-08 13:31 | REP ---
INDICATION: FALL. COMPARISON: None. TECHNIQUE: Four views of the left knee. Is sunrise view not included. FINDINGS: Four views of the left knee demonstrate extensive vascular calcification. There is medial and patellofemoral compartment spurring. There there are 2 rounded os ossific densities at the posterior aspect of the joint. One of these is felt to be a normal fabella. The other is of uncertain significance. I cannot exclude a posterior joint mouse. This measures 13 mm in greatest diameter. No fracture or subluxation is seen. No opaque foreign body noted. IMPRESSION: No fracture seen. Medial and patellar femoral osteoarthritis. Possible posterior joint mouse. Extensive vascular calcification. <Electronically signed by Rubio Potter > 03/08/21 [id number]
--- NOTE | 2021-03-08 13:32 | REP ---
INDICATION: FALL. COMPARISON: None TECHNIQUE: AP pelvis two views left hip AP pelvis: FINDINGS: There is bilateral asymmetric hip joint space narrowing with buttressing. There is no acute fracture, dislocation, or subluxation. Two views left hip there are degenerative changes. There is no acute fracture, dislocation, or subluxation. IMPRESSION: No evidence of an acute osseous abnormality. Chronic changes as described above. Should be stated that there is limited evaluation of the sacrum. Sacral fracture cannot be ruled out. There is some increased bony density in the left sacral ala. Consider CT if clinically relevant. <Electronically signed by Austin Singh > 03/08/21 [id number]
--- NOTE | 2021-03-08 13:32 | REP ---
INDICATION: FALL. COMPARISON: None. TECHNIQUE: Four views of the left calf. FINDINGS: Four views of the left tib fib demonstrate extensive vascular calcification. There is medial compartment spurring at the knee with medial compartment chondro calcinosis. No tibial or fibular fracture is seen. Achilles calcaneal spurring is noted. No opaque foreign body noted. IMPRESSION: Osteoarthritis at the knee and Achilles calcaneal spurring. Vascular calcification. No tibial or fibular fracture. <Electronically signed by Rubio Potter > 03/08/21 [id number]
== END ==
LOC: SKLAB8 12:45
PROVIDERS: ATTEND Neuromusculoskeletal Medicine & OMM
DX: R52 Pain, unspecified (principal); W19.XXXA Unspecified fall, initial encounter; M17.12 Unilateral primary osteoarthritis, left knee; M77.32 Calcaneal spur, left foot; M85.88 Other specified disorders of bone density and structure, other site

== ENCOUNTER → 2021-03-08 | Outpatient (CLI) | payer MEDICARE, MEDICAID ==
--- NOTE | 2021-03-08 15:35 | REP ---
INDICATION: S/P FALL W/ PAIN PELVIS / LUMBAR / SACRAL ? FX. Patient gives a history of prostate carcinoma. COMPARISON: Comparison CT images July 12, 2019. TECHNIQUE: Helical scanning is acquired and 3 mm axial images through the pelvis are re-formatted. Coronal and sagittal MPR images are provided. FINDINGS: Digital preliminary final coat sprayer radiograph is remarkable for vascular calcification. Soft tissue window settings demonstrate moderate distension of the urinary bladder to the level of the umbilicus. No pelvic adenopathy or pelvic mass lesion is seen. The prostate appears to be surgically absent. Seminal vesicles are not visible. No bladder mass is appreciated. Bone window settings show osteoarthritic changes in the hips bilaterally. No bony destructive lesion is seen. No pelvic or sacral fracture is appreciated. Presacral space is not widened. There are 2 bone islands in the proximal femur on the right. Degenerative disc disease is noted in the lumbar spine. IMPRESSION: No fracture or other traumatic abnormality seen. <Electronically signed by Rubio Potter > 03/08/21 [id number]
--- NOTE | 2021-03-08 15:39 | REPVR ---
PROCEDURE INFORMATION: Exam: CT Lumbar Spine Without Contrast Exam date and time: 03/08/2021 2:38 PM Age: 80 years old Clinical indication: Injury or trauma; Fall; Blunt trauma (contusions or hematomas); Additional info: S/P fall w/ pain pelvis / lumbar / sacral ? FX TECHNIQUE: Imaging protocol: Computed tomography images of the lumbar spine without contrast. Radiation optimization: All CT scans at this facility use at least one of these dose optimization techniques: automated exposure control; mA and/or kV adjustment per patient size (includes targeted exams where dose is matched to clinical indication); or iterative reconstruction. COMPARISON: PT PET/CT Skull/mid thigh 07/12/2019 5:45 PM FINDINGS: Vertebrae: Bone mineralization is decreased, suggestive of osteopenia. No acute fracture is identified. Severe facet arthropathy is present within the mid to lower lumbar spine. There is 6 mm of anterolisthesis of L3 on L4 due to facet arthropathy. Minimal anterolisthesis of L4 on L5 and retrolisthesis of L5 on S1 is also present. Discs/Spinal canal/Neural foramina: At L2-L3, there is moderate spinal canal stenosis, moderate right neural foraminal narrowing, and severe left neural foraminal narrowing. At L3-L4, there is severe spinal canal stenosis, severe narrowing of the subarticular recesses, severe right neural foraminal narrowing, and moderate/severe left neural foraminal narrowing. At L4-L5, there is moderate spinal canal stenosis, severe narrowing of the subarticular recesses, and moderate bilateral neural foraminal narrowing. At L5-S1, there is mild spinal canal stenosis, severe narrowing of the left subarticular recess, severe left neural foraminal narrowing, and moderate right neural foraminal narrowing. Vasculature: Atherosclerotic calcifications are noted within the aorta and its branches. Soft tissues: Unremarkable. IMPRESSION: 1. No acute abnormality. 2. Chronic findings as discussed above. Electronically signed by: Branden Johansen On 03/08/2021 15:38:36 PM
== END ==
LOC: M RAD 14:26
PROVIDERS: ATTEND Nurse Practitioner
DX: M16.11 Unilateral primary osteoarthritis, right hip (principal); M16.12 Unilateral primary osteoarthritis, left hip

== ENCOUNTER → 2021-03-28 | Outpatient (REF) | payer MEDICARE, MEDICAID | LOC: SKLAB8 10:00 | PROVIDERS: ATTEND Neuromusculoskeletal Medicine & OMM | DX: Z20.822 Contact with and (suspected) exposure to COVID-19 (principal) ==

== ENCOUNTER → 2021-03-28 | Outpatient (REF) | payer MEDICARE, MEDICAID ==
[2021-03-28 12:03] LABS: HEMATOCRIT 49.5 % (42.0-52.0); HEMOGLOBIN 15.7 g/dl (13.5-17.5); MEAN CORPUSCULAR HEMOGLOBIN 30.4 pg (27.0-33.0); MEAN CORPUSCULAR HGB CONC 31.7 g/dl (32.0-36.5); MEAN CORPUSCULAR VOLUME 95.9 fl (80.0-96.0); PLATELET COUNT, AUTOMATED 124 10^3/uL (150-450); RED BLOOD COUNT 5.16 10^6/uL (4.30-6.10)
[2021-03-28 12:24] LABS: HEMOGLOBIN A1c 6.3 %
[2021-03-28 12:27] LABS: BLOOD UREA NITROGEN 16 MG/DL (7-18); CARBON DIOXIDE LEVEL 31 MEQ/L (21-32); CHLORIDE LEVEL 102 MEQ/L (98-107); CHOLESTEROL LEVEL 98 MG/DL (<200); CHOLESTEROL RISK RATIO 3.769 (<5); CREATININE FOR GFR 0.91 MG/DL (0.70-1.30); GLOMERULAR FILTRATION RATE > 60.0 (>35); GLUCOSE, FASTING 184 MG/DL (70-100); HDL CHOLESTEROL 26 MG/DL (>40); NON-HDL-C 72 MG/DL; SODIUM LEVEL 140 MEQ/L (136-145); TRIGLYCERIDES LEVEL 506 MG/DL (<150)
== END ==
LOC: SKLAB8 07:00
PROVIDERS: ATTEND Neuromusculoskeletal Medicine & OMM
DX: E11.9 Type 2 diabetes mellitus without complications (principal); E87.6 Hypokalemia

== ENCOUNTER 2021-03-31 21:31 | Emergency (ER) | payer MEDICARE, MEDICAID ==
--- OUTSIDE RECORDS SUMMARY | 2021-03-31 21:35 | CCD | Continuity of Care Document ---
Author Author Ej TORREZ DPM Organization Unknown Address [address] [place] [address], [address] [place] [address] Phone [phone] Care Team Providers Care Brick Carrier Name Role Phone Xavier Gonzalez M.D. AUTM [phone] Problems Active Problems Provider Date Onychomycosis Geovanny Torrez DPM Onset: 07/04/2019 Type 2 diabetes mellitus with diabetic polyneuropathy Geovanny Torrez DPM Onset: 07/04/2019 Social History Type Date Description Comments Sex Unknown ETOH Use Rarely consumes alcohol 2 gl[address] s a week. Tobacco Use Start: Unknown End: Unknown Patient is a former smoker started at the age of 15. Quit at the age of 62. Smoked 2.5 packs daily. Allergies and adverse reactions Description No Known Drug Allergies Medications Active Medications SIG Qnty Indications Ordering Provide r Date Ammonium Lactate 12% Cream apply to feet daily 140gm Geovanny Torrez DPM 04/15/2019 Mupirocin 2% Ointment apply to right foot wound daily 22gm Geovanny Torrez DPM 03/29/2019 Bactrim DS 800-160mg Tablets 1 by mouth twice a day 14tabs Dg Torrez DPM 08/22/2015 Gabapentin 800mg Tablets Take One Tablet By Mouth @9Am and Take One Tablet @1PM and Take One Tablet @8PM Unknown Lisinopril 10mg Tablets Xavier Gonzalez M.D. Fish Oil 1000mg Capsules Take One Capsule By Mouth @9Am and Take One Capsule @8PM Unknown Farxiga 5mg Tablets Take One Tablet By Mouth @9Am Unknown Diclofenac Sodium 75mg Tablets DR Take One Tablet By Mouth @9Am and Take One Tablet @8PM With Food Or Milk Unknown Atorvastatin Calcium 40mg Tablets Take One Tablet By Mouth @9Am Unknown Aspirin 81mg Tablets DR Take One Tablet By Mouth @9Am Unknown Chlorthalidone 25mg Tablets Take One Tablet By Mouth every Thursday, Thursday and Thursday @9am Unknown Atorvastatin Calcium 20mg Tablets Take One Tablet By Mouth @9Am Unknown Timolol Maleate 0.5% Solution Instill One Drop Into Each Eye Twice Daily Unknown 0 Latanoprost 0.005% Solution Instill One Drop Into Each Eye AT Night Time Unknown Lidocaine 5% Ointment Apply 2-3 Grams Topically To Affected Area 3-4 Times Per Day. Un known Metformin HCL ER 750mg Tablets ER 24HR Carlos Julio,Xavier Tamsulosin HCL 0.4mg Capsules Carlos Julio,Xavier Glimepiride 4mg Tablets Take One Tablet By Mouth @9Am and Take One Tablet By Mouth @6PM Unk nown Vascepa 1gm Capsules Take Two Capsules By Mouth @9Am and Take Two Capsules @6PM Unknown Hydroxyzine HCL 10mg Tablets Unknown Nystatin [id number]/GM Cream Unknown Fluticasone Propionate 0.005% Ointment Unknown Doxycycline Hyclate 100mg Capsules Unknown Niaspan 1000mg Tablets ER Unknown Bupropion HCL SR 150mg Tablets ER 12HR Unknown Triamterene/Hydrochlorothiazide 37.5-25mg Capsules Unknown Travatan Z 0.004% Solution Unknown Metformin HCL ER 500mg Tablets ER 24HR Unknown Hydrocodone/Acetaminophen 5-500mg Tablets Unknown Triamterene/Hydrochlorothiazide 37.5-25mg Tablets Unknown Gemfibrozil 600mg Tablets Unknown Immunizations Description No Information Available Vital Signs Date Vital Result Comment 03/14/2021 1:24pm Height 73 inches 6'1" Weight 250.00 lb BP Systolic 118 mmHg BP Diastolic 62 mmHg Heart Rate 77 /min BMI (Body Mass Index) 33.0 kg/m2 01/21/2019 2:09pm Height 73 inches 6'1" Weight 260.00 lb BP Systolic 120 mmHg BP Diastolic 72 mmHg Heart Rate 95 /min BMI (Body Mass Index) 34.3 kg/m2 Results Description No Information Available Procedures Date Code Description Status 03/14/2021 25805 Office/Outpatient Established Lo w MDM 20-29 Min Completed 03/14/2021 72868 Debridement 6-10 Nails Electric Completed Medical Devices Description No Information Available Encounters Type Date Location Provider Dx Diagnosis Office Visit 03/14/2021 1:30p [facility] Geovanny Torrez DPM M79.676 Pain in unspecified toe(s) B35.1 Tinea unguium E11.42 Type 2 diabetes mellitus wit h diabetic polyneuropathy Assessments Date Code Description Provider 03/14/2021 M79.676 Pain in unspecified toe(s) Gary Torrez DPM 03/14/2021 B35.1 Tinea unguium Geovanny Torrez DPM 03/14/2021 E11.42 Type 2 diabetes mellitus with di abetic polyneuropathy Geovanny Torrez DPM Plan of Treatment Future Appointment(s):* 05/23/2021 1:30 pm - Geovanny Torrez DPM at [facility] Functional Status Description No Information Available Mental Status Description No Information Available Referrals Description No Information Available
--- OUTSIDE RECORDS SUMMARY | 2021-03-31 21:35 | CCD | Continuity of Care Document ---
Author Author Ej TORREZ DPM Organization Unknown Address [address] [place] [address], [address] [place] [address] Phone [phone] Care Team Providers Care Agricultural Extension Officer Name Role Phone Xavier Gonzalez M.D. AUTM [phone] Problems Active Problems Provider Date Onychomycosis Geovanny [...] Unknown Hydroxyzine HCL 10mg Tablets Unknown Nystatin [id number]/GM Cream Unknown Fluticasone Propionate 0.005% Ointment Unknown [...] kg/m2 Results Description No Information Available Procedures Description No Information Available Medical Devices Description No Information Available Encounters Description No Information Available Assessments Description No Information Available Plan of Treatment Future Appointment(s):* 05/23/2021 1:30 pm - Geovanny Torrez DPM at [facility] Functional Status Description No Information Available Mental Status Description No Information Available Referrals Description No Information Available
--- OUTSIDE RECORDS SUMMARY | 2021-03-31 21:35 | CCD ---
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 Role Phone Odalys TORREZ DPM Unavailable Unavailable Odalys TORREZ DPM Unavailable Unavailable Odalys TORREZ DPM Unavailable Unavailable Odalys TORREZ DPM Unavailable Unavailable Odalys TORREZ DPM Unavailable Unavailable Odalys TORREZW DPM Unavailable Unavailable Odalys TORREZ DPM Unavailable Unavailable Odalys TORREZ DPM Unavailable Unavailable Odalys TORREZ DPM Unavailable Unavailable Odalys TORREZW DPM Unavailable Unavailable MAJOdalys MORELOSW DPM Unavailable Unavailable Odalys TORREZW DPM Unavailable Unavailable Odalys TORREZW DPM Unavailable Unavailable Odalys TORREZ DPM Unavailable Unavailable Odalys TORREZW DPM Unavailable Unavailable Odalys TORREZ DPM Unavailable Unavailable Odalys TORREZW DPM Unavailable Unavailable Odalys TORREZW DPM Unavailable Unavailable Odalys TORREZW DPM Unavailable Unavailable Odalys TORREZ GEETA DPM Unavailable Unavailable Odalys TORREZW DPM Unavailable Unavailable Odalys TORREZW DPM Unavailable Unavailable MAJAK, R GEETA DPM Unavailable Unavailable MAJAK, R GEETA DPM Unavailable Unavailable MAJAK, R GEETA DPM Unavailable Unavailable MAJAK, R GEETA DPM Unavailable Unavailable MAJAK, R GEETA DPM Unavailable Unavailable MAJAK, R GEETA DPM Unavailable Unavailable MAJAK, R GEETA DPM Unavailable Unavailable MAJAK, R GEETA DPM Unavailable Unavailable MAJAK, R GEETA DPM Unavailable Unavailable Re-disclosure Warning The records that you are about to access may contain information from federally-assisted alcohol or drug abuse programs. If such information is present, then the following federally mandated warning applies: This information has been disclosed to you from records protected by federal confidentiality rules (42 CFR part 2). The federal rules prohibit you from making any further disclosure of this information unless further disclosure is expressly permitted by the written consent of the person to whom it pertains or as otherwise permitted by 42 CFR part 2. A general authorization for the release of medical or other information is NOT sufficient for this purpose. The Federal rules restrict any use of the information to criminally investigate or prosecute any alcohol or drug abuse patient.The records that you are about to access may contain highly sensitive health information, the redisclosure of which is protected by Article 27-F of the [facility] Public Health law. If you continue you may have access to information: Regarding HIV / AIDS; Provided by facilities licensed or operated by the [facility] Office of Mental Health; or Provided by the [facility] Office for People With Developmental Disabilities. If such information is present, then the following [facility] mandated warning applies: This information has been disclosed to you from confidential records which are protected by state law. State law prohibits you from making any further disclosure of this information without the specific written consent of the person to whom it pertains, or as otherwise permitted by law. Any unauthorized further disclosure in violation of state law may result in a fine or skilled nursing sentence or both. A general authorization for the release of medical or other information is NOT sufficient authorization for further disc losure. Family History Family Member Name Family Member Gender Family Member Status Date o f Status Description Data Source(s) Unknown Unknown Problem [facility] ([facility]) Unknown Male Problem [facility] ([facility] [place] () Unknown Female Problem [facility] ([facility]) Unknown Female Problem [facility] ([facility] Encounters Encounter Providers Location Date Indications Data Source(s ) Outpatient Attender: GEETA LORE [facility] [place] Office 12/2020 01:30:00 PM EDT [facility] ([facility] Immunizations Vaccine Date Status Description Data Source(s) COVID-19 VACCINE Pfizer 07/03/2020 12:00:00 AM EST completed [facility] Vaccine Series Complete: YESThis Data wa s Submitted to [facility] Via [employer]. COVID-19 VACCINE Pfizer 06/12/2020 12:00:00 AM EST completed [facility] Vaccine Series Complete: NOThis Data was Submitted to [facility] Via [employer]. Medications No Information Insurance Providers Payer name Policy type / Coverage type Policy ID Covered republican ID Covered republican's relationship to jackson Policy Jackson Plan Information [facility] Medigap Part B [id number] ...[id number] Family Dependent [id number] [employer] Medigap Part B [id number] 2...[id number] Self [id number] [employer] Medigap Part B [id number] 2..[id number] Self [id number] [employer] Medigap Part B [id number] 2..1.472706.3.227.99.991.587132.0 Self [id number] [employer] Medigap Part B [id number] 2..1.243221.3.227.99.991.615861.0 Self [id number] [employer] Medigap Part B [id number] 2.0.1.483671.3.227.99.991.410229.0 Self [id number] [employer] Medigap Part B [id number] 2.1.490550.3.227.99.991.101241.0 Self [id number] [employer] Medigap Part B [id number] ..1.033895.3.227.99.991.744810.0 Self [id number] [employer] Medigap Part B [id number] ..1.817896.3.227.99.991.375212.0 Self [id number] MEDICARE [id number] SP [id number] MEDICARE COMPLETE [id number] SP [id number] MEDICARE COMPLETE [id number] SP [id number] [employer] Commercial [id number] ..[id number] [id number] Self [id number] [employer]/Medicare Commercial [id number] .[id number] Self [id number] [employer]/Medicare Commercial [id number] Self [id number] [employer] Medigap Part B [id number] .[id number]54.0 Self [id number] [facility] (Medicare) Medigap Part B [id number] .1.484529.3.227.99.991.432521.0 [id number] MEDICARE COMPLETE [id number] SP [id number] MEDICARE COMPLETE [id number] SP [id number] MEDICARE COMPLETE [id number] SP [id number] MEDICARE COMPLETE [id number] SP [id number] MEDICARE COMPLETE [id number] SP [id number] MEDICARE COMPLETE [id number] SP [id number] HUMANA GOLD [id number] SP [id number] HUMANA PPO [id number] SP [id number] [employer] Gold/Medicare Commercial [id number] Self [id number] HUMANA MEDICARE ADVANTAGE G [id number] Self [id number] HUMANA GOLD [id number] SP [id number] [employer] Gold/Medicare Commercial [id number] Self [id number] ANSI-Not a Secondary Insurance [id number] ANSI-Medicare Part B [id number] ANSI-Commercial [id number]-252g-[id number]-[id number] ANSI-Not a Secondary Insurance [id number] ANSI-Commercial [id number] ANSI-Medicare Part B [id number] ANSI-Not a Secondary Insurance [id number] ANSI-Commercial [id number]-[id number] ANSI-Medicare Part B [id number] HUMANA PPO [id number] SP [id number] ANSI-Not a Secondary Insurance [id number] [id number]-[id number] ANSI-Commercial [id number] ANSI-Medicare Part B [id number] ANSI-Medicare Part B [id number] ANSI-Not a Secondary Insurance [id number]-a285-4p42-bx9s-[id number] ANSI-Commercial [id number]-[id number] erka15i3-9196-06k3-m6mw-[id number] ANSI-Medicare Part B [id number] ANSI-Not a Secondary Insurance [id number]-[id number]-[id number] ANSI-Commercial [id number] y93rmz2[id number] ANSI-Medicare Part B [id number] ANSI-Not a Secondary Insurance [id number]-1fi3-8es1-4533-4ulj3 [id number] 4e858t3k-[id number] ANSI-Commercial jzcaum94-w5y4-6603-0462-8872o877650d csavgn85-k9s8-0319-0750-6505k815234s ANSI-Medicare Part B [id number]-jb5a-[id number] ANSI-Not a Secondary Insurance [id number]-9v09-e309y [id number] 0et7q484-7091-149l-1g43-[id number] ANSI-Commercial mnlovy62-3uo0-9227-28lx-5957ya4u1w14 xyqntl52-9gn3-0082-45tu-3487xb5h8o17 ANSI-Medicare Part B [id number]-gt19-8f5b-[id number] ANSI-Commercial 89c70h05-9v72-20xq-kvz5-[id number] 60k33u67-0n67-40jg-mlj1-z0868q585399 ANSI-Not a Secondary Insurance io921um8-280s-609a-628a-q9kp2 datl1l2 oc975ip8-136o-494s-225x-f4mi0udqb0a0 ANSI-Commercial [id number]-2g67-5gu6-16x8-5169m3lr76r5 705814rm-0h68-0dz3-45t1-3702w7jw70y4 ANSI-Medicare Part B [id number]-[id number] [id number]-1y7w-2uxq-o7a2-77aiscb6hl9z ANSI-Not a Secondary Insurance ilw9b4l0-d483-78ft-064s-20861 [id number] usj4s2r7-p556-45ug-476h-[id number] Today's Options Medicare Commercial [id number] Self [id number] ANSI-Medicare Part B [id number]-[id number] ANSI-Not a Secondary Insurance [id number]-m188-li52c 96m65qp 79b90062-3191-37t7-t460-st38k17v00at ANSI-Commercial [id number]-h0bp-[id number] 253t1337-1154-1ve0-r9yt-494t0166628a ANSI-Commercial 5n4q4e80-s543-56h7-tq71-gr6u887vh7xn 9p3l0e63-o214-66j5-sx37-wv9b410sk3qz ANSI-Not a Secondary Insurance 86r97l1o-j7y6-216k-80sy-ml23a 0hz0e30 67j31j3t-j9v7-169n-30dz-wh77b0rl6m96 ANSI-Medicare Part B [id number]-x8q3-68x37pt6sg3n ANSI-Medicare Part B [id number] [id number]-b1ke-054712ott3t8 ANSI-Commercial 33i46s1v-w622-48pw-tu6o-396rn5d5ouq1 14i99d7o-c726-89rb-me4j-415wk9t5lpq4 ANSI-Not a Secondary Insurance dav2048h-9uz1-1914-51b6-9lm6w [id number] uod9257a-4mc2-9304-72q3-2hf7q662171j ANSI-Medicare Part B [id number]-8845-fm2j947ghcq0 ANSI-Medicare Part B [id number]-ups9-521u-f9zw-v1qd8y6x35sx [facility] [id number]9.991.753860.0 Self [id number] MEDICARE COMPLETE [id number] SP [id number] ANSI-Medicare Part B [id number]-246f-ma11-rw4x6h1cptqa ANSI-Medicare Part B [id number]-yqfz5h76p07a ANSI-Medicare Part B [id number]-r0n6-69e3-1b96-[id number] SELF PAY UNAVAILABLE SP UNAVAILA BLE ANSI-Medicare Part B [id number]-[id number] [facility] [id number]9.991.282500.0 Self [id number] Today's [facility] Medicare Commercial [id number] 2..840.1.953200.3.227.99.8646.17734.0 Self [id number] Unitedhealthcare Medicare Commercial [id number]..840.1.229[id number] Self [id number] MEDICARE COMPLETE-[facility] [id number] S [id number] ANSI-Medicare Part B [id number] MEDICARE COMPLETE [id number] SP [id number] ANSI-Medicare Part B [id number]-[id number] ANSI-Medicare Part B [id number]-[id number] ANSI-Medicare Part B [id number]-[id number] MEDICARE COMPLETE [id number] SP [id number] MEDICARE COMPLETE [id number] SP [id number] [employer] Commercial [id number] Self [id number] ANSI-Medicare Part B [id number] ANSI-Medicare Part B [id number] ANSI-Medicare Part B [id number] ANSI-Medicare Part B [id number] ANSI-Medicare Part B [id number] Today's Options Medicare Commercial [id number] Self [id number] [facility] [id number] SP [id number] Tod[employer] Commercial [id number] 2611.0 Self [id number] [employer] Commercial [id number] Self United Healthcare (MCR) Commercial [id number] Self UNITED HEALTHCARE [id number] SP [id number] UNITED HEALTHCARE RET RR [id number] SP [id number] MEDICARE COMPLETE-[facility] P [id number] S [id number] [employer] Commercial [id number] 2611.0 Self [id number] [place] [id number] SP [id number] [facility] [id number] SP [id number] [facility] SP MEDICARE [id number] SP [id number] A HUMANA GOLD [id number] SP [id number] [place] [id number] SP [id number] MEDICARE [id number] SP [id number] [facility] SP MEDICARE [id number] SP [id number] MEDICAID M [id number] S [id number] MEDICARE C [id number] S [id number] MEDICARE PART A -O/P [id number] 18 [id number] MEDICAID -O/P [id number] HUMANA GOLD PLUS -O/P [id number] 18 [id number] MEDICAID [id number] SP [id number] HUMANA GOLD O [id number] S [id number] HUMANA GOLD [id number] SP [id number] MEDICARE [id number] SP [id number] A ANSI-Not a Secondary Insurance [id number] ANSI-Commercial [id number] [id number]-4p8a-t453-[id number] ANSI-Medicare Part B [id number] ANSI-Medicare Part B [id number] ANSI-Not a Secondary Insurance [id number] [id number] [id number]-[id number] ANSI-Commercial [id number] Today's Options Medicare Commercial [id number] Self [id number] [facility] Medicare Commercial [id number] Self [id number] ANSI-Commercial [id number] ANSI-Not a Secondary Insurance [id number] ANSI-Medicare Part B [id number] Problems, Conditions, and Diagnoses No Information Surgeries/Procedures Procedure Description Date Indications Data Source(s) DEBRIDEMENT NAIL ANY METHOD 03/14/2021 12:00:00 AM EDT [facility] ([facility] OFFICE OUTPATIENT VISIT 15 MINUTES 03/14/2021 12:00:00 AM EDT [facility] ([facility] Results ID Date Data Source 28 03/25/2021 12:00:00 AM EDT [facility] Name Value Range Interpretation Code Description Data Sobeida rce(s) Supporting Document(s) SARS coronavirus 2 Ag NEGATIVE [facility] This lab was ordered by [facility] and reported by [facility]. ID Date Data Source 24 03/11/2021 12:00:00 AM EDT [facility] Name Value Range Interpretation Code Description Data Sobeida rce(s) Supporting Document(s) SARS coronavirus 2 Ag NEGATIVE [facility] This lab was ordered by [facility] and reported by [facility]. ID Date Data Source 27 02/27/2021 12:00:00 AM EDT [facility] Name Value Range Interpretation Code Description Data Sobeida rce(s) Supporting Document(s) SARS coronavirus 2 Ag NEGATIVE [facility] This lab was ordered by [facility] and reported by [facility]. ID Date Data Source [id number] 11/01/2020 11:14:00 AM EDT [facility] Name Value Range Interpretation Code Description Data Sobeida rce(s) Supporting Document(s) SARS-CoV-2 (COVID 19) NEGATIVE - SARS-CoV-2 (COVID19) [facility] This lab was ordered by [facility] a nd reported by [facility]. ID Date Data Source 30 10/25/2020 12:00:00 AM EDT [facility] Name Value Range Interpretation Code Description Data Sobeida rce(s) Supporting Document(s) SARS coronavirus 2 Ag NEGATIVE [facility] This lab was ordered by [facility] and reported by [facility]. ID Date Data Source 23 10/02/2020 12:00:00 AM EDT [facility] Name Value Range Interpretation Code Description Data Sobeida rce(s) Supporting Document(s) SARS coronavirus 2 Ag NEGATIVE [facility] This lab was ordered by [facility] and reported by [facility]. ID Date Data Source [id number] 09/07/2020 07:12:00 AM EDT [facility] Name Value Range Interpretation Code Description Data Sobeida rce(s) Supporting Document(s) SARS-CoV-2 (COVID-19) RNA [Presence] in Respiratory specimen by JUAN JOSE with probe detection Not Detected [facility] This lab was ordered by [facility] and reported by [employer] ID Date Data Source [id number] 08/22/2020 10:00:00 AM EDT [facility] Name Value Range Interpretation Code Description Data Sobeida rce(s) Supporting Document(s) SARS coronavirus 2 RNA Not Detected [facility] This lab was ordered by [facility] and reported by [facility]. ID Date Data Source [id number] 08/15/2020 07:00:00 AM EST [facility] Name Value Range Interpretation Code Description Data Sobeida rce(s) Supporting Document(s) SARS coronavirus 2 RNA Not Detected [facility] [place] This lab was ordered by [facility] and reported by [facility]. ID Date Data Source [id number] 08/01/2020 10:00:00 AM EST [facility] Name Value Range Interpretation Code Description Data Sobeida rce(s) Supporting Document(s) SARS coronavirus 2 RNA Not Detected [facility] [place] This lab was ordered by [facility] and reported by [facility]. ID Date Data Source [id number] 07/25/2020 09:45:00 AM EST [facility] Name Value Range Interpretation Code Description Data Sobeida rce(s) Supporting Document(s) SARS coronavirus 2 RNA Not Detected [facility] [place] This lab was ordered by [facility] and reported by [facility]. ID Date Data Source [id number] 07/18/2020 10:00:00 AM EST [facility] Name Value Range Interpretation Code Description Data Sobeida rce(s) Supporting Document(s) SARS coronavirus 2 RNA Not Detected [facility] [place] This lab was ordered by [facility] and reported by [facility]. ID Date Data Source [id number] 07/11/2020 10:00:00 AM EST [facility] Name Value Range Interpretation Code Description Data Sobeida rce(s) Supporting Document(s) SARS coronavirus 2 RNA Not Detected [facility] [place] This lab was ordered by [facility] and reported by [facility]. ID Date Data Source [id number] 07/04/2020 06:30:00 AM EST [facility] Name Value Range Interpretation Code Description Data Sobeida rce(s) Supporting Document(s) SARS coronavirus 2 RNA Not Detected [facility] [place] This lab was ordered by [facility] and reported by [facility]. ID Date Data Source [id number] 06/27/2020 09:00:00 AM EST [facility] Name Value Range Interpretation Code Description Data Sobeida rce(s) Supporting Document(s) SARS coronavirus 2 RNA Not Detected [facility] [place] This lab was ordered by [facility] and reported by [facility]. ID Date Data Source [id number] 06/20/2020 07:15:00 AM EST [facility] Name Value Range Interpretation Code Description Data Sobeida rce(s) Supporting Document(s) SARS coronavirus 2 RNA Not Detected [facility] [place] This lab was ordered by [facility] and reported by [facility]. ID Date Data Source [id number] 06/13/2020 10:00:00 AM EST [facility] Name Value Range Interpretation Code Description Data Sobeida rce(s) Supporting Document(s) SARS coronavirus 2 RNA Not Detected [facility] [place] This lab was ordered by [facility] and reported by [facility]. ID Date Data Source [id number] 06/06/2020 09:00:00 AM EST [facility] Name Value Range Interpretation Code Description Data Sobeida rce(s) Supporting Document(s) SARS coronavirus 2 RNA [facility] This lab was ordered by [facility] and reported by [facility]. ID Date Data Source [id number] 05/30/2020 06:00:00 AM EST [facility] Name Value Range Interpretation Code Description Data Sobeida rce(s) Supporting Document(s) SARS coronavirus 2 RNA [facility] This lab was ordered by [facility] and reported by [facility]. ID Date Data Source [id number] 05/23/2020 12:16:00 PM EST [facility] Name Value Range Interpretation Code Description Data Sobeida rce(s) Supporting Document(s) SARS coronavirus 2 RNA [facility] This lab was ordered by [facility] and reported by [facility]. ID Date Data Source [id number] 05/16/2020 12:00:00 PM EST [facility] Name Value Range Interpretation Code Description Data Sobeida rce(s) Supporting Document(s) SARS coronavirus 2 RNA [facility] This lab was ordered by [facility] and reported by [facility]. ID Date Data Source [id number] 05/12/2020 04:35:00 PM EST [facility] Name Value Range Interpretation Code Description Data Sobeida rce(s) Supporting Document(s) SARS-CoV-2 (COVID 19) [facility] This lab was ordered by [facility] a nd reported by [facility]. ID Date Data Source [id number] 05/09/2020 12:00:00 PM EST [facility] Name Value Range Interpretation Code Description Data Sobeida rce(s) Supporting Document(s) SARS coronavirus 2 RNA [facility] This lab was ordered by [facility] and reported by [facility]. ID Date Data Source [id number] 05/02/2020 11:00:00 AM EST [facility] Name Value Range Interpretation Code Description Data Sobeida rce(s) Supporting Document(s) SARS coronavirus 2 RNA [facility] This lab was ordered by [facility] and reported by [facility]. ID Date Data Source [id number] 04/25/2020 10:25:00 AM EST [facility] Name Value Range Interpretation Code Description Data Sobeida rce(s) Supporting Document(s) SARS coronavirus 2 RNA [facility] This lab was ordered by [facility] and reported by [facility]. ID Date Data Source [id number] 04/19/2020 12:37:00 PM EST [facility] Name Value Range Interpretation Code Description Data Sobeida rce(s) Supporting Document(s) SARS coronavirus 2 RNA [facility] This lab was ordered by [facility] and reported by [facility]. Procedure Social History No Information Vital Signs ID Date Data Source UNK Name Value Range Interpretation Code Description Data Source(s) Heart rate 77 /min 77 /min [facility] ([facility] Body height 73 [in_i] 73 [in_i] [facility] ([facility] 6'1" Body mass index (BMI) [Ratio] 33.0 kg/m2 33.0 k g/m2 [facility] ([facility] Body weight 250.00 [lb_av] 250.00 [lb_av] MED[facility] T ([facility] Systolic blood pressure 118 mm[Hg] 118 mm[Hg] [facility] ([facility] Diastolic blood pressure 62 mm[Hg] 62 mm[Hg] [facility] ([facility]
--- OUTSIDE RECORDS SUMMARY | 2021-03-31 21:35 | CCD | Continuity of Care Document ---
Author Author Ej TORREZ DPM Organization Unknown Address [address] [place] [address], [address] [place] [address] Phone [phone] Care Team Providers Care Sales Leader Name Role Phone Xavier Gonzalez M.D. AUTM [phone] Problems Active Problems Provider Date Onychomycosis Geovanny [...] 24HR Carlos Julio,Xavier Tamsulosin HCL 0.4mg Capsules Calros Julio,Xavier Glimepiride 4mg Tablets Take One Tablet By Mouth @9Am and Take One Tablet By Mouth @6PM Unk nown Vascepa 1gm Capsules Take Two Capsules By Mouth @9Am and Take Two Capsules @6PM Unknown Hydroxyzine HCL 10mg Tablets Unknown Nystatin [id number]/GM Cream Unknown Fluticasone Propionate 0.005% Ointment Unknown [...] 1:30 pm - Geovanny Torrez DPM at [facility] Functional Status Description No Information Available Mental Status Description No Information Available Referrals Description No Information Available
[2021-03-31 22:08] LABS: HEMATOCRIT 51.2 % (42.0-52.0); HEMOGLOBIN 16.5 g/dl (13.5-17.5); MEAN CORPUSCULAR HEMOGLOBIN 30.2 pg (27.0-33.0); MEAN CORPUSCULAR HGB CONC 32.2 g/dl (32.0-36.5); MEAN CORPUSCULAR VOLUME 93.8 fl (80.0-96.0); PLATELET COUNT, AUTOMATED 127 10^3/uL (150-450); RED BLOOD COUNT 5.46 10^6/uL (4.30-6.10); WHITE BLOOD COUNT 7.1 10^3/uL (4.0-10.0)
[2021-03-31 22:17] LABS: INR 1.02; PROTHROMBIN TIME 13.8 SECONDS (12.7-14.5)
[2021-03-31 22:18] LABS: PARTIAL THROMBOPLASTIN TIME 31.9 SECONDS (25.9-37.0)
[2021-03-31 22:40] LABS: RSV AMPLIFICATION NEGATIVE (NEGATIVE)
--- NOTE | 2021-03-31 23:08 | REPVR ---
PROCEDURE INFORMATION: Exam: CT Head Without Contrast Exam date and time: 03/31/2021 10:01 PM Age: 80 years old Clinical indication: Injury or trauma; Fall; Blunt trauma (contusions or hematomas) TECHNIQUE: Imaging protocol: Computed tomography of the head without contrast. Radiation optimization: All CT scans at this facility use at least one of these dose optimization techniques: automated exposure control; mA and/or kV adjustment per patient size (includes targeted exams where dose is matched to clinical indication); or iterative reconstruction. COMPARISON: MRI-Brain without Contrast 08/08/2019 7:13 PM FINDINGS: Brain: Small chronic basal ganglia lacunar infarcts. Nonspecific hypodensities of the periventricular and deep subcortical white matter, most likely secondary to chronic small vessel ischemic change. No intracranial hemorrhage or extra-axial fluid collection. No evidence of mass effect or midline shift. Gomez-white matter differentiation is normal. Cerebral ventricles: Prominence of the ventricles and sulci, most likely attributed to parenchymal volume loss. Paranasal sinuses: Visualized sinuses are unremarkable. No fluid levels. Mastoid air cells: Unremarkable. Bones/joints: No acute osseus lesion or fracture. Soft tissues: Unremarkable. IMPRESSION: 1. No acute intracranial pathology. 2. Chronic findings, as above. Electronically signed by: Ramiro Ortiz On 03/31/2021 23:08:07 PM
--- NOTE | 2021-03-31 23:11 | REPVR ---
PROCEDURE INFORMATION: Exam: CT Cervical Spine Without Contrast Exam date and time: 03/31/2021 10:01 PM Age: 80 years old Clinical indication: Injury or trauma; Fall; Blunt trauma TECHNIQUE: Imaging protocol: Computed tomography images of the cervical spine without contrast. Radiation optimization: All CT scans at this facility use at least one of these dose optimization techniques: automated exposure control; mA and/or kV adjustment per patient size (includes targeted exams where dose is matched to clinical indication); or iterative reconstruction. COMPARISON: CT Spine,cervical w/o contrast 08/08/2019 5:41 PM FINDINGS: Bones/joints: Vertebral body heights are maintained. No locked or perched facets. Multilevel facet arthropathy. No acute cervical spine fracture. The dens is intact. Atlanto-axial intervals are normal. Discs/Spinal canal/Neural foramina: Multilevel degenerative changes with intervertebral disc height loss and osteophyte formation, with multilevel areas of mild to moderate canal stenosis. Lungs: Lung apices are clear. Soft tissues: Unremarkable. IMPRESSION: 1. No acute cervical spine fracture. 2. Chronic findings, as above. Electronically signed by: Ramiro Ortiz On 03/31/2021 23:11:35 PM
[2021-04-01 00:01] VITALS: BP 124/57
[2021-04-01] MEDS ORDERED: LIDOCAINE 2% MDV 20ML VIAL SC ONE (00:20)
--- NOTE | 2021-04-01 00:39 | REPVR ---
PROCEDURE INFORMATION: Exam: XR Right Elbow Exam date and time: 03/31/2021 10:44 PM Age: 80 years old Clinical indication: Pain; Elbow; Right; Additional info: Fall TECHNIQUE: Imaging protocol: XR Right elbow. Views: 3 or more views. COMPARISON: No relevant prior studies available. FINDINGS: Bones/joints: Mild moderate degenerative joint disease.No acute fracture or dislocation. Soft tissues: Normal. IMPRESSION: No acute osseous abnormality. Electronically signed by: Tino Palma On 04/01/2021 00:38:58 AM
--- NOTE | 2021-04-01 00:41 | REPVR ---
PROCEDURE INFORMATION: Exam: XR Right Forearm Exam date and time: 03/31/2021 10:44 PM Age: 80 years old Clinical indication: Pain; Elbow; Right; Additional info: Fall TECHNIQUE: Imaging protocol: XR Right forearm. Views: 2 views. COMPARISON: CR Elbow, complete RIGHT 2021-03-31 22:29 FINDINGS: Bones/joints: Mild moderate degenerative joint disease. No acute fracture or dislocation. Soft tissues: Normal. IMPRESSION: 1. No acute osseous abnormality. Electronically signed by: Tino Palma On 04/01/2021 00:41:11 AM
[2021-04-01] MEDS ORDERED: BOOSTRIX/ADACEL VACCINE (DIPHTH/PERTUSS/ACELL/TETANUS) 0.5ML SYR IM ONE (00:55)
[2021-04-01] MEDS ORDERED: TETANUS IMMUNE GLOBULIN (HUMAN) 250 UNITS/ML SYRINGE (J1670)(90389) IM ONE (00:55)
--- OUTSIDE RECORDS SUMMARY | 2021-04-01 01:02 | CCD ---
Author Author [facility] Organization [facility] Address Unknown Phone Unavailable Care Team Providers Care [facility] Lifeguard Specialist Name Role Phone Odalys TORREZ DPM Unavailable [...] is protected by Article 27-F of the [facility] Public Health law. If you continue you may have access to information: Regarding HIV / AIDS; Provided by facilities licensed or operated by the [facility] Office of Mental Health; or Provided by the [facility] Office for People With Developmental Disabilities. If such information is present, then the following [facility] mandated warning applies: This information has been [...] law may result in a fine or assisted sentence or both. A general authorization for the release of medical or other information is NOT sufficient authorization for further disc losure. Family History Family Member Name Family Member Gender Family Member Status Date o f Status Description Data Source(s) Unknown Unknown Problem [facility] ([facility]) Unknown Male Problem [facility] ([facility] [place] () Unknown Female Problem [facility] ([facility]) Unknown Female Problem MED[facility] ([facility] Encounters Encounter Providers Location Date Indications Data Source(s ) Outpatient Attender: GEETA LORE [facility] 12/2020 01:30:00 PM EDT [facility] ([facility] Immunizations Vaccine Date Status Description Data Source(s) COVID-19 VACCINE Pfizer 07/03/2020 12:00:00 AM EST completed [facility] Vaccine Series Complete: YESThis Data wa s Submitted to [facility] Exam[facility]. COVID-19 VACCINE Pfizer 06/12/2020 12:00:00 AM EST completed [facility] Vaccine Series Complete: NOThis Data was Submitted to [facility] Via Exam18. Medications No Information Insurance Providers Payer name Policy type / Coverage type Policy ID Covered republican ID Covered republican's relationship to jackson Policy Jackson Plan Information [facility] Med[place] Part B [id number] Family Dependent [id number] [employer] Medigap Part B [id number] [id number] Self [id number] [employer] Medigap Part B [id number] 2..[id number] Self [id number] [employer] Medigap Part B [id number] 2..[id number]087.0 Self [id number] [employer] Medigap Part B [id number] 2..1.886573.3.227.99.991.681395.0 Self [id number] [employer] Medigap Part B [id number] [id number] Self [id number] [employer] Medigap Part B [id number] 2.1.861089.3.227.99.991.832329.0 Self [id number] [employer] Medigap Part B [id number] ..[id number] Self [id number] [employer] Medigap Part B [id number] ..1.256948.3.227.99.991.126280.0 Self [id number] MEDICARE [id number] SP [id number] MEDICARE COMPLETE [id number] SP [id number] MEDICARE COMPLETE [id number] SP [id number] [employer] Commercial [id number] ..232451.3.227.9 [id number] Self [id number] [employer]/Medicare Commercial [id number] .[id number] Self [id number] [employer]/Medicare Commercial [id number] Self [id number] Tod[employer] Options Medigap Part B [id number] .1.697[id number] Self [id number] [facility] (Medicare) Medigap Part B [id number] .1.175[id number] MEDICARE COMPLETE [id number] SP [id number] MEDICARE COMPLETE [id number] SP [id number] MEDICARE COMPLETE [id number] SP [id number] MEDICARE COMPLETE [id number] SP [id number] MEDICARE COMPLETE [id number] SP [id number] MEDICARE COMPLETE [id number] SP [id number] HUMANA GOLD [id number] SP [id number] HUMANA PPO [id number] SP [id number] [employer] Gold/Medicare Commercial [id number] Self [id number] HUMANA MEDICARE ADVANTAGE G [id number] Self [id number] HUMANA GOLD [id number] SP [id number] [employer] Gold/Medicare Commercial [id number] Self [id number] ANSI-Not a Secondary Insurance [id number] ANSI-Medicare Part B [id number] ANSI-Commercial [id number]-[id number]-[id number] ANSI-Not a Secondary Insurance [id number] ANSI-Commercial [id number] ANSI-Medicare Part B [id number] ANSI-Not a Secondary Insurance [id number] ANSI-Commercial [id number]-g08n-[id number]-p69u-[id number] ANSI-Medicare Part B [id number] HUMANA PPO [id number] SP [id number] ANSI-Not a Secondary Insurance [id number] [id number]-ip72-824d-dt19-[id number] ANSI-Commercial [id number]-[id number]-c686-[id number] ANSI-Medicare Part B [id number] ANSI-Medicare Part B [id number]-xl4td31nobsa ANSI-Not a Secondary Insurance [id number]-[id number]-i484-1s15-zj8u-[id number] ANSI-Commercial lpxp99c1-1914-53e9-q6ez-[id number] vfdu79y6-6746-14w3-x9ex-[id number] ANSI-Medicare Part B [id number] ANSI-Not a Secondary Insurance [id number]-[id number] 39ms85qy-kv02-0922-v845-998du751hxh5 ANSI-Commercial [id number] h78wjz36-6449-9506-2a33-34288yn8708u ANSI-Medicare Part B [id number]-q6x8-0636-6598-[id number] ANSI-Not a Secondary Insurance [id number]-1wf9-9vs2-1175-5rsa3 5si406o 6h398v2y-3vt6-3po3-4314-1ptx16mh628y ANSI-Commercial qvetga36-o4z7-7510-4993-2737e210974p daqscj60-i3o9-8227-6644-3032g555772i ANSI-Medicare Part B [id number] 1c70p0w6-36s8-1s30-lp4h-[id number] ANSI-Not a Secondary Insurance 1cc3i119-1938-482n-8m40-t473p [id number] 7er0h063-3801-339i-0s34-p346q077h538 ANSI-Commercial htekvb85-1ky7-6151-67gd-3379oz5z5e59 -6oj6-3098-52sw-0584vp7f3e16 ANSI-Medicare Part B [id number] [id number]-xc85-3c6l-8v46-993862t81u7i ANSI-Commercial 60u49x71-4s26-16rt-cuz4-[id number] 35n20r68-7o70-25ps-bqt5-s5902w300192 ANSI-Not a Secondary Insurance xy220rb1-289t-830j-508i-b2hz0 wgci1w0 dq110zo7-489a-402k-871d-b1kr6gppr3o8 ANSI-Commercial 386259il-3y42-6ot6-13c4-4243f6ln88t7 876414jz-2e68-4uq3-06b2-5006x1qb60x7 ANSI-Medicare Part B [id number]-[id number] 26viz68f-6v9q-3mrh-g3n6-90chsbl1yu5j ANSI-Not a Secondary Insurance sba1e2v4-b657-68ba-933g-82897 001rn79 mkf8k1t8-e499-20dl-617m-51635098gw01 Today's Options Medicare Commercial [id number] Self [id number] ANSI-Medicare Part B [id number]-7sjt-ja9o-9t344725ykz3 ANSI-Not a Secondary Insurance [id number]-g462-xw91k 44i11uy 95l78057-1230-50a5-g807-on35a35l93vk ANSI-Commercial 876k8940-4261-4qa3-v3vq-631d5239076s 184y3959-5663-9mh7-e4yz-084y8320282m ANSI-Commercial 7z8s3r64-x298-92f9-sc96-ku5x024fm9gk 3d3g7s06-j690-77p0-qy37-gf9k964wb7vs ANSI-Not a Secondary Insurance 96q21c6e-p4n7-541u-67si-jc31x 0wm9f91 32p06t2i-q3c7-330j-32fp-zb58n1ek6h15 ANSI-Medicare Part B [id number] 27d12c69-03b8-1z35-l6t7-89g83pj1wv6z ANSI-Medicare Part B [id number] h1g8c349-1ki3-6226-q4yk-746619udg9c0 ANSI-Commercial 51o71w4x-v168-44ll-xw5e-096nl4z1slw2 93l33x4j-s701-41uu-au2n-411ma9v1uje2 ANSI-Not a Secondary Insurance tyk0053b-8vx3-1992-06a6-4ym3q 016027q uvh9989p-3we5-6005-75c4-7he6n505035l ANSI-Medicare Part B [id number] [id number]-7735-ba6z989gshw0 ANSI-Medicare Part B [id number] 5v6xfj42-exl0-271q-l3yf-y1xr4h8v91iq [id number]1.218970.0 Self [id number] MEDICARE COMPLETE [id number] SP [id number] ANSI-Medicare Part B [id number]-[id number] 6vji233b-77er-229j-sr76-dd4k2r0gatln ANSI-Medicare Part B [id number] [id number]-n677-5b85-93v1-chmo9x52k72u ANSI-Medicare Part B [id number]-v2a7-16c8-1h90-s16t2uf74970 SELF PAY UNAVAILABLE SP UNAVAILA BLE ANSI-Medicare Part B [id number]-y6p0e6v3543b [facility] CENTERL[facility] [id number] Self [id number] Today's [facility] Medicare Commercial [id number] 2..840.1.511778.3.227.99.8646.37636.0 Self [id number] Unitedhealthcare Medicare Commercial [id number]..[id number]92.0 Self [id number] MEDICARE COMPLETE-[facility] [id number] S [id number] ANSI-Medicare Part B [id number] MEDICARE COMPLETE [id number] SP [id number] ANSI-Medicare Part B [id number] 82syz1f0-722y-91ql-2128-hj4a0e8v677c ANSI-Medicare Part B [id number]-[id number] ANSI-Medicare Part B [id number]-t35a-[id number] MEDICARE COMPLETE [id number] SP [id number] MEDICARE COMPLETE [id number] SP [id number] [facility] Commercial [id number] Self [id number] ANSI-Medicare Part B [id number]-l43y-636o427q54oh ANSI-Medicare Part B [id number] ANSI-Medicare Part B [id number]-[id number] ANSI-Medicare Part B [id number]-9w79-2041-996p-[id number] ANSI-Medicare Part B [id number] [id number] Today's Options Medicare Commercial [id number] Self [id number] UNITED HEALTHCARE [facility] [id number] SP [id number] Todays Options Commercial [id number].177.1 2611.0 Self [id number] [employer] Commercial [id number] Self United Healthcare (MCR) Commercial [id number] Self UNITED HEALTHCARE [id number] SP [id number] UNITED HEALTHCARE RET RR [id number] SP [id number] MEDICARE COMPLETE-[facility] P [id number] S [id number] Tod[employer] Options Commercial [id number]7.1 2611.0 Self [id number] [place] [id number] SP [id number] UNITED HEALTHCARE [facility] [id number] SP [id number] [facility] SP MEDICARE [id number] SP [id number] A HUMANA GOLD [id number] SP [id number] [place] [id number] SP [id number] MEDICARE [id number] SP [id number] [facility] SP MEDICARE [id number] SP [id number] MEDICAID M [id number] S [id number] MEDICARE C [id number] S [id number] MEDICARE PART A -O/P [id number] 18 [id number] MEDICAID -O/P [id number] 18 [id number] HUMANA GOLD PLUS -O/P [id number] 18 [id number] MEDICAID [id number] SP [id number] HUMANA GOLD O [id number] S [id number] HUMANA GOLD [id number] SP [id number] MEDICARE [id number] SP [id number] A ANSI-Not a Secondary Insurance [id number] ANSI-Commercial [id number]-2w9c-b434-v400q1e3xmxj m3iir4w2-540p-4h2d-c773-[id number] ANSI-Medicare Part B [id number] ANSI-Medicare Part B [id number] ANSI-Not a Secondary Insurance [id number] [id number] ANSI-Commercial [id number]-[id number]-h32l-61356jov13q4 Today's Options Medicare Commercial [id number] Self [id number] [facility] Medicare Commercial [id number] Self [id number] ANSI-Commercial [id number] ANSI-Not a Secondary Insurance [id number] ANSI-Medicare Part B [id number] Problems, Conditions, and Diagnoses No Information Surgeries/Procedures [...] NEGATIVE [facility] This lab was ordered by [facility] and reported by [facility]. ID Date Data Source 24 03/11/2021 12:00:00 AM EDT [facility] Name Value Range Interpretation Code Description Data Sobeida rce(s) Supporting Document(s) SARS coronavirus 2 Ag NEGATIVE [facility] This lab was ordered by [facility] and reported by [facility]. ID Date Data Source 27 02/27/2021 12:00:00 AM EDT [facility] Name Value Range Interpretation Code Description Data Sobeida rce(s) Supporting Document(s) SARS coronavirus 2 Ag NEGATIVE [facility] This lab was ordered by [facility] and reported by [facility]. ID Date Data Source [id number] 11/01/2020 11:14:00 AM EDT [facility] Name Value Range Interpretation Code Description Data Sobeida rce(s) Supporting Document(s) SARS-CoV-2 (COVID 19) NEGATIVE - SARS-CoV-2 (COVID19) [facility] This lab was ordered by [facility] a nd reported by [facility]. ID Date Data Source 30 10/25/2020 12:00:00 AM EDT [facility] Name Value Range Interpretation Code Description Data Sobeida rce(s) Supporting Document(s) SARS coronavirus 2 Ag NEGATIVE [facility] This lab was ordered by [facility] and reported by [facility]. ID Date Data Source 23 10/02/2020 12:00:00 AM EDT [facility] Name Value Range Interpretation Code Description Data Sobeida rce(s) Supporting Document(s) SARS coronavirus 2 Ag NEGATIVE [facility] This lab was ordered by [facility] and reported by [facility]. ID Date Data Source [id number] 09/07/2020 07:12:00 AM EDT [facility] Name Value Range Interpretation Code Description Data Sobeida rce(s) Supporting Document(s) SARS-CoV-2 (COVID-19) RNA [Presence] in Respiratory specimen by JUAN JOSE with probe detection Not Detected [facility] This lab was ordered by [facility] and reported by [employer] ID Date Data Source [id number] 08/22/2020 10:00:00 AM EDT [facility] Name Value Range Interpretation Code Description Data Sobeida rce(s) Supporting Document(s) SARS coronavirus 2 RNA Not Detected [facility] [place] This lab was ordered by [facility] and reported by [facility]. ID Date Data Source [id number] 08/15/2020 07:00:00 AM EST [facility] Name Value Range Interpretation Code Description Data Sobeida rce(s) Supporting Document(s) SARS coronavirus 2 RNA Not Detected [facility] [place] This lab was ordered by [facility] and reported by [facility]. ID Date Data Source [id number] 08/01/2020 10:00:00 AM EST [facility] Name Value Range Interpretation Code Description Data Sobeida rce(s) Supporting Document(s) SARS coronavirus 2 RNA Not Detected [facility] [place] This lab was ordered by [facility] and reported by [facility]. ID Date Data Source [id number] 07/25/2020 09:45:00 AM EST [facility] Name Value Range Interpretation Code Description Data Sobeida rce(s) Supporting Document(s) SARS coronavirus 2 RNA Not Detected [facility] [place] This lab was ordered by [facility] and reported by [facility]. ID Date Data Source [id number] 07/18/2020 10:00:00 AM EST [facility] Name Value Range Interpretation Code Description Data Sobeida rce(s) Supporting Document(s) SARS coronavirus 2 RNA Not Detected [facility] [place] This lab was ordered by [facility] and reported by [facility]. ID Date Data Source [id number] 07/11/2020 10:00:00 AM EST [facility] Name Value Range Interpretation Code Description Data Sobeida rce(s) Supporting Document(s) SARS coronavirus 2 RNA Not Detected [facility] [place] This lab was ordered by [facility] and reported by [facility]. ID Date Data Source [id number] 07/04/2020 06:30:00 AM EST [facility] Name Value Range Interpretation Code Description Data Sobeida rce(s) Supporting Document(s) SARS coronavirus 2 RNA Not Detected [facility] [place] This lab was ordered by [facility] and reported by [facility]. ID Date Data Source [id number] 06/27/2020 09:00:00 AM EST [facility] Name Value Range Interpretation Code Description Data Sobeida rce(s) Supporting Document(s) SARS coronavirus 2 RNA Not Detected [facility] [place] This lab was ordered by [facility] and reported by [facility]. ID Date Data Source [id number] 06/20/2020 07:15:00 AM EST [facility] Name Value Range Interpretation Code Description Data Sobeida rce(s) Supporting Document(s) SARS coronavirus 2 RNA Not Detected [facility] [place] This lab was ordered by [facility] and reported by [facility]. ID Date Data Source [id number] 06/13/2020 10:00:00 AM EST [facility] Name Value Range Interpretation Code Description Data Sobeida rce(s) Supporting Document(s) SARS coronavirus 2 RNA Not Detected [facility] [place] This lab was ordered by [facility] and reported by [facility]. ID Date Data Source [id number] 06/06/2020 09:00:00 AM EST [facility] Name Value Range Interpretation Code Description Data Sobeida rce(s) Supporting Document(s) SARS coronavirus 2 RNA [facility] This lab was ordered by [facility] and reported by [facility]. ID Date Data Source [id number] 05/30/2020 06:00:00 AM EST [facility] Name Value Range Interpretation Code Description Data Sobeida rce(s) Supporting Document(s) SARS coronavirus 2 RNA [facility] This lab was ordered by [facility] and reported by [facility]. ID Date Data Source [id number] 05/23/2020 12:16:00 PM EST [facility] Name Value Range Interpretation Code Description Data Sobeida rce(s) Supporting Document(s) SARS coronavirus 2 RNA [facility] This lab was ordered by [facility] and reported by [facility]. ID Date Data Source [id number] 05/16/2020 12:00:00 PM EST [facility] Name Value Range Interpretation Code Description Data Sobeida rce(s) Supporting Document(s) SARS coronavirus 2 RNA [facility] This lab was ordered by [facility] and reported by [facility]. ID Date Data Source [id number] 05/12/2020 04:35:00 PM EST [facility] Name Value Range Interpretation Code Description Data Sobeida rce(s) Supporting Document(s) SARS-CoV-2 (COVID 19) [facility] This lab was ordered by [facility] a nd reported by [facility]. ID Date Data Source [id number] 05/09/2020 12:00:00 PM EST [facility] Name Value Range Interpretation Code Description Data Sobeida rce(s) Supporting Document(s) SARS coronavirus 2 RNA [facility] This lab was ordered by [facility] and reported by [facility]. ID Date Data Source [id number] 05/02/2020 11:00:00 AM EST [facility] Name Value Range Interpretation Code Description Data Sobeida rce(s) Supporting Document(s) SARS coronavirus 2 RNA [facility] This lab was ordered by [facility] and reported by [facility]. ID Date Data Source [id number] 04/25/2020 10:25:00 AM EST [facility] Name Value Range Interpretation Code Description Data Sobeida rce(s) Supporting Document(s) SARS coronavirus 2 RNA [facility] This lab was ordered by [facility] and reported by [facility]. ID Date Data Source [id number] 04/19/2020 12:37:00 PM EST [facility] Name Value Range Interpretation Code Description Data Sobeida rce(s) Supporting Document(s) SARS coronavirus 2 RNA [facility] This lab was ordered by [facility] and reported by [facility]. Procedure Social History No Information Vital Signs ID Date Data Source UNK Name Value Range Interpretation Code Description Data Source(s) Heart rate 77 /min 77 /min [facility] ([facility] Body mass index (BMI) [Ratio] 33.0 kg/m2 33.0 k g/m2 [facility] ([facility] Body height 73 [in_i] 73 [in_i] [facility] ([facility] 6'1" Body weight 250.00 [lb_av] 250.00 [lb_av] [facility] T ([facility] Systolic blood pressure 118 mm[Hg] 118 mm[Hg] M [facility] ([facility] Diastolic blood pressure 62 mm[Hg] 62 mm[Hg] [facility] ([facility]
== END 2021-04-01 01:00 | disposition home or self-care (01) ==
LOC: M ED 21:31
DX: S01.01XA Laceration without foreign body of scalp, initial encounter (principal); S50.01XA Contusion of right elbow, initial encounter; W18.39XA Other fall on same level, initial encounter; Y92.129 Unspecified place in nursing home as the place of occurrence of the external cause; Y93.01 Activity, walking, marching and hiking; Y99.8 Other external cause status; E11.9 Type 2 diabetes mellitus without complications; H40.9 Unspecified glaucoma; E78.5 Hyperlipidemia, unspecified; F03.90 Unspecified dementia, unspecified severity, without behavioral disturbance, psychotic disturbance, mood disturbance, and anxiety; Z79.84 Long term (current) use of oral hypoglycemic drugs; Z79.899 Other long term (current) drug therapy; Z79.82 Long term (current) use of aspirin; Z88.1 Allergy status to other antibiotic agents

== ENCOUNTER → 2021-04-01 | Outpatient (REF) | payer MEDICARE, MEDICAID | LOC: SKLAB8 07:09 | PROVIDERS: ATTEND Neuromusculoskeletal Medicine & OMM | DX: Z20.822 Contact with and (suspected) exposure to COVID-19 (principal) ==

== ENCOUNTER → 2021-04-04 | Outpatient (REF) | payer MEDICARE, MEDICAID | LOC: SKLAB8 05:32 | PROVIDERS: ATTEND Neuromusculoskeletal Medicine & OMM | DX: Z20.822 Contact with and (suspected) exposure to COVID-19 (principal) ==

== ENCOUNTER → 2021-04-08 | Outpatient (REF) | payer MEDICARE, MEDICAID | LOC: SKLAB8 06:13 | PROVIDERS: ATTEND Neuromusculoskeletal Medicine & OMM | DX: Z20.822 Contact with and (suspected) exposure to COVID-19 (principal) ==

== ENCOUNTER → 2021-04-11 | Outpatient (REF) | payer MEDICARE | LOC: SKLAB8 06:28 | PROVIDERS: ATTEND Neuromusculoskeletal Medicine & OMM | DX: Z20.822 Contact with and (suspected) exposure to COVID-19 (principal) ==

== ENCOUNTER → 2021-04-17 | Outpatient (REF) | payer MEDICARE | LOC: SKLAB8 06:13 | PROVIDERS: ATTEND Neuromusculoskeletal Medicine & OMM | DX: Z20.822 Contact with and (suspected) exposure to COVID-19 (principal) ==

== ENCOUNTER → 2021-04-24 | Outpatient (REF) | payer MEDICARE | LOC: SKLAB8 08:18 | PROVIDERS: ATTEND Neuromusculoskeletal Medicine & OMM | DX: Z20.822 Contact with and (suspected) exposure to COVID-19 (principal) ==

== ENCOUNTER → 2021-05-06 | Outpatient (CLI) | payer MEDICARE | LOC: M RAD 10:59 | PROVIDERS: ATTEND Nurse Practitioner | DX: S09.90XA Unspecified injury of head, initial encounter (principal); W19.XXXA Unspecified fall, initial encounter ==

== ENCOUNTER → 2021-05-07 | Outpatient (REF) | payer MEDICARE ==
[2021-05-07 11:08] LABS: APPEARANCE, URINE TURBID (CLEAR); BACTERIA, URINE AUTO 2+ (NEGATIVE); BILIRUBIN, URINE AUTO NEGATIVE (NEGATIVE); BLOOD, URINE BLOOD 1+ (NEGATIVE); CALCIUM OXALATE CRYSTALS LARGE; COLOR, URINE YELLOW (YELLOW); GLUCOSE, URINE (UA) AUTO 3+ mg/dL (NEGATIVE); KETONE, URINE AUTO NEGATIVE (NEGATIVE); LEUKOCYTE ESTERASE, URINE AUTO 3+ (NEGATIVE); MUCUS, URINE SMALL (NEGATIVE); NITRITE, URINE AUTO NEGATIVE (NEGATIVE); PROTEIN, URINE AUTO 2+ mg/dL (NEGATIVE); RBC, URINE AUTO 6 /HPF (0-3); SPECIFIC GRAVITY URINE AUTO 1.018 (1.002-1.035); SQUAMOUS EPITHELIAL CELL UR AU 0 /HPF (0-6); UROBILINOGEN, URINE AUTO 0.2 mg/dL (0.0-2.0); WBC, URINE AUTO TNTC /HPF (0-3)
[2021-05-07 11:31] LABS: HEMATOCRIT 60.5 % (42.0-52.0); HEMOGLOBIN 18.2 g/dl (13.5-17.5); MEAN CORPUSCULAR HGB CONC 30.1 g/dl (32.0-36.5); MEAN CORPUSCULAR VOLUME 99.7 fl (80.0-96.0); PLATELET COUNT, AUTOMATED 126 10^3/uL (150-450); RED BLOOD COUNT 6.07 10^6/uL (4.30-6.10)
[2021-05-07 12:17] LABS: CALCIUM LEVEL 9.6 MG/DL (8.8-10.2); CREATININE FOR GFR 1.9 MG/DL (0.70-1.30); GLOMERULAR FILTRATION RATE 36.5 (>35); POTASSIUM SERUM 3.7 MEQ/L (3.5-5.1)
== END ==
LOC: SKLAB8 10:11
PROVIDERS: ATTEND Neuromusculoskeletal Medicine & OMM
DX: E87.0 Hyperosmolality and hypernatremia (principal); Z79.899 Other long term (current) drug therapy

== ENCOUNTER → 2021-05-08 | Outpatient (REF) | payer MEDICARE ==
[2021-05-08 08:53] LABS: HEMATOCRIT 58.5 % (42.0-52.0); MEAN CORPUSCULAR HGB CONC 30.8 g/dl (32.0-36.5); MEAN CORPUSCULAR VOLUME 97.5 fl (80.0-96.0); PLATELET COUNT, AUTOMATED 109 10^3/uL (150-450); WHITE BLOOD COUNT 7.8 10^3/uL (4.0-10.0)
[2021-05-08 09:23] LABS: CALCIUM LEVEL 9.5 MG/DL (8.8-10.2); CREATININE FOR GFR 1.72 MG/DL (0.70-1.30); GLOMERULAR FILTRATION RATE 40.9 (>35); POTASSIUM SERUM 3.3 MEQ/L (3.5-5.1)
== END ==
LOC: SKLAB8 07:00
PROVIDERS: ATTEND Neuromusculoskeletal Medicine & OMM
DX: Z79.899 Other long term (current) drug therapy (principal)

== ENCOUNTER → 2021-05-09 | Outpatient (REF) | payer MEDICARE ==
[2021-05-09 11:07] LABS: HEMATOCRIT 56.2 % (42.0-52.0); HEMOGLOBIN 16.9 g/dl (13.5-17.5); MEAN CORPUSCULAR HEMOGLOBIN 29.9 pg (27.0-33.0); MEAN CORPUSCULAR HGB CONC 30.1 g/dl (32.0-36.5); MEAN CORPUSCULAR VOLUME 99.5 fl (80.0-96.0); RED BLOOD COUNT 5.65 10^6/uL (4.30-6.10); WHITE BLOOD COUNT 7.1 10^3/uL (4.0-10.0)
[2021-05-09 11:31] LABS: CALCIUM LEVEL 9.7 MG/DL (8.8-10.2); CREATININE FOR GFR 1.69 MG/DL (0.70-1.30); GLOMERULAR FILTRATION RATE 41.8 (>35); POTASSIUM SERUM 3.8 MEQ/L (3.5-5.1)
[2021-05-09 11:35] LABS: PLATELET COUNT, AUTOMATED 98 10^3/uL (150-450)
== END ==
LOC: SKLAB8 07:18
PROVIDERS: ATTEND Neuromusculoskeletal Medicine & OMM
DX: E87.0 Hyperosmolality and hypernatremia (principal); N39.0 Urinary tract infection, site not specified

== ENCOUNTER → 2021-05-10 | Outpatient (REF) | payer MEDICARE ==
[2021-05-10 08:49] LABS: HEMATOCRIT 54.5 % (42.0-52.0); HEMOGLOBIN 16.7 g/dl (13.5-17.5); MEAN CORPUSCULAR HGB CONC 30.6 g/dl (32.0-36.5); RED BLOOD COUNT 5.56 10^6/uL (4.30-6.10); WHITE BLOOD COUNT 8.7 10^3/uL (4.0-10.0)
[2021-05-10 08:50] LABS: PLATELET COUNT, AUTOMATED 95 10^3/uL (150-450)
[2021-05-10 09:26] LABS: CREATININE FOR GFR 1.62 MG/DL (0.70-1.30); GLOMERULAR FILTRATION RATE 43.9 (>35); POTASSIUM SERUM 4.3 MEQ/L (3.5-5.1)
== END ==
LOC: SKLAB8 07:00
PROVIDERS: ATTEND Neuromusculoskeletal Medicine & OMM
DX: Z79.899 Other long term (current) drug therapy (principal)

== ENCOUNTER → 2021-05-11 | Outpatient (REF) | payer MEDICARE ==
[2021-05-11 09:42] LABS: HEMATOCRIT 48.1 % (42.0-52.0); MEAN CORPUSCULAR HEMOGLOBIN 29.7 pg (27.0-33.0); MEAN CORPUSCULAR HGB CONC 30.4 g/dl (32.0-36.5); RED BLOOD COUNT 4.91 10^6/uL (4.30-6.10); WHITE BLOOD COUNT 7.2 10^3/uL (4.0-10.0)
[2021-05-11 09:44] LABS: HEMOGLOBIN 14.6 g/dl (13.5-17.5); PLATELET COUNT, AUTOMATED 95 10^3/uL (150-450)
[2021-05-11 10:18] LABS: ALBUMIN 2.9 GM/DL (3.2-5.2); BILIRUBIN,TOTAL 2.8 MG/DL (0.2-1.0); CREATININE FOR GFR 1.39 MG/DL (0.70-1.30); GLOMERULAR FILTRATION RATE 52.3 (>35); POTASSIUM SERUM 3.4 MEQ/L (3.5-5.1); TOTAL PROTEIN 6.6 GM/DL (6.4-8.2)
== END ==
LOC: SKLAB8 07:00
PROVIDERS: ATTEND Neuromusculoskeletal Medicine & OMM
DX: E11.9 Type 2 diabetes mellitus without complications (principal); Z79.899 Other long term (current) drug therapy

== ENCOUNTER → 2021-05-13 | Outpatient (REF) | payer MEDICARE ==
[2021-05-13 11:01] LABS: HEMATOCRIT 49.8 % (42.0-52.0); HEMOGLOBIN 15.1 g/dl (13.5-17.5); MEAN CORPUSCULAR HEMOGLOBIN 29.9 pg (27.0-33.0); MEAN CORPUSCULAR HGB CONC 30.3 g/dl (32.0-36.5); MEAN CORPUSCULAR VOLUME 98.6 fl (80.0-96.0); PLATELET COUNT, AUTOMATED 104 10^3/uL (150-450); RED BLOOD COUNT 5.05 10^6/uL (4.30-6.10); WHITE BLOOD COUNT 8.1 10^3/uL (4.0-10.0)
[2021-05-13 11:52] LABS: CALCIUM LEVEL 9.2 MG/DL (8.8-10.2); CREATININE FOR GFR 1.68 MG/DL (0.70-1.30); GLOMERULAR FILTRATION RATE 42.1 (>35); POTASSIUM SERUM 3.8 MEQ/L (3.5-5.1)
== END ==
LOC: SKLAB8 07:00
PROVIDERS: ATTEND Neuromusculoskeletal Medicine & OMM
DX: E11.9 Type 2 diabetes mellitus without complications (principal); Z79.899 Other long term (current) drug therapy

== ENCOUNTER → 2021-05-14 | Outpatient (REF) | payer MEDICARE | LOC: SKLAB8 11:57 | PROVIDERS: ATTEND Neuromusculoskeletal Medicine & OMM | DX: Z53.8 Procedure and treatment not carried out for other reasons (principal) ==

== ENCOUNTER → 2021-05-14 | Outpatient (CLI) | payer MEDICARE ==
--- NOTE | 2021-05-14 13:14 | REP ---
INDICATION: DIMINISED LUNG SOUNDS HAS CT FIRST COMPARISON: 05/12/2020 TECHNIQUE: PA and lateral. FINDINGS: Mediastinum and cardiac silhouette are normal. Lung thibodeaux demonstrate diffuse chronic interstitial changes. Lateral view cannot exclude superimposed lower lobe infiltrate and correlation is required. No effusion. No pneumothorax. IMPRESSION: Cannot exclude superimposed lower lobe infiltrate. <Electronically signed by Tucker Granado > 05/14/21 1325
--- NOTE | 2021-05-14 13:21 | REPVR ---
PROCEDURE INFORMATION: Exam: CT Head Without Contrast Exam date and time: 05/14/2021 12:59 PM Age: 80 years old Clinical indication: Injury or trauma; Blunt trauma (contusions or hematomas); Injury details: Follow up fall; Additional info: Follow up fall PT needs chest xray after CT TECHNIQUE: Imaging protocol: Computed tomography of the head without contrast. Axial and coronal reformatted images were created and reviewed. Radiation optimization: All CT scans at this facility use at least one of these dose optimization techniques: automated exposure control; mA and/or kV adjustment per patient size (includes targeted exams where dose is matched to clinical indication); or iterative reconstruction. COMPARISON: CT Head without contrast 05/06/2021 11:14 AM FINDINGS: Brain: Patchy and confluent areas of hypoattenuation in the periventricular and subcortical white matter, consistent with chronic small vessel ischemic disease. Focal, well-circumscribed hypodensity in the left caudate head, consistent with chronic lacunar infarction. No CT evidence of acute intracranial hemorrhage or acute territorial infarction. No significant mass effect or midline shift. Basal cisterns patent. Cerebral ventricles: Prominence of the cortical sulci, cisterns and ventricular system, consistent with cerebral and cerebellar volume loss. Paranasal sinuses: Minimal ethmoid mucosal thickening. No fluid levels. Mastoid air cells: Grossly unremarkable. 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 Bones/joints: No acute osseous abnormality. Soft tissues: Grossly unremarkable. IMPRESSION: 1. No CT evidence of acute intracranial pathology. 2. Additional findings, as above. Electronically signed by: Jesus Wooten On 05/14/2021 13:20:59 PM
== END ==
LOC: M RAD 12:40
PROVIDERS: ATTEND Nurse Practitioner
DX: R29.6 Repeated falls (principal); R91.8 Other nonspecific abnormal finding of lung field

== ENCOUNTER → 2021-05-14 | Outpatient (REF) | payer MEDICARE ==
[2021-05-14 10:28] LABS: CALCIUM LEVEL 9.2 MG/DL (8.8-10.2); CREATININE FOR GFR 1.49 MG/DL (0.70-1.30); GLOMERULAR FILTRATION RATE 48.3 (>35); POTASSIUM SERUM 4.1 MEQ/L (3.5-5.1)
[2021-05-14 14:40] LABS: HEMATOCRIT 47.2 % (42.0-52.0); HEMOGLOBIN 14.6 g/dl (13.5-17.5); MEAN CORPUSCULAR HEMOGLOBIN 29.7 pg (27.0-33.0); MEAN CORPUSCULAR HGB CONC 30.9 g/dl (32.0-36.5); MEAN CORPUSCULAR VOLUME 96.1 fl (80.0-96.0); PLATELET COUNT, AUTOMATED 114 10^3/uL (150-450); RED BLOOD COUNT 4.91 10^6/uL (4.30-6.10); WHITE BLOOD COUNT 7.1 10^3/uL (4.0-10.0)
== END ==
LOC: SKLAB8 07:00
PROVIDERS: ATTEND Neuromusculoskeletal Medicine & OMM
DX: E87.0 Hyperosmolality and hypernatremia (principal)

== ENCOUNTER → 2021-05-15 | Outpatient (REF) | payer MEDICARE ==
[2021-05-15 11:01] LABS: CREATININE FOR GFR 1.48 MG/DL (0.70-1.30); GLOMERULAR FILTRATION RATE 48.7 (>35); POTASSIUM SERUM 3.7 MEQ/L (3.5-5.1)
[2021-05-15 13:27] LABS: HEMATOCRIT 49.6 % (42.0-52.0); HEMOGLOBIN 15.1 g/dl (13.5-17.5); MEAN CORPUSCULAR HEMOGLOBIN 30.1 pg (27.0-33.0); MEAN CORPUSCULAR HGB CONC 30.4 g/dl (32.0-36.5); MEAN CORPUSCULAR VOLUME 98.8 fl (80.0-96.0); PLATELET COUNT, AUTOMATED 114 10^3/uL (150-450); RED BLOOD COUNT 5.02 10^6/uL (4.30-6.10)
== END ==
LOC: SKLAB8 07:00
PROVIDERS: ATTEND Neuromusculoskeletal Medicine & OMM
DX: E87.0 Hyperosmolality and hypernatremia (principal)

== ENCOUNTER → 2021-05-15 | Outpatient (REF) | payer MEDICARE | LOC: SKLAB8 08:28 | PROVIDERS: ATTEND Neuromusculoskeletal Medicine & OMM | DX: Z20.822 Contact with and (suspected) exposure to COVID-19 (principal) ==

== ENCOUNTER → 2021-05-16 | Outpatient (REF) | payer MEDICARE ==
[2021-05-16 10:00] LABS: HEMOGLOBIN 15.2 g/dl (13.5-17.5); MEAN CORPUSCULAR HEMOGLOBIN 29.5 pg (27.0-33.0); MEAN CORPUSCULAR HGB CONC 29.8 g/dl (32.0-36.5); PLATELET COUNT, AUTOMATED 121 10^3/uL (150-450); RED BLOOD COUNT 5.15 10^6/uL (4.30-6.10); WHITE BLOOD COUNT 7.1 10^3/uL (4.0-10.0)
[2021-05-16 10:22] LABS: CALCIUM LEVEL 8.7 MG/DL (8.8-10.2); CREATININE FOR GFR 1.71 MG/DL (0.70-1.30); GLOMERULAR FILTRATION RATE 41.2 (>35); POTASSIUM SERUM 3.9 MEQ/L (3.5-5.1)
== END ==
LOC: SKLAB8 07:00
PROVIDERS: ATTEND Neuromusculoskeletal Medicine & OMM
DX: E87.0 Hyperosmolality and hypernatremia (principal)

== ENCOUNTER → 2021-05-17 | Outpatient (REF) | payer MEDICARE ==
[2021-05-17 13:12] LABS: HEMOGLOBIN 14.9 g/dl (13.5-17.5); MEAN CORPUSCULAR HEMOGLOBIN 29.8 pg (27.0-33.0); MEAN CORPUSCULAR HGB CONC 30.4 g/dl (32.0-36.5); PLATELET COUNT, AUTOMATED 127 10^3/uL (150-450); WHITE BLOOD COUNT 6.6 10^3/uL (4.0-10.0)
[2021-05-17 13:36] LABS: CALCIUM LEVEL 8.8 MG/DL (8.8-10.2); CREATININE FOR GFR 1.8 MG/DL (0.70-1.30); GLOMERULAR FILTRATION RATE 38.8 (>35); POTASSIUM SERUM 3.9 MEQ/L (3.5-5.1)
== END ==
LOC: SKLAB8 10:30
PROVIDERS: ATTEND Neuromusculoskeletal Medicine & OMM
DX: E87.0 Hyperosmolality and hypernatremia (principal)

== ENCOUNTER → 2021-05-18 | Outpatient (REF) | payer MEDICARE ==
[2021-05-18 14:36] LABS: HEMATOCRIT 52.9 % (42.0-52.0); HEMOGLOBIN 15.8 g/dl (13.5-17.5); MEAN CORPUSCULAR HEMOGLOBIN 29.6 pg (27.0-33.0); MEAN CORPUSCULAR HGB CONC 29.9 g/dl (32.0-36.5); MEAN CORPUSCULAR VOLUME 99.2 fl (80.0-96.0); PLATELET COUNT, AUTOMATED 136 10^3/uL (150-450); RED BLOOD COUNT 5.33 10^6/uL (4.30-6.10); WHITE BLOOD COUNT 7.8 10^3/uL (4.0-10.0)
[2021-05-18 14:57] LABS: CALCIUM LEVEL 9.2 MG/DL (8.8-10.2); CREATININE FOR GFR 1.91 MG/DL (0.70-1.30); GLOMERULAR FILTRATION RATE 36.3 (>35); POTASSIUM SERUM 4.2 MEQ/L (3.5-5.1)
== END ==
LOC: SKLAB8 07:00
PROVIDERS: ATTEND Neuromusculoskeletal Medicine & OMM
DX: E87.0 Hyperosmolality and hypernatremia (principal)

== ENCOUNTER → 2021-05-19 | Outpatient (REF) | payer MEDICARE ==
[2021-05-19 11:16] LABS: CREATININE FOR GFR 1.57 MG/DL (0.70-1.30); GLOMERULAR FILTRATION RATE 45.5 (>35); POTASSIUM SERUM 4.4 MEQ/L (3.5-5.1)
== END ==
LOC: SKLAB8 08:58
PROVIDERS: ATTEND Neuromusculoskeletal Medicine & OMM
DX: E87.0 Hyperosmolality and hypernatremia (principal)

== ENCOUNTER → 2021-05-20 | Outpatient (REF) | payer MEDICARE ==
[2021-05-20 08:08] LABS: HEMATOCRIT 54.1 % (42.0-52.0); HEMOGLOBIN 16.1 g/dl (13.5-17.5); MEAN CORPUSCULAR HEMOGLOBIN 29.9 pg (27.0-33.0); MEAN CORPUSCULAR HGB CONC 29.8 g/dl (32.0-36.5); MEAN CORPUSCULAR VOLUME 100.4 fl (80.0-96.0); PLATELET COUNT, AUTOMATED 135 10^3/uL (150-450); RED BLOOD COUNT 5.39 10^6/uL (4.30-6.10); WHITE BLOOD COUNT 9.1 10^3/uL (4.0-10.0)
[2021-05-20 14:52] LABS: CALCIUM LEVEL 9.4 MG/DL (8.8-10.2); CREATININE FOR GFR 1.6 MG/DL (0.70-1.30); GLOMERULAR FILTRATION RATE 44.5 (>35); POTASSIUM SERUM 3.9 MEQ/L (3.5-5.1)
== END ==
LOC: SKLAB8 07:00
PROVIDERS: ATTEND Neuromusculoskeletal Medicine & OMM
DX: E87.0 Hyperosmolality and hypernatremia (principal)

== ENCOUNTER → 2021-05-22 | Outpatient (REF) | payer MEDICARE | LOC: SKLAB8 14:19 | PROVIDERS: ATTEND Neuromusculoskeletal Medicine & OMM | DX: Z20.822 Contact with and (suspected) exposure to COVID-19 (principal) ==